=== PATIENT | male | born 1955 | race Caucasian/White ===

== ENCOUNTER 2017-07-07 13:56 | Inpatient (IN) | payer BC ==
[~2017-07-07] VITALS: Ht 180.3 cm; Wt 132.6 kg
[~2017-07-07 13:56] MED LIST: ASPI81TA81; ATOR10TA15 PO; COQ-100C5; COUM2.5T PO; COUM5TAB PO; FENO50TA PO; FURO1TAB60 PO; INSU100V2 SQ; MULT400T; SYNT112T PO; VALS1TAB70 PO; VITA100064 PO; WHEEMIS3
[2017-07-07 14:00] VITALS: BP 145/63; PULSE 67; RESP 20; TEMP 98.2; O2SAT 93
[2017-07-07] MEDS ORDERED: HYDR25TA5 PO (14:27)
[2017-07-07] MEDS ORDERED: JANT5TAB PO (14:27)
[2017-07-07] MEDS ORDERED: DOXA1TAB35 PO (14:27)
[2017-07-07] MEDS ORDERED: AMLO10TA2 PO (14:27)
[2017-07-07 15:53] LABS: AUTOMATED NEUTROPHIL # 6.8 TH/MM3 (1.8-7.7); BASOPHIL # 0.1 TH/MM3 (0-0.2); EOSINOPHIL # 0.1 TH/MM3 (0-0.4); HEMATOCRIT 31.6 % (39.0-51.0); HEMOGLOBIN 10.5 GM/DL (13.0-17.0); LYMPH % 8.9 % (9.0-44.0); LYMPHOCYTE # 0.7 TH/MM3 (1.0-4.8); MEAN CELL VOLUME 89.6 FL (80.0-100.0); MEAN CORPUSCULAR HEMOGLOBIN 29.7 PG (27.0-34.0); MEAN CORPUSCULAR HGB CONC 33.2 % (32.0-36.0); MEAN PLATELET VOLUME 9.3 FL (7.0-11.0); MONO % 6.4 % (0.0-8.0); MONOCYTE # 0.5 TH/MM3 (0-0.9); NEUT % 82.7 % (16.0-70.0); PLATELET COUNT 214 TH/MM3 (150-450); RED BLOOD COUNT 3.53 MIL/MM3 (4.50-5.90); RED CELL DISTRIBUTION WIDTH 14.6 % (11.6-17.2); WHITE BLOOD COUNT 8.3 TH/MM3 (4.0-11.0)
[2017-07-07 16:04] LABS: INTERNATIONAL NORMALIZED RATIO 2.1 RATIO; PROTHROMBIN TIME - PATIENT 21.2 SEC (9.8-11.6)
--- NOTE | 2017-07-07 16:04 | PD ---
HPI Chief Complaint: Medical Clearance Time Seen by Provider: 15:11 Travel History International Travel<30 days: No Contact w/Intl Traveler<30days: No Traveled to known affect area: No History of Present Illness HPI 61-year-old male the presents to the ED for evaluation of shortness of breath and weakness. Patient has had this for the past 4 days and is worsening. Per patient he does have a significant history of CKD with possible dialysis soon as well as a history of possible CHF. Per patient he also has a history of diabetes. He denies any chest pain but states having shortness of breath with exertion. Denies feeling like he is getting more fluid. He does take diuretics. He follows up with Dr. Mireles for nephrology. Per patient and family that are basically concerned about the kidney disease being worse. Has a history of MRSA. He also has a history of amputations to his feet. Per patient he does have a lesion to his left fourth toe which is slightly swollen and red. Per patient is followed up by his doctor for this. He follows with Dr. Gilmore for podiatry. He denies any trauma. He states that he has had a history of cardiac bypass. PFSH Past Medical History Hx Anticoagulant Therapy: Yes Arthritis: No Atrial Fibrillation: Yes Autoimmune Disease: No Blood Disorders: No Anxiety: No Depression: No Heart Rhythm Problems: Yes Cancer: Yes (THYROID-PARTIAL THYROIDECTOMY) Cardiac Catheterization: Yes Cardiovascular Problems: Yes High Cholesterol: Yes Chemotherapy: No Chest Pain: No Congestive Heart Failure: Yes Cerebrovascular Accident: Yes (TIA) Diabetes: Yes Patient Takes Glucophage: No Diminished Hearing: No Endocrine: Yes Gastrointestinal Disorders: Yes Glaucoma: No Genitourinary: No Hepatitis: No Hiatal Hernia: No Hypertension: Yes Immune Disorder: No Musculoskeletal: No Neurologic: Yes (FEET NEUROPATHY) Psychiatric: No Reproductive: No Respiratory: Yes (SLEEP APNEA) Myocardial Infarction: Yes (X 2) Radiation Therapy: No Sickle Cell Disease: No Sleep Apnea: Yes (CPAP) Thyroid Disease: Yes (PARTIAL THYROIDECTOMY-HYPOTHYROIDISM) PNEUMOCCOCAL Vaccine (Year): 2 Past Surgical History Abdominal Surgery: Yes ( LAP CHOLECYSTECTOMY) AICD: No Arteriovenous Shunt: No Cardiac Surgery: Yes (CABG-2006) Cholecystectomy: Yes (LAP 2001) Coronary Artery Bypass Graft: Yes (QUAD NOV 2006) Endocrine Surgery: Yes (THYROIDECTOMY 01/10) Eye Surgery: Yes Genitourinary Surgery: No Gynecologic Surgery: No Insulin Pump: No Joint Replacement: No Pacemaker: No Thoracic Surgery: Yes Tonsillectomy: Yes Other Surgery: Yes Social History Alcohol Use: No Tobacco Use: No (quit 1979) Substance Use: No Allergies-Medications (Allergen,Severity, Reaction): Coded Allergies: *MDRO Multi-Drug Resistant Organism (Verified Adverse Reaction, Unknown, ) MRSA (foot) - 07/2015 Reported Meds & Prescriptions Reported Meds & Active Scripts Active Reported Hydrochlorothiazide 25 Mg Tab 25 Mg PO DAILY Doxazosin (Doxazosin Mesylate) 2 Mg Tab 2 Mg PO BID Amlodipine (Amlodipine Besylate) 10 Mg Tab 10 Mg PO DAILY Jantoven (Warfarin) 5 Mg Tab 5 Mg PO DAILY Valsartan 320 Mg Tab 320 Mg PO DAILY Synthroid (Levothyroxine Sodium) 112 Mcg Tab 112 Mcg PO BID Aspir-81 (Aspirin) 81 Mg Tabdr Atorvastatin (Atorvastatin Calcium) 10 Mg Tab 10 Mg PO HS Coq-10 Tr (Coenzyme Q10 (Ubidecarenone)) 100 Mg Cap Mg DAILY Humulin R Inj (Insulin Human Regular) 1,000 Unit/10 Ml Vial 2-12 Units SQ ACHS Max dose at bedtime:( )units; sugars < 70 (0)units; sugars 150-199, (2)units; sugars 200-249,(4)units; sugars 250-299, (7)units; sugars 300-349,(10)units; sugars more than 349,(12)units. Lasix (Furosemide) 40 Mg Tab 40 Mg PO DAILY Tricor (Fenofibrate) 145 Mg Tab 145 Mg PO DAILY Takw with food. Vitamin D3 (Cholecalciferol) 1,000 Unit Tab 2,000 Units PO DAILY Review of Systems Except as stated in HPI: all other systems reviewed are Neg Physical Exam Narrative GENERAL: SKIN: Warm and dry. HEAD: Atraumatic. Normocephalic. EYES: Pupils equal and round. No scleral icterus. No injection or drainage. ENT: No nasal bleeding or discharge. Mucous membranes pink and moist. Tongue is midline. No uvula deviation. NECK: Trachea midline. No JVD. CARDIOVASCULAR: Regular rate and rhythm. No murmurs, S3, S4. RESPIRATORY: No accessory muscle use. Clear to auscultation. Breath sounds equal bilaterally. GASTROINTESTINAL: Abdomen soft, non-tender, nondistended. Hepatic and splenic margins not palpable. MUSCULOSKELETAL: Extremities without clubbing, cyanosis, or edema. No obvious deformities. Full range of motion of the upper and lower extremities bilaterally. 2+ pulses bilaterally. Patient does have multiple old amputations to the feet bilaterally with toes missing. Patient does have a area of erythema which is pinkish and blanchable and swelling of the fourth toe of the left foot. No obvious purulence found. NEUROLOGICAL: Awake and alert. No obvious cranial nerve deficits. Motor grossly within normal limits. Five out of 5 muscle strength in the arms and legs. Normal speech. PSYCHIATRIC: Appropriate mood and affect; insight and judgment normal. Data Data Last Documented VS Vital Signs Date Time Temp Pulse Resp B/P (MAP) Pulse Ox O2 Delivery O2 Flow Rate FiO2 07/07/17 17:18 64 21 151/67 (95) 97 Room Air 07/07/17 14:00 98.2 Orders Orders Electrocardiogram (07/07/17 15:26) Complete Blood Count With Diff (07/07/17 15:26) Comprehensive Metabolic Panel (07/07/17 15:26) Ckmb (Isoenzyme) Profile (07/07/17 15:26) Troponin I (07/07/17 15:26) B-Type Natriuretic Peptide (07/07/17 15:26) Prothrombin Time / Inr (Pt) (07/07/17 15:26) Act Partial Throm Time (Ptt) (07/07/17 15:26) Urinalysis - C+S If Indicated (07/07/17 15:26) Magnesium (Mg) (07/07/17 15:26) Thyroid Stimulating Hormone (07/07/17 15:26) Chest, Single Ap (07/07/17 15:26) Iv Access Insert/Monitor (07/07/17 15:26) Ecg Monitoring (07/07/17 15:26) Oximetry (07/07/17 15:26) Foot, Complete ([id number]) (07/07/17 ) CKMB (07/07/17 15:30) CKMB% (07/07/17 15:30) Furosemide Inj (Lasix Inj) (07/07/17 17:00) Vancomycin Inj (Vancomycin Inj) (07/07/17 17:00) Admit Order (Ed Use Only) (07/07/17 17:41) Consult Podiatry (07/07/17 ) Labs Laboratory Tests Test 07/07/17 15:30 07/07/17 15:58 White Blood Count 8.3 TH/MM3 Red Blood Count 3.53 MIL/MM3 Hemoglobin 10.5 GM/DL Hematocrit 31.6 % Mean Corpuscular Volume 89.6 FL Mean Corpuscular Hemoglobin 29.7 PG Mean Corpuscular Hemoglobin Concent 33.2 % Red Cell Distribution Width 14.6 % Platelet Count 214 TH/MM3 Mean Platelet Volume 9.3 FL Neutrophils (%) (Auto) 82.7 % Lymphocytes (%) (Auto) 8.9 % Monocytes (%) (Auto) 6.4 % Eosinophils (%) (Auto) 1.0 % Basophils (%) (Auto) 1.0 % Neutrophils # (Auto) 6.8 TH/MM3 Lymphocytes # (Auto) 0.7 TH/MM3 Monocytes # (Auto) 0.5 TH/MM3 Eosinophils # (Auto) 0.1 TH/MM3 Basophils # (Auto) 0.1 TH/MM3 CBC Comment DIFF FINAL Differential Comment Prothrombin Time 21.2 SEC Prothromb Time International Ratio 2.1 RATIO Activated Partial Thromboplast Time 35.2 SEC Blood Urea Nitrogen 52 MG/DL Creatinine 3.04 MG/DL Random Glucose 124 MG/DL Total Protein 6.9 GM/DL Albumin 3.2 GM/DL Calcium Level 8.6 MG/DL Magnesium Level 2.6 MG/DL Alkaline Phosphatase 100 U/L Aspartate Amino Transf (AST/SGOT) 33 U/L Alanine Aminotransferase (ALT/SGPT) 63 U/L Total Bilirubin 0.9 MG/DL Sodium Level 140 MEQ/L Potassium Level 4.2 MEQ/L Chloride Level 104 MEQ/L Carbon Dioxide Level 24.4 MEQ/L Anion Gap 12 MEQ/L Estimat Glomerular Filtration Rate 21 ML/MIN Total Creatine Kinase 320 U/L Creatine Kinase MB 2.5 NG/ML Creatine Kinase MB % 0.8 % Troponin I LESS THAN 0.02 NG/ML B-Type Natriuretic Peptide 78 PG/ML Thyroid Stimulating Hormone 3rd Gen 0.498 uIU/ML Urine Color YELLOW Urine Turbidity CLEAR Urine pH 5.0 Urine Specific [place] 1.011 Urine Protein TRACE mg/dL Urine Glucose (UA) NEG mg/dL Urine Ketones NEG mg/dL Urine Occult Blood NEG Urine Nitrite NEG Urine Bilirubin NEG Urine Urobilinogen LESS THAN 2.0 MG/DL Urine Leukocyte Esterase NEG Urine RBC 1 /hpf Urine WBC 1 /hpf Urine Squamous Epithelial Cells <1 /hpf Urine Hyaline Casts 3 /lpf Urine Mucus FEW /lpf Microscopic Urinalysis Comment CULT NOT INDICATED MDM Medical Decision Making Medical Screen Exam Complete: Yes Emergency Medical Condition: Yes Medical Record Reviewed: Yes Interpretation(s) EKG shows sinus rhythm with no sign of acute ischemia and arrhythmia read by me and attending. Troponin and CK-MB negative. BNP within normal limits. CBC & BMP Diagram 07/07/17 15:30 Total Protein 6.9, Albumin 3.2 L, Calcium Level 8.6, Magnesium Level 2.6 H, Alkaline Phosphatase 100, Aspartate Amino Transf (AST/SGOT) 33, Alanine Aminotransferase (ALT/SGPT) 63, Total Bilirubin 0.9 Last Impressions Chest X-Ray 07/07/17 1526 Signed Impressions: CONCLUSION: Widespread airspace opacities with cardiomegaly suggesting mild congestive hear t failure in the proper clinical setting. Foot X-Ray 07/07/17 0000 Signed Impressions: CONCLUSION: 1. Suspected acute osteomyelitis distally of the fourth toe distal phalanx. 2. Sclerosis and cortical thickening of the third and fourth metatarsals and a lso the fifth metatarsal remnant, nonspecific but chronic osteomyelitis is not excludable. No acute-appearing destruction seen of these bones. 3. Partial amputation of the second and third toes again noted without evidenc e of osteomyelitis or destruction of the phalangeal remnant. 4. Chronic Lisfranc arthropathy. Differential Diagnosis CHF exacerbation versus kidney disease versus shortness of breath and exertion versus ACS versus diabetic infection Narrative Course 61-year-old male the presents to the ED for evaluation of shortness of breath with exertion and fatigue. Patient was properly examined and was found to have signs and symptoms of unclear etiology. Labs and imaging order. Labs and imaging showed what appears to be mild CHF as well as osteomyelitis of the left fourth toe. Case was discussed with my attending who recommends admission. This was discussed with the patient who agrees with this. Patient was given Lasix as well as vancomycin to cover for infection. 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 Gilmore's partner who states that unfortunately did not come to this hospital and patient can be seen by or podiatry local telephone operator. Case was discussed with Dr. Georgie for [facility] who agrees to admission as inpatient secondary to the osteomyelitis. Patient and family agree with plan. Diagnosis Primary Impression: CHF exacerbation Qualified Codes: I50.9 - Heart failure, unspecified Additional Impression: Osteomyelitis Qualified Codes: M86.172 - Other acute osteomyelitis, left ankle and foot Admitting Information Admitting Physician Requests: Admit Baldemar Dillard Jul 07, 2017 16:04
[2017-07-07 16:13] LABS: ALBUMIN 3.2 GM/DL (3.4-5.0); ALT (GPT) 63 U/L (12-78); AST (GOT) 33 U/L (15-37); BICARBONATE 24.4 MEQ/L (21.0-32.0); BLOOD UREA NITROGEN 52 MG/DL (7-18); CALCIUM 8.6 MG/DL (8.5-10.1); CHLORIDE 104 MEQ/L (98-107); CREATININE 3.04 MG/DL (0.60-1.30); GLOMERULAR FILTRATION RATE 21 ML/MIN (>89); GLUCOSE,RANDOM 124 MG/DL (74-106); MAGNESIUM 2.6 MG/DL (1.5-2.5); SODIUM (NA) 140 MEQ/L (136-145)
--- NOTE | 2017-07-07 16:16 | RADRPT ---
EXAM DATE: 07/07/2017 4:13 PM EDT AGE/SEX: 61 years / Male INDICATIONS: Shortness of breath and right shoulder pain. CLINICAL DATA: This is the patient's initial encounter. Patient reports that signs and symptoms have been present for 4 - 6 days and indicates a pain score of 6/10. MEDICAL/SURGICAL HISTORY: Hypertension. Chronic obstructive pulmonary disease. AFIB. CABG. COMPARISON: [facility] [place], CHEST SINGLE AP, 06/05/2015. . FINDINGS: Patchy diffuse airspace opacities are seen of both lungs. No large effusion demonstrated. No pneumoth orax. There is mild cardiomegaly. Patient has had previous median sternotomy. CONCLUSION: Widespread airspace opacities with cardiomegaly suggesting mild congestive heart failure in the prope r clinical setting. Electronically signed by: Deon Rasmussen MD 07/07/2017 4:15 PM EDT
[2017-07-07 16:22] LABS: ALKALINE PHOSPHATASE 100 U/L (45-117); TOTAL BILIRUBIN ADULT 0.9 MG/DL (0.2-1.0); TOTAL PROTEIN 6.9 GM/DL (6.4-8.2); TROPONIN I LESS THAN 0.02 NG/ML (0.02-0.05)
[2017-07-07 16:24] LABS: BILIRUBIN, URINE NEG (NEG); BLOOD, URINE NEG (NEG); GLUCOSE,URINE NEG (NEG); HYALINE CAST, URINE 3 /lpf (RARE); KETONE, URINE NEG (NEG); MUCUS URINE FEW /lpf (OCC); NITRITE,URINE NEG (NEG); SQUAMOUS EPITHELIAL CELL URINE <1 /hpf (0-5); URINE COLOR YELLOW (YELLW/STRAW); URINE LEUKOCYTE ESTERASE NEG (NEG)
--- NOTE | 2017-07-07 16:43 | RADRPT ---
EXAM DATE: 07/07/2017 4:32 PM EDT AGE/SEX: 61 years / Male INDICATIONS: Left foot pain. Patient states he has an ulcer. CLINICAL DATA: This is the patient's initial encounter. Patient reports that signs and symptoms have been present for 3 weeks and indicates a pain score of 5/10. MEDICAL/SURGICAL HISTORY: None. . Multiple toe amputations on left foot. COMPARISON: . FINDINGS: Since the 2011 comparison, little toe has been amputated at the level of the fifth metatarsal midshaf t. I don't clearly see an acute bony destructive process here but there is quite a bit of sclerosis a nd cortical thickening of the fifth metatarsal remnant. Similar but slightly milder findings involve the fourth metatarsal and proximal portions of the third metatarsal. Forefoot predominant soft tissue swelling noted. 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 Remote partial amputation of the second and third toes. Marked osteopenia and probable early destruction distal tuft of the fourth toe distal phalanx. CONCLUSION: 1. Suspected acute osteomyelitis distally of the fourth toe distal phalanx. 2. Sclerosis and cortical thickening of the third and fourth metatarsals and also the fifth metatars al remnant, nonspecific but chronic osteomyelitis is not excludable. No acute-appearing destruction s een of these bones. 3. Partial amputation of the second and third toes again noted without evidence of osteomyelitis or destruction of the phalangeal remnant. 4. Chronic Lisfranc arthropathy. Electronically signed by: Deon Rasmussen MD 07/07/2017 4:42 PM EDT
[2017-07-07] MEDS ORDERED: FUROSEMIDE 40 MG/4 ML VIAL IV PUSH ONE (17:00)
[2017-07-07] MEDS ORDERED: VANCOMYCIN INJ 1,000 MG in SODIUM CHLOR 0.9% 250 ML INJ 250 ML IV ONE (17:00)
[2017-07-07 17:18] VITALS: BP 151/67; PULSE 64; RESP 21; O2SAT 97
--- NOTE | 2017-07-07 17:52 | HHI.HP ---
[facility] Service [facility] Primary Care Physician Garth Eisenberg M.D. Admission Diagnosis acute CHF exacerbation, left foot 4th toe oesteomyelitis Diagnoses: (1) SOB (shortness of breath) on exertion Diagnosis: Principal (2) CHF exacerbation (3) Type 2 diabetes mellitus with foot ulcer (4) CKD (chronic kidney disease) Chief Complaint: SOB with activity Travel History International Travel<30 Days: No Contact w/Intl Traveler <30 Da: No Traveled to Known Affected Are: No History of Present Illness 61-year-old male with past medical history of CHF, DM, CKD, CAD, neuropathy, MRSA with multiple toe amputations who presents to the emergency department with complaints of shortness of breath. Patient reports shortness of breath began 4 days ago, has noticed that he is increased shortness of breath with exertion, none at rest. Movement and activity will make shortness of breath worse, rest will improve shortness of breath. He denies any orthopnea, uses BiPAP at bedtime for sleep apnea. He follows up with his geotechnical laboratory technician Dr. Mai, was due to see him in several weeks after completing labs. He denies any increase swelling over legs, reports that his left leg is usually more swollen than the right, this is been chronic since his bypass surgery. He reports being compliant with his medications, has not noticed any increased in weight. He does endorse a cough which has been nonproductive, noticed that cough began Sunday. He denies any fevers, chills, nausea, vomiting, diarrhea , constipation, chest pain, dizziness or lightheadedness. Patient also reports that about 3 weeks ago he was out of town and went outside without any issues and subsequently developed a blister to the left fourth toe. He reports that he follows up with his materials tech Dr. Gilmore, has not seen him in several months. He denies any pain or discomfort, reports that he suffers from chronic neuropathy. Has not noticed any increased warmth, or redness around left foot or toes. Patient does report a history of MRSA with toe amputations in the past but denies any past medical history of osteomyelitis. Review of Systems Except as stated in HPI: all other systems reviewed are Neg Past Family Social History Past Medical History Hypertension Diabetes CHF (geotechnical laboratory technician Dr. Mai) Coronary artery disease Chronic kidney disease followed by Dr. Mireles Thyroid cancer TIA Neuropathy Sleep apnea MRSA of toes (materials tech Dr. Gilmore) Past Surgical History Bilateral toe amputations CABG Partial thyroidectomy Cholecystectomy Reported Medications Reported Meds & Active Scripts Active Reported Doxazosin (Doxazosin Mesylate) 2 Mg Tab 2 Mg PO BID Amlodipine (Amlodipine Besylate) 10 Mg Tab 10 Mg PO DAILY Jantoven (Warfarin) 5 Mg Tab 5 Mg PO DAILY Synthroid (Levothyroxine Sodium) 112 Mcg Tab 112 Mcg PO BID Aspir-81 (Aspirin) 81 Mg Tabdr Atorvastatin (Atorvastatin Calcium) 10 Mg Tab 10 Mg PO HS Coq-10 Tr (Coenzyme Q10 (Ubidecarenone)) 100 Mg Cap Mg DAILY Humulin R Inj (Insulin Human Regular) 1,000 Unit/10 Ml Vial 2-12 Units SQ ACHS Max dose at bedtime:( )units; sugars < 70 (0)units; sugars 150-199, (2)units; sugars 200-249,(4)units; sugars 250-299, (7)units; sugars 300-349,(10)units; sugars more than 349,(12)units. Lasix (Furosemide) 40 Mg Tab 40 Mg PO DAILY Tricor (Fenofibrate) 145 Mg Tab 145 Mg PO DAILY Takw with food. Vitamin D3 (Cholecalciferol) 1,000 Unit Tab 2,000 Units PO DAILY Allergies: Coded Allergies: *MDRO Multi-Drug Resistant Organism (Verified Adverse Reaction, Unknown, ) MRSA (foot) - 07/2015 Family History Father: Prostate cancer Mother: [place] and diabetes Brother: Aneurysm Social History Tobacco: Socially Alcohol use: Quit 30 years ago Illicit drug use: Denies Physical Exam Vital Signs Vital Signs Date Time Temp Pulse Resp B/P (MAP) Pulse Ox O2 Delivery O2 Flow Rate FiO2 07/07/17 17:18 64 21 151/67 (95) 97 Room Air 07/07/17 14:00 98.2 67 20 145/63 (90) 93 Physical Exam GENERAL: This well-developed patient, obese male, SOB with moving in bed. SKIN: No rashes, ecchymoses. Cool and dry. Right foot partial amputation of second toe, total amputation of fifth toe. Left foot with DIT of great toe, amputation of 2nd, 3rd, and fifth toe. Forth toe with noted wound about 1cm in diameter. No drainage noted, no visible erythema, or warmth. HEAD: Atraumatic. Normocephalic. EYES: Pupils equal round. Extraocular motions intact. No scleral icterus. No injection or drainage. ENT: Nose without bleeding, purulent drainage. Throat without erythema. Airway patent. NECK: Trachea midline. No JVD. Supple. CARDIOVASCULAR: Regular rate and rhythm without murmurs, gallops, or rubs. RESPIRATORY: Clear to auscultation, diminished at bases likely due to body habitus as well. Breath sounds equal bilaterally. No wheezes, rales, or rhonchi. Dyspneic with movement in bed. GASTROINTESTINAL: Abdomen soft, non-tender, obese and round. No guarding. + bowel sounds MUSCULOSKELETAL: Extremities without clubbing, cyanosis, or edema. No joint tenderness, effusion. No calf tenderness. Swelling of left toot and toe +1 NEUROLOGICAL: Awake and alert, oriented x3. Cranial nerves II through XII grossly intact. Motor and sensory grossly within normal limits. Five out of 5 muscle strength in all muscle groups. Normal speech. Laboratory Laboratory Tests Test 07/07/17 15:30 07/07/17 15:58 White Blood Count 8.3 Red Blood Count 3.53 Hemoglobin 10.5 Hematocrit 31.6 Mean Corpuscular Volume 89.6 Mean Corpuscular Hemoglobin 29.7 Mean Corpuscular Hemoglobin Concent 33.2 Red Cell Distribution Width 14.6 Platelet Count 214 Mean Platelet Volume 9.3 Neutrophils (%) (Auto) 82.7 Lymphocytes (%) (Auto) 8.9 Monocytes (%) (Auto) 6.4 Eosinophils (%) (Auto) 1.0 Basophils (%) (Auto) 1.0 Neutrophils # (Auto) 6.8 Lymphocytes # (Auto) 0.7 Monocytes # (Auto) 0.5 Eosinophils # (Auto) 0.1 Basophils # (Auto) 0.1 CBC Comment DIFF FINAL Differential Comment Prothrombin Time 21.2 Prothromb Time International Ratio 2.1 Activated Partial Thromboplast Time 35.2 Blood Urea Nitrogen 52 Creatinine 3.04 Random Glucose 124 Total Protein 6.9 Albumin 3.2 Calcium Level 8.6 Magnesium Level 2.6 Alkaline Phosphatase 100 Aspartate Amino Transf (AST/SGOT) 33 Alanine Aminotransferase (ALT/SGPT) 63 Total Bilirubin 0.9 Sodium Level 140 Potassium Level 4.2 Chloride Level 104 Carbon Dioxide Level 24.4 Anion Gap 12 Estimat Glomerular Filtration Rate 21 Total Creatine Kinase 320 Creatine Kinase MB 2.5 Creatine Kinase MB % 0.8 Troponin I LESS THAN 0.02 B-Type Natriuretic Peptide 78 Thyroid Stimulating Hormone 3rd Gen 0.498 Urine Color YELLOW Urine Turbidity CLEAR Urine pH 5.0 Urine Specific [place] 1.011 Urine Protein TRACE Urine Glucose (UA) NEG Urine Ketones NEG Urine Occult Blood NEG Urine Nitrite NEG Urine Bilirubin NEG Urine Urobilinogen LESS THAN 2.0 Urine Leukocyte Esterase NEG Urine RBC 1 Urine WBC 1 Urine Squamous Epithelial Cells <1 Urine Hyaline Casts 3 Urine Mucus FEW Microscopic Urinalysis Comment CULT NOT INDICATED Result Diagram: 07/07/17 1530 07/07/17 1530 Imaging Last Impressions Chest X-Ray 07/07/17 1526 Signed Impressions: CONCLUSION: Widespread airspace opacities with cardiomegaly suggesting mild congestive hear t failure in the proper clinical setting. Foot X-Ray 07/07/17 0000 Signed Impressions: CONCLUSION: 1. Suspected acute osteomyelitis distally of the fourth toe distal phalanx. 2. Sclerosis and cortical thickening of the third and fourth metatarsals and a lso the fifth metatarsal remnant, nonspecific but chronic osteomyelitis is not excludable. No acute-appearing destruction seen of these bones. 3. Partial amputation of the second and third toes again noted without evidenc e of osteomyelitis or destruction of the phalangeal remnant. 4. Chronic Lisfranc arthropathy. Caprini VTE Risk Assessment Caprini VTE Risk Assessment: Mod/High Risk (score >= 2) Caprini Risk Assessment Model Point Value = 1 Point Value = 2 Point Value = 3 Point Value = 5 Age 41-60 Minor surgery BMI > 25 kg/m2 Swollen legs Varicose veins or History of unexplained or recurrent spontaneous Oral contraceptives or hormone replacement Sepsis (< 1 month) Serious lung disease, including pneumonia (< 1 month) Abnormal pulmonary function Acute myocardial infarction Congestive heart failure (< 1 month) History of inflammatory bowel disease Medical patient at bed rest Age 61-74 Arthroscopic surgery Major open surgery (> 45 min) Laparoscopic surgery (> 45 min) Malignancy Confined to bed (> 72 hours) Immobilizing plaster cast Central venous access Age >= 75 History of VTE Family history of VTE Factor V Leiden Prothrombin [id number] Lupus anticoagulant Anticardiolipin antibodies Elevated serum homocysteine Heparin-induced thrombocytopenia Other congenital or acquired thrombophilia Stroke (< 1 month) Elective arthroplasty Hip, pelvis, or leg fracture Acute spinal cord injury (< 1 month) Prophylaxis Regimen Total Risk Factor Score Risk Level Prophylaxis Regimen 0-1 Low Early ambulation 2 Moderate Order ONE of the following: *Sequential Compression Device (SCD) *Heparin 5000 units SQ BID 3-4 Higher Order ONE of the following medications: *Heparin 5000 units SQ TID *Enoxaparin/Lovenox 40 mg SQ daily (WT < 150 kg, CrCl > 30 mL/min) *Enoxaparin/Lovenox 30 mg SQ daily (WT < 150 kg, CrCl > 10-29 mL/min) *Enoxaparin/Lovenox 30 mg SQ BID (WT < 150 kg, CrCl > 30 mL/min) AND/OR *Sequential Compression Device (SCD) 5 or more Highest Order ONE of the following medications: *Heparin 5000 units SQ TID (Preferred with Epidurals) *Enoxaparin/Lovenox 40 mg SQ daily (WT < 150 kg, CrCl > 30 mL/min) *Enoxaparin/Lovenox 30 mg SQ daily (WT < 150 kg, CrCl > 10-29 mL/min) *Enoxaparin/Lovenox 30 mg SQ BID (WT < 150 kg, CrCl > 30 mL/min) AND *Sequential Compression Device (SCD) Assessment and Plan Assessment and Plan 61-year-old male with past medical history of CHF, DM, CKD, CAD, neuropathy, MRSA with multiple toe amputations who presents to the emergency department with complaints of shortness of breath. Patient reports shortness of breath began 4 days ago, has noticed that he is increased shortness of breath with exertion, + nonproductive cough. CHF exacerbation - Chest x-ray reviewed, opacities throughout suggestive of CHF - BNP 78, EKG with normal sinus rhythm -Deceived Lasix IV 40 mg IV while in the ER -Cardiac diet, continue diuresis with IV Lasix, monitor electrolyte status -Check 2D echo -O2 via nasal cannula to keep sats greater than 92% Diabetic foot ulcers Possible osteomyelitis of left foot toe -Left foot x-ray reviewed, suspected acute osteomyelitis on distal fourth toe , sclerosis and cortical thickening of the third and fourth metatarsals as well as remnant fifth metatarsal. Seen partial amputation of second and third toes with no evidence of osteomyelitis, chronic Lisfranc arthropathy - Afebrile with no leukocytosis, neutrophils 82.7 -Patient received IV vancomycin while in the ER, continue for the moment, consult pharmacy for dosing. -Consult podiatry for further recommendations, appreciate input. DM - ADA diet, continue home dose Humulin R-500 ( spoke with pharmacist, there is an interchange available in house, will need ISS he utilizes at home to for pharmacy to dose) CKD- baseline creatinine around 1.9-2.6 - Creatinine around baseline, 3.04, possibly increased due to CHF exacerbation -Continue monitor renal function closely in light of starting IV vancomycin -Consult nephrology only if needed, his cotton farmer is Dr. Mireles. Hypertension Hyperlipidemia Hx CABG -Continue Norvasc 10 mg, Cardura 2 mg twice daily, TriCor 145 mg daily, Lipitor 10 mg at bedtime, low-dose aspirin and Coumadin. -INR on admission 2.1, continue Coumadin 2 mg daily, daily INRs, consult pharmacy to assist with dosing DVT prophylaxis-Coumadin Discussed Condition With Discussed with patient and at bedside, both agree with plan. Physician Certification 2 Midnight Certification Type: Admission for Inpatient Services Order for Inpatient Services The services are ordered in accordance with Medicare regulations or non- Medicare payer requirements, as applicable. In the case of services not specified as inpatient-only, they are appropriately provided as inpatient services in accordance with the 2-midnight benchmark. Estimated LOS (days): 3 days is the estimated time the patient will need to remain in the hospital, assuming treatment plan goals are met and no additional complications. Post-Hospital Plan: Home Cordelia Leary Jul 07, 2017 17:52
[2017-07-07] MEDS ORDERED: METOCLOPRAMIDE HCL 10 MG/2 ML VIAL IV PUSH PRN (18:15)
[2017-07-07] MEDS ORDERED: LACTULOSE SYRUP 20 GM/30 ML CUP PO PRN (18:15)
[2017-07-07] MEDS ORDERED: SENNOSIDES 8.6 MG TAB PO PRN (18:15)
[2017-07-07] MEDS ORDERED: NALOXONE HCL 0.4 MG/ML AMP IV PUSH PRN (18:15)
[2017-07-07] MEDS ORDERED: Vancomycin Consult Pharmacy 1 EA OTHER SCH (18:15)
[2017-07-07] MEDS ORDERED: MAGNESIUM HYDROXIDE SUSP 30 ML CUP PO PRN (18:15)
[2017-07-07] MEDS ORDERED: ACETAMINOPHEN 325 MG TAB PO PRN (18:15)
[2017-07-07] MEDS ORDERED: SODIUM CHLORIDE 0.9% FLUSH 10 ML FLUSH IV FLUSH PRN (18:15)
[2017-07-07] MEDS ORDERED: BISACODYL 10 MG SUPP RECTAL PRN (18:15)
[2017-07-07 19:10] VITALS: BP_SYST 140; BP_SYST 181; BP_DIAS 68; BP_DIAS 77; PULSE 106; PULSE 67; RESP 18; TEMP 98.3; O2SAT 96; O2SAT 97
--- NOTE | 2017-07-07 19:31 | RADRPT ---
EXAM DATE: 07/07/2017 7:16 PM EDT AGE/SEX: 61 years / Male INDICATIONS: Osteomyelitis. Wound to left 4th digit. CLINICAL DATA: This is the patient's initial encounter. Patient reports that signs and symptoms have been present for 1 day and indicates a pain score of 0/10. MEDICAL/SURGICAL HISTORY: Carcinoma, thyroid. Cardiovascular disease. Diabetes mellitus type II. CHF, renal failure. CABG. Cholecystectomy. Tonsillectomy. Bilateral toe amputations. COMPARISON: [facility] – [place], MRI FOOT LEFT W/O CONTRAST, 11/02/2011. . TECHNIQUE: Multiplanar, multisequence MRI examination was performed without contrast. FINDINGS: The patient is status post previous amputations of the fifth digit at the level of the mid metatarsal as well as second and third digit amputations at the levels of the second mid proximal ph alanx and the third middle phalanx. There is focal soft tissue swelling surrounding the fourth distal phalanx with T2 signal hyperintensity involving the fourth distal phalanx suggesting cellulitis and possible underlying osteomyelitis of this bone. Chronic erosions are again noted involving the proxim al portions of the second, third, fourth and fifth metatarsals as well as the cuboid and lateral cune iform bones. No deep soft tissue abscess is noted. CONCLUSION: 1. Focal soft tissue swelling surrounding the fourth distal phalanx with T2 signal hyperintensity in volving the fourth distal phalanx suggesting cellulitis and possible underlying osteomyelitis. Clinic al correlation is recommended. 2. Chronic erosions involving the proximal portions of the left second, third, fourth and fifth meta tarsals as well as the cuboid and lateral cuneiform bones which are likely arthritic in etiology. 3. No deep soft tissue abscess identified. Electronically signed by: Matthias Burnett MD 07/07/2017 7:30 PM EDT
[2017-07-07] MEDS ORDERED: VANCOMYCIN INJ 1,500 MG in SODIUM CHLORID 0.9% 500 ML INJ 500 ML IV ONE (19:39)
[2017-07-07 20:00] VITALS: BP 166/70; PULSE 64; RESP 20; TEMP 98.1; O2SAT 91
[2017-07-07] MEDS ORDERED: LEVOTHYROXINE SODIUM 112 MCG TAB PO SCH (20:00)
[2017-07-07] MEDS ORDERED: PATIENT OWN MEDICATION SQ SCH (21:00)
[2017-07-07] MEDS: ATORVASTATIN 10 MG TAB PO SCH (21:19)
[2017-07-07] MEDS: DOCUSATE SODIUM 50 MG/SENNA 8.6 MG TAB PO SCH (21:19)
[2017-07-07] MEDS: DOXAZOSIN MESYLATE 2 MG TAB PO SCH (21:19)
[2017-07-07] MEDS: SODIUM CHLORIDE 0.9% FLUSH 10 ML FLUSH IV FLUSH SCH (21:19)
[2017-07-08] VITALS (11 sets, daily range): BP systolic 140–162; BP diastolic 60–70; PULSE 63–92; RESP 16–20; TEMP 97.6–98.2; O2SAT 91–95
[2017-07-08] MEDS ORDERED: DEXTROSE 50% IN WATER 50 ML VIAL(D50) IV PUSH PRN (04:15)
[2017-07-08] MEDS ORDERED: GLUCAGON 1 MG/ML VIAL OTHER PRN (04:15)
[2017-07-08] MEDS ORDERED: LEVOTHYROXINE SODIUM 112 MCG TAB PO SCH (06:00)
[2017-07-08 06:14] LABS: AUTOMATED NEUTROPHIL # 5.7 TH/MM3 (1.8-7.7); BASOPHIL # 0.1 TH/MM3 (0-0.2); EOSINOPHIL # 0.2 TH/MM3 (0-0.4); EOSINOPHIL % 2.5 % (0.0-4.0); HEMATOCRIT 27.9 % (39.0-51.0); HEMOGLOBIN 9.3 GM/DL (13.0-17.0); LYMPH % 10.5 % (9.0-44.0); LYMPHOCYTE # 0.8 TH/MM3 (1.0-4.8); MEAN CELL VOLUME 89.2 FL (80.0-100.0); MEAN CORPUSCULAR HEMOGLOBIN 29.7 PG (27.0-34.0); MEAN CORPUSCULAR HGB CONC 33.3 % (32.0-36.0); MONO % 7.3 % (0.0-8.0); MONOCYTE # 0.5 TH/MM3 (0-0.9); NEUT % 78.7 % (16.0-70.0); PLATELET COUNT 219 TH/MM3 (150-450); RED BLOOD COUNT 3.13 MIL/MM3 (4.50-5.90); RED CELL DISTRIBUTION WIDTH 14.7 % (11.6-17.2); WHITE BLOOD COUNT 7.2 TH/MM3 (4.0-11.0)
[2017-07-08 06:21] LABS: PROTHROMBIN TIME - PATIENT 20.7 SEC (9.8-11.6)
[2017-07-08 06:37] LABS: BICARBONATE 24.1 MEQ/L (21.0-32.0); CALCIUM 8.2 MG/DL (8.5-10.1); CREATININE 2.87 MG/DL (0.60-1.30)
[2017-07-08] MEDS: FUROSEMIDE 40 MG/4 ML VIAL IV PUSH SCH (08:21)
[2017-07-08] MEDS: LOW DOSE INSULIN NOVOLOG SUPPLEMENTAL SCALE SQ SCH ×2 (08:21→12:46)
[2017-07-08] MEDS: ASPIRIN EC 81 MG TABEC PO SCH (08:22)
[2017-07-08] MEDS: DOXAZOSIN MESYLATE 2 MG TAB PO SCH ×2 (08:22→20:37)
[2017-07-08] MEDS: DOCUSATE SODIUM 50 MG/SENNA 8.6 MG TAB PO SCH ×2 (08:22→20:37)
[2017-07-08] MEDS: FENOFIBRATE 145 MG TAB PO SCH (08:22)
[2017-07-08] MEDS: SODIUM CHLORIDE 0.9% FLUSH 10 ML FLUSH IV FLUSH SCH ×2 (08:24→20:37)
--- NOTE | 2017-07-08 09:08 | HHI.PR ---
Subjective Remarks In the chair. Says breathing is better. No n/v/d/c. Feels tired. BS into a higher side No chest pain or sob No pain at the wounds in his feet. No fever or chills. Objective Vitals Vital Signs Date Time Temp Pulse Resp B/P (MAP) Pulse Ox O2 Delivery O2 Flow Rate FiO2 07/08/17 08:00 97.9 65 17 160/68 (98) 91 07/08/17 05:32 Room Air 07/08/17 04:13 65 07/08/17 04:00 97.9 89 20 140/60 (86) 92 07/08/17 00:34 95 21 07/08/17 00:00 98.2 92 20 148/68 (94) 92 07/07/17 22:00 Nasal Cannula 2.00 07/07/17 20:39 07/07/17 20:00 98.1 64 20 166/70 (102) 91 07/07/17 19:10 67 18 181/77 (111) 96 Nasal Cannula 1.00 07/07/17 17:18 64 21 151/67 (95) 97 Room Air 07/07/17 14:00 98.2 67 20 145/63 (90) 93 I/O 07/07/17 07/07/17 07/07/17 07/08/17 07/08/17 07/08/17 07:00 15:00 23:00 07:00 15:00 23:00 Intake Total 515 ml 240 ml Output Total 1575 ml 1200 ml Balance -1060 ml -960 ml Intake Oral 240 ml IV Total 515 ml Output Urine Total 1575 ml 1200 ml # Voids 4 Result Diagram: 07/08/17 0430 07/08/17 0430 Imaging Last Impressions Chest X-Ray 07/07/17 1526 Signed Impressions: CONCLUSION: Widespread airspace opacities with cardiomegaly suggesting mild congestive hear t failure in the proper clinical setting. Foot X-Ray 07/07/17 0000 Signed Impressions: CONCLUSION: 1. Suspected acute osteomyelitis distally of the fourth toe distal phalanx. 2. Sclerosis and cortical thickening of the third and fourth metatarsals and a lso the fifth metatarsal remnant, nonspecific but chronic osteomyelitis is not excludable. No acute-appearing destruction seen of these bones. 3. Partial amputation of the second and third toes again noted without evidenc e of osteomyelitis or destruction of the phalangeal remnant. 4. Chronic Lisfranc arthropathy. Foot MRI 07/07/17 0000 Signed Impressions: CONCLUSION: 1. Focal soft tissue swelling surrounding the fourth distal phalanx with T2 si gnal hyperintensity involving the fourth distal phalanx suggesting cellulitis a nd possible underlying osteomyelitis. Clinical correlation is recommended. 2. Chronic erosions involving the proximal portions of the left second, third, fourth and fifth metatarsals as well as the cuboid and lateral cuneiform bones which are likely arthritic in etiology. 3. No deep soft tissue abscess identified. Objective Remarks GENERAL: Pleasant 61 yo obese male, with some SOB with exertion. SKIN: No rashes, ecchymoses. Cool and dry. Right foot partial amputation of second toe, total amputation of fifth toe. Left foot with DIT of great toe, amputation of 2nd, 3rd, and fifth toe. Forth toe with noted wound about 1cm in diameter. No drainage noted, no visible erythema, or warmth. CARDIOVASCULAR: Regular rate and rhythm without murmurs, gallops, or rubs. RESPIRATORY: Clear to auscultation, decreased breath sounds at bases. No wheezes , rales, or rhonchi. GASTROINTESTINAL: Abdomen soft, non-tender, obese and round. No guarding. + bowel sounds MUSCULOSKELETAL: Extremities without clubbing, cyanosis, or edema. No joint tenderness, effusion. No calf tenderness. Swelling of left toot and toe +1 NEUROLOGICAL: Awake, alert and oriented x3. Cranial nerves grossly intact. Motor and sensory grossly within normal limits. Five out of 5 muscle strength in all muscle groups. Normal speech. A/P Problem List: (1) SOB (shortness of breath) on exertion ICD Code: R06.02 - Shortness of breath (2) CHF exacerbation ICD Code: I50.9 - Heart failure, unspecified (3) Type 2 diabetes mellitus with foot ulcer ICD Code: E11.621 - Type 2 diabetes mellitus with foot ulcer; L97.509 - Non- pressure chronic ulcer of other part of unspecified foot with unspecified severity Status: Acute (4) CKD (chronic kidney disease) ICD Code: N18.9 - Chronic kidney disease, unspecified Assessment and Plan 61-year-old male with past medical history of CHF, DM, CKD, CAD, neuropathy, MRSA with multiple toe amputations who presents to the emergency department with complaints of shortness of breath. Patient reports shortness of breath began 4 days ago, has noticed that he is increased shortness of breath with exertion, + nonproductive cough. CHF with acute exacerbation Chest x-ray reviewed, opacities throughout suggestive of CHF BNP 78 on admission EKG with normal sinus rhythm Healthy heart diet, continue diuresis with IV Lasix, monitor electrolyte status Check 2D echo O2 via nasal cannula to keep sats greater than 92% Diabetic foot ulcers Left 4th toe osteomyelitis Left plantar hallux ulcer Podiatry consulted appreciate recs Surgical shoe to wear left foot when ambulating. Discussed left hallux ulcer debridement and left 4th toe partial amputation, Surgery scheduled [address] Mcdonald. NPO after midnight on Sunday night Left foot x-ray reviewed, suspected acute osteomyelitis on distal fourth toe, sclerosis and cortical thickening of the third and fourth metatarsals as well as remnant fifth metatarsal. Seen partial amputation of second and third toes with no evidence of osteomyelitis, chronic Lisfranc arthropathy Afebrile with no leukocytosis, neutrophils 82.7 Continue vanco IV consult pharmacy for dosing. IDDM Patient follows with endocrinology Dr Lanier as OP ADA diet, not able to use home dose Humulin R-500 ISS change to med scale Add Insulin 7-/ start 10U BID as uncontrolled BS at this time. CKD- baseline creatinine around 1.9-2.6 Creatinine around baseline, 3.04, possibly increased due to CHF exacerbation Continue monitor renal function closely in light of starting IV vancomycin Consult nephrology only if needed, his hand crocheter is Dr. Mireles. Hypertension Hyperlipidemia Hx CABG Continue Norvasc 10 mg, Cardura 2 mg twice daily, TriCor 145 mg daily, Lipitor 10 mg at bedtime, low-dose aspirin and Coumadin. INR on admission 2.1, continue Coumadin 2 mg daily, daily INRs, consult pharmacy to assist with dosing Might consider switching to lovenox as plan for surgery on Sunday07/10/17 DVT prophylaxis-Coumadin Discussed Condition With Discussed with patient, nurse Evelyne Fernandez MD Jul 08, 2017 09:08
[2017-07-08] MEDS ORDERED: INSULIN HUMAN NPH/R 70/30 1,000 UNITS/10 ML VIAL SQ ONE (11:30)
--- NOTE | 2017-07-08 15:03 | PD.CONS ---
History of Present Illness Service Podiatry Consult Requested By Reason for Consult Left 4th toe osteomyelitis Primary Care Physician Garth Eisenberg M.D. Diagnoses: History of Present Illness Patient relates a 3-4 week history since he noticed the left 4th toe wound present. He says he has neuropathy and has history of multiple other toe amputations with Dr Gilmore in the past. He wants to follow up with Dr Gilmore when he is discharged from [place] for further foot care. He came in for other issues, but L 4th toe wound and infection was noted and worked up with findings consistent with osteomyelitis. 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 Mireles Thyroid cancer TIA Neuropathy Sleep apnea MRSA of toes (parent trainer Dr. Gilmore) Past Surgical History Bilateral toe amputations CABG Partial thyroidectomy Cholecystectomy Active Ordered Medications Current Medications Medications (Trade) Dose Ordered Sig/Sara Route Start Time Stop Time Status Last Admin (NS Flush) 2 ml UNSCH PRN IV FLUSH 07/07/17 18:15 (NS Flush) 2 ml BID IV FLUSH 07/07/17 21:00 07/08/17 08:24 (Tylenol) 650 mg Q4H PRN PO 07/07/17 18:15 (Reglan Inj) 5 mg Q6H PRN IV PUSH 07/07/17 18:15 (Narcan Inj) 0.4 mg UNSCH PRN IV PUSH 07/07/17 18:15 (Makayla-Colace) 1 tab BID PO 07/07/17 21:00 07/08/17 08:22 (Milk Of Magnesia Liq) 30 ml Q12H PRN PO 07/07/17 18:15 (Senokot) 17.2 mg Q12H PRN PO 07/07/17 18:15 (Dulcolax Supp) 10 mg DAILY PRN RECTAL 07/07/17 18:15 (Lactulose Liq) 30 ml DAILY PRN PO 07/07/17 18:15 Pharmacy Profile Note 0 ml @ 0 mls/hr UNSCH OTHER 07/07/17 18:15 Pharmacy Profile Note 0 ml @ 0 mls/hr UNSCH OTHER 07/07/17 18:15 (Lasix Inj) 40 mg DAILY IV PUSH 07/08/17 09:00 07/08/17 08:21 Patient Own Medication 1 ea ACHS SLIDING SCALE SQ 07/07/17 21:00 Future Hold (Norvasc) 10 mg DAILY PO 07/08/17 09:00 07/08/17 08:22 (Lipitor) 10 mg HS PO 07/07/17 21:00 07/07/17 21:19 (Cardura) 2 mg BID PO 07/07/17 21:00 07/08/17 08:22 (Tricor) 145 mg DAILY PO 07/08/17 09:00 07/08/17 08:22 (Coumadin) 5 mg DAILY@1600 PO 07/08/17 16:00 (Ecotrin Ec) 81 mg DAILY PO 07/08/17 09:00 07/08/17 08:22 (Coumadin Booklet) 1 ONCE ONCE .XX 07/08/17 16:00 07/08/17 16:01 (Synthroid) 224 mcg MoTuWeThFrSa@0600 PO 07/09/17 06:00 (Synthroid) 112 mcg Mayorga@0600 PO 07/08/17 06:00 07/08/17 05:26 (D50w (Vial) Inj) 50 ml UNSCH PRN IV PUSH 07/08/17 04:15 (Glucagon Inj) 1 mg UNSCH PRN OTHER 07/08/17 04:15 (NovoLOG SUPPLEMENTAL SCALE) 1 ACHS SLIDING SCALE SQ 07/08/17 08:00 07/08/17 12:46 (NovoLIN 70/30 INJ) 5 units BID@08,17 SQ 07/08/17 17:00 Family History Father: Prostate cancer Mother: [place] and diabetes Brother: Aneurysm Social History Tobacco: Socially Alcohol use: Quit 30 years ago Illicit drug use: Denies Physical Exam Vital Signs Vital Signs Date Time Temp Pulse Resp B/P (MAP) Pulse Ox O2 Delivery O2 Flow Rate FiO2 07/08/17 12:00 97.6 65 16 154/68 (96) 92 07/08/17 08:00 Room Air 07/08/17 08:00 97.9 65 17 160/68 (98) 91 07/08/17 07:59 87 07/08/17 05:32 Room Air 07/08/17 04:13 65 07/08/17 04:00 97.9 89 20 140/60 (86) 92 07/08/17 00:34 95 21 07/08/17 00:00 98.2 92 20 148/68 (94) 92 07/07/17 22:00 Nasal Cannula 2.00 07/07/17 20:39 07/07/17 20:00 98.1 64 20 166/70 (102) 91 07/07/17 19:10 67 18 181/77 (111) 96 Nasal Cannula 1.00 07/07/17 17:18 64 21 151/67 (95) 97 Room Air Physical Exam Left distal 4th toe with ulceration and purulent drainage, probes to bone, Edema /erythema. Previous amputation of 5th toes bilaterally, partial 2nd toe right, partial amputation of left 2nd and 3rd toes. Left plantar hallux with hyperkeratotic lesion with dark discoloration visualized beneath. Likely underlying ulceration. Laboratory Laboratory Tests Test 07/07/17 15:30 07/07/17 15:58 07/08/17 04:30 White Blood Count 8.3 7.2 Red Blood Count 3.53 3.13 Hemoglobin 10.5 9.3 Hematocrit 31.6 27.9 Mean Corpuscular Volume 89.6 89.2 Mean Corpuscular Hemoglobin 29.7 29.7 Mean Corpuscular Hemoglobin Concent 33.2 33.3 Red Cell Distribution Width 14.6 14.7 Platelet Count 214 219 Mean Platelet Volume 9.3 9.0 Neutrophils (%) (Auto) 82.7 78.7 Lymphocytes (%) (Auto) 8.9 10.5 Monocytes (%) (Auto) 6.4 7.3 Eosinophils (%) (Auto) 1.0 2.5 Basophils (%) (Auto) 1.0 1.0 Neutrophils # (Auto) 6.8 5.7 Lymphocytes # (Auto) 0.7 0.8 Monocytes # (Auto) 0.5 0.5 Eosinophils # (Auto) 0.1 0.2 Basophils # (Auto) 0.1 0.1 CBC Comment DIFF FINAL DIFF FINAL Differential Comment Prothrombin Time 21.2 20.7 Prothromb Time International Ratio 2.1 2.0 Activated Partial Thromboplast Time 35.2 Blood Urea Nitrogen 52 54 Creatinine 3.04 2.87 Random Glucose 124 301 Total Protein 6.9 Albumin 3.2 Calcium Level 8.6 8.2 Magnesium Level 2.6 Alkaline Phosphatase 100 Aspartate Amino Transf (AST/SGOT) 33 Alanine Aminotransferase (ALT/SGPT) 63 Total Bilirubin 0.9 Sodium Level 140 139 Potassium Level 4.2 4.4 Chloride Level 104 103 Carbon Dioxide Level 24.4 24.1 Anion Gap 12 12 Estimat Glomerular Filtration Rate 21 22 Total Creatine Kinase 320 Creatine Kinase MB 2.5 Creatine Kinase MB % 0.8 Troponin I LESS THAN 0.02 B-Type Natriuretic Peptide 78 Thyroid Stimulating Hormone 3rd Gen 0.498 Urine Color YELLOW Urine Turbidity CLEAR Urine pH 5.0 Urine Specific [place] 1.011 Urine Protein TRACE Urine Glucose (UA) NEG Urine Ketones NEG Urine Occult Blood NEG Urine Nitrite NEG Urine Bilirubin NEG Urine Urobilinogen LESS THAN 2.0 Urine Leukocyte Esterase NEG Urine RBC 1 Urine WBC 1 Urine Squamous Epithelial Cells <1 Urine Hyaline Casts 3 Urine Mucus FEW Microscopic Urinalysis Comment CULT NOT INDICATED Result Diagram: 07/08/17 0430 07/08/17 0430 Imaging Last 72 hours Impressions Chest X-Ray 07/07/17 1526 Signed Impressions: CONCLUSION: Widespread airspace opacities with cardiomegaly suggesting mild congestive hear t failure in the proper clinical setting. Foot X-Ray 07/07/17 0000 Signed Impressions: CONCLUSION: 1. Suspected acute osteomyelitis distally of the fourth toe distal phalanx. 2. Sclerosis and cortical thickening of the third and fourth metatarsals and a lso the fifth metatarsal remnant, nonspecific but chronic osteomyelitis is not excludable. No acute-appearing destruction seen of these bones. 3. Partial amputation of the second and third toes again noted without evidenc e of osteomyelitis or destruction of the phalangeal remnant. 4. Chronic Lisfranc arthropathy. Foot MRI 07/07/17 0000 Signed Impressions: CONCLUSION: 1. Focal soft tissue swelling surrounding the fourth distal phalanx with T2 si gnal hyperintensity involving the fourth distal phalanx suggesting cellulitis a nd possible underlying osteomyelitis. Clinical correlation is recommended. 2. Chronic erosions involving the proximal portions of the left second, third, fourth and fifth metatarsals as well as the cuboid and lateral cuneiform bones which are likely arthritic in etiology. 3. No deep soft tissue abscess identified. Assessment and Plan Assessment and Plan Left 4th toe osteomyelitis Left plantar hallux ulcer Ordered surgical shoe to wear left foot when ambulating. Discussed left hallux ulcer debridement and left 4th toe partial amputation, Surgery scheduled [address] Tamara MCQUEEN after midnight tomorrow night Consent ordered. ESR ordered Discussed with patient that he may follow up back with his parent trainer, Dr Gilmore, upon discharge within 1 week, for further wound care Tee Joe DPM Jul 08, 2017 15:03
--- NOTE | 2017-07-08 15:48 | EKG ---
Date Performed: 07/07/2017 Time Performed: 14:31:16 PTAGE: 61 years EKG: ATRIAL FLUTTER/TACHYCARDIA MODERATE INTRAVENTRICULAR CONDUCTION DELAY NONSPECIFIC T-WAVE AB NORMALITY ABNORMAL ECG PREVIOUS TRACING : 03/31/2012 05.08 Since previous tracing, there appears to be a rhythm change from Sinus rhythm to what appears to be atrial flutter with a fairly slow ventricular response of 65. Clinical correla tion is recommended. DOCTOR: Oscar Jones Interpretating Date/Time 07/08/2017 15:47:06
[2017-07-08] MEDS: WARFARIN SOD 5 MG TAB PO SCH (16:12)
[2017-07-08] MEDS ORDERED: INSULIN HUMAN NPH/R 70/30 1,000 UNITS/10 ML VIAL SQ SCH (17:00)
[2017-07-08] MEDS: MEDIUM DOSE INSULIN NOVOLOG SUPPLEMENTAL SCALE SQ SCH ×2 (17:29→20:44)
[2017-07-08] MEDS: INSULIN HUMAN NPH/R 70/30 1,000 UNITS/10 ML VIAL SQ SCH (17:29)
[2017-07-08] MEDS: ATORVASTATIN 10 MG TAB PO SCH (20:37)
[2017-07-09] VITALS (7 sets, daily range): BP systolic 130–172; BP diastolic 58–84; PULSE 64–67; RESP 16–20; TEMP 97.3–98.3; O2SAT 91–97
[2017-07-09] MEDS: LEVOTHYROXINE SODIUM 112 MCG TAB PO SCH (06:18)
[2017-07-09] MEDS: MEDIUM DOSE INSULIN NOVOLOG SUPPLEMENTAL SCALE SQ SCH ×4 (08:00→20:54)
[2017-07-09] MEDS: INSULIN HUMAN NPH/R 70/30 1,000 UNITS/10 ML VIAL SQ SCH ×2 (08:39→17:28)
[2017-07-09] MEDS: FUROSEMIDE 40 MG/4 ML VIAL IV PUSH SCH (08:40)
[2017-07-09] MEDS: DOXAZOSIN MESYLATE 2 MG TAB PO SCH ×2 (08:40→20:20)
[2017-07-09] MEDS: SODIUM CHLORIDE 0.9% FLUSH 10 ML FLUSH IV FLUSH SCH ×2 (08:40→20:20)
[2017-07-09] MEDS: FENOFIBRATE 145 MG TAB PO SCH (08:40)
[2017-07-09] MEDS: ASPIRIN EC 81 MG TABEC PO SCH (08:40)
[2017-07-09] MEDS: DOCUSATE SODIUM 50 MG/SENNA 8.6 MG TAB PO SCH ×2 (08:40→20:20)
--- NOTE | 2017-07-09 08:51 | HHI.PR ---
Subjective Remarks SOB improved. No fever or chills. No n/v/d. Some constipation No pain in his foot. Objective Vitals Vital Signs Date Time Temp Pulse Resp B/P (MAP) Pulse Ox O2 Delivery O2 Flow Rate FiO2 07/09/17 04:00 98.1 64 16 137/63 (87) 95 07/09/17 00:00 97.3 64 16 130/58 (82) 94 07/08/17 23:57 63 07/08/17 21:00 Room Air 07/08/17 20:00 97.8 72 18 162/66 (98) 94 07/08/17 19:56 64 07/08/17 16:00 98.0 69 17 162/70 (100) 94 07/08/17 12:00 97.6 65 16 154/68 (96) 92 I/O 07/08/17 07/08/17 07/08/17 07/09/17 07/09/17 07/09/17 07:00 15:00 23:00 07:00 15:00 23:00 Intake Total 240 ml 1600 ml Output Total 1200 ml Balance -960 ml 1600 ml Intake Oral 240 ml 1600 ml Output Urine Total 1200 ml # Voids 10 5 # Bowel Movements 0 Result Diagram: 07/08/17 0430 07/08/17 0430 Imaging Last Impressions Extremity Arterial Study 07/09/17 0000 Signed Impressions: CONCLUSION: Negative study Chest X-Ray 07/07/17 1526 Signed Impressions: CONCLUSION: Widespread airspace opacities with cardiomegaly suggesting mild congestive hear t failure in the proper clinical setting. Foot X-Ray 07/07/17 0000 Signed Impressions: CONCLUSION: 1. Suspected acute osteomyelitis distally of the fourth toe distal phalanx. 2. Sclerosis and cortical thickening of the third and fourth metatarsals and a lso the fifth metatarsal remnant, nonspecific but chronic osteomyelitis is not excludable. No acute-appearing destruction seen of these bones. 3. Partial amputation of the second and third toes again noted without evidenc e of osteomyelitis or destruction of the phalangeal remnant. 4. Chronic Lisfranc arthropathy. Foot MRI 07/07/17 0000 Signed Impressions: CONCLUSION: 1. Focal soft tissue swelling surrounding the fourth distal phalanx with T2 si gnal hyperintensity involving the fourth distal phalanx suggesting cellulitis a nd possible underlying osteomyelitis. Clinical correlation is recommended. 2. Chronic erosions involving the proximal portions of the left second, third, fourth and fifth metatarsals as well as the cuboid and lateral cuneiform bones which are likely arthritic in etiology. 3. No deep soft tissue abscess identified. Objective Remarks GENERAL: Pleasant 61 yo obese male, with some SOB with exertion. SKIN: No rashes, ecchymoses. Cool and dry. Right foot partial amputation of second toe, total amputation of fifth toe. Left foot with DIT of great toe, amputation of 2nd, 3rd, and fifth toe. Forth toe with noted wound about 1cm in diameter. No drainage noted, no visible erythema, or warmth. CARDIOVASCULAR: Regular rate and rhythm without murmurs, gallops, or rubs. RESPIRATORY: Clear to auscultation, decreased breath sounds at bases. No wheezes , rales, or rhonchi. GASTROINTESTINAL: Abdomen soft, non-tender, obese and round. No guarding. + bowel sounds MUSCULOSKELETAL: Extremities without clubbing, cyanosis, or edema. No joint tenderness, effusion. No calf tenderness. Swelling of left toot and toe +1 NEUROLOGICAL: Awake, alert and oriented x3. Cranial nerves grossly intact. Motor and sensory grossly within normal limits. Five out of 5 muscle strength in all muscle groups. Normal speech. A/P Problem List: (1) SOB (shortness of breath) on exertion ICD Code: R06.02 - Shortness of breath (2) CHF exacerbation ICD Code: I50.9 - Heart failure, unspecified (3) Type 2 diabetes mellitus with foot ulcer ICD Code: E11.621 - Type 2 diabetes mellitus with foot ulcer; L97.509 - Non- pressure chronic ulcer of other part of unspecified foot with unspecified severity Status: Acute (4) CKD (chronic kidney disease) ICD Code: N18.9 - Chronic kidney disease, unspecified Assessment and Plan 61-year-old male with past medical history of CHF, DM, CKD, CAD, neuropathy, MRSA with multiple toe amputations who presents to the emergency department with complaints of shortness of breath. Patient reports shortness of breath began 4 days ago, has noticed that he is increased shortness of breath with exertion, + nonproductive cough. CHF with acute exacerbation Chest x-ray reviewed, opacities throughout suggestive of CHF BNP 78 on admission EKG with normal sinus rhythm Healthy heart diet, continue diuresis with IV Lasix, monitor electrolyte status Check 2D echo O2 via nasal cannula to keep sats greater than 92% Diabetic foot ulcers Left 4th toe osteomyelitis Left plantar hallux ulcer Podiatry consulted appreciate recs Surgical shoe to wear left foot when ambulating. Discussed left hallux ulcer debridement and left 4th toe partial amputation, Surgery scheduled [address] Mcdonald. NPO after midnight on Sunday night Left foot x-ray reviewed, suspected acute osteomyelitis on distal fourth toe, sclerosis and cortical thickening of the third and fourth metatarsals as well as remnant fifth metatarsal. Seen partial amputation of second and third toes with no evidence of osteomyelitis, chronic Lisfranc arthropathy Afebrile with no leukocytosis, neutrophils 82.7 Continue vanco IV consult pharmacy for dosing. IDDM Patient follows with endocrinology Dr Lanier as OP ADA diet, not able to use home dose Humulin R-500 ISS change to med scale Add Insulin start 10U BID as uncontrolled BS at this time. 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 Hypertension Hyperlipidemia Hx CABG Continue Norvasc 10 mg, Cardura 2 mg twice daily, TriCor 145 mg daily, Lipitor 10 mg at bedtime, low-dose aspirin and Coumadin. INR on admission 2.1, continue Coumadin 2 mg daily, daily INRs, consult pharmacy to assist with dosing Might consider switching to lovenox as plan for surgery on Sunday07/10/17, anticoagulation per surgeon Constipation: bowel regimen DVT prophylaxis-Coumadin Discussed Condition With Discussed with patient, nurse Evelyne Fernandez MD Jul 09, 2017 08:51
[2017-07-09 11:44] LABS: AUTOMATED NEUTROPHIL # 4.1 TH/MM3 (1.8-7.7); BASOPHIL # 0.1 TH/MM3 (0-0.2); BASOPHIL % 1.2 % (0.0-2.0); EOSINOPHIL # 0.2 TH/MM3 (0-0.4); EOSINOPHIL % 4.3 % (0.0-4.0); HEMATOCRIT 29.8 % (39.0-51.0); HEMOGLOBIN 10.2 GM/DL (13.0-17.0); LYMPH % 15.9 % (9.0-44.0); LYMPHOCYTE # 0.9 TH/MM3 (1.0-4.8); MEAN CELL VOLUME 87.6 FL (80.0-100.0); MEAN CORPUSCULAR HEMOGLOBIN 29.9 PG (27.0-34.0); MEAN CORPUSCULAR HGB CONC 34.1 % (32.0-36.0); MEAN PLATELET VOLUME 8.4 FL (7.0-11.0); MONO % 6.7 % (0.0-8.0); MONOCYTE # 0.4 TH/MM3 (0-0.9); NEUT % 71.9 % (16.0-70.0); PLATELET COUNT 240 TH/MM3 (150-450); RED CELL DISTRIBUTION WIDTH 14.5 % (11.6-17.2); WHITE BLOOD COUNT 5.7 TH/MM3 (4.0-11.0)
[2017-07-09 11:55] LABS: INTERNATIONAL NORMALIZED RATIO 1.8 RATIO; PROTHROMBIN TIME - PATIENT 18.5 SEC (9.8-11.6)
[2017-07-09 12:16] LABS: BICARBONATE 25.7 MEQ/L (21.0-32.0); CALCIUM 8.7 MG/DL (8.5-10.1); CREATININE 2.39 MG/DL (0.60-1.30); MAGNESIUM 2.6 MG/DL (1.5-2.5); RANDOM VANCOMYCIN 8.1 COMMENT
[2017-07-09] MEDS ORDERED: VANCOMYCIN INJ 2,000 MG in SODIUM CHLORID 0.9% 500 ML INJ 500 ML IV ONE (15:00)
[2017-07-09 16:57] LABS: HEMOGLOBIN A1C 7.4 % (4.3-6.0)
[2017-07-09] MEDS: WARFARIN SOD 5 MG TAB PO SCH (17:27)
[2017-07-09] MEDS: ATORVASTATIN 10 MG TAB PO SCH (20:20)
--- NOTE | 2017-07-09 20:52 | HHI.PR ---
Subjective Remarks Patient seen bedside resting comfortably. No concerns at this time. Denies any nausea vomiting fevers or chills Objective Vital Signs Date Time Temp Pulse Resp B/P (MAP) Pulse Ox O2 Delivery O2 Flow Rate FiO2 07/09/17 16:00 97.8 65 18 158/70 (99) 96 07/09/17 12:00 98.3 66 17 156/69 (98) 93 07/09/17 10:01 97 21 07/09/17 08:00 98.2 65 17 172/84 (113) 91 07/09/17 04:00 98.1 64 16 137/63 (87) 95 07/09/17 00:00 97.3 64 16 130/58 (82) 94 07/08/17 23:57 63 07/08/17 21:00 Room Air I/O 07/08/17 07/08/17 07/08/17 07/09/17 07/09/17 07/09/17 06:59 14:59 22:59 06:59 14:59 22:59 Intake Total 755 ml 1600 ml 1165 ml Output Total 1200 ml Balance -445 ml 1600 ml 1165 ml Intake Oral 240 ml 1600 ml 645 ml IV Total 515 ml 520 ml Output Urine Total 1200 ml # Voids 10 5 7 # Bowel Movements 0 0 Result Diagram: 07/09/17 1049 07/09/17 1049 Imaging Last Impressions Chest X-Ray 07/07/17 1526 Signed Impressions: CONCLUSION: Widespread airspace opacities with cardiomegaly suggesting mild congestive hear t failure in the proper clinical setting. Foot X-Ray 07/07/17 0000 Signed Impressions: CONCLUSION: 1. Suspected acute osteomyelitis distally of the fourth toe distal phalanx. 2. Sclerosis and cortical thickening of the third and fourth metatarsals and a lso the fifth metatarsal remnant, nonspecific but chronic osteomyelitis is not excludable. No acute-appearing destruction seen of these bones. 3. Partial amputation of the second and third toes again noted without evidenc e of osteomyelitis or destruction of the phalangeal remnant. 4. Chronic Lisfranc arthropathy. Foot MRI 07/07/17 0000 Signed Impressions: CONCLUSION: 1. Focal soft tissue swelling surrounding the fourth distal phalanx with T2 si gnal hyperintensity involving the fourth distal phalanx suggesting cellulitis a nd possible underlying osteomyelitis. Clinical correlation is recommended. 2. Chronic erosions involving the proximal portions of the left second, third, fourth and fifth metatarsals as well as the cuboid and lateral cuneiform bones which are likely arthritic in etiology. 3. No deep soft tissue abscess identified. Objective Remarks Left distal 4th toe with ulceration and purulent drainage, probes to bone, Edema /erythema. Previous amputation of 5th toes bilaterally, partial 2nd toe right, partial amputation of left 2nd and 3rd toes. DP/PT nonpalpable secondary to edema. Pitting edema noted to left lower extremity. Brawny induration noted to left lower extremity. Left plantar hallux with hyperkeratotic lesion with dark discoloration visualized beneath. Likely underlying ulceration. Medications and IVs Current Medications Medications (Trade) Dose Ordered Sig/Sara Route Start Time Stop Time Status Last Admin (NS Flush) 2 ml UNSCH PRN IV FLUSH 07/07/17 18:15 (NS Flush) 2 ml BID IV FLUSH 07/07/17 21:00 07/09/17 20:20 (Tylenol) 650 mg Q4H PRN PO 07/07/17 18:15 (Reglan Inj) 5 mg Q6H PRN IV PUSH 07/07/17 18:15 (Narcan Inj) 0.4 mg UNSCH PRN IV PUSH 07/07/17 18:15 (Makayla-Colace) 1 tab BID PO 07/07/17 21:00 07/09/17 20:20 (Milk Of Magnesia Liq) 30 ml Q12H PRN PO 07/07/17 18:15 (Senokot) 17.2 mg Q12H PRN PO 07/07/17 18:15 (Dulcolax Supp) 10 mg DAILY PRN RECTAL 07/07/17 18:15 (Lactulose Liq) 30 ml DAILY PRN PO 07/07/17 18:15 Pharmacy Profile Note 0 ml @ 0 mls/hr UNSCH OTHER 07/07/17 18:15 Pharmacy Profile Note 0 ml @ 0 mls/hr UNSCH OTHER 07/07/17 18:15 (Lasix Inj) 40 mg DAILY IV PUSH 07/08/17 09:00 07/09/17 08:40 Patient Own Medication 1 ea ACHS SLIDING SCALE SQ 07/07/17 21:00 Future Hold (Norvasc) 10 mg DAILY PO 07/08/17 09:00 07/09/17 08:40 (Lipitor) 10 mg HS PO 07/07/17 21:00 07/09/17 20:20 (Cardura) 2 mg BID PO 07/07/17 21:00 07/09/17 20:20 (Tricor) 145 mg DAILY PO 07/08/17 09:00 07/09/17 08:40 (Coumadin) 5 mg DAILY@1600 PO 07/08/17 16:00 07/09/17 17:27 (Ecotrin Ec) 81 mg DAILY PO 07/08/17 09:00 07/09/17 08:40 (Synthroid) 224 mcg MoTuWeThFrSa@0600 PO 07/09/17 06:00 07/09/17 06:18 (Synthroid) 112 mcg Mayorga@0600 PO 07/08/17 06:00 07/08/17 05:26 (D50w (Vial) Inj) 50 ml UNSCH PRN IV PUSH 07/08/17 04:15 (Glucagon Inj) 1 mg UNSCH PRN OTHER 07/08/17 04:15 (NovoLOG SUPPLEMENTAL SCALE) 1 ACHS SLIDING SCALE SQ 07/08/17 17:00 07/09/17 17:00 (NovoLIN 70/30 INJ) 15 units BID@08,17 SQ 07/09/17 17:00 07/09/17 17:28 Assessment and Plan Assessment and Plan 61-year-old male with left fourth distal phalanx osteomyelitis and left plantar hallux ulceration Patient examined and evaluated with all questions answered Ordered ABIs as patient's pulses are nonpalpable 2 OR tomorrow pending ABIs for left fourth digit partial amputation and left plantar hallux ulcer debridement N.p.o. after midnight Trish Mcdonald DPM Jul 09, 2017 20:52
[2017-07-10] VITALS (8 sets, daily range): BP systolic 141–174; BP diastolic 66–93; PULSE 62–74; RESP 18–20; TEMP 97.1–98.2; O2SAT 93–97
[2017-07-10] MEDS: LEVOTHYROXINE SODIUM 112 MCG TAB PO SCH (05:36)
[2017-07-10] MEDS ORDERED: CHLORHEXIDINE GLUCONATE 2 % 1 PACK (2 CLOTHS) TOPICAL PRN (06:45)
[2017-07-10] MEDS ORDERED: SODIUM CHLORID 0.9% 500 ML IV PRN (06:45)
[2017-07-10] MEDS: INSULIN HUMAN NPH/R 70/30 1,000 UNITS/10 ML VIAL SQ SCH (08:04)
[2017-07-10] MEDS: MEDIUM DOSE INSULIN NOVOLOG SUPPLEMENTAL SCALE SQ SCH ×4 (08:05→21:19)
[2017-07-10] MEDS: SODIUM CHLORIDE 0.9% FLUSH 10 ML FLUSH IV FLUSH SCH ×2 (08:05→21:00)
[2017-07-10] MEDS: FUROSEMIDE 40 MG/4 ML VIAL IV PUSH SCH (08:07)
[2017-07-10] MEDS: FENOFIBRATE 145 MG TAB PO SCH (08:08)
[2017-07-10] MEDS: DOCUSATE SODIUM 50 MG/SENNA 8.6 MG TAB PO SCH ×2 (08:08→21:06)
[2017-07-10] MEDS: ASPIRIN EC 81 MG TABEC PO SCH (08:08)
[2017-07-10] MEDS: DOXAZOSIN MESYLATE 2 MG TAB PO SCH ×2 (08:08→21:06)
[2017-07-10 08:31] LABS: INTERNATIONAL NORMALIZED RATIO 1.9 RATIO; PROTHROMBIN TIME - PATIENT 19.4 SEC (9.8-11.6)
[2017-07-10 08:45] LABS: CREATININE 2.06 MG/DL (0.60-1.30)
[2017-07-10 08:47] LABS: RANDOM VANCOMYCIN 14.9 COMMENT
--- NOTE | 2017-07-10 10:01 | RADRPT ---
EXAM DATE: 07/10/2017 9:30 AM EDT AGE/SEX: 61 years / Male INDICATIONS: ACUTE CHF, DIABETES, LEFT FOOT OSTEOMYELITIS CLINICAL DATA: This is the patient's initial encounter. Patient reports that signs and symptoms have been present for 1 month and indicates a pain score of 0/10. MEDICAL/SURGICAL HISTORY: . DIABETES, HX MRSA, HX OF TIA, NEUROPATHY, SLEEP APNEA . LEFT TOE A MPUTATIONS, CABG 2006, THYROIDECTOMY 2005, EYE SURGERY, COMPARISON: No prior [place] exams available for comparison. TECHNIQUE: Four-cuff ankle and brachial pressures were obtained. Pulse cuff waveform tracings of the ankles were recorded, and ankle-brachial indices were calculated. PRESSURES (mmHg): Brachial (arm) : RIGHT: 156, LEFT: IV SITE Ankle : RIGHT: 190, LEFT: 158 JAVIER : RIGHT: 1.22, LEFT: 1.01 TBI : RIGHT: 1.06, LEFT: 0.70 PULSED CUFF WAVEFORMS: Demonstrate normal amplitude bilaterally. CONCLUSION: Negative study Electronically signed by: Deon Tuttle MD 07/10/2017 9:59 AM EDT
[2017-07-10] MEDS ORDERED: PHENYLEPH/NS 1000 MCG/10 ML SYR IV ONE (12:00)
[2017-07-10] MEDS ORDERED: DEXAMETHASONE SOD PHOS 4 MG/ML VIAL IV ONE (12:00)
[2017-07-10] MEDS ORDERED: LIDOCAINE HCL 1% PF 5 ML SYRINGE OTHER ONE (12:00)
[2017-07-10] MEDS ORDERED: PROPOFOL 200 MG/20 ML AMP IV ONE (12:00)
[2017-07-10] MEDS ORDERED: ONDANSETRON HCL 4 MG/2 ML VIAL IV ONE (12:00)
--- NOTE | 2017-07-10 12:05 | HHI.PR ---
Subjective Remarks In the chair. Family at bedside Gettign ready for surgery at noon No fever ro chills Satting well on room air. Says no sob, and is able to ambulate without getting sob LE edema improved but not much No fever or chills/ Objective Vitals Vital Signs Date Time Temp Pulse Resp B/P (MAP) Pulse Ox O2 Delivery O2 Flow Rate FiO2 07/10/17 08:00 Room Air 07/10/17 07:32 98.2 65 18 174/74 (107) 94 07/10/17 04:00 97.3 63 20 159/79 (105) 96 07/10/17 00:00 97.9 74 20 167/74 (105) 95 07/09/17 20:00 97.9 67 20 166/74 (104) 97 07/09/17 16:00 97.8 65 18 158/70 (99) 96 I/O 07/09/17 07/09/17 07/09/17 07/10/17 07/10/17 07/10/17 07:00 15:00 23:00 07:00 15:00 23:00 Intake Total 1165 ml 0 ml Balance 1165 ml 0 ml Intake Oral 645 ml 0 ml IV Total 520 ml # Voids 5 7 2 # Bowel Movements 0 0 Result Diagram: 07/09/17 1049 07/10/17 0731 Imaging Last Impressions Extremity Arterial Study 07/09/17 0000 Signed Impressions: CONCLUSION: Negative study Chest X-Ray 07/07/17 1526 Signed Impressions: CONCLUSION: Widespread airspace opacities with cardiomegaly suggesting mild congestive hear t failure in the proper clinical setting. Foot X-Ray 07/07/17 0000 Signed Impressions: CONCLUSION: 1. Suspected acute osteomyelitis distally of the fourth toe distal phalanx. 2. Sclerosis and cortical thickening of the third and fourth metatarsals and a lso the fifth metatarsal remnant, nonspecific but chronic osteomyelitis is not excludable. No acute-appearing destruction seen of these bones. 3. Partial amputation of the second and third toes again noted without evidenc e of osteomyelitis or destruction of the phalangeal remnant. 4. Chronic Lisfranc arthropathy. Foot MRI 07/07/17 0000 Signed Impressions: CONCLUSION: 1. Focal soft tissue swelling surrounding the fourth distal phalanx with T2 si gnal hyperintensity involving the fourth distal phalanx suggesting cellulitis a nd possible underlying osteomyelitis. Clinical correlation is recommended. 2. Chronic erosions involving the proximal portions of the left second, third, fourth and fifth metatarsals as well as the cuboid and lateral cuneiform bones which are likely arthritic in etiology. 3. No deep soft tissue abscess identified. Objective Remarks GENERAL: Pleasant 61 yo obese male, with some SOB with exertion. SKIN: No rashes, ecchymoses. Cool and dry. Right foot partial amputation of second toe, total amputation of fifth toe. Left foot with DIT of great toe, amputation of 2nd, 3rd, and fifth toe. Forth toe with noted wound about 1cm in diameter. No drainage noted, no visible erythema, or warmth. CARDIOVASCULAR: Regular rate and rhythm without murmurs, gallops, or rubs. RESPIRATORY: Clear to auscultation, decreased breath sounds at bases. No wheezes , rales, or rhonchi. GASTROINTESTINAL: Abdomen soft, non-tender, obese and round. No guarding. + bowel sounds MUSCULOSKELETAL: Extremities without clubbing, cyanosis, or edema. No joint tenderness, effusion. No calf tenderness. Swelling of left toot and toe +1 NEUROLOGICAL: Awake, alert and oriented x3. Cranial nerves grossly intact. Motor and sensory grossly within normal limits. Five out of 5 muscle strength in all muscle groups. Normal speech. A/P Problem List: (1) SOB (shortness of breath) on exertion ICD Code: R06.02 - Shortness of breath (2) CHF exacerbation ICD Code: I50.9 - Heart failure, unspecified (3) Type 2 diabetes mellitus with foot ulcer ICD Code: E11.621 - Type 2 diabetes mellitus with foot ulcer; L97.509 - Non- pressure chronic ulcer of other part of unspecified foot with unspecified severity Status: Acute (4) CKD (chronic kidney disease) ICD Code: N18.9 - Chronic kidney disease, unspecified Assessment and Plan 61-year-old male with past medical history of CHF, DM, CKD, CAD, neuropathy, MRSA with multiple toe amputations who presents to the emergency department with complaints of shortness of breath. Patient reports shortness of breath began 4 days ago, has noticed that he is increased shortness of breath with exertion, + nonproductive cough. CHF with acute exacerbation Chest x-ray reviewed, opacities throughout suggestive of CHF BNP 78 on admission EKG with normal sinus rhythm Healthy heart diet, continue diuresis with IV Lasix, monitor electrolyte status Check 2D echo O2 via nasal cannula to keep sats greater than 92% Diabetic foot ulcers Left 4th toe osteomyelitis Left plantar hallux ulcer Podiatry consulted appreciate recs Surgical shoe to wear left foot when ambulating. Discussed left hallux ulcer debridement and left 4th toe partial amputation, Surgery scheduled [address] Mcdonald. NPO after midnight on Sunday night Left foot x-ray reviewed, suspected acute osteomyelitis on distal fourth toe, sclerosis and cortical thickening of the third and fourth metatarsals as well as remnant fifth metatarsal. Seen partial amputation of second and third toes with no evidence of osteomyelitis, chronic Lisfranc arthropathy Afebrile with no leukocytosis, neutrophils 82.7 Continue vanco IV consult pharmacy for dosing. IDDM Patient follows with endocrinology Dr Lanier as OP ADA diet, not able to use home dose Humulin R-500 ISS change to med scale Add Insulin 7-/ start 10U BID as uncontrolled BS at this time. CKD- baseline creatinine around 1.9-2.6 Creatinine around baseline, 3.04, possibly increased due to CHF exacerbation Continue monitor renal function closely in light of starting IV vancomycin Consult nephrology only if needed, his machine cleaner is Dr. Mireles. Hypertension Hyperlipidemia Hx CABG Continue Norvasc 10 mg, Cardura 2 mg twice daily, TriCor 145 mg daily, Lipitor 10 mg at bedtime, low-dose aspirin and Coumadin. INR on admission 2.1, continue Coumadin 2 mg daily, daily INRs, consult pharmacy to assist with dosing INR is 1.9, plan for surgery on Sunday07/10/17, anticoagulation per surgeon Constipation: bowel regimen DVT prophylaxis-Coumadin Discussed Condition With Discussed with patient, nurse, family Evelyne Fernandez MD Jul 10, 2017 12:05
[2017-07-10] MEDS ORDERED: ACETAMINOPHEN 1000 MG/100 ML 100 ML IV ONE (12:09)
[2017-07-10] MEDS ORDERED: LACTULOSE SYRUP 20 GM/30 ML CUP PO PRN (12:15)
[2017-07-10] MEDS ORDERED: SENNOSIDES 8.6 MG TAB PO PRN (12:15)
[2017-07-10] MEDS ORDERED: BISACODYL 10 MG SUPP RECTAL PRN (12:15)
[2017-07-10] MEDS ORDERED: NALOXONE HCL 0.4 MG/ML AMP IV PUSH PRN (12:15)
[2017-07-10] MEDS ORDERED: MAGNESIUM HYDROXIDE SUSP 30 ML CUP PO PRN (12:15)
[2017-07-10] MEDS ORDERED: BUPIVACAINE HCL PF 0.5% 30 ML VIAL ONE (12:30)
[2017-07-10] MEDS ORDERED: NEOMYCIN/POLYMYXIN 1 ML G.U. IRRIGANT ONE (12:31)
--- NOTE | 2017-07-10 13:03 | HHI.PR ---
Subjective Remarks Patient seen bedside resting comfortably. No concerns at this time. Denies any nausea vomiting fevers or chills. Agrees with procedure. Objective Vital Signs Date Time Temp Pulse Resp B/P (MAP) Pulse Ox O2 Delivery O2 Flow Rate FiO2 07/10/17 12:54 97 21 07/10/17 08:00 Room Air 07/10/17 07:32 98.2 65 18 174/74 (107) 94 07/10/17 04:00 97.3 63 20 159/79 (105) 96 07/10/17 00:00 97.9 74 20 167/74 (105) 95 07/09/17 20:00 97.9 67 20 166/74 (104) 97 07/09/17 16:00 97.8 65 18 158/70 (99) 96 I/O 07/09/17 07/09/17 07/09/17 07/10/17 07/10/17 07/10/17 06:59 14:59 22:59 06:59 14:59 22:59 Intake Total 1165 ml 0 ml Balance 1165 ml 0 ml Intake Oral 645 ml 0 ml IV Total 520 ml # Voids 5 7 2 # Bowel Movements 0 0 Result Diagram: 07/09/17 1049 07/10/17 0731 Imaging Last Impressions Extremity Arterial Study 07/09/17 0000 Signed Impressions: CONCLUSION: Negative study Chest X-Ray 07/07/17 1526 Signed Impressions: CONCLUSION: Widespread airspace opacities with cardiomegaly suggesting mild congestive hear t failure in the proper clinical setting. Foot X-Ray 07/07/17 0000 Signed Impressions: CONCLUSION: 1. Suspected acute osteomyelitis distally of the fourth toe distal phalanx. 2. Sclerosis and cortical thickening of the third and fourth metatarsals and a lso the fifth metatarsal remnant, nonspecific but chronic osteomyelitis is not excludable. No acute-appearing destruction seen of these bones. 3. Partial amputation of the second and third toes again noted without evidenc e of osteomyelitis or destruction of the phalangeal remnant. 4. Chronic Lisfranc arthropathy. Foot MRI 07/07/17 0000 Signed Impressions: CONCLUSION: 1. Focal soft tissue swelling surrounding the fourth distal phalanx with T2 si gnal hyperintensity involving the fourth distal phalanx suggesting cellulitis a nd possible underlying osteomyelitis. Clinical correlation is recommended. 2. Chronic erosions involving the proximal portions of the left second, third, fourth and fifth metatarsals as well as the cuboid and lateral cuneiform bones which are likely arthritic in etiology. 3. No deep soft tissue abscess identified. Objective Remarks Left distal 4th toe with ulceration and purulent drainage, probes to bone, Edema /erythema. Previous amputation of 5th toes bilaterally, partial 2nd toe right, partial amputation of left 2nd and 3rd toes. DP/PT nonpalpable secondary to edema. Pitting edema noted to left lower extremity. Brawny induration noted to left lower extremity. Left plantar hallux with hyperkeratotic lesion with dark discoloration visualized beneath. Likely underlying ulceration. Medications and IVs Current Medications Medications (Trade) Dose Ordered Sig/Sara Route Start Time Stop Time Status Last Admin (NS Flush) 2 ml UNSCH PRN IV FLUSH 07/07/17 18:15 (NS Flush) 2 ml BID IV FLUSH 07/07/17 21:00 07/10/17 08:05 (Tylenol) 650 mg Q4H PRN PO 07/07/17 18:15 (Reglan Inj) 5 mg Q6H PRN IV PUSH 07/07/17 18:15 (Narcan Inj) 0.4 mg UNSCH PRN IV PUSH 07/07/17 18:15 (Makayla-Colace) 1 tab BID PO 07/07/17 21:00 07/10/17 08:08 (Milk Of Magnesia Liq) 30 ml Q12H PRN PO 07/07/17 18:15 (Senokot) 17.2 mg Q12H PRN PO 07/07/17 18:15 (Dulcolax Supp) 10 mg DAILY PRN RECTAL 07/07/17 18:15 (Lactulose Liq) 30 ml DAILY PRN PO 07/07/17 18:15 Pharmacy Profile Note 0 ml @ 0 mls/hr UNSCH OTHER 07/07/17 18:15 Pharmacy Profile Note 0 ml @ 0 mls/hr UNSCH OTHER 07/07/17 18:15 (Lasix Inj) 40 mg DAILY IV PUSH 07/08/17 09:00 07/10/17 08:07 Patient Own Medication 1 ea ACHS SLIDING SCALE SQ 07/07/17 21:00 Future Hold (Norvasc) 10 mg DAILY PO 07/08/17 09:00 07/10/17 08:09 (Lipitor) 10 mg HS PO 07/07/17 21:00 07/09/17 20:20 (Cardura) 2 mg BID PO 07/07/17 21:00 07/10/17 08:08 (Tricor) 145 mg DAILY PO 07/08/17 09:00 07/10/17 08:08 (Coumadin) 5 mg DAILY@1600 PO 07/08/17 16:00 07/09/17 17:27 (Ecotrin Ec) 81 mg DAILY PO 07/08/17 09:00 07/10/17 08:08 (Synthroid) 224 mcg MoTuWeThFrSa@0600 PO 07/09/17 06:00 07/10/17 05:36 (Synthroid) 112 mcg Mayorga@0600 PO 07/08/17 06:00 07/08/17 05:26 (D50w (Vial) Inj) 50 ml UNSCH PRN IV PUSH 07/08/17 04:15 (Glucagon Inj) 1 mg UNSCH PRN OTHER 07/08/17 04:15 (NovoLOG SUPPLEMENTAL SCALE) 1 ACHS SLIDING SCALE SQ 07/08/17 17:00 07/10/17 11:39 (NovoLIN 70/30 INJ) 15 units BID@08,17 SQ 07/09/17 17:00 07/10/17 08:04 Sodium Chloride 500 ml @ 30 mls/hr [id number] PRN IV 07/10/17 06:45 07/13/17 06:44 (Chlorhexidine 2% Cloth) 3 pack PHOTO EDITOR PRN TOPICAL 07/10/17 06:45 07/13/17 06:44 Vancomycin HCl 2000 mg/Sodium Chloride 520 ml @ 260 mls/hr ONCE ONCE IV 07/10/17 16:00 07/10/17 17:59 Assessment and Plan Assessment and Plan 61-year-old male with left fourth distal phalanx osteomyelitis and left plantar hallux ulceration Patient examined and evaluated with all questions answered Ordered ABIs as patient's pulses are nonpalpable; ABIs WNL To OR today for left fourth digit partial amputation and left plantar hallux ulcer debridement Patient has remained after N.P.O. after midnight Is aware of all benefits, procedures, alternatives, risks and complications Trish Mcdonald DPM Jul 10, 2017 13:03
--- NOTE | 2017-07-10 13:08 | HHI.PR ---
Immediate Post Op Note Procedure Date: Jul 10, 2017 Pre Op Diagnosis: Left distal phalanx OM; left plantar hallux ulceration Post Op Diagnosis: Left distal phalanx OM; left plantar hallux ulceration Surgeon: Trish Mcdonald Rockboard Lather(s): None Procedure: Left fourth digit amputation; left plantar hallux ulcer debridement and irrigation Findings: None Additional Information: None Complications: None Specimen(s) removed: 1. Left distal phalanx to path 2. Soft tissue left foot to micro 3. Proximal clearing margin bone left 4th toe - micro 4. Proximal clearing margin bone left 4th toe - path Estimated blood loss: less 5cc Anesthesia: LMA Drains: None IVF Patient to: PACU Patient Condition: Trish Lynn DPM Jul 10, 2017 13:08
[2017-07-10] MEDS ORDERED: DO NOT ADM ANY ANTICOAGULANT DRUGS PRN (13:55)
[2017-07-10] MEDS ORDERED: Post-op Orders (for Pharmacy) XX ONE (14:00)
--- NOTE | 2017-07-10 14:40 | MP ---
cc: Trish Mcdonald DPM DATE OF OPERATION: SURGEON: Dr. Trish Mcdonald. MOBILE ELECTRONICS INSTALLER: None. PREOPERATIVE DIAGNOSES: 1. Left fourth distal phalanx osteomyelitis. 2. Left foot plantar hallux ulceration. POSTOPERATIVE DIAGNOSES: 1. Left fourth distal phalanx osteomyelitis. 2. Left foot plantar hallux ulceration. PROCEDURE: 1. Debridement and irrigation of left foot plantar hallux ulceration. 2. Partial amputation, left fourth digit. ESTIMATED BLOOD LOSS: 2 mL HEMOSTASIS: None. MATERIALS: 3-0 Prolene. INJECTABLES: 0.5% Marcaine plain, 10 mL infiltrated about the left foot. COMPLICATIONS: None. INDICATIONS FOR PROCEDURE: MRI positive for osteomyelitis to distal phalanx. The patient does not want to attempt IV antibiotics. He has had 2 amputations in the past. He states he knows how this goes and it always progresses to an amputation. The patient would like to proceed with amputation of left fourth digit. He understands alternatives, risks, benefits, and complications associated with procedure. He would also like to proceed with left plantar hallux ulceration debridement. DESCRIPTION OF PROCEDURE: The patient was brought to the operating room, placed on the operating room table. General anesthesia was then induced. LMA was placed. A pneumatic ankle tourniquet was placed about the left ankle, although it was not inflated on direction. The left foot was prepped and draped in the usual sterile manner. After prep 0.5% Marcaine plain infiltrated about the left foot, 10 mL total. Attention was then directed to the left fourth digit where a fishmouth incision was made over the PIPJ. The distal phalanx and middle phalanx were then passed off the field. The incision was deepened through the skin and subcutaneous tissue with care to retract all vital neurovascular structures. The PIPJ was disarticulated. The distal and middle phalanx were passed off the field. They were sent to pathology. Site was copiously irrigated. All necrotic nonviable tissue was debrided. A rongeur was utilized to take soft tissue for micro and proximal clearing margins of proximal phalanx to micro and pathology. Site was copiously irrigated again, closed with 3-0 Prolene. Attention was then directed to the left plantar hallux where a #15 blade was utilized to remove all nonviable necrotic tissue. Full-thickness excisional debridement was performed to subcutaneous tissue, muscle and tendon. The left fourth digit was dressed with Xeroform, 4 x 4's, Derek, Miryam, BRIANA, same with plantar hallux ulcer. The patient will remain in house until infectious disease clears the patient and final cultures are made available. SANDI Lara/JON , 02:10 PM , 02:39 PM
--- NOTE | 2017-07-10 15:21 | RADRPT ---
EXAM DATE: 07/10/2017 3:14 PM EDT AGE/SEX: 61 years / Male INDICATIONS: Post op left foot. CLINICAL DATA: This is the patient's subsequent encounter. Patient reports that signs and symptoms h ave been present for 3 days and indicates a pain score of 3/10. MEDICAL/SURGICAL HISTORY: None. . Multiple amputations on left foot. COMPARISON: [facility] – [place], FOOT LEFT COMPLETE ([id number]), 07/07/2017. . FINDINGS: Patient's had multiple resections including most recently the fourth toe. Prominent calcaneal spur. N o acute fracture seen. CONCLUSION: Previous surgery no obvious complications Electronically signed by: Eulogio Jeffery MD 07/10/2017 3:20 PM EDT
[2017-07-10] MEDS: WARFARIN SOD 5 MG TAB PO SCH (15:24)
[2017-07-10] MEDS ORDERED: VANCOMYCIN INJ 2,000 MG in SODIUM CHLORID 0.9% 500 ML INJ 500 ML IV ONE (16:00)
[2017-07-10] MEDS ORDERED: DOCUSATE SODIUM 50 MG/SENNA 8.6 MG TAB PO SCH (21:00)
[2017-07-10] MEDS: ATORVASTATIN 10 MG TAB PO SCH (21:06)
[2017-07-11] VITALS: BP 163/70; PULSE 64; RESP 18; TEMP 97.7; O2SAT 95
[2017-07-11] MEDS: LEVOTHYROXINE SODIUM 112 MCG TAB PO SCH (06:31)
[2017-07-11 07:19] LABS: AUTOMATED NEUTROPHIL # 6.7 TH/MM3 (1.8-7.7); BASOPHIL # 0.1 TH/MM3 (0-0.2); BASOPHIL % 0.8 % (0.0-2.0); EOSINOPHIL # 0.1 TH/MM3 (0-0.4); EOSINOPHIL % 0.8 % (0.0-4.0); HEMATOCRIT 30.8 % (39.0-51.0); HEMOGLOBIN 10.2 GM/DL (13.0-17.0); LYMPH % 10.2 % (9.0-44.0); LYMPHOCYTE # 0.8 TH/MM3 (1.0-4.8); MEAN CORPUSCULAR HEMOGLOBIN 29.1 PG (27.0-34.0); MEAN CORPUSCULAR HGB CONC 33.1 % (32.0-36.0); MONO % 4.7 % (0.0-8.0); MONOCYTE # 0.4 TH/MM3 (0-0.9); NEUT % 83.5 % (16.0-70.0); PLATELET COUNT 285 TH/MM3 (150-450); RED CELL DISTRIBUTION WIDTH 14.4 % (11.6-17.2)
[2017-07-11 07:30] LABS: INTERNATIONAL NORMALIZED RATIO 2.1 RATIO; PROTHROMBIN TIME - PATIENT 20.9 SEC (9.8-11.6)
[2017-07-11 07:47] LABS: BICARBONATE 23.1 MEQ/L (21.0-32.0); CALCIUM 8.8 MG/DL (8.5-10.1); CREATININE 2.19 MG/DL (0.60-1.30); RANDOM VANCOMYCIN 21.7 COMMENT
[2017-07-11] MEDS: MEDIUM DOSE INSULIN NOVOLOG SUPPLEMENTAL SCALE SQ SCH ×3 (07:47→16:44)
[2017-07-11] MEDS: FUROSEMIDE 40 MG/4 ML VIAL IV PUSH SCH (07:50)
[2017-07-11] MEDS: DOCUSATE SODIUM 50 MG/SENNA 8.6 MG TAB PO SCH (07:51)
[2017-07-11] MEDS: SODIUM CHLORIDE 0.9% FLUSH 10 ML FLUSH IV FLUSH SCH (07:51)
[2017-07-11] MEDS: DOXAZOSIN MESYLATE 2 MG TAB PO SCH (07:52)
[2017-07-11] MEDS: FENOFIBRATE 145 MG TAB PO SCH (07:52)
[2017-07-11] MEDS: ASPIRIN EC 81 MG TABEC PO SCH (07:52)
[2017-07-11 08:00] VITALS: BP 162/72; PULSE 65; RESP 18; TEMP 97.4; O2SAT 96
[2017-07-11] MEDS ORDERED: INSULIN HUMAN NPH/R 70/30 1,000 UNITS/10 ML VIAL SQ SCH ×2 (08:00→17:00)
--- NOTE | 2017-07-11 09:21 | HHI.PR ---
Subjective Remarks He is in the chair says he does not have any pain at the surgical site however patient is with diabetes neuropathy. Says he would like to go home. She is able to ambulate with the boot on per recommendations of podiatry. He does not have a shortness of breath. Lower extremity edema is also improving. Has a good urine output. Just returned from echo. Objective Vitals Vital Signs Date Time Temp Pulse Resp B/P (MAP) Pulse Ox O2 Delivery O2 Flow Rate FiO2 07/11/17 08:00 97.4 65 18 162/72 (102) 96 07/11/17 00:00 97.7 64 18 163/70 (101) 95 07/10/17 20:00 97.7 62 18 153/74 (100) 95 07/10/17 17:45 97 21 07/10/17 16:00 97.1 62 20 141/66 (91) 93 07/10/17 15:00 97.7 63 16 149/65 (93) 97 Room Air 07/10/17 14:45 63 15 143/65 (91) 98 Room Air 07/10/17 14:30 63 17 133/62 (85) 98 Room Air 07/10/17 14:15 63 15 136/64 (88) 100 Room Air 07/10/17 14:00 64 22 149/65 (93) 100 Nasal Cannula 2 07/10/17 13:55 97.8 68 22 156/73 (100) 100 Nasal Cannula 2 07/10/17 12:54 97 21 07/10/17 12:00 97.6 66 20 159/93 (115) 96 I/O 07/10/17 07/10/17 07/10/17 07/11/17 07/11/17 07/11/17 07:00 15:00 23:00 07:00 15:00 23:00 Intake Total 0 ml 275 ml 240 ml Output Total 2 ml Balance 0 ml 273 ml 240 ml Intake Oral 0 ml 75 ml 240 ml IV Total 200 ml Estimated Blood Loss 2 ml # Voids 2 0 3 2 # Bowel Movements 0 0 0 Result Diagram: 07/11/17 0655 07/11/17 0655 Imaging Last Impressions Foot X-Ray 07/10/17 0000 Signed Impressions: CONCLUSION: Previous surgery no obvious complications Extremity Arterial Study 07/09/17 0000 Signed Impressions: CONCLUSION: Negative study Chest X-Ray 07/07/17 1526 Signed Impressions: CONCLUSION: Widespread airspace opacities with cardiomegaly suggesting mild congestive hear t failure in the proper clinical setting. Foot MRI 07/07/17 0000 Signed Impressions: CONCLUSION: 1. Focal soft tissue swelling surrounding the fourth distal phalanx with T2 si gnal hyperintensity involving the fourth distal phalanx suggesting cellulitis a nd possible underlying osteomyelitis. Clinical correlation is recommended. 2. Chronic erosions involving the proximal portions of the left second, third, fourth and fifth metatarsals as well as the cuboid and lateral cuneiform bones which are likely arthritic in etiology. 3. No deep soft tissue abscess identified. Objective Remarks GENERAL: Pleasant 61 yo obese male, with some SOB with exertion. SKIN: No rashes, ecchymoses. Cool and dry. Right foot partial amputation of second toe, total amputation of fifth toe. Left foot with DIT of great toe, amputation of 2nd, 3rd, and fifth toe. Forth toe with noted wound about 1cm in diameter. No drainage noted, no visible erythema, or warmth. CARDIOVASCULAR: Regular rate and rhythm without murmurs, gallops, or rubs. RESPIRATORY: Clear to auscultation, decreased breath sounds at bases. No wheezes , rales, or rhonchi. GASTROINTESTINAL: Abdomen soft, non-tender, obese and round. No guarding. + bowel sounds MUSCULOSKELETAL: Extremities without clubbing, cyanosis, or edema. No joint tenderness, effusion. No calf tenderness. Swelling of left toot and toe +1 NEUROLOGICAL: Awake, alert and oriented x3. Cranial nerves grossly intact. Motor and sensory grossly within normal limits. Five out of 5 muscle strength in all muscle groups. Normal speech. Procedures Left distal phalanx OM; left plantar hallux ulceration Surgeon: Trish Mcdonald Procedure: Left fourth digit amputation; left plantar hallux ulcer debridement and irrigation Date: 07/10/17 A/P Problem List: (1) SOB (shortness of breath) on exertion ICD Code: R06.02 - Shortness of breath (2) CHF exacerbation ICD Code: I50.9 - Heart failure, unspecified (3) Type 2 diabetes mellitus with foot ulcer ICD Code: E11.621 - Type 2 diabetes mellitus with foot ulcer; L97.509 - Non- pressure chronic ulcer of other part of unspecified foot with unspecified severity Status: Acute (4) CKD (chronic kidney disease) ICD Code: N18.9 - Chronic kidney disease, unspecified Assessment and Plan 61-year-old male with past medical history of CHF, DM, CKD, CAD, neuropathy, MRSA with multiple toe amputations who presents to the emergency department with complaints of shortness of breath. Patient reports shortness of breath began 4 days ago, has noticed that he is increased shortness of breath with exertion, + nonproductive cough. CHF with acute exacerbation Chest x-ray reviewed, opacities throughout suggestive of CHF BNP 78 on admission EKG with normal sinus rhythm Healthy heart diet, continue diuresis with IV Lasix, monitor electrolyte status Check 2D echo O2 via nasal cannula to keep sats greater than 92% Diabetic foot ulcers Left 4th toe osteomyelitis Left plantar hallux ulcer Podiatry consulted appreciate recs Surgical shoe to wear left foot when ambulating. Discussed left hallux ulcer debridement and left 4th toe partial amputation, Surgery scheduled [address] Mcdonald. NPO after midnight on Sunday night Left foot x-ray reviewed, suspected acute osteomyelitis on distal fourth toe, sclerosis and cortical thickening of the third and fourth metatarsals as well as remnant fifth metatarsal. Seen partial amputation of second and third toes with no evidence of osteomyelitis, chronic Lisfranc arthropathy Afebrile with no leukocytosis, neutrophils 82.7 Continue vanco IV consult pharmacy for dosing. Patient with Left distal phalanx OM, left plantar hallux ulceration S/P Left fourth digit amputation; left plantar hallux ulcer debridement and irrigation by Dr Trish Mcdonald on 07/10/17 IDDM, uncontrolled possibly 300 Patient follows with endocrinology Dr Lanier as OP ADA diet, not able to use home dose Humulin R-500. Patient to resume at home this morning are 500 he follows with cooker tender outpatient. ISS change to med scale increase Insulin 70/30 to 30 U BID as uncontrolled BS at this time. CKD- baseline creatinine around 1.9-2.6 Creatinine around baseline, 3.04, possibly increased due to CHF exacerbation Continue monitor renal function closely in light of starting IV vancomycin Consult nephrology only if needed, his medical pathologist is Dr. Mireles. Hypertension Hyperlipidemia Hx CABG Continue Norvasc 10 mg, Cardura 2 mg twice daily, TriCor 145 mg daily, Lipitor 10 mg at bedtime, low-dose aspirin and Coumadin. INR on admission 2.1, continue Coumadin 2 mg daily, daily INRs, consult pharmacy to assist with dosing INR is 1.9, plan for surgery on Sunday07/10/17, anticoagulation per surgeon Constipation: bowel regimen DVT prophylaxis-Coumadin Discussed Condition With Discussed with patient, nurse, family Discharge when improved and cleared by podiatry Evelyne Doshi MD Jul 11, 2017 09:21
--- NOTE | 2017-07-11 15:31 | HHI.FF ---
Face to Face Verification Diagnosis: (1) Cellulitis (2) Type 2 diabetes mellitus with diabetic neuropathy (3) CHF exacerbation (4) Type 2 diabetes mellitus with foot ulcer (5) Osteomyelitis (6) Diabetic foot ulcer (7) CKD (chronic kidney disease) (8) SOB (shortness of breath) on exertion (9) Diabetic infection of left foot (10) History of amputation of lesser toe of right foot Physical Therapy Order: Evaluate and Treat Home Health Nursing Order: Medical education Signs/symptoms of disease process Diabetic education CHF education Medication education-adverse effect Nursing assessment with vital signs I have seen patient Alex Roche on 07/11/17. My clinical findings support the need for the requested home health care services because: Ltd mobility - disease progression Patient has SOB I certify that my clinical findings support that this patient is homebound because: Post-op weakness Evelyne Fernandez MD Jul 11, 2017 15:31
--- NOTE | 2017-07-11 15:32 | HHI.DS ---
Discharge Summary Admission Date Jul 07, 2017 at 17:42 Discharge Date: Jul 11, 2017 Admitting Diagnosis acute CHF exacerbation, left foot 4th toe oesteomyelitis (1) SOB (shortness of breath) on exertion ICD Code: R06.02 - Shortness of breath Diagnosis: Principal (2) CHF exacerbation ICD Code: I50.9 - Heart failure, unspecified (3) Type 2 diabetes mellitus with foot ulcer ICD Code: E11.621 - Type 2 diabetes mellitus with foot ulcer; L97.509 - Non- pressure chronic ulcer of other part of unspecified foot with unspecified severity Status: Acute (4) CKD (chronic kidney disease) ICD Code: N18.9 - Chronic kidney disease, unspecified Procedures Left distal phalanx OM; left plantar hallux ulceration Surgeon: Trish Mcdonald Procedure: Left fourth digit amputation; left plantar hallux ulcer debridement and irrigation Date: 07/10/17 Brief History - From Admission 61-year-old male with past medical history of CHF, DM, CKD, CAD, neuropathy, MRSA with multiple toe amputations who presents to the emergency department with complaints of shortness of breath. Patient reports shortness of breath began 4 days ago, has noticed that he is increased shortness of breath with exertion, none at rest. Movement and activity will make shortness of breath worse, rest will improve shortness of breath. He denies any orthopnea, uses BiPAP at bedtime for sleep apnea. He follows up with his swimming pool servicer Dr. Mai, was due to see him in several weeks after completing labs. He denies any increase swelling over legs, reports that his left leg is usually more swollen than the right, this is been chronic since his bypass surgery. He reports being compliant with his medications, has not noticed any increased in weight. He does endorse a cough which has been nonproductive, noticed that cough began Sunday. He denies any fevers, chills, nausea, vomiting, diarrhea , constipation, chest pain, dizziness or lightheadedness. Patient also reports that about 3 weeks ago he was out of town and went outside without any issues and subsequently developed a blister to the left fourth toe. He reports that he follows up with his senior power plant operator Dr. Gilmore, has not seen him in several months. He denies any pain or discomfort, reports that he suffers from chronic neuropathy. Has not noticed any increased warmth, or redness around left foot or toes. Patient does report a history of MRSA with toe amputations in the past but denies any past medical history of osteomyelitis. CBC/BMP: 07/11/17 0655 07/11/17 0655 Significant Findings Laboratory Tests Test 07/08/17 21:10 07/09/17 10:49 07/10/17 07:31 07/11/17 06:55 Erythrocyte Sedimentation Rate 88 mm/hr (0-20) Red Blood Count 3.40 MIL/MM3 (4.50-5.90) 3.50 MIL/MM3 (4.50-5.90) Hemoglobin 10.2 GM/DL (13.0-17.0) 10.2 GM/DL (13.0-17.0) Hematocrit 29.8 % (39.0-51.0) 30.8 % (39.0-51.0) Neutrophils (%) (Auto) 71.9 % (16.0-70.0) 83.5 % (16.0-70.0) Eosinophils (%) (Auto) 4.3 % (0.0-4.0) Lymphocytes # (Auto) 0.9 TH/MM3 (1.0-4.8) 0.8 TH/MM3 (1.0-4.8) Prothrombin Time 18.5 SEC (9.8-11.6) 19.4 SEC (9.8-11.6) 20.9 SEC (9.8-11.6) Blood Urea Nitrogen 49 MG/DL (7-18) 46 MG/DL (7-18) Creatinine 2.39 MG/DL (0.60-1.30) 2.06 MG/DL (0.60-1.30) 2.19 MG/DL (0.60-1.30) Random Glucose 284 MG/DL (74-106) 336 MG/DL (74-106) Magnesium Level 2.6 MG/DL (1.5-2.5) Estimat Glomerular Filtration Rate 28 ML/MIN (>89) 33 ML/MIN (>89) 31 ML/MIN (>89) Imaging Last Impressions Foot X-Ray 07/10/17 0000 Signed Impressions: CONCLUSION: Previous surgery no obvious complications Extremity Arterial Study 07/09/17 0000 Signed Impressions: CONCLUSION: Negative study Chest X-Ray 07/07/17 1526 Signed Impressions: CONCLUSION: Widespread airspace opacities with cardiomegaly suggesting mild congestive hear t failure in the proper clinical setting. Foot MRI 07/07/17 0000 Signed Impressions: CONCLUSION: 1. Focal soft tissue swelling surrounding the fourth distal phalanx with T2 si gnal hyperintensity involving the fourth distal phalanx suggesting cellulitis a nd possible underlying osteomyelitis. Clinical correlation is recommended. 2. Chronic erosions involving the proximal portions of the left second, third, fourth and fifth metatarsals as well as the cuboid and lateral cuneiform bones which are likely arthritic in etiology. 3. No deep soft tissue abscess identified. PE at Discharge GENERAL: Pleasant 61 yo obese male, with some SOB with exertion. SKIN: No rashes, ecchymoses. Cool and dry. Right foot partial amputation of second toe, total amputation of fifth toe. Left foot with DIT of great toe, amputation of 2nd, 3rd, and fifth toe. Forth toe with noted wound about 1cm in diameter. No drainage noted, no visible erythema, or warmth. CARDIOVASCULAR: Regular rate and rhythm without murmurs, gallops, or rubs. RESPIRATORY: Clear to auscultation, decreased breath sounds at bases. No wheezes , rales, or rhonchi. GASTROINTESTINAL: Abdomen soft, non-tender, obese and round. No guarding. + bowel sounds MUSCULOSKELETAL: Extremities without clubbing, cyanosis, or edema. No joint tenderness, effusion. No calf tenderness. Swelling of left toot and toe +1 NEUROLOGICAL: Awake, alert and oriented x3. Cranial nerves grossly intact. Motor and sensory grossly within normal limits. Five out of 5 muscle strength in all muscle groups. Normal speech. Hospital Course 61-year-old male with past medical history of CHF, DM, CKD, CAD, neuropathy, MRSA with multiple toe amputations who presents to the emergency department with complaints of shortness of breath. Patient reports shortness of breath began 4 days ago, has noticed that he is increased shortness of breath with exertion, + nonproductive cough. CHF with acute exacerbation with preserved EF Chest x-ray reviewed, opacities throughout suggestive of CHF BNP 78 on admission EKG with normal sinus rhythm Healthy heart diet, continue diuresis with IV Lasix, monitor electrolyte status 2D echo normal EF 55% O2 via nasal cannula to keep sats greater than 92%. Satting well on room air and now is able to ambulate without sob. LE edema and sob improved with Lasix significantly Diabetic foot ulcers Left 4th toe osteomyelitis Left plantar hallux ulcer Podiatry consulted appreciate recs Surgical shoe to wear left foot when ambulating. Discussed left hallux ulcer debridement and left 4th toe partial amputation, Surgery scheduled [address] Mcdonald. NPO after midnight on Sunday night Left foot x-ray reviewed, suspected acute osteomyelitis on distal fourth toe, sclerosis and cortical thickening of the third and fourth metatarsals as well as remnant fifth metatarsal. Seen partial amputation of second and third toes with no evidence of osteomyelitis, chronic Lisfranc arthropathy Afebrile with no leukocytosis, neutrophils 82.7 Continue vanco IV consult pharmacy for dosing. Patient with Left distal phalanx OM, left plantar hallux ulceration S/P Left fourth digit amputation; left plantar hallux ulcer debridement and irrigation by Dr Trish Mcdonald on 07/10/17 IDDM, uncontrolled possibly 300 Patient follows with endocrinology Dr Lanier as OP ADA diet, not able to use home dose Humulin R-500. 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 ISS change to med scale increase Insulin 70/30 to 30 U BID as uncontrolled BS at this time. CKD- baseline creatinine around 1.9-2.6 Creatinine around baseline, 3.04, possibly increased due to CHF exacerbation Continue monitor renal function closely in light of starting IV vancomycin Consult nephrology only if needed, his draw tender is Dr. Mireles. Hypertension, uncontrolled. Hyperlipidemia Hx CABG Continue Norvasc 10 mg, Cardura 2 mg twice daily, TriCor 145 mg daily, Lipitor 10 mg at bedtime, low-dose aspirin and Coumadin. Add small dose metoprolol and HCTZ. Monitor as OP . patient has an appointment with his cardiology Dr Mai. INR on admission 2.1, continue Coumadin 2 mg daily, daily INRs, consult pharmacy to assist with dosing INR is 1.9, plan for surgery on Sunday07/10/17, anticoagulation per surgeon Constipation: bowel regimen DVT prophylaxis-Coumadin Discussed Condition With Discussed with patient, nurse, family Discharge home in stable condition to follow up as OP with PCP and consultants. Has an appointment with his cardiology Dr Mai and also has an appointment with his endocrinology Dr Lanier. Also patient has supply of insulin 500 at home and has refills as well Patient improved significantly was dcd in stable condition to home with home health. Pt Condition on Discharge: Stable Discharge Disposition: Disch w/ Home Health Serv Discharge Time: > 30 minutes Discharge Instructions DIET: Follow Instructions for: Heart Healthy Diet Activities you can perform: Regular-No Restrictions Follow up Referrals: PCP Follow-up - 2-3 Days Podiatry - 1 Week with Trish Mcdonald DPM [address] [facility] New Medications: Lactobacillus Acidophilus (Lactinex) 1 Chew 1 TAB CHEW DAILY for Nutritional Supplement, #30 TAB 0 Refills Losartan (Losartan) 25 Mg Tab 12.5 MG PO DAILY for Blood Pressure Management, #15 TAB 0 Refills Metoprolol Tartrate (Metoprolol Tartrate) 25 Mg Tab 12.5 MG PO DAILY for Blood Pressure Management, #30 TAB 0 Refills Sulfamethoxazole-Trimethoprim (Bactrim DS) 800-160 Mg Tab 1 TAB PO BID for Infection, #20 TAB 0 Refills Continued Medications: Amlodipine (Amlodipine) 10 Mg Tab 10 MG PO DAILY for Blood Pressure Management, #30 TAB [address] (Aspir-81) 81 Mg Tabdr Atorvastatin (Atorvastatin) 10 Mg Tab 10 MG PO HS for Cholesterol Management, #30 TAB 0 Refills Cholecalciferol (Vitamin D3) 1,000 Unit Tab 2000 UNITS PO DAILY for Nutritional Supplement, #1 BOTTLE 0 Refills Coenzyme Q10 (Ubidecarenone) (Coq-10 Tr) 100 Mg Cap MG DAILY Doxazosin (Doxazosin) 2 Mg Tab 2 MG PO BID, #60 TAB 0 Refills Fenofibrate (Tricor) 145 Mg Tab 145 MG PO DAILY, #30 TAB 0 Refills Takw with food. Furosemide (Lasix) 40 Mg Tab 40 MG PO DAILY, #30 TAB 0 Refills Insulin Human Regular Inj (Humulin R Inj) 1,000 Unit/10 Ml Vial 2-12 UNITS SQ ACHS for Blood Sugar Management, #10 ML 0 Refills Max dose at bedtime:( )units; sugars < 70 (0)units; sugars 150-199, (2)units; sugars 200-249,(4)units; sugars 250-299, (7)units; sugars 300-349,(10)units; sugars more than 349,(12)units. Levothyroxine (Synthroid) 112 Mcg Tab 112 MCG PO BID for Thyroid, #30 TAB 0 Refills Warfarin (Jantoven) 5 Mg Tab 5 MG PO DAILY for Blood Clot Prevention, #30 TAB 0 Refills Evelyne Fernandez MD Jul 11, 2017 15:32
[2017-07-11 16:00] VITALS: BP 147/86; PULSE 62; RESP 18; TEMP 97.5; O2SAT 97
[2017-07-11] MEDS ORDERED: VANCOMYCIN INJ 1,750 MG in SODIUM CHLORID 0.9% 500 ML INJ 500 ML IV ONE (16:00)
[2017-07-11] MEDS: WARFARIN SOD 5 MG TAB PO SCH (16:11)
--- NOTE | 2017-07-11 16:43 | HHI.PR ---
Subjective Remarks Patient seen bedside resting comfortably post op day 1. No concerns at this time. Denies any nausea vomiting fevers or chills. Denies calf pain. Objective Vital Signs Date Time Temp Pulse Resp B/P (MAP) Pulse Ox O2 Delivery O2 Flow Rate FiO2 07/11/17 08:00 97.4 65 18 162/72 (102) 96 07/11/17 00:00 97.7 64 18 163/70 (101) 95 07/10/17 20:00 97.7 62 18 153/74 (100) 95 07/10/17 17:45 97 21 I/O 07/10/17 07/10/17 07/10/17 07/11/17 07/11/17 07/11/17 07:00 15:00 23:00 07:00 15:00 23:00 Intake Total 0 ml 275 ml 240 ml Output Total 2 ml Balance 0 ml 273 ml 240 ml Intake Oral 0 ml 75 ml 240 ml IV Total 200 ml Estimated Blood Loss 2 ml # Voids 2 0 3 2 # Bowel Movements 0 0 0 Result Diagram: 07/11/17 0655 07/11/17 0655 Imaging Last Impressions Foot X-Ray 07/10/17 0000 Signed Impressions: CONCLUSION: Previous surgery no obvious complications Extremity Arterial Study 07/09/17 0000 Signed Impressions: CONCLUSION: Negative study Chest X-Ray 07/07/17 1526 Signed Impressions: CONCLUSION: Widespread airspace opacities with cardiomegaly suggesting mild congestive hear t failure in the proper clinical setting. Foot MRI 07/07/17 0000 Signed Impressions: CONCLUSION: 1. Focal soft tissue swelling surrounding the fourth distal phalanx with T2 si gnal hyperintensity involving the fourth distal phalanx suggesting cellulitis a nd possible underlying osteomyelitis. Clinical correlation is recommended. 2. Chronic erosions involving the proximal portions of the left second, third, fourth and fifth metatarsals as well as the cuboid and lateral cuneiform bones which are likely arthritic in etiology. 3. No deep soft tissue abscess identified. Procedures s/p left fourth digit amputation; left hallux ulceration debridement and irrigation Objective Remarks Left 4th toe amputation stump noted with sutures intact and skin well coapted. Mild periwound edema and erythema noted. No ascending erythema noted. No calf pain upon squeeze to left. 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 Left plantar hallux ulceration with healthy granular base, no probe to bone, no exposed tendon or muscle. No clinical signs of infection. Medications and IVs Current Medications Medications (Trade) Dose Ordered Sig/Sara Route Start Time Stop Time Status Last Admin (NS Flush) 2 ml UNSCH PRN IV FLUSH 07/07/17 18:15 (NS Flush) 2 ml BID IV FLUSH 07/07/17 21:00 07/11/17 07:51 (Tylenol) 650 mg Q4H PRN PO 07/07/17 18:15 (Reglan Inj) 5 mg Q6H PRN IV PUSH 07/07/17 18:15 (Narcan Inj) 0.4 mg UNSCH PRN IV PUSH 07/07/17 18:15 (Makayla-Colace) 1 tab BID PO 07/07/17 21:00 07/11/17 07:51 (Milk Of Magnesia Liq) 30 ml Q12H PRN PO 07/07/17 18:15 (Senokot) 17.2 mg Q12H PRN PO 07/07/17 18:15 (Dulcolax Supp) 10 mg DAILY PRN RECTAL 07/07/17 18:15 (Lactulose Liq) 30 ml DAILY PRN PO 07/07/17 18:15 Pharmacy Profile Note 0 ml @ 0 mls/hr UNSCH OTHER 07/07/17 18:15 Pharmacy Profile Note 0 ml @ 0 mls/hr UNSCH OTHER 07/07/17 18:15 Patient Own Medication 1 ea ACHS SLIDING SCALE SQ 07/07/17 21:00 Future Hold (Norvasc) 10 mg DAILY PO 07/08/17 09:00 07/11/17 07:52 (Lipitor) 10 mg HS PO 07/07/17 21:00 07/10/17 21:06 (Cardura) 2 mg BID PO 07/07/17 21:00 07/11/17 07:52 (Tricor) 145 mg DAILY PO 07/08/17 09:00 07/11/17 07:52 (Coumadin) 5 mg DAILY@1600 PO 07/08/17 16:00 07/11/17 16:11 (Ecotrin Ec) 81 mg DAILY PO 07/08/17 09:00 07/11/17 07:52 (Synthroid) 224 mcg MoTuWeThFrSa@0600 PO 07/09/17 06:00 07/11/17 06:31 (Synthroid) 112 mcg Mayorga@0600 PO 07/08/17 06:00 07/08/17 05:26 (D50w (Vial) Inj) 50 ml UNSCH PRN IV PUSH 07/08/17 04:15 (Glucagon Inj) 1 mg UNSCH PRN OTHER 07/08/17 04:15 (NovoLOG SUPPLEMENTAL SCALE) 1 ACHS SLIDING SCALE SQ 07/08/17 17:00 07/11/17 12:33 Sodium Chloride 500 ml @ 30 mls/hr [id number] PRN IV 07/10/17 06:45 07/13/17 06:44 (Chlorhexidine 2% Cloth) 3 pack TECHNOLOGY SERVICES MANAGER PRN TOPICAL 07/10/17 06:45 07/13/17 06:44 Vancomycin HCl 1750 mg/Sodium Chloride 517.5 ml @ 260 mls/hr ONCE ONCE IV 07/11/17 16:00 07/11/17 17:59 07/11/17 16:06 (NovoLIN 70/30 INJ) 30 units BID@08,17 SQ 07/11/17 17:00 (Lasix) 40 mg DAILY PO 07/12/17 09:00 Assessment and Plan Assessment and Plan 61-year-old male with left fourth distal phalanx osteomyelitis and left plantar hallux ulceration s/p left 4th digit amputation partial with debridement and irrigation fo left plantar hallux ulceration Patient examined and evaluated with all questions answered Ok to DC per podiatry Heel weight bearing/limited weight bearing with surgical shoe and walker assist Patient to follow up in 1 week Do not remove dressings, keep dressings clean, dry and intact DC with oral antibiotics 10 days worth, consider clinda/cipro or bactrim Will follow pathology in office as clean margins in clinically in OR - pending final pathology results Trish Mcdonald DPM Jul 11, 2017 16:43
[2017-07-11] MEDS ORDERED: METO25TA3 PO (17:13)
[2017-07-11] MEDS ORDERED: LACTCHW3 CHEW (17:13)
[2017-07-11] MEDS ORDERED: BACT800T5 PO (17:13)
[2017-07-11] MEDS ORDERED: LOSA25TA PO (17:13)
--- NOTE | 2017-07-11 17:55 | ECHRPT ---
Indication: Heart failure, unspecified CONCLUSIONS Normal left ventricular size and wall thickness. The left ventricular systolic function is normal with an estimated ejection fraction in the range of 60-65%. Left ventricular diastolic function parameters are normal. The left atrial size is iyic-yv-ogiwbnxqtw dilated. Aortic valve thickening and calcification. Mild mitral valve regurgitation. There is mild to moderate tricuspid valve regurgitation. The estimated pulmonary arterial pressure is 46 mmHg. BP: 174 / 74 HR: 65 Rhythm: Sinus MEASUREMENTS (Male / Female) Normal Values Technical Quality:Fair 2D ECHO LV Diastolic Diameter PLAX 4.5 cm 4.2 - 5.9 / 3.9 - 5.3 cm LV Systolic Diameter PLAX 3.3 cm IVS Diastolic Thickness 1.1 cm 0.6 - 1.0 / 0.6 - 0.9 cm LVPW Diastolic Thickness 1.1 cm 0.6 - 1.0 / 0.6 - 0.9 cm LV Relative Wall Thickness 0.5 LVOT Diameter 2.5 cm M-MODE Aortic Root Diameter MM 3.3 cm LA Systolic Diameter MM 4.7 cm LA Ao Ratio MM 1.4 AV Cusp Separation MM 2.0 cm DOPPLER AV Peak Velocity 149.0 cm/s AV Peak Gradient 8.9 mmHg LVOT Peak Velocity 106.0 cm/s LVOT Peak Gradient 4.5 mmHg AV Area Cont Eq pk 3.5 cm MR Peak Velocity 462.0 cm/s MR Peak Gradient 85.4 mmHg LV E' Lateral Velocity 9.6 cm/s LV E' Septal Velocity 5.8 cm/s TR Peak Velocity 301.0 cm/s TR Peak Gradient 36.2 mmHg Right Atrial Pressure 10.0 mmHg Pulmonary Artery Systolic Pressu 46.2 mmHg Right Ventricular Systolic Press 46.2 mmHg PV Peak Velocity 155.0 cm/s PV Peak Gradient 9.6 mmHg FINDINGS LEFT VENTRICLE Normal left ventricular size and wall thickness. The left ventricular systolic function is normal wi th an estimated ejection fraction in the range of 60-65%. Left ventricular diastolic function parameters a re normal. RIGHT VENTRICLE Normal right ventricular size and systolic function. LEFT ATRIUM The left atrial size is anzb-bb-zddzvtjjse dilated. RIGHT ATRIUM The right atrial size is normal. ATRIAL SEPTUM Normal atrial septal thickness without atrial level shunting by limited color doppler interrogation. AORTA The aortic root and proximal ascending aorta are normal in size on limited imaging. MITRAL VALVE Mild mitral valve regurgitation. AORTIC VALVE Trileaflet aortic valve. Aortic valve thickening and calcification. No aortic valve stenosis or regurgitation. TRICUSPID VALVE There is mild to moderate tricuspid valve regurgitation. The estimated pulmonary arterial pressure is 46.2 mmHg. PULMONARY VALVE No pulmonary valve regurgitation or stenosis. VESSELS The inferior vena cava is normal in size. PERICARDIUM No pericardial effusion. Mariana Willson MD, FACC (Electronically Signed) Final Date:11 July 2017 17:54
[2017-07-12] MEDS ORDERED: FUROSEMIDE 40 MG TAB PO SCH (09:00)
[2017-07-13] MEDS ORDERED: WHEEMIS3 (13:35)
[2017-07-13] MEDS ORDERED: GETGO ROLLING W1 MI1 (13:38)
--- NOTE | 2017-07-13 16:47 | PQ ---
Physician Query Response Document PATIENT: LOLA PRAKASH : 1955 ADMIT DATE: 07/07/2017 5:42 PM DISCH DATE: 07/11/2017 9:21 PM RESPONDING PROVIDER #: [email or web address] QUERY TEXT: CHF Acuity and Type Congestive Heart Failure is documented in the Medical Record. Please document the type and acuity (in cludes probable or suspected) Such as: Type: -- Systolic -- Diastolic -- Combined -- Other, please specify Acuity: -- Acute -- Chronic -- Acute on chronic -- Other, please specify Also please document the underlying cause of the CHF (includes probable or suspected) If you have any additional questions/comments and/or concerns, please do not hesitate to reach out to the CDI/Coding Hotline, Ext. [phone]. The patient's Clinical Indicators include: H Echocardiogram performed 07/11/17: Indication: Heart failure, unspecified CONCLUSIONS Normal left ventricular size and wall thickness. The left ventricular systolic function is normal with an estimated ejection fraction in the range of 60-65%. Left ventricular diastolic function parameters are normal. The left atrial size is xdjd-il-mpjbtcamor dilated. Aortic valve thickening and calcification. Mild mitral valve regurgitation. There is mild to moderate tricuspid valve regurgitation. The estimated pulmonary arterial pressure is 46 mmHg. Query created by: Karen Milan on 07/12/2017 11:53 AM RESPONSE TEXT: Patient with clinical presentation of CHF, patient had sob, LE edema, received lasix and improved sig nificantly after lasix. ECHO with normal EF, also with Mitral valve regurgitation and and aortic valv e thickening and calcifications whitch can contribute with patient presentation. Patient likely with CHF with preserved EF . PRINCE on CKD, (prerenal due to HTN, aortic valve calcification , MV regurgitation) on CKD . Patient is diabetic, HTN. Aortic valve calcification , MV regurgitation) risk factors QUERY TEXT: Kidney Disease, Chronic CKD Stage Chronic Kidney Disease (CKD) is documented in the Medical Record. Please specify the disease stage ( includes probable or suspected) Such as: -- Chronic kidney disease Stage 1 -- Chronic kidney disease Stage 2 -- Chronic kidney disease Stage 3 -- Chronic kidney disease Stage 4 -- Chronic kidney disease Stage 5 -- Chronic kidney disease Stage 5, requiring dialysis -- End Stage Renal Disease -- Other, please specify Stages are defined by the [employer] as follows: CKD Stage I GFR >= 90 ml / min per 1.73 m2 and persistent albuminuria CKD Stage 2 GFR between 60 and 89 with persistent albuminuria CKD Stage 3 GFR between 30 and 59 CKD Stage 4 GFR between 15 and 29 CKD Stage 5 GFR between <15 or End Stage Renal Disease If you have any additional questions/comments and/or concerns, please do not hesitate to reach out to the CDI/Coding Hotline, Ext. [phone]. The patient's Clinical Indicators include: H - Creatinine around baseline, 3.04, possibly increased due to CHF exacerbation -Continue monitor renal function closely in light of starting IV vancomycin -Consult nephrology only if needed, his executive officer is Dr. Mireles. ED Report documents: Per patient he does have a significant history of CKD with possible dialysis so on GFR on admission of 21, jin to 33 on 07/10/17. Query created by: Karen Milan on 07/12/2017 12:06 PM RESPONSE TEXT: Patient with PRINCE on CKD3. Kidney function improved after diuresis with lasix. Electronically signed by: Evelyne Fernandez MD 07/13/2017 4:43 PM
== END 2017-07-11 21:21 | disposition home health service (06) | DRG 256 ==
LOC: NEPC 13:56 → NEDA 17:42 → N07B 20:50
PROVIDERS: ADMIT Hospitalist; ATTEND Hospitalist
PROC: 0LBW0ZZ Excision of Left Foot Tendon, Open Approach (ICD-10-PCS; 2017-07-10)
PROC: 0KBW0ZZ Excision of Left Foot Muscle, Open Approach (ICD-10-PCS; 2017-07-10)
PROC: 0Y6W0Z2 Detachment at Left 4th Toe, Mid, Open Approach (ICD-10-PCS; principal; 2017-07-10 13:02)
DX: I13.0 Hypertensive heart and chronic kidney disease with heart failure and stage 1 through stage 4 chronic kidney disease, or unspecified chronic kidney disease (principal); I50.9 Heart failure, unspecified; N18.3 Chronic kidney disease, stage 3 (moderate); Z68.41 Body mass index [BMI] 40.0-44.9, adult; E11.22 Type 2 diabetes mellitus with diabetic chronic kidney disease; N17.9 Acute kidney failure, unspecified; E11.40 Type 2 diabetes mellitus with diabetic neuropathy, unspecified; M86.8X7 Other osteomyelitis, ankle and foot; E11.621 Type 2 diabetes mellitus with foot ulcer; E11.65 Type 2 diabetes mellitus with hyperglycemia; L97.509 Non-pressure chronic ulcer of other part of unspecified foot with unspecified severity; Z79.4 Long term (current) use of insulin; Z79.01 Long term (current) use of anticoagulants; Z79.82 Long term (current) use of aspirin; I08.0 Rheumatic disorders of both mitral and aortic valves; E66.9 Obesity, unspecified; Z86.14 Personal history of Methicillin resistant Staphylococcus aureus infection; Z86.73 Personal history of transient ischemic attack (TIA), and cerebral infarction without residual deficits; I25.10 Atherosclerotic heart disease of native coronary artery without angina pectoris; I25.2 Old myocardial infarction; Z95.1 Presence of aortocoronary bypass graft; E89.0 Postprocedural hypothyroidism; E78.5 Hyperlipidemia, unspecified; G47.30 Sleep apnea, unspecified; Z72.0 Tobacco use; K59.00 Constipation, unspecified; Z85.850 Personal history of malignant neoplasm of thyroid
CPT/HCPCS: 71045; 73630; 73718; 80048; 80053; 80202; 81001; 82550; 82552; 82565; 82948; 83036; 83735; 83880; 84443; 84484; 85025; 85610; 85652; 85730; 87015; 87070; 87102; 87116; 87176; 87205; 87206; 88305; 88307; 88311; 93005; 93306; 93922; 94150; 96365; 96375; J0131; J1100; J1815; J1940; J2370; J2405; J3010; J3370; J7040; J7050; L3260

== ENCOUNTER 2017-08-07 08:43 | Inpatient (IN) ==
--- NOTE | 2017-08-07 09:52 | ED ---
HPI General Chief Complaint: Respiratory Symptoms Stated Complaint: SOB Time Seen by Provider: 08/07/17 09:33 Source: patient Mode of arrival: ambulatory Limitations: no limitations History of Present Illness The patient is a 61-year-old male who presents to the emergency department for shortness of breath. The patient states he was recently admitted at the beginning of July for osteomyelitis. The patient underwent surgery on the left lower extremity. The patient states he then developed volume overload and was admitted later in July for shortness of breath and underwent to episodes of dialysis by his patient care specialist, Dr. Mireles. The patient was told he would not need chronic dialysis was subsequently discharged home. He is followed by his patient care specialist, Dr. Mireles, his yard associate, Dr. Wen, and his primary physician, Dr. Eisenberg. The patient shortness of breath is worse with exertion and lie supine, alleviated at rest. The patient does have a history of congestive heart failure with previous CABG. Symptoms are moderate. The patient is currently on warfarin, denies any known history of pulmonary embolism. He does have a history of chronic edema to left lower extremity that is worse than the right. He does note increased edema over the last several days. The patient states when he arrived in the hospital last time was 330 pounds, when he was discharged home he was 293 pounds. He does not know his weight today. The patient states he has been making urine without difficulty, use the bathroom 3 times last night, denies any decreased urinary output. MD Complaint: shortness of breath Onset (ago): day(s) Context: recent illness and occurred during exertion Severity: moderate Consistency/Duration: progressively worsening Relieving factors: rest Exacerbating factors: lying flat and exertion Known history of: congestive heart failure Associated symptoms: orthopnea Treatment prior to arrival: none Related Data Home oxygen amount: none Home Medications Medication Instructions Recorded Confirmed amlodipine 10 mg PO DAILY 08/07/17 08/07/17 aspirin [Aspirin Low Dose] 81 mg PO DAILY 08/07/17 08/07/17 atorvastatin 20 mg PO DAILY 08/07/17 08/07/17 cholecalciferol (vitamin D3) 5,000 unit PO DAILY 08/07/17 08/07/17 [Vitamin D3] coenzyme Q10 [Co Q-10] 200 mg PO DAILY 08/07/17 08/07/17 doxazosin 2 mg PO DAILY 08/07/17 08/07/17 dronedarone [Multaq] 400 mg PO BID 08/07/17 08/07/17 fenofibrate nanocrystallized 145 mg PO DAILY 08/07/17 08/07/17 insulin regular hum U-500 conc 15 unit SUB-Q QID 08/07/17 08/07/17 [Humulin R U-500 (Conc) Kwikpen] levothyroxine 112 mcg PO DAILY 08/07/17 08/07/17 losartan 25 mg PO DAILY 08/07/17 08/07/17 metoprolol tartrate 25 mg PO BID 08/07/17 08/07/17 torsemide 20 mg PO DAILY 08/07/17 08/07/17 vitamin B comp with C no.4 [Super 150 mg PO DAILY 08/07/17 08/07/17 B Complex + C] warfarin [Jantoven] 5 mg PO DAILY 08/07/17 08/07/17 Allergies Allergy/AdvReac Type Severity Reaction Status Date / Time *MDRO Multi-Drug Resistant AdvReac Unknown Uncoded 07/21/17 08:55 Organism Review of Systems Except as stated in HPI: all other systems reviewed are negative Constitutional Denies fever(s) Cardiovascular Reports pedal edema, Reports edema, Reports leg edema, Reports dyspnea, Reports dyspnea on exertion and Reports orthopnea Respiratory Denies cough, Reports dyspnea and Reports dyspnea on exertion Gastrointestinal Denies abdominal pain, Denies nausea and Denies vomiting Genitourinary Denies difficulty urinating [facility] Medical History Medical History Congestive heart failure (CHF) (Acute) Diabetes mellitus (Acute) High cholesterol (Acute) History of thyroidectomy (Acute) Hypertension (Acute) Thyroid cancer (Acute) Thyroid disease (Acute) Toe amputation status (Acute) Surgical History Surgical History History of cholecystectomy (Acute) S/P CABG x 4 (Acute) Family History Family History Other Family history of acute myocardial infarction Family history of breast cancer Family history of cancer Family history of diabetes mellitus Family history of hypertension Social History Social History Substance History: No History of Abuse Second Hand Smoke Exposure: No Smoking Status: Never smoker How Often Do You Have a Drink Containing Alcohol: Monthly or less Recent Travel in [place] within the Last 8 Weeks: No Recent Out of Country Travel within the Last 8 Weeks: No Immunization History Tetanus Immunization: >5 Years Hx Influenza Vaccine This Season: Yes Exam Narrative Exam Narrative: GENERAL: Awake, alert, pleasant 61-year-old male who appears his stated age and is in mild respiratory distress. SKIN: Focused skin assessment warm/dry. HEAD: Atraumatic. Normocephalic. Edema noted over the superior periorbital area bilaterally. EYES: Blind in the left eye. No injection or drainage. ENT: No nasal bleeding or discharge. Mucous membranes pink and moist. NECK: Trachea midline. No JVD. Well-healed transverse scar and inferior aspect of the neck that is transverse. CARDIOVASCULAR: Regular rate and rhythm. No murmur appreciated. Heart rate in the 60s. Well-healed sternal scar. RESPIRATORY: No accessory muscle use. A few crackles at the bases bilaterally. GASTROINTESTINAL: Abdomen soft, obese, no rebound tenderness. MUSCULOSKELETAL: Surgical changes noted on the feet bilaterally with multiple amputations of the toes. No clubbing. No cyanosis. The left lower extremity is more edematous than the right lower extremity, there is pitting edema bilaterally from the knees inferiorly. NEUROLOGICAL: Awake and alert. No obvious cranial nerve deficits. Motor grossly within normal limits. Normal speech. Nonfocal. PSYCHIATRIC: Appropriate mood and affect; insight and judgment normal. Course Reevaluation(s) Reevaluation #1: A call was placed to the on-call medical service for admission. This patient is still symptomatic and will most likely need evaluation by nephrology and cardiology for acute on chronic renal failure, volume overload, and nonsustained ventricular tachycardia. I discussed the patient with Dr. Becerra who agrees with admission. Time: 12:11 Initial Documented Vital Signs Temperature 98.7 F 08/07/17 08:56 Pulse Rate 61 08/07/17 08:56 Respiratory Rate 22 08/07/17 08:56 Blood Pressure 122/60 08/07/17 08:56 Pulse Oximetry 96 08/07/17 08:56 Last Documented Vital Signs Temperature 98.7 F 08/07/17 08:56 Pulse Rate 61 08/07/17 12:39 Respiratory Rate 20 08/07/17 12:39 Blood Pressure 137/63 08/07/17 12:39 Pulse Oximetry 95 08/07/17 12:39 Medical Decision Making MDM Narrative Medical decision making narrative: IV was established, labs are drawn and sent, and the patient was placed on cardiac telemetry monitoring and continuous pulse oximetry monitoring. EKG was ordered and interpreted. Chest x-ray was obtained. Chest x-ray reveals cardiomegaly and mild pulmonary edema. The patient's creatinine is elevated at 3.5, baseline at discharge was 2.5. The patient once again has volume overload and edema, his BNP is within normal limits, may be secondary to acute renal failure. He does continue to make urine , however, require dialysis on his previous hospitalization 2 by his teeth. The patient also had a nonsustained run of ventricular tachycardia in the emergency department that was caught and recorded by nursing staff. The patient denies any known history of ventricular arrhythmias, does have a history of atrial fibrillation for which she is anticoagulated. The patient had no symptoms during the nonsustained run of V. tach. The patient does have significant shortness of breath going from a sitting position, to standing, ambulating to a chair. Therefore, patient will be admitted for evaluation by nephrology for possible dialysis and/or diuresis as well as by cardiology for nonsustained ventricular tachycardia. The patient agrees and understands. The on-call medical service was paged for admission. Medical Records Medical records reviewed: Yes I reviewed the patient's medical records. Lab Data Lab results reviewed: Yes I reviewed the patient's lab results. Result diagrams: 08/07/17 09:50 08/07/17 09:50 Lab Results 08/07/17 08/07/17 08/07/17 Range/Units 09:50 09:50 09:50 WBC 5.2 (4.0-11.0) th/mm3 RBC 3.03 L (4.50-5.90) mil/mm3 Hgb 9.0 L (13.0-17.0) gm/dL Hct 27.2 L (39.0-51.0) % MCV 89.8 (80.0-100.0) fL MCH 29.6 (27.0-34.0) pg MCHC 32.9 (32.0-36.0) % RDW 15.8 (11.6-17.2) % Plt Count 148 L (150-450) th/mm3 MPV 8.8 (7.0-11.0) fL Neut % (Auto) 76.1 H (16.0-70.0) % Lymph % (Auto) 14.3 (9.0-44.0) % Pierce % (Auto) 6.3 (0.0-8.0) % Eos % (Auto) 1.9 (0.0-4.0) % Baso % (Auto) 1.4 (0.0-2.0) % Neut # (Auto) 4.0 (1.8-7.7) th/mm3 Lymph # (Auto) 0.8 L (1.0-4.8) th/mm3 Pierce # (Auto) 0.3 (0.0-0.9) th/mm3 Eos # (Auto) 0.1 (0.0-0.4) th/mm3 Baso # (Auto) 0.1 (0.0-0.2) th/mm3 WBC Differential . Differential Comment Auto diff final PT 32.6 H (9.8-11.6) sec INR 3.2 Ratio APTT 34.2 H (24.3-30.1) sec Sodium 142 (136-145) meq/L Potassium 4.4 (3.5-5.1) meq/L Chloride 109 H (98-107) meq/L Carbon Dioxide 20.3 L (21.0-32.0) meq/L Anion Gap 13 (5-15) meq/L BUN 66 H (7-18) mg/dL Creatinine 3.50 H (0.60-1.30) mg/dL Estimated GFR 18 L (>89) mL/min Random Glucose 228 H (74-106) mg/dL Calcium 9.0 (8.5-10.1) mg/dL Magnesium (1.5-2.5) mg/dL Total Bilirubin 0.6 (0.2-1.0) mg/dL AST 18 (15-37) U/L ALT 41 (12-78) U/L Alkaline Phosphatase 83 (45-117) U/L Total Creatine Kinase (39-308) U/L CK-MB (CK-2) (0.5-3.6) ng/mL Troponin I Less than 0.02 L (0.02-0.05) ng/mL B-Natriuretic Peptide (0-100) pg/mL Total Protein 6.4 (6.4-8.2) g/dL Albumin 3.3 L (3.4-5.0) g/dL 08/07/17 08/07/17 Range/Units 09:50 09:50 WBC (4.0-11.0) th/mm3 RBC (4.50-5.90) mil/mm3 Hgb (13.0-17.0) gm/dL Hct (39.0-51.0) % MCV (80.0-100.0) fL MCH (27.0-34.0) pg MCHC (32.0-36.0) % RDW (11.6-17.2) % Plt Count (150-450) th/mm3 MPV (7.0-11.0) fL Neut % (Auto) (16.0-70.0) % Lymph % (Auto) (9.0-44.0) % Pierce % (Auto) (0.0-8.0) % Eos % (Auto) (0.0-4.0) % Baso % (Auto) (0.0-2.0) % Neut # (Auto) (1.8-7.7) th/mm3 Lymph # (Auto) (1.0-4.8) th/mm3 Pierce # (Auto) (0.0-0.9) th/mm3 Eos # (Auto) (0.0-0.4) th/mm3 Baso # (Auto) (0.0-0.2) th/mm3 WBC Differential Differential Comment PT (9.8-11.6) sec INR Ratio APTT (24.3-30.1) sec Sodium (136-145) meq/L Potassium (3.5-5.1) meq/L Chloride (98-107) meq/L Carbon Dioxide (21.0-32.0) meq/L Anion Gap (5-15) meq/L BUN (7-18) mg/dL Creatinine (0.60-1.30) mg/dL Estimated GFR (>89) mL/min Random Glucose (74-106) mg/dL Calcium (8.5-10.1) mg/dL Magnesium 2.8 H (1.5-2.5) mg/dL Total Bilirubin (0.2-1.0) mg/dL AST (15-37) U/L ALT (12-78) U/L Alkaline Phosphatase (45-117) U/L Total Creatine Kinase 179 (39-308) U/L CK-MB (CK-2) 1.9 (0.5-3.6) ng/mL Troponin I (0.02-0.05) ng/mL B-Natriuretic Peptide 66 (0-100) pg/mL Total Protein (6.4-8.2) g/dL Albumin (3.4-5.0) g/dL Imaging Data Attestation: I personally reviewed and interpreted this imaging study as follows : My impression: Cardiomegaly and mild pulmonary edema Radiologist's impression: ITS Impressions Chest X-Ray 08/07/17 09:41 CONCLUSION: Cardiomegaly and findings of congestive heart failure. Small left effusion ECG Data EKG Prior to Arrival: No Attestation: I personally reviewed and interpreted this ECG as follows: Prior ECG tracings: available for review Interpretation: EKG reveals atrial flutter with a rate of 60. Low QRS voltage in precordial leads. Normal axis. No significant ST-T wave changes. Discharge Plan Discharge Disposition Patient Disposition: 30 Still Patient Discharge Condition Condition: Stable Discharge Details Discharge Problem: Acute renal failure, Volume overload, GALAN (dyspnea on exertion), Non-sustained ventricular tachycardia Physicians Team ED Provider: Don Taylor Primary Care Provider: Garth Eisenberg Rxs /Orders / Referrals /Forms Prescriptions: No Action atorvastatin 20 mg Tablet 20 mg PO DAILY RF: 0 aspirin [Aspirin Low Dose] 81 mg Tablet,Delayed Release (Dr/Ec) 81 mg PO DAILY RF: 0 amlodipine 10 mg Tablet 10 mg PO DAILY RF: 0 doxazosin 2 mg Tablet 2 mg PO DAILY RF: 0 coenzyme Q10 [Co Q-10] 200 mg Capsule 200 mg PO DAILY RF: 0 fenofibrate nanocrystallized 145 mg Tablet 145 mg PO DAILY RF: 0 insulin regular hum U-500 conc [Humulin R U-500 (Conc) Kwikpen] 500 unit/mL ( 3 mL) Insulin Pen 15 unit SUB-Q QID RF: 0 torsemide 20 mg Tablet 20 mg PO DAILY RF: 0 warfarin [Jantoven] 5 mg Tablet 5 mg PO DAILY RF: 0 losartan 25 mg Tablet 25 mg PO DAILY RF: 0 metoprolol tartrate 25 mg Tablet 25 mg PO BID RF: 0 vitamin B comp with C no.4 [Super B Complex + C] 150 mg Tablet 150 mg PO DAILY RF: 0 cholecalciferol (vitamin D3) [Vitamin D3] 5,000 unit Tablet 5,000 unit PO DAILY RF: 0 dronedarone [Multaq] 400 mg Tablet 400 mg PO BID RF: 0 levothyroxine 112 mcg Capsule 112 mcg PO DAILY RF: 0 Status ED Status: With Doctor
--- NOTE | 2017-08-07 10:02 | XR ---
EXAM DATE: 08/07/2017 9:59 AM EDT AGE/SEX: 61 years / Male INDICATIONS: Shortness of breath. CLINICAL DATA: This is the patient's initial encounter. Patient reports that signs and symptoms have been present for 1 month and indicates a pain score of 0/10. MEDICAL/SURGICAL HISTORY: Hypertension. Asthma. Congestive heart failure. Myocardial infarct ion. Thyroid cancer. CABG. [place] [facility] [place] . FINDINGS: The cardiac silhouette is enlarged in transverse diameter. Median sternotomy wires are present. There are findings of congestive heart failure with interstitial and alveolar opacity bilaterally. A smal l left sided effusion is present. CONCLUSION: Cardiomegaly and findings of congestive heart failure. Small left effusion Electronically signed by: Yannick Kerns MD 08/07/2017 10:01 AM EDT
[2017-08-07 10:05] LABS: Baso # (Auto) 0.1 th/mm3 (0.0-0.2); Baso % (Auto) 1.4 % (0.0-2.0); Eos # (Auto) 0.1 th/mm3 (0.0-0.4); Eos % (Auto) 1.9 % (0.0-4.0); Hematocrit 27.2 % (39.0-51.0); Lymph # (Auto) 0.8 th/mm3 (1.0-4.8); Lymph % (Auto) 14.3 % (9.0-44.0); Mean Corpuscular HGB Conc 32.9 % (32.0-36.0); Mean Corpuscular Hemoglobin 29.6 pg (27.0-34.0); Mean Corpuscular Volume 89.8 fL (80.0-100.0); Mean Platelet Volume 8.8 fL (7.0-11.0); Mono # (Auto) 0.3 th/mm3 (0.0-0.9); Mono % (Auto) 6.3 % (0.0-8.0); Neut % (Auto) 76.1 % (16.0-70.0); Platelet Count 148 th/mm3 (150-450); Red Blood Count 3.03 mil/mm3 (4.50-5.90); Red Cell Distribution Width 15.8 % (11.6-17.2); White Blood Count 5.2 th/mm3 (4.0-11.0)
[2017-08-07 10:12] LABS: Activated Partial Thrombo Time 34.2 sec (24.3-30.1); INR 3.2 Ratio; Prothrombin Time 32.6 sec (9.8-11.6)
[2017-08-07 10:28] LABS: Albumin 3.3 g/dL (3.4-5.0); Anion Gap 13 meq/L (5-15); Aspartate Aminotransferase 18 U/L (15-37); Blood Urea Nitrogen 66 mg/dL (7-18); Carbon Dioxide 20.3 meq/L (21.0-32.0); Chloride 109 meq/L (98-107); Glomerular Filtration Rate 18 mL/min (>89); Glucose,Random 228 mg/dL (74-106); Potassium 4.4 meq/L (3.5-5.1); Sodium 142 meq/L (136-145)
[2017-08-07 10:30] LABS: Magnesium 2.8 mg/dL (1.5-2.5)
[2017-08-07 10:32] LABS: Creatine Kinase 179 U/L (39-308)
[2017-08-07 10:34] LABS: Alanine Aminotransferase 41 U/L (12-78); Alkaline Phosphatase 83 U/L (45-117); Total Protein 6.4 g/dL (6.4-8.2)
[2017-08-07 10:53] LABS: Creatine Kinase MB 1.9 ng/mL (0.5-3.6)
[2017-08-07] MEDS ORDERED: Temazepam 15 MG Capsule PO PRN (12:45)
[2017-08-07] MEDS ORDERED: Bisacodyl 10 MG Supp RECTAL PRN (12:45)
[2017-08-07] MEDS ORDERED: Heparin - SQ 10,000 UNITS/ML Vial SQ SCH (12:45)
--- NOTE | 2017-08-07 16:44 | MB ---
cc: Mariana Willson MD DATE: 08/07/2017 HISTORY OF PRESENT ILLNESS: This is a 61-year-old white male with a history of coronary artery disease, coronary artery bypass, congestive heart failure, paroxysmal atrial fibrillation and stage IV chronic kidney disease. He presented with increased dyspnea with exertion. He was admitted in July for osteomyelitis, had surgery of the left lower extremity with a left foot fourth toe amputation for osteomyelitis. He has had dialysis in the hospital with Dr. Mireles, his open soaper tender. He was discharged home and was felt not to need further dialysis. He has had increased lower extremity edema, shortness of breath, PND and orthopnea. His weight has been increasing. He has not had any chest pain. PAST MEDICAL HISTORY: Positive for congestive heart failure, coronary artery disease, coronary artery bypass in 2006 with LORENZO to LAD and vein graft to diagonal and intermediate. CAT scan in 2013, which was negative for ischemia. There is history of stage IV renal insufficiency. Dr. Mireles is his open soaper tender. History of left foot osteomyelitis with fourth toe amputation 07/07/2017, left great toe amputation in 2012, paroxysmal atrial fibrillation, cardioversion in 2010, history of hypothyroidism, diabetes mellitus, obesity, metabolic syndrome, hypertension, dyslipidemia, stage IV renal disease, sleep apnea, left eye blindness with vitreous hemorrhages, hypothyroidism, and anxiety. MEDICATIONS: Include hydrochlorothiazide, bisacodyl, heparin, lactulose, temazepam. At home, the patient was on Warfarin, aspirin, torsemide, metoprolol 25 mg 1/2 tablet twice a day, atorvastatin, Multaq, amlodipine, furosemide, vitamin B, Tricor, Synthroid, Humulin insulin, coenzyme Q10, vitamin D and doxazosin. ALLERGIES: NO KNOWN MEDICAL ALLERGIES. SOCIAL HISTORY: The patient does not smoke. He does not drink alcohol. FAMILY HISTORY: Negative for heart disease. REVIEW OF SYSTEMS: Otherwise negative. PHYSICAL EXAMINATION: VITAL SIGNS: Blood pressure 141/65, pulse 59 and regular. HEENT: Negative. NECK: 2+ carotid upstrokes, no bruits. LUNGS: Decreased breath sounds at bases. HEART: Regular. No murmur or gallop. ABDOMEN: Soft, obese. No bruits. EXTREMITIES: 2-3+ pitting edema. 1+ distal pulses. NEUROLOGIC: Grossly nonfocal. DIAGNOSTIC STUDIES: EKG showed atrial flutter, rate 60, low QRS voltage with no acute changes. Telemetry shows a brief episode of nonsustained ventricular tachycardia. LABORATORY STUDIES: Hemoglobin 9.0. ALT 41, AST 18. Magnesium 2.8. CK 179. Troponin less than 0.02. Creatinine 3.5, potassium 4.4. DIAGNOSES: 1. Acute exacerbation of chronic congestive heart failure. 2. Coronary artery disease with a history of coronary artery bypass. 3. Acute exacerbation of chronic kidney disease, stage IV. 4. Hypertension. 5. Atrial fibrillation/flutter. 6. Dyslipidemia. 7. Diabetes mellitus. 8. Obesity. DISPOSITION: Mr. Roche will be monitored on telemetry. I recommend to consult nephrology and to proceed with dialysis, which the patient will likely need chronically for fluid removal. I will restart beta harris for his nonsustained ventricular tachycardia. I will follow him for cardiology during his hospitalization. He will follow up with Dr. Mai, his primary boiler mechanic, in his office after discharge. MD JOSE Avelar/NEGRO , 04:05 PM , 04:43 PM SARAH
--- NOTE | 2017-08-07 16:59 | P.HP ---
History of Present Illness Primary Care Physician: Garth Eisenberg MD History of Present Illness: Patient is a 60-year-old male with past medical history of thyroid cancer, diabetes on insulin, hyperlipidemia, CHF, chronic kidney disease presented to the emergency room with shortness of breath with ambulation. Patient states that his shortness of breath this is his third admission since July 07. The first 1 he had shortness of breath and the first time he was admitted for ostia of his toe. He received IV antibiotics and was sent home on p.o. Bactrim. On July 19 he was admitted again for shortness of breath with exertion patient and received 2 rounds of hemodialysis. His guidance counselor at the time was Dr. Mireles. He was discharged home a week ago Sunday. At this Sunday he developed again shortness of breath with exertion. He denied any chest pain, he admits to swelling in his lower extremities which started this weekend. His friends also noted that he was "puffy all over ". He states that the swelling is more on the left leg compared to the right. He also noted that he gained 7 pounds since a week ago Sunday. While in the emergency room he had a short run of V. tach however patient was asymptomatic. Patient denies any burning with urination or increased urinary frequency although he notes that his urine output is about the same. He states he has no trouble urinating. He denies any nausea vomiting or abdominal pain. Past medical history was positive for: CHF, diabetes and 7, thyroid cancer, hypertension, quadruple bypass, hyperlipidemia Past surgical history positive for quadruple bypass surgery, thyroidectomy, 6 to amputation: 4 on the left and 2 on the right. Family history is: Father had prostate cancer with metastatic disease. Mother had diabetes and from a massive [place]. Brother at age 57 from brain aneurysm and also had a quadruple bypass surgery. He used to smoke here and there socially but quit 40 years ago. He denies any illegal drug use or alcohol use. CODE STATUS: Full - Inpatient Certification If this patient has been admitted as an Inpatient: I certify that the inpatient services were ordered in accordance with Medicare regulations governing the order. This includes certification that hospital inpatient services are reasonable and necessary and in the case of services not specified as inpatient-only under 42 CFR 419.22(n), that they are appropriately provided as inpatient services in accordance to with the 2-midnight benchmark under 43 CFR 412.3(e) Estimated Total Length of Stay (Days): 2 Plans for Post Hospital Care: Not yet determined PMFSH - History History Provided By: Patient - Medical History Medical History: Medical History (Last Reviewed 08/07/17 @ 16:59 by Marcelina Becerra MD) Congestive heart failure (CHF) Diabetes mellitus High cholesterol History of thyroidectomy Hypertension Thyroid cancer Thyroid disease Toe amputation status - Surgical History Surgical History: Surgical History (Last Reviewed 08/07/17 @ 16:59 by Marcelina Becerra MD) History of cholecystectomy S/P CABG x 4 - Family History Family History: Family History (Last Reviewed 08/07/17 @ 09:48 by Don Taylor MD) Other Family history of acute myocardial infarction Family history of breast cancer Family history of cancer Family history of diabetes mellitus Family history of hypertension - Tobacco History Second Hand Smoke Exposure: No Smoking Status: Never smoker - Alcohol History How Often Do You Have a Drink Containing Alcohol: Monthly or less - Substance Use History Substance History: No History of Abuse - Travel History Recent Travel in the [place] Within the Last 8 Weeks: No Recent Travel Out of the Country Within the Last 8 Weeks: No - Immunization History Tetanus Immunization: >5 Years Hx Influenza Vaccine This Season: Yes Medications and Allergies Active Medications: Active Medications Al Hydroxide/Mg Hydroxide (Milk Of Magnesia Liq) 30 ml PO Q12H PRN PRN Reason: Mild Constipation Bisacodyl (Dulcolax Supp) 10 mg RECTAL DAILY PRN PRN Reason: SEVERE CONSITIPATION Heparin Sodium (Porcine) (Heparin Inj) 5,000 units SQ Q12H [facility] Last Admin: 08/07/17 13:27 Dose: Not Given Lactulose (Lactulose Liq) 30 ml PO DAILY PRN PRN Reason: SEVERE CONSITIPATION Metoprolol Tartrate (Lopressor) 25 mg PO BID [facility] Senna/Docusate Sodium (Makayla-Colace) 1 tab PO BID [facility] Sennosides (Senokot) 17.2 mg PO Q12H PRN PRN Reason: Moderate Constipation Temazepam (Restoril) 15 mg PO HS PRN PRN Reason: INSOMNIA Allergies Allergy/AdvReac Type Severity Reaction Status Date / Time *MDRO Multi-Drug Resistant AdvReac Unknown Uncoded 07/21/17 08:55 Organism Home Medications Medication Instructions Recorded Confirmed Type amlodipine 10 mg PO DAILY 08/07/17 08/07/17 History aspirin [Aspirin Low Dose] 81 mg PO DAILY 08/07/17 08/07/17 History atorvastatin 20 mg PO DAILY 08/07/17 08/07/17 History cholecalciferol (vitamin D3) 5,000 unit PO DAILY 08/07/17 08/07/17 History [Vitamin D3] coenzyme Q10 [Co Q-10] 200 mg PO DAILY 08/07/17 08/07/17 History doxazosin 2 mg PO DAILY 08/07/17 08/07/17 History dronedarone [Multaq] 400 mg PO BID 08/07/17 08/07/17 History fenofibrate nanocrystallized 145 mg PO DAILY 08/07/17 08/07/17 History insulin regular hum U-500 conc 15 unit SUB-Q QID 08/07/17 08/07/17 History [Humulin R U-500 (Conc) Kwikpen] levothyroxine 112 mcg PO DAILY 08/07/17 08/07/17 History losartan 25 mg PO DAILY 08/07/17 08/07/17 History metoprolol tartrate 25 mg PO BID 08/07/17 08/07/17 History torsemide 20 mg PO DAILY 08/07/17 08/07/17 History vitamin B comp with C no.4 [Super 150 mg PO DAILY 08/07/17 08/07/17 History B Complex + C] warfarin [Jantoven] 5 mg PO DAILY 08/07/17 08/07/17 History Exam Vital signs: Vital Signs 08/07/17 08:56 08/07/17 09:12 08/07/17 12:39 Temperature 98.7 F Pulse Rate 61 61 61 Respiratory Rate 22 22 20 Blood Pressure 122/60 128/62 137/63 Pulse Oximetry 96 95 95 08/07/17 15:04 08/07/17 16:54 Temperature Pulse Rate 59 L 60 Respiratory Rate 18 20 Blood Pressure 141/65 H 158/68 H Pulse Oximetry 99 Intake & Output 08/06/17 08/07/17 08/07/17 18:59 06:59 18:59 Output Total 650 / 650 Balance -650 / -650 Weight 140 kg Output: Urine 650 / 650 Results - Labs CBC & Chem 7: 08/07/17 09:50 08/07/17 09:50 Labs: Laboratory Results - last 24 hr 08/07/17 08/07/17 08/07/17 09:50 09:50 09:50 WBC 5.2 RBC 3.03 L Hgb 9.0 L Hct 27.2 L MCV 89.8 MCH 29.6 MCHC 32.9 RDW 15.8 Plt Count 148 L MPV 8.8 Neut % (Auto) 76.1 H Lymph % (Auto) 14.3 [place] % (Auto) 6.3 Eos % (Auto) 1.9 Baso % (Auto) 1.4 Neut # (Auto) 4.0 Lymph # (Auto) 0.8 L [place] # (Auto) 0.3 Eos # (Auto) 0.1 Baso # (Auto) 0.1 WBC Differential . Differential Comment Auto diff final PT 32.6 H INR 3.2 APTT 34.2 H Sodium 142 Potassium 4.4 Chloride 109 H Carbon Dioxide 20.3 L Anion Gap 13 BUN 66 H Creatinine 3.50 H Estimated GFR 18 L POC Glucose Random Glucose 228 H Calcium 9.0 Magnesium Total Bilirubin 0.6 AST 18 ALT 41 Alkaline Phosphatase 83 Total Creatine Kinase CK-MB (CK-2) Troponin I Less than 0.02 L B-Natriuretic Peptide Total Protein 6.4 Albumin 3.3 L 08/07/17 08/07/17 08/07/17 09:50 09:50 15:02 WBC RBC Hgb Hct MCV MCH MCHC RDW Plt Count MPV Neut % (Auto) Lymph % (Auto) [place] % (Auto) Eos % (Auto) Baso % (Auto) Neut # (Auto) Lymph # (Auto) [place] # (Auto) Eos # (Auto) Baso # (Auto) WBC Differential Differential Comment PT INR APTT Sodium Potassium Chloride Carbon Dioxide Anion Gap BUN Creatinine Estimated GFR POC Glucose 220 H Random Glucose Calcium Magnesium 2.8 H Total Bilirubin AST ALT Alkaline Phosphatase Total Creatine Kinase 179 CK-MB (CK-2) 1.9 Troponin I B-Natriuretic Peptide 66 Total Protein Albumin - Imaging Impressions Chest X-Ray 08/07/17 09:41 CONCLUSION: Cardiomegaly and findings of congestive heart failure. Small left effusion Caprini VTE Risk Assessment Caprini VTE Risk Assessment: Moderate/High Risk (score >= 2) Caprini Risk Assessment Model: Point Value = 1 Point Value = 2 Point Value = 3 Point Value = 5 Age 41-60 Minor surgery BMI > 25 kg/m2 Swollen legs Varicose veins or History of unexplained or recurrent spontaneous Oral contraceptives or hormone replacement Sepsis (< 1 month) Serious lung disease, including pneumonia (< 1 month) Abnormal pulmonary function Acute myocardial infarction Congestive heart failure (< 1 month) History of inflammatory bowel disease Medical patient at bed rest Age 61-74 Arthroscopic surgery Major open surgery (> 45 min) Laparoscopic surgery (> 45 min) Malignancy Confined to bed (> 72 hours) Immobilizing plaster cast Central venous access Age >= 75 History of VTE Family history of VTE Factor V Leiden Prothrombin [id number] Lupus anticoagulant Anticardiolipin antibodies Elevated serum homocysteine Heparin-induced thrombocytopenia Other congenital or acquired thrombophilia Stroke (< 1 month) Elective arthroplasty Hip, pelvis, or leg fracture Acute spinal cord injury (< 1 month) Prophylaxis Regimen: Total Risk Factor Score Risk Level Prophylaxis Regimen 0-1 Low Early ambulation 2 Moderate Order ONE of the following: *Sequential Compression Device (SCD) *Heparin 5000 units SQ BID 3-4 Higher Order ONE of the following medications: *Heparin 5000 units SQ TID *Enoxaparin/Lovenox 40 mg SQ daily (WT < 150 kg, CrCl > 30 mL/min) *Enoxaparin/Lovenox 30 mg SQ daily (WT < 150 kg, CrCl > 10-29 mL/min) *Enoxaparin/Lovenox 30 mg SQ BID (WT < 150 kg, CrCl > 30 mL/min) AND/OR *Sequential Compression Device (SCD) 5 or more Highest Order ONE of the following medications: *Heparin 5000 units SQ TID (Preferred with Epidurals) *Enoxaparin/Lovenox 40 mg SQ daily (WT < 150 kg, CrCl > 30 mL/min) *Enoxaparin/Lovenox 30 mg SQ daily (WT < 150 kg, CrCl > 10-29 mL/min) *Enoxaparin/Lovenox 30 mg SQ BID (WT < 150 kg, CrCl > 30 mL/min) AND *Sequential Compression Device (SCD) Assessment and Plan - Plan Pt presented with shortness of breath secondary to acute on chronic CKD and fluid retention. Creatinine elevated at 3.5 today. Blueberry Grower has been consulted. Renal diet low-sodium and fluid with restriction, ADA 2000. Home meds have been resumed except for the losartan. Patient has been counseled on keeping a low-sodium diet. CHF/history of bypass surgery: Metoprolol has been resumed. Fluid restriction in place Diabetes: On insulin. Put patient on a diabetic diet and low-dose sliding scale. Adjust as needed. Monitor blood sugars closely. Hypoglycemia protocol in place. Short run of V. tach noted on telemetry while in the ED: Dr. Willson, human services manager covering for Dr. Mai was consulted and evaluated the patient. Patient on metoprolol. Other chronic medication: Resume home meds. Recently treated for asked to the toe: Patient will require wound care. Will consult carroting machine offbearer HTN: home meds resumed. clonidine prn dvt proph: heparin
[2017-08-07] MEDS ORDERED: Dextrose 50% in Water 50 ML Vial IV.PUSH PRN (17:15)
--- NOTE | 2017-08-07 20:45 | MB ---
cc: Nolvia Kuhn MD, Abdul Q MD DATE: 08/07/2017 REASON FOR CONSULTATION: Chronic kidney disease with elevated BUN and creatinine. HISTORY OF PRESENT ILLNESS: This is a 61-year-old male with a past medical history of hypertension, diabetes mellitus, ischemic heart disease, congestive heart failure, chronic kidney disease, history of thyroid cancer who came to the emergency department complaining of shortness of breath and increased swelling of the legs. I was called to see the patient because of chronic kidney disease. The patient has advanced stage IV chronic kidney disease, has been following with Dr. Mireles and he was admitted about 2 or 3 weeks ago. At that time, he had also acute kidney injury and he was started on dialysis. He had 2 dialysis treatments and then his kidney function was improving and he was sent home. When he was sent home, his creatinine was 2.57. This was on 07/27. During that admission, his creatinine was as high as 6.5. Now, the patient came with a creatinine of 3.5. Since he was discharged, the patient started developing more and more swelling of his legs and worsening shortness of breath which was initially on exertion and later on it continued at rest also and he also had some orthopnea. He denies any chest pain. No palpitation. No dysuria or hematuria. Did not notice any difficulty in passing urine. PAST MEDICAL HISTORY: Hypertension, ischemic heart disease, congestive heart failure, diabetes mellitus, hyperlipidemia, history of thyroid cancer, chronic kidney disease. PAST SURGICAL HISTORY: Thyroidectomy, cholecystectomy, history of coronary artery bypass grafting. REVIEW OF SYSTEMS: The patient has gradual worsening of shortness of breath. He has no history of fever. No chest pain. No palpitations. No headache, dizziness. He has no nausea, vomiting, no abdominal pain and no dysuria, hematuria, difficulty passing urine. The patient has worsening swelling of the legs. He was taking his furosemide at home. SOCIAL HISTORY: The patient is . He has no history of smoking or heavy alcoholism. FAMILY HISTORY: Noncontributory. ALLERGIES: HE HAS NO KNOWN DRUG ALLERGIES. CURRENT MEDICATIONS: 1. Milk of magnesia p.r.n. 2. Bisacodyl p.r.n. 3. Clonidine 0.2 mg p.r.n. 4. Heparin 5000 subcutaneous every 12 hours, 5. Insulin sliding scale. 6. Lactulose p.r.n. 7. Metoprolol 25 mg b.i.d. 8. Makayla-Colace 1 tablet b.i.d. 9. Senokot p.r.n. 10. p.r.n. PHYSICAL EXAMINATION: GENERAL: The patient is awake, alert. He is sitting in the chair, not in acute distress. VITAL SIGNS: Last blood pressure is 137/63, temperature 97.9, oxygen saturation on room air is 95-99%. HEENT: Pupils are mid constricted. Nonicteric sclerae. Conjunctivae are pale. NECK: Supple. JVD is slightly elevated. LUNGS: The patient has bilateral decreased air entry with basal rales and scattered wheezing. HEART: S1, S2. Regular rhythm. ABDOMEN: Distended, soft, lax. There is no tenderness. EXTREMITIES: He has bilateral 3+ edema. LABORATORY DATA: WBC count is 5.2, hemoglobin 9.0, platelet count of 148, neutrophils 76.1. INR is 3.2. Sodium 142, potassium 4.4, chloride 109, bicarbonate 20.3, BUN 66, creatinine 3.5, and GFR estimated is 18, glucose 228, calcium 9.0, magnesium 2.8. AST and ALT normal. Troponin less than 0.02. Creatinine kinase 179, total protein 6.4 and albumin is 3.3. IMAGING STUDIES: The patient had a chest x-ray done which showed that he has cardiomegaly and finding of congestive heart failure with a small left pleural effusion. ASSESSMENT AND PLAN: 1. Chronic kidney disease with acute worsening. 2. Congestive heart failure with fluid overload status. 3. Hypertension. 4. Diabetes mellitus. 5. Anemia. 6. Chronic kidney disease with acute kidney injury. The patient has possible diastolic dysfunction. His ejection fraction of 60-65%. He is retaining more fluid and needs more aggressive diuresis. The patient has advanced stage IV renal disease and he was on dialysis 2 weeks ago. I did discuss with the patient and told him that if his renal function does not improve, then he possibly will need dialysis. He will need to restrict his fluid intake and salt intake. I will put him on Lasix injection and follow the urine output and the BUN and creatinine. Thank you for the consultation, and I will follow the patient since Dr. Mireles is on vacation. Further recommendations will be given in due course. MD SUSANNE Verduzco/ , 08:17 PM , 08:44 PM
[2017-08-07] MEDS: Senna/Docusate Sodium 8.6/50 MG Tablet PO SCH (21:35)
[2017-08-07] MEDS: Heparin - SQ 10,000 UNITS/ML Vial SQ SCH (21:35)
[2017-08-07] MEDS: Metoprolol Tartrate 25 MG Tablet PO SCH (21:35)
--- NOTE | 2017-08-07 21:42 | ECG ---
Date Performed: 08/07/2017 Time Performed: 09:49:05 PTAGE: 61 years EKG: POSSIBLE ATRIAL FLUTTER/TACHYCARDIA WITH BLOCK LOW QRS VOLTAGE IN PRECORDIAL LEADS ABNORMAL RHYTHM ECG PREVIOUS TRACING : 07/21/2017 07.53 Compared to previous tracing, rate slower DOCTOR: Mariana Willson Interpretating Date/Time 08/07/2017 21:40:41
[2017-08-07] MEDS: Insulin NovoLIN Regular Correctional Sugar Inj SQ SCH (21:45)
[2017-08-08 06:14] LABS: Baso # (Auto) 0.1 th/mm3 (0.0-0.2); Baso % (Auto) 1.4 % (0.0-2.0); Eos # (Auto) 0.1 th/mm3 (0.0-0.4); Eos % (Auto) 2.1 % (0.0-4.0); Hematocrit 27.1 % (39.0-51.0); Hemoglobin 8.8 gm/dL (13.0-17.0); Lymph # (Auto) 0.7 th/mm3 (1.0-4.8); Lymph % (Auto) 16.4 % (9.0-44.0); Mean Corpuscular HGB Conc 32.6 % (32.0-36.0); Mean Corpuscular Hemoglobin 29.4 pg (27.0-34.0); Mean Corpuscular Volume 90.3 fL (80.0-100.0); Mean Platelet Volume 9.3 fL (7.0-11.0); Mono # (Auto) 0.3 th/mm3 (0.0-0.9); Mono % (Auto) 7.1 % (0.0-8.0); Neut # (Auto) 3.1 th/mm3 (1.8-7.7); Platelet Count 139 th/mm3 (150-450); Red Cell Distribution Width 16.3 % (11.6-17.2); White Blood Count 4.3 th/mm3 (4.0-11.0)
[2017-08-08 06:57] LABS: Calcium 8.8 mg/dL (8.5-10.1); Carbon Dioxide 21.3 meq/L (21.0-32.0); Potassium 4.7 meq/L (3.5-5.1)
[2017-08-08] MEDS: Senna/Docusate Sodium 8.6/50 MG Tablet PO SCH ×2 (08:45→21:34)
[2017-08-08] MEDS: Metoprolol Tartrate 25 MG Tablet PO SCH ×2 (08:45→21:34)
[2017-08-08] MEDS: Insulin NovoLIN Regular Correctional Sugar Inj SQ SCH (08:46)
[2017-08-08] MEDS: Heparin - SQ 10,000 UNITS/ML Vial SQ SCH ×2 (08:56→21:34)
[2017-08-08] MEDS ORDERED: Dextrose 50% in Water 50 ML Vial IV.PUSH PRN (11:24)
--- NOTE | 2017-08-08 11:36 | P.PNIM ---
Subjective Interval history: Patient states that he is urinating better and producing more urine. He states that his breathing is less short of breath with ambulation. He continues to have swelling the abdominal and lower extremities and not improved. Physical Exam Vital signs: Vital Signs 08/07/17 12:39 08/07/17 15:04 08/07/17 16:54 Temperature Pulse Rate 61 59 L 60 Respiratory Rate 20 18 20 Blood Pressure 137/63 141/65 H 158/68 H Pulse Oximetry 95 99 08/07/17 17:30 08/07/17 19:17 08/07/17 23:28 Temperature 97.9 F 97.9 F 97.6 F Pulse Rate 60 60 60 Respiratory Rate 18 19 18 Blood Pressure 123/58 L 140/62 106/56 L Pulse Oximetry 93 L 94 L 93 L 08/08/17 03:02 08/08/17 08:00 08/08/17 10:11 Temperature 98.3 F 97.2 F L Pulse Rate 60 60 59 L Respiratory Rate 18 18 Blood Pressure 143/65 H 159/66 H Pulse Oximetry 95 96 Intake & Output 08/07/17 08/08/17 08/08/17 18:59 06:59 18:59 Intake Total 240 / 240 Output Total 650 / 650 900 / 900 1050 / 1050 Balance -650 / -650 -660 / -660 -1050 / -1050 Weight 140 kg 140 kg Intake: Oral 240 / 240 Output: Urine 650 / 650 900 / 900 1050 / 1050 Other: Date of Last Bowel Movement 08/06/17 # Bowel Movements 1 Narrative: GENERAL: This is a well-nourished, obese, well-developed patient, in no apparent distress. CARDIOVASCULAR: Regular rate and rhythm without murmurs, gallops, or rubs. RESPIRATORY: Bibasilar crackles GASTROINTESTINAL: Abdomen soft, obese, non-tender, nondistended. Normal active bowel sounds MUSCULOSKELETAL: Extremities without clubbing, cyanosis, 2+ edema NEURO: Alert & Oriented x4 to person, place, time, situation. Moves all ext x4 Results - Labs CBC & Chem 7: 08/08/17 05:37 08/08/17 05:37 Laboratory Results - last 24 hr 08/07/17 08/07/17 08/08/17 15:02 21:34 05:37 WBC 4.3 RBC 3.00 L Hgb 8.8 L Hct 27.1 L MCV 90.3 MCH 29.4 MCHC 32.6 RDW 16.3 Plt Count 139 L MPV 9.3 Neut % (Auto) 73.0 H Lymph % (Auto) 16.4 [place] % (Auto) 7.1 Eos % (Auto) 2.1 Baso % (Auto) 1.4 Neut # (Auto) 3.1 Lymph # (Auto) 0.7 L [place] # (Auto) 0.3 Eos # (Auto) 0.1 Baso # (Auto) 0.1 WBC Differential . Differential Comment Auto diff final Sodium Potassium Chloride Carbon Dioxide Anion Gap BUN Creatinine Estimated GFR POC Glucose 220 H 399 H Random Glucose Calcium 08/08/17 08/08/17 05:37 07:47 WBC RBC Hgb Hct MCV MCH MCHC RDW Plt Count MPV Neut % (Auto) Lymph % (Auto) [place] % (Auto) Eos % (Auto) Baso % (Auto) Neut # (Auto) Lymph # (Auto) [place] # (Auto) Eos # (Auto) Baso # (Auto) WBC Differential Differential Comment Sodium 141 Potassium 4.7 Chloride 108 H Carbon Dioxide 21.3 Anion Gap 12 BUN 69 H Creatinine 3.65 H Estimated GFR 17 L POC Glucose 358 H Random Glucose 343 H D Calcium 8.8 Assessment and Plan - Assessment (1) Acute renal failure Code(s): N17.9 - Acute kidney failure, unspecified Status: Acute (2) CKD (chronic kidney disease) stage 4, GFR 15-29 ml/min Code(s): N18.4 - Chronic kidney disease, stage 4 (severe) Status: Chronic (3) Volume overload Code(s): E87.70 - Fluid overload, unspecified Status: Acute (4) Acute on chronic diastolic (congestive) heart failure Code(s): I50.33 - Acute on chronic diastolic (congestive) heart failure Status : Acute - Plan Pt presented with shortness of breath secondary to acute on chronic CKD and fluid retention. Creatinine elevated at 3.5 today. Dictating Machine Mechanic has been consulted. Renal diet low-sodium and fluid with restriction, ADA 2000. Home meds have been resumed except for the losartan. Patient has been counseled on keeping a low-sodium diet. 1. Acute on chronic diastolic CHF/history of bypass surgery: Metoprolol has been resumed. Fluid restriction in place, continue with Lasix IV 2. Acute kidney injury superimposed on chronic kidney disease stage IV - appreciate nephrology consultation and continue with IV diuretics and monitor urine output. Strict I's and O's. If symptoms does not improve we will need to consider hemodialysis short-term per nephrology. 3. Diabetes mellitus type II, uncontrolled: On insulin long-term. Put patient on a diabetic diet and low-dose sliding scale. We will start preprandial insulin for better control blood sugars adjust as needed. Monitor blood sugars closely. Hypoglycemia protocol in place. 4. Short run of nonsustained V. tach noted on telemetry while in the ED: Dr. Willson, production team leader covering for Dr. Mai was consulted and evaluated the patient. Patient currently on metoprolol. 5. HTN chronic essential: home meds resumed. clonidine prn 6. Chronic anemia due to chronic kidney diseasehemoglobin stable 7. Hypothyroidismpatient states that he takes Synthroid 112 MCG's 2 tablets in the morning daily we will restart home medication. 8. dvt proph: heparin (1) Acute renal failure Qualifiers: Acute renal failure type: unspecified Qualified Code(s): N17.9 - Acute kidney failure, unspecified (3) Volume overload Qualifiers: Hypervolemia type: unspecified Qualified Code(s): E87.70 - Fluid overload, unspecified
[2017-08-08] MEDS: Insulin NovoLOG Aspart Correctional Sugar Inj SQ SCH ×3 (12:02→21:33)
--- NOTE | 2017-08-08 12:36 | P.PN ---
Subjective Interval history: 61-year-old male with a past medical history of hypertension, diabetes mellitus, ischemic heart disease, congestive heart failure, chronic kidney disease, history of thyroid cancer who came to the emergency department complaining of shortness of breath and increased swelling of the legs. I was called to see the patient because of chronic kidney disease. The patient has advanced stage IV chronic kidney disease, has been following with Dr. Mireles and he was admitted about 2 or 3 weeks ago. Patient is alert, sitting on chair, not in distress. Physical Exam Vital signs: Vital Signs 08/07/17 12:39 08/07/17 15:04 08/07/17 16:54 Temperature Pulse Rate 61 59 L 60 Respiratory Rate 20 18 20 Blood Pressure 137/63 141/65 H 158/68 H Pulse Oximetry 95 99 08/07/17 17:30 08/07/17 19:17 08/07/17 23:28 Temperature 97.9 F 97.9 F 97.6 F Pulse Rate 60 60 60 Respiratory Rate 18 19 18 Blood Pressure 123/58 L 140/62 106/56 L Pulse Oximetry 93 L 94 L 93 L 08/08/17 03:02 08/08/17 08:00 08/08/17 10:11 Temperature 98.3 F 97.2 F L Pulse Rate 60 60 59 L Respiratory Rate 18 18 Blood Pressure 143/65 H 159/66 H Pulse Oximetry 95 96 Intake & Output 08/07/17 08/08/17 08/08/17 18:59 06:59 18:59 Intake Total 240 / 240 Output Total 650 / 650 900 / 900 1050 / 1050 Balance -650 / -650 -660 / -660 -1050 / -1050 Weight 140 kg 140 kg Intake: Oral 240 / 240 Output: Urine 650 / 650 900 / 900 1050 / 1050 Other: Date of Last Bowel Movement 08/06/17 # Bowel Movements 1 - Constitutional no acute distress - Routine HEENT Exam Head: Present: normocephalic Eye: Present: EOMI ENT: Present: mucous membranes moist - Routine Neck Exam Present: supple, JVD - Routine Respiratory Exam Present: rhonchi, distant breath sounds, diminished air movement - Routine Cardiovascular Exam Present: RRR, S1, S2 - Routine Abdominal Exam Present: soft, normoactive bowel sounds, distended - Routine Extremities Exam Present: edema (moderate, more in left leg.) - Routine Neurological Exam Present: alert, oriented X3 - Detailed Neurological Exam: Coma Scale Verbal Response: Oriented - Routine Psychiatric Exam Present: cooperative Results - Labs CBC & Chem 7: 08/08/17 05:37 08/08/17 05:37 Laboratory Results - last 24 hr 08/07/17 08/07/17 08/08/17 15:02 21:34 05:37 WBC 4.3 RBC 3.00 L Hgb 8.8 L Hct 27.1 L MCV 90.3 MCH 29.4 MCHC 32.6 RDW 16.3 Plt Count 139 L MPV 9.3 Neut % (Auto) 73.0 H Lymph % (Auto) 16.4 [place] % (Auto) 7.1 Eos % (Auto) 2.1 Baso % (Auto) 1.4 Neut # (Auto) 3.1 Lymph # (Auto) 0.7 L [place] # (Auto) 0.3 Eos # (Auto) 0.1 Baso # (Auto) 0.1 WBC Differential . Differential Comment Auto diff final Sodium Potassium Chloride Carbon Dioxide Anion Gap BUN Creatinine Estimated GFR POC Glucose 220 H 399 H Random Glucose Calcium 08/08/17 08/08/17 08/08/17 05:37 07:47 11:32 WBC RBC Hgb Hct MCV MCH MCHC RDW Plt Count MPV Neut % (Auto) Lymph % (Auto) [place] % (Auto) Eos % (Auto) Baso % (Auto) Neut # (Auto) Lymph # (Auto) [place] # (Auto) Eos # (Auto) Baso # (Auto) WBC Differential Differential Comment Sodium 141 Potassium 4.7 Chloride 108 H Carbon Dioxide 21.3 Anion Gap 12 BUN 69 H Creatinine 3.65 H Estimated GFR 17 L POC Glucose 358 H 388 H Random Glucose 343 H D Calcium 8.8 Assessment and Plan - Plan 1. Chronic kidney disease with acute worsening. 2. Congestive heart failure with fluid overload status. 3. Hypertension. 4. Diabetes mellitus. 5. Anemia. 6. Chronic kidney disease with acute kidney injury. The patient has possible diastolic dysfunction. His ejection fraction of 60-65%. He is retaining more fluid and needs more aggressive diuresis. The patient has advanced stage IV renal disease and he was on dialysis 2 weeks ago. Now started on Lasix, diuresing well. BP is stable, Creatinine increase to 3.6 and GFR is 17 ml/min. Hgb. dropped, add Epogen and check iron study. Patient is aware of possible HD if not better.
--- NOTE | 2017-08-08 12:52 | P.PNCA ---
Subjective Interval history: Less SOB, still very edematous, no CP Physical Exam Vital signs: Vital Signs 08/07/17 15:04 08/07/17 16:54 08/07/17 17:30 Temperature 97.9 F Pulse Rate 59 L 60 60 Respiratory Rate 18 20 18 Blood Pressure 141/65 H 158/68 H 123/58 L Pulse Oximetry 99 93 L 08/07/17 19:17 08/07/17 23:28 08/08/17 03:02 Temperature 97.9 F 97.6 F 98.3 F Pulse Rate 60 60 60 Respiratory Rate 19 18 18 Blood Pressure 140/62 106/56 L 143/65 H Pulse Oximetry 94 L 93 L 95 08/08/17 08:00 08/08/17 10:11 Temperature 97.2 F L Pulse Rate 60 59 L Respiratory Rate 18 Blood Pressure 159/66 H Pulse Oximetry 96 Intake & Output 08/07/17 08/08/17 08/08/17 18:59 06:59 18:59 Intake Total 240 / 240 Output Total 650 / 650 900 / 900 1050 / 1050 Balance -650 / -650 -660 / -660 -1050 / -1050 Weight 308 lb 10.354 oz 308 lb 10.354 oz Intake: Oral 240 / 240 Output: Urine 650 / 650 900 / 900 1050 / 1050 Other: Date of Last Bowel Movement 08/06/17 # Bowel Movements 1 - Constitutional no acute distress - Routine Respiratory Exam Present: decreased breath sounds, distant breath sounds - Routine Cardiovascular Exam Present: RRR - Routine Abdominal Exam Present: soft Comments: morbidly obese - Routine Extremities Exam Present: edema - Routine Neurological Exam Present: alert, oriented X3 - Routine Psychiatric Exam Present: normal affect Assessment and Plan - Assessment (1) GALAN (dyspnea on exertion) Code(s): R06.09 - Other forms of dyspnea Status: Acute (2) Acute on chronic diastolic (congestive) heart failure Code(s): I50.33 - Acute on chronic diastolic (congestive) heart failure Status : Acute (3) Volume overload Code(s): E87.70 - Fluid overload, unspecified Status: Acute (4) CAD (coronary artery disease) Code(s): I25.10 - Atherosclerotic heart disease of [place] coronary artery without angina pectoris Status: Acute (5) Hx of CABG Code(s): Z95.1 - Presence of aortocoronary bypass graft Status: Acute (6) Atrial flutter Code(s): I48.92 - Unspecified atrial flutter Status: Acute (7) Acute renal failure Code(s): N17.9 - Acute kidney failure, unspecified Status: Acute (8) CKD (chronic kidney disease) stage 4, GFR 15-29 ml/min Code(s): N18.4 - Chronic kidney disease, stage 4 (severe) Status: Chronic (9) Non-sustained ventricular tachycardia Code(s): I47.2 - Ventricular tachycardia Status: Acute - Plan Continue IV diuresis. I believe he will likely need dialysis to remove excess fluid. Nephrology eval in progress. No angina. Tele w a flutter w controlled VR , no recurrent NSVT. Continue beta harris. Continue anticoagulation. Increase activity. D/w pt and . (3) Volume overload Qualifiers: Hypervolemia type: unspecified Qualified Code(s): E87.70 - Fluid overload, unspecified (7) Acute renal failure Qualifiers: Acute renal failure type: unspecified Qualified Code(s): N17.9 - Acute kidney failure, unspecified
[2017-08-08] MEDS: Epoetin Alfa Inj 20,000 UNIT/ML Vial SQ SCH (17:21)
[2017-08-08] MEDS ORDERED: Insulin Detemir Inj 1,000 UNIT/10 ML Vial SQ SCH (21:00)
[2017-08-09 05:26] LABS: % Iron Saturation 11.7 % (20-50); Calcium 9.3 mg/dL (8.5-10.1); Carbon Dioxide 24.4 meq/L (21.0-32.0); Phosphorus 3.4 mg/dL (2.5-4.9)
[2017-08-09] MEDS: Levothyroxine 112 MCG Tablet PO SCH (06:32)
[2017-08-09] MEDS: Insulin NovoLOG Aspart Correctional Sugar Inj SQ SCH ×4 (09:33→21:10)
[2017-08-09] MEDS: Epoetin Alfa Inj 20,000 UNIT/ML Vial SQ SCH (09:35)
[2017-08-09] MEDS: Metoprolol Tartrate 25 MG Tablet PO SCH ×2 (09:37→20:56)
[2017-08-09] MEDS ORDERED: Insulin Detemir Inj 1,000 UNIT/10 ML Vial SQ SCH (09:37)
[2017-08-09] MEDS: Senna/Docusate Sodium 8.6/50 MG Tablet PO SCH ×2 (09:37→20:56)
[2017-08-09] MEDS: Heparin - SQ 10,000 UNITS/ML Vial SQ SCH ×2 (09:37→20:56)
--- NOTE | 2017-08-09 09:46 | P.PNIM ---
Subjective Interval history: Still urinating well. Has good amounts. Feels the same with dyspnea on exertion. No complaints of chest pain. Reports still feels swelling of the abdomen and lower legs. Physical Exam Vital signs: Vital Signs 08/08/17 10:11 08/08/17 12:00 08/08/17 16:00 Temperature 97.2 F L 97.7 F Pulse Rate 59 L 61 61 Respiratory Rate 18 19 Blood Pressure 152/67 H 152/67 H Pulse Oximetry 96 96 08/08/17 20:02 08/08/17 20:18 08/09/17 00:01 Temperature 97.8 F Pulse Rate 61 65 60 Respiratory Rate 19 Blood Pressure 169/72 H Pulse Oximetry 96 08/09/17 00:46 08/09/17 03:01 08/09/17 03:19 Temperature 97.6 F 97.8 F Pulse Rate 60 61 84 Respiratory Rate 18 18 Blood Pressure 133/58 L 147/67 H Pulse Oximetry 94 L 96 Intake & Output 08/08/17 08/09/17 08/09/17 18:59 06:59 18:59 Intake Total 360 / 360 Output Total 2650 / 2650 1600 / 1600 Balance -2650 / -2650 -1240 / -1240 Weight 140 kg Intake: Oral 360 / 360 Output: Urine 2650 / 2650 1600 / 1600 Other: # Voids 4 # Bowel Movements 0 Narrative: GENERAL: This is a well-nourished, obese, well-developed patient, in no apparent distress. CARDIOVASCULAR: Regular rate and rhythm without murmurs, gallops, or rubs. RESPIRATORY: Relatively clear to auscultation bilaterally GASTROINTESTINAL: Abdomen soft, obese, non-tender, nondistended. Normal active bowel sounds MUSCULOSKELETAL: Extremities without clubbing, cyanosis, 2+ edema NEURO: Alert & Oriented x4 to person, place, time, situation. Moves all ext x4 Skin: Left fourth and third toe with healing area of superficial wound Results - Labs CBC & Chem 7: 08/08/17 05:37 08/09/17 04:20 Laboratory Results - last 24 hr 08/08/17 08/08/17 08/08/17 11:32 16:55 21:18 Sodium Potassium Chloride Carbon Dioxide Anion Gap BUN Creatinine Estimated GFR POC Glucose 388 H 317 H 370 H Random Glucose Calcium Phosphorus Iron TIBC % Saturation 08/09/17 08/09/17 04:20 07:44 Sodium 142 Potassium 4.0 Chloride 105 Carbon Dioxide 24.4 Anion Gap 13 BUN 59 H Creatinine 3.05 H Estimated GFR 21 L POC Glucose 242 H Random Glucose 231 H D Calcium 9.3 Phosphorus 3.4 Iron 49 L TIBC 417 % Saturation 11.7 L Assessment and Plan - Assessment (1) Acute renal failure Code(s): N17.9 - Acute kidney failure, unspecified Status: Acute (2) CKD (chronic kidney disease) stage 4, GFR 15-29 ml/min Code(s): N18.4 - Chronic kidney disease, stage 4 (severe) Status: Chronic (3) Volume overload Code(s): E87.70 - Fluid overload, unspecified Status: Acute (4) Acute on chronic diastolic (congestive) heart failure Code(s): I50.33 - Acute on chronic diastolic (congestive) heart failure Status : Acute (5) Diabetes mellitus Code(s): E11.9 - Type 2 diabetes mellitus without complications Status: Chronic - Plan Pt presented with shortness of breath secondary to acute on chronic CKD and fluid retention. Creatinine elevated at 3.5 today. Medical Practice Manager has been consulted. Renal diet low-sodium and fluid with restriction, ADA 1999. Home meds have been resumed except for the losartan. Patient has been counseled on keeping a low-sodium diet. 1. Acute on chronic diastolic CHF/history of bypass surgery: Metoprolol has been resumed. Fluid restriction in place, continue with Lasix IV Patient clinically improving 2. Acute kidney injury superimposed on chronic kidney disease stage IV - appreciate nephrology consultation and continue with IV diuretics and monitor urine output. Strict I's and O's. Creatinine has improved overnight. If symptoms does not improve we will need to consider hemodialysis short-term per nephrology. 3. Diabetes mellitus type II, uncontrolled: On insulin long-term. Put patient on a diabetic diet and low-dose sliding scale. We will start preprandial insulin for better control blood sugars adjust as needed. Monitor blood sugars closely. Hypoglycemia protocol in place. 4. Short run of nonsustained V. tach noted on telemetry while in the ED: Dr. Willson, steamtable attendant railroad covering for Dr. Mai was consulted and evaluated the patient. Patient currently on metoprolol. 5. HTN chronic essential: home meds resumed. clonidine prn 6. Chronic anemia due to chronic kidney diseasehemoglobin stable 7. Hypothyroidismpatient states that he takes Synthroid 112 MCG's 2 tablets in the morning daily we will restart home medication. 8. dvt proph: heparin 9. Chronic left toe woundspatient currently seeing podiatry as outpatient and has instructed to use Silvadene cream to the area every other day. Will restart home medication. (1) Acute renal failure Qualifiers: Acute renal failure type: unspecified Qualified Code(s): N17.9 - Acute kidney failure, unspecified (3) Volume overload Qualifiers: Hypervolemia type: unspecified Qualified Code(s): E87.70 - Fluid overload, unspecified (5) Diabetes mellitus Qualifiers: Diabetes mellitus type: type 2 Diabetes mellitus skilled nursing insulin use: with skilled nursing use Diabetes mellitus complication status: with kidney complications Diabetes mellitus complication detail: with chronic kidney disease Chronic kidney disease stage: stage 4 (severe) Qualified Code(s): E11.22 - Type 2 diabetes mellitus with diabetic chronic kidney disease; N18.4 - Chronic kidney disease, stage 4 (severe); Z79.4 - long-term (current) use of insulin
--- NOTE | 2017-08-09 11:49 | P.PNNP ---
Subjective Interval history: Patient is a 61-year-old male with a past medical history of hypertension, diabetes mellitus, ischemic heart disease, congestive heart failure, chronic kidney disease, history of thyroid cancer who came to the emergency department complaining of shortness of breath and increased swelling of the legs. Nephrology was called to see the patient because of chronic kidney disease. The patient has advanced stage IV chronic kidney disease, has been following with Dr. Mireles and he was admitted about 2 or 3 weeks ago. Up out of bed in chair. Bilateral lower extremity edema. Shortness of breath on exertion. Creatinine at 3.05 today. <Xochitl Preciado - Last Filed: 08/09/17 11:36> Physical Exam Vital signs: Vital Signs 08/08/17 12:00 08/08/17 16:00 08/08/17 20:02 Temperature 97.2 F L 97.7 F 97.8 F Pulse Rate 61 61 61 Respiratory Rate 18 19 19 Blood Pressure 152/67 H 152/67 H 169/72 H Pulse Oximetry 96 96 96 08/08/17 20:18 08/09/17 00:01 08/09/17 00:46 Temperature 97.6 F Pulse Rate 65 60 60 Respiratory Rate 18 Blood Pressure 133/58 L Pulse Oximetry 94 L 08/09/17 03:01 08/09/17 03:19 08/09/17 08:00 Temperature 97.8 F 97.5 F L Pulse Rate 61 84 78 Respiratory Rate 18 18 Blood Pressure 147/67 H 147/67 H Pulse Oximetry 96 95 08/09/17 11:34 Temperature Pulse Rate Respiratory Rate Blood Pressure Pulse Oximetry 98 Intake & Output 08/08/17 08/09/17 08/09/17 18:59 06:59 18:59 Intake Total 360 / 360 Output Total 2650 / 2650 1600 / 1600 Balance -2650 / -2650 -1240 / -1240 Weight 140 kg Intake: Oral 360 / 360 Output: Urine 2650 / 2650 1600 / 1600 Other: # Voids 4 # Bowel Movements 0 - Constitutional no acute distress - Routine HEENT Exam Head: Present: normocephalic ENT: Present: mucous membranes moist - Routine Neck Exam Present: supple. Absent: JVD - Routine Respiratory Exam Present: decreased breath sounds. Absent: rales, rhonchi, crackles - Routine Cardiovascular Exam Present: RRR. Absent: murmur - Routine Abdominal Exam Present: soft, normoactive bowel sounds Comments: large - Routine Extremities Exam Present: edema (Bilateral lower extremity left greater than right) - Routine Skin Exam Present: intact, warm - Routine Neurological Exam Present: alert, oriented X3 - Detailed Neurological Exam: Coma Scale Eye Opening: Spontaneous Verbal Response: Oriented - Routine Psychiatric Exam Present: normal affect, cooperative <Xochitl Preciado - Last Filed: 08/09/17 11:36> Vital signs: Vital Signs 08/09/17 00:01 08/09/17 00:46 08/09/17 03:01 Temperature 97.6 F 97.8 F Pulse Rate 60 60 61 Respiratory Rate 18 18 Blood Pressure 133/58 L 147/67 H Pulse Oximetry 94 L 96 08/09/17 03:19 08/09/17 08:00 08/09/17 11:34 Temperature 97.5 F L Pulse Rate 84 78 Respiratory Rate 18 Blood Pressure 147/67 H Pulse Oximetry 95 98 08/09/17 12:00 08/09/17 16:00 08/09/17 19:38 Temperature 97.6 F 98.1 F Pulse Rate 66 65 Respiratory Rate 18 18 Blood Pressure 153/68 H 156/67 H Pulse Oximetry 95 95 99 Intake & Output 08/09/17 08/09/17 08/10/17 06:59 18:59 06:59 Intake Total 360 / 360 840 / 840 Output Total 1600 / 1600 2850 / 2850 Balance -1240 / -1240 -2009 / Weight 140 kg Intake: Oral 360 / 360 840 / 840 Output: Urine 1600 / 1600 2850 / 2850 Other: # Voids 10 Date of Last Bowel Movement 08/08/17 # Bowel Movements 0 <Nolvia Kuhn - Last Filed: 08/09/17 22:44> Assessment and Plan - Assessment (1) Acute renal failure Code(s): N17.9 - Acute kidney failure, unspecified Status: Acute Qualifiers: Acute renal failure type: unspecified Qualified Code(s): N17.9 - Acute kidney failure, unspecified Plan: 1. Chronic kidney disease with acute worsening. 2. Congestive heart failure with fluid overload status. 3. Hypertension. 4. Diabetes mellitus. 5. Anemia. 6. Chronic kidney disease with acute kidney injury. The patient has advanced stage IV renal disease and he was on dialysis 2 weeks ago. Continue Lasix, diuresing well, continues to have edema and creatinine is improving Creatinine slightly improved at 3.05 today potassium at 4.0 Avoid nephrotoxins Will monitor Urinary output and BMP Patient is aware of possible HD if not better (2) Anemia Code(s): D64.9 - Anemia, unspecified Status: Acute Plan: Epogen 20,000 weekly Iron sat low will check ferritin level (3) Hypertension Code(s): I10 - Essential (primary) hypertension Status: Acute Plan: Well controlled, continue metoprolol <Xochitl Preciado - Last Filed: 08/09/17 11:36> - Assessment (1) Acute renal failure Code(s): N17.9 - Acute kidney failure, unspecified Status: Acute Qualifiers: Acute renal failure type: unspecified Qualified Code(s): N17.9 - Acute kidney failure, unspecified (2) Anemia Code(s): D64.9 - Anemia, unspecified Status: Acute (3) Hypertension Code(s): I10 - Essential (primary) hypertension Status: Acute - Attending Attestation Patient seen and examined, agree with above. Creatinine is better, now 3.0. Continue diuretics, edema is improving. <Nolvia Kuhn - Last Filed: 08/09/17 22:44>
--- NOTE | 2017-08-09 14:17 | P.PNWCN ---
Wound Care Nurse Consult Description: Wound consult ordered by for wound management. Communicated with: Karely CHRISTIAN, Recommendation: Please refer to wound care ordered Please perform shaving cream therapy daily x3 days. 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 Wound/Pressure Injury - Wound Posterior Kirby Wound Assessment: Ongoing Wound Type: Laceration Is This a Chronic Wound: No Right Lower Kirby Wound Type: Abrasion Left Lower Kirby Wound Type: Abrasion
--- NOTE | 2017-08-09 19:50 | P.PNCA ---
Subjective Interval history: No CP or SOB, diuresing quite well, still edematous Physical Exam Vital signs: Vital Signs 08/08/17 20:02 08/08/17 20:18 08/09/17 00:01 Temperature 97.8 F Pulse Rate 61 65 60 Respiratory Rate 19 Blood Pressure 169/72 H Pulse Oximetry 96 08/09/17 00:46 08/09/17 03:01 08/09/17 03:19 Temperature 97.6 F 97.8 F Pulse Rate 60 61 84 Respiratory Rate 18 18 Blood Pressure 133/58 L 147/67 H Pulse Oximetry 94 L 96 08/09/17 08:00 08/09/17 11:34 08/09/17 12:00 Temperature 97.5 F L 97.6 F Pulse Rate 78 66 Respiratory Rate 18 18 Blood Pressure 147/67 H 153/68 H Pulse Oximetry 95 98 95 08/09/17 16:00 08/09/17 19:38 Temperature 98.1 F Pulse Rate 65 Respiratory Rate 18 Blood Pressure 156/67 H Pulse Oximetry 95 99 Intake & Output 08/09/17 08/09/17 08/10/17 06:59 18:59 06:59 Intake Total 360 / 360 840 / 840 Output Total 1600 / 1600 2850 / 2850 Balance -1240 / -1240 -2009 / Weight 308 lb 10.354 oz Intake: Oral 360 / 360 840 / 840 Output: Urine 1600 / 1600 2850 / 2850 Other: # Voids 10 Date of Last Bowel Movement 08/08/17 # Bowel Movements 0 Narrative: GENERAL: In no apparent distress. CARDIOVASCULAR: Regular rate and rhythm without murmurs, gallops, or rubs. RESPIRATORY: Clear to auscultation bilaterally GASTROINTESTINAL: Abdomen soft, obese, non-tender, nondistended. Normal active bowel sounds MUSCULOSKELETAL: Extremities without clubbing, cyanosis, 2+ pitting LE edema NEURO: Alert & oriented Assessment and Plan - Assessment (1) GALAN (dyspnea on exertion) Code(s): R06.09 - Other forms of dyspnea Status: Acute (2) Acute on chronic diastolic (congestive) heart failure Code(s): I50.33 - Acute on chronic diastolic (congestive) heart failure Status : Acute (3) Volume overload Code(s): E87.70 - Fluid overload, unspecified Status: Acute (4) CAD (coronary artery disease) Code(s): I25.10 - Atherosclerotic heart disease of [place] coronary artery without angina pectoris Status: Acute (5) Hx of CABG Code(s): Z95.1 - Presence of aortocoronary bypass graft Status: Acute (6) Atrial flutter Code(s): I48.92 - Unspecified atrial flutter Status: Acute (7) Acute renal failure Code(s): N17.9 - Acute kidney failure, unspecified Status: Acute (8) CKD (chronic kidney disease) stage 4, GFR 15-29 ml/min Code(s): N18.4 - Chronic kidney disease, stage 4 (severe) Status: Chronic (9) Non-sustained ventricular tachycardia Code(s): I47.2 - Ventricular tachycardia Status: Acute - Plan Continue IV diuresis, slow improvement, still with significant edema. Nephrology eval in progress. No angina. Tele with infrequent brief episodes of NSVT. Continue beta harris. Continue anticoagulation. Increase activity. (3) Volume overload Qualifiers: Hypervolemia type: unspecified Qualified Code(s): E87.70 - Fluid overload, unspecified (7) Acute renal failure Qualifiers: Acute renal failure type: unspecified Qualified Code(s): N17.9 - Acute kidney failure, unspecified
[2017-08-10] MEDS: Levothyroxine 112 MCG Tablet PO SCH (06:55)
[2017-08-10 07:33] LABS: Albumin 3.5 g/dL (3.4-5.0); Carbon Dioxide 27.7 meq/L (21.0-32.0)
[2017-08-10 07:34] LABS: Phosphorus 2.9 mg/dL (2.5-4.9)
[2017-08-10] MEDS: Senna/Docusate Sodium 8.6/50 MG Tablet PO SCH (09:10)
[2017-08-10] MEDS: Metoprolol Tartrate 25 MG Tablet PO SCH (09:11)
[2017-08-10] MEDS: Heparin - SQ 10,000 UNITS/ML Vial SQ SCH (09:12)
[2017-08-10] MEDS: Insulin NovoLOG Aspart Correctional Sugar Inj SQ SCH ×2 (09:14→13:24)
--- NOTE | 2017-08-10 09:19 | P.PNIM ---
Subjective Interval history: Still with mild shortness of breath with physical exertion but overall is feeling better. Still making good urine output. Physical Exam Vital signs: Vital Signs 08/09/17 11:34 08/09/17 12:00 08/09/17 16:00 Temperature 97.6 F 98.1 F Pulse Rate 66 65 Respiratory Rate 18 18 Blood Pressure 153/68 H 156/67 H Pulse Oximetry 98 95 95 08/09/17 19:38 08/09/17 20:00 08/09/17 20:25 Temperature 98.0 F Pulse Rate 66 73 Respiratory Rate 17 Blood Pressure 168/72 H Pulse Oximetry 99 95 95 08/09/17 23:45 08/10/17 00:00 08/10/17 00:30 Temperature 97.6 F Pulse Rate 68 66 Respiratory Rate 17 Blood Pressure 172/69 H 141/65 H Pulse Oximetry 95 08/10/17 04:00 08/10/17 07:59 Temperature 97.4 F L 97.5 F L Pulse Rate 67 68 Respiratory Rate 16 20 Blood Pressure 154/69 H 162/70 H Pulse Oximetry 95 97 Intake & Output 08/09/17 08/10/17 08/10/17 18:59 06:59 18:59 Intake Total 840 / 840 120 / 120 Output Total 2850 / 2850 1800 / 1800 900 / 900 Balance -2009 / -2009 -1680 / -1680 - / -900 Intake: Oral 840 / 840 120 / 120 Output: Urine 2850 / 2850 1800 / 1800 900 / 900 Other: # Voids 10 Date of Last Bowel Movement 08/08/17 08/08/17 # Bowel Movements 0 Narrative: GENERAL: In no apparent distress. CARDIOVASCULAR: Regular rate and rhythm RESPIRATORY: Clear to auscultation bilaterally GASTROINTESTINAL: Abdomen soft, obese, non-tender, nondistended. Normal active bowel sounds MUSCULOSKELETAL: Extremities without clubbing, cyanosis, 2+ pitting LE edema NEURO: Alert & oriented to person place time situation Results - Labs CBC & Chem 7: 08/08/17 05:37 08/10/17 05:56 Laboratory Results - last 24 hr 08/09/17 08/09/17 08/09/17 11:43 17:25 19:55 Sodium Potassium Chloride Carbon Dioxide Anion Gap BUN Creatinine Estimated GFR POC Glucose 275 H 269 H 264 H Random Glucose Calcium Phosphorus Ferritin Albumin 08/10/17 08/10/17 05:56 07:57 Sodium 140 Potassium 4.0 Chloride 104 Carbon Dioxide 27.7 Anion Gap 8 BUN 52 H Creatinine 2.46 H Estimated GFR 27 L POC Glucose 230 H Random Glucose 207 H Calcium 9.0 Phosphorus 2.9 Ferritin 116 Albumin 3.5 Assessment and Plan - Assessment (1) Acute renal failure Code(s): N17.9 - Acute kidney failure, unspecified Status: Acute (2) CKD (chronic kidney disease) stage 4, GFR 15-29 ml/min Code(s): N18.4 - Chronic kidney disease, stage 4 (severe) Status: Chronic (3) Volume overload Code(s): E87.70 - Fluid overload, unspecified Status: Acute (4) Acute on chronic diastolic (congestive) heart failure Code(s): I50.33 - Acute on chronic diastolic (congestive) heart failure Status : Acute (5) Diabetes mellitus Code(s): E11.9 - Type 2 diabetes mellitus without complications Status: Chronic - Plan Pt presented with shortness of breath secondary to acute on chronic CKD and fluid retention. Creatinine elevated at 3.5 today. Awning Finisher has been consulted. Renal diet low-sodium and fluid with restriction, ADA 1999. Home meds have been resumed except for the losartan. Patient has been counseled on keeping a low-sodium diet. 1. Acute on chronic diastolic CHF/history of bypass surgery: Metoprolol has been resumed. Fluid restriction in place, continue with Lasix IV Patient clinically improving 2. Acute kidney injury superimposed on chronic kidney disease stage IV - appreciate nephrology consultation and continue with IV diuretics and monitor urine output. Strict I's and O's. Creatinine has continued to improved overnight. Discharged home when cleared by nephrology 3. Diabetes mellitus type II, uncontrolled: On insulin long-term. Put patient on a diabetic diet and low-dose sliding scale. Started preprandial insulin for better control blood sugars adjust as needed. Monitor blood sugars closely. Hypoglycemia protocol in place. 4. Short run of nonsustained V. tach noted on telemetry while in the ED: Dr. Willson, golf club assembler covering for Dr. Mai was consulted and evaluated the patient. Patient currently on metoprolol. Multiq would be continued from home 5. HTN chronic essential: home meds resumed amlodipine today. clonidine prn Arps is on hold due to acute kidney injury 6. Chronic anemia due to chronic kidney diseasehemoglobin stable 7. Hypothyroidismpatient states that he takes Synthroid 112 MCG's 2 tablets in the morning daily we will restart home medication. 8. dvt proph: heparin 9. Chronic left toe woundspatient currently seeing podiatry as outpatient and has instructed to use Silvadene cream to the area every other day. Will restart home medication. Discharge Planning: Discharge to home when cleared by nephrology likely can be done in the next 24- 48 hours (1) Acute renal failure Qualifiers: Acute renal failure type: unspecified Qualified Code(s): N17.9 - Acute kidney failure, unspecified (3) Volume overload Qualifiers: Hypervolemia type: unspecified Qualified Code(s): E87.70 - Fluid overload, unspecified (5) Diabetes mellitus Qualifiers: Diabetes mellitus type: type 2 Diabetes mellitus senior care insulin use: with rodent exterminator use Diabetes mellitus complication status: with kidney complications Diabetes mellitus complication detail: with chronic kidney disease Chronic kidney disease stage: stage 4 (severe) Qualified Code(s): E11.22 - Type 2 diabetes mellitus with diabetic chronic kidney disease; N18.4 - Chronic kidney disease, stage 4 (severe); Z79.4 - exterminator helper (current) use of insulin
--- NOTE | 2017-08-10 10:31 | P.DS ---
Date of admission: 08/07/17 12:51 Primary care physician: Garth Eisenberg MD Anticipated date of discharge: 08/10/17 Brief History from admission: Obtained from admitting physician's history and physical Patient is a 60-year-old male with past medical history of thyroid cancer, diabetes on insulin, hyperlipidemia, CHF, chronic kidney disease presented to the emergency room with shortness of breath with ambulation. Patient states that his shortness of breath this is his third admission since July 07. The first 1 he had shortness of breath and the first time he was admitted for ostia of his toe. He received IV antibiotics and was sent home on p.o. Bactrim. On July 19 he was admitted again for shortness of breath with exertion patient and received 2 rounds of hemodialysis. His gasoline service attendant at the time was Dr. Mireles. He was discharged home a week ago Sunday. At this Sunday he developed again shortness of breath with exertion. He denied any chest pain, he admits to swelling in his lower extremities which started this . His friends also noted that he was "puffy all over ". He states that the swelling is more on the left leg compared to the right. He also noted that he gained 7 pounds since a week ago Sunday. While in the emergency room he had a short run of V. tach however patient was asymptomatic. Patient denies any burning with urination or increased urinary frequency although he notes that his urine output is about the same. He states he has no trouble urinating. He denies any nausea vomiting or abdominal pain. DS: Diagnosis - Discharge Diagnosis (1) Acute renal failure Status: Acute Diagnosis: Principal (2) CKD (chronic kidney disease) stage 4, GFR 15-29 ml/min Status: Chronic Diagnosis: Secondary (3) Volume overload Status: Acute Diagnosis: Principal (4) Acute on chronic diastolic (congestive) heart failure Status: Acute Diagnosis: Principal (5) Diabetes mellitus Status: Chronic Diagnosis: Secondary DS: Medications - Discharge Medications Prescriptions: furosemide 80 mg PO DAILY #30 tab DS: Summary Hospital Course: These are the medical issues addressed during this hospitalization: Pt presented with shortness of breath secondary to acute on chronic CKD and fluid retention. Creatinine elevated at 3.5 today. Log Inspector has been consulted. Renal diet low-sodium and fluid with restriction, ADA 2000. Home meds have been resumed except for the losartan. Patient has been counseled on keeping a low-sodium diet. 1. Acute on chronic diastolic CHF/history of bypass surgery: Metoprolol has been resumed. Fluid restriction in place, continue with Lasix IV 80 mg daily which will be switched to oral p.o. upon discharge to home. Patient clinically improving 2. Acute kidney injury superimposed on chronic kidney disease stage IV - appreciate nephrology consultation and continue with IV diuretics and monitor urine output. Strict I's and O's. Creatinine has continued to improved overnight. Creatinine and GFR has improved during hospitalization 3. Diabetes mellitus type II, uncontrolled: On insulin long-term. Put patient on a diabetic diet and low-dose sliding scale. Started preprandial insulin for better control blood sugars adjust as needed. Monitor blood sugars closely. Hypoglycemia protocol in place. 4. Short run of nonsustained V. tach noted on telemetry while in the ED: Dr. Willson, inspector insulation covering for Dr. Mai was consulted and evaluated the patient. Patient currently on metoprolol. Multiq would be continued from home 5. HTN chronic essential: home meds resumed amlodipine today. clonidine prn Arbs is on hold due to acute kidney injury during the hospitalization. 6. Chronic anemia due to chronic kidney diseasehemoglobin stable 7. Hypothyroidismpatient states that he takes Synthroid 112 MCG's 2 tablets in the morning daily we will restart home medication. 8. dvt proph: heparin 9. Chronic left toe woundspatient currently seeing podiatry as outpatient and has instructed to use Silvadene cream to the area every other day. Will restart home medication. At this time, patient has gained maximum benefit from hospitalization and ready to be discharged to home. - Time Spent with Patient Total time spent providing and/or coordinating discharge services: Less than 30 minutes - Quality: VTE Deep Vein Thrombosis/Pulmonary Embolism Present on Admission: No Exam Vital signs: Vital Signs 08/09/17 11:34 08/09/17 12:00 08/09/17 16:00 Temperature 97.6 F 98.1 F Pulse Rate 66 65 Respiratory Rate 18 18 Blood Pressure 153/68 H 156/67 H Pulse Oximetry 98 95 95 08/09/17 19:38 08/09/17 20:00 08/09/17 20:25 Temperature 98.0 F Pulse Rate 66 73 Respiratory Rate 17 Blood Pressure 168/72 H Pulse Oximetry 99 95 95 08/09/17 23:45 08/10/17 00:00 08/10/17 00:30 Temperature 97.6 F Pulse Rate 68 66 Respiratory Rate 17 Blood Pressure 172/69 H 141/65 H Pulse Oximetry 95 08/10/17 04:00 08/10/17 07:59 Temperature 97.4 F L 97.5 F L Pulse Rate 67 68 Respiratory Rate 16 20 Blood Pressure 154/69 H 162/70 H Pulse Oximetry 95 97 Intake & Output 08/09/17 08/10/17 08/10/17 18:59 06:59 18:59 Intake Total 840 / 840 120 / 120 Output Total 2850 / 2850 1800 / 1800 900 / 900 Balance -2009 / -2009 -1680 / -1680 - / - Intake: Oral 840 / 840 120 / 120 Output: Urine 2850 / 2850 1800 / 1800 900 / 900 Other: # Voids 10 Date of Last Bowel Movement 08/08/17 08/08/17 08/09/17 # Bowel Movements 0 Results Procedures completed during hospitalization: none Labs on day of discharge: Labs from last 24 hours 08/10/17 08/10/17 08/09/17 07:57 05:56 19:55 Sodium 140 Potassium 4.0 Chloride 104 Carbon Dioxide 27.7 Anion Gap 8 BUN 52 H Creatinine 2.46 H Estimated GFR 27 L POC Glucose 230 H 264 H Random Glucose 207 H Calcium 9.0 Phosphorus 2.9 Ferritin 116 Albumin 3.5 08/09/17 08/09/17 17:25 11:43 Sodium Potassium Chloride Carbon Dioxide Anion Gap BUN Creatinine Estimated GFR POC Glucose 269 H 275 H Random Glucose Calcium Phosphorus Ferritin Albumin - Impressions ITS Impressions Chest X-Ray 08/07/17 09:41 CONCLUSION: Cardiomegaly and findings of congestive heart failure. Small left effusion Discharge Plan - Discharge Disposition Patient Disposition: 01 Discharge Home - Discharge Condition Condition: Stable - Discharge Order Discharge Orders: Discharge Order (Routine); Ordered 08/10/17 Ordered By: Diana Callahan - Discharge Details Anticipated Discharge Date: 08/10/17 - Physicians Team Primary Care Provider: Garth Eisenberg Attending Provider: Diana Callahan Other Providers: Shree Mai MD ; Nolvia Kuhn MD
--- NOTE | 2017-08-10 10:38 | P.PNNP ---
Subjective Interval history: Sitting up on side of bed. Creatinine has improved at 2.46. Continues to have shortness of breath on exertion but is chronic and he is on room air. <Xochitl Preciado - Last Filed: 08/10/17 10:24> Physical Exam Vital signs: Vital Signs 08/09/17 11:34 08/09/17 12:00 08/09/17 16:00 Temperature 97.6 F 98.1 F Pulse Rate 66 65 Respiratory Rate 18 18 Blood Pressure 153/68 H 156/67 H Pulse Oximetry 98 95 95 08/09/17 19:38 08/09/17 20:00 08/09/17 20:25 Temperature 98.0 F Pulse Rate 66 73 Respiratory Rate 17 Blood Pressure 168/72 H Pulse Oximetry 99 95 95 08/09/17 23:45 08/10/17 00:00 08/10/17 00:30 Temperature 97.6 F Pulse Rate 68 66 Respiratory Rate 17 Blood Pressure 172/69 H 141/65 H Pulse Oximetry 95 08/10/17 04:00 08/10/17 07:59 Temperature 97.4 F L 97.5 F L Pulse Rate 67 68 Respiratory Rate 16 20 Blood Pressure 154/69 H 162/70 H Pulse Oximetry 95 97 Intake & Output 08/09/17 08/10/17 08/10/17 18:59 06:59 18:59 Intake Total 840 / 840 120 / 120 Output Total 2850 / 2850 1800 / 1800 900 / 900 Balance -2009 / -2009 -1680 / -1680 -900 / -900 Intake: Oral 840 / 840 120 / 120 Output: Urine 2850 / 2850 1800 / 1800 900 / 900 Other: # Voids 10 Date of Last Bowel Movement 08/08/17 08/08/17 08/09/17 # Bowel Movements 0 - Constitutional no acute distress - Routine HEENT Exam Head: Present: normocephalic ENT: Present: mucous membranes moist - Routine Neck Exam Present: supple. Absent: JVD - Routine Respiratory Exam Present: decreased breath sounds. Absent: rales, rhonchi, wheezes - Routine Cardiovascular Exam Present: RRR - Routine Abdominal Exam Present: soft Comments: large - Routine Skin Exam Present: intact, warm - Routine Neurological Exam Present: alert, oriented X3 - Detailed Neurological Exam: Coma Scale Eye Opening: Spontaneous - Routine Psychiatric Exam Present: normal affect, cooperative <Xochitl Preciado - Last Filed: 08/10/17 10:24> Vital signs: Vital Signs 08/09/17 23:45 08/10/17 00:00 08/10/17 00:30 Temperature 97.6 F Pulse Rate 68 66 Respiratory Rate 17 Blood Pressure 172/69 H 141/65 H Pulse Oximetry 95 08/10/17 04:00 08/10/17 07:59 08/10/17 12:00 Temperature 97.4 F L 97.5 F L 97.6 F Pulse Rate 67 68 61 Respiratory Rate 16 20 20 Blood Pressure 154/69 H 162/70 H 139/68 Pulse Oximetry 95 97 94 L 08/10/17 15:58 Temperature 98.0 F Pulse Rate 64 Respiratory Rate 20 Blood Pressure 152/67 H Pulse Oximetry 96 Intake & Output 08/10/17 08/10/17 08/11/17 06:59 18:59 06:59 Intake Total 120 / 120 Output Total 1800 / 1800 900 / 900 Balance -1680 / -1680 -900 / -900 Intake: Oral 120 / 120 Output: Urine 1800 / 1800 900 / 900 Other: Date of Last Bowel Movement 08/08/17 08/09/17 # Bowel Movements 0 <Nolvia Kuhn - Last Filed: 08/10/17 23:01> Assessment and Plan - Assessment (1) Acute renal failure Code(s): N17.9 - Acute kidney failure, unspecified Status: Acute Qualifiers: Acute renal failure type: unspecified Qualified Code(s): N17.9 - Acute kidney failure, unspecified Plan: 1. Chronic kidney disease with acute worsening. 2. Congestive heart failure with fluid overload status. 3. Hypertension. 4. Diabetes mellitus. 5. Anemia. 6. Chronic kidney disease with acute kidney injury. The patient has advanced stage IV renal disease and he was on dialysis 2 weeks ago. Creatinine has improved today at 2.46 from 3.05 and potassium level of 4.0 He is on lasix 80 mg BID IV. Requesting to be discharged, per nephrology stand point he is cleared for discharged Recommend low sodium diet and to continue lasix 80 mg PO BID Will need to follow up with Nephrology outpatient. (2) Anemia Code(s): D64.9 - Anemia, unspecified Status: Acute Plan: Epogen 20,000 weekly Iron sat low will check ferritin level Recommend iron replacement (3) Hypertension Code(s): I10 - Essential (primary) hypertension Status: Acute Plan: Well controlled, continue metoprolol <Xochitl Preciado - Last Filed: 08/10/17 10:24> - Assessment (1) Acute renal failure Code(s): N17.9 - Acute kidney failure, unspecified Status: Acute Qualifiers: Acute renal failure type: unspecified Qualified Code(s): N17.9 - Acute kidney failure, unspecified (2) Anemia Code(s): D64.9 - Anemia, unspecified Status: Acute (3) Hypertension Code(s): I10 - Essential (primary) hypertension Status: Acute - Attending Attestation Patient seen and examined, agree with above. Creatinine is better, for discharge, continue Lasix 80 mg BID. To follow with Dr. Mireles. <Nolvia Kuhn - Last Filed: 08/10/17 23:01>
--- NOTE | 2017-08-10 14:12 | P.PNCA ---
Subjective Interval history: pt denies any CP, dizziness, palpitations, pressure or SOB at this time. Physical Exam Vital signs: Vital Signs 08/09/17 16:00 08/09/17 19:38 08/09/17 20:00 Temperature 98.1 F Pulse Rate 65 66 Respiratory Rate 18 Blood Pressure 156/67 H Pulse Oximetry 95 99 95 08/09/17 20:25 08/09/17 23:45 08/10/17 00:00 Temperature 98.0 F 97.6 F Pulse Rate 73 68 66 Respiratory Rate 17 17 Blood Pressure 168/72 H 172/69 H Pulse Oximetry 95 95 08/10/17 00:30 08/10/17 04:00 08/10/17 07:59 Temperature 97.4 F L 97.5 F L Pulse Rate 67 68 Respiratory Rate 16 20 Blood Pressure 141/65 H 154/69 H 162/70 H Pulse Oximetry 95 97 08/10/17 12:00 Temperature 97.6 F Pulse Rate 61 Respiratory Rate 20 Blood Pressure 139/68 Pulse Oximetry 94 L Intake & Output 08/09/17 08/10/17 08/10/17 18:59 06:59 18:59 Intake Total 840 / 840 120 / 120 Output Total 2850 / 2850 1800 / 1800 900 / 900 Balance -2009 / -2010 -1680 / -1680 -900 / -900 Intake: Oral 840 / 840 120 / 120 Output: Urine 2850 / 2850 1800 / 1800 900 / 900 Other: # Voids 10 Date of Last Bowel Movement 08/08/17 08/08/17 08/09/17 # Bowel Movements 0 - Constitutional no acute distress - Routine HEENT Exam Head: Present: normocephalic Eye: Present: PERRL ENT: Present: mucous membranes moist - Routine Neck Exam Present: full ROM - Routine Respiratory Exam Present: CTA bilaterally. Absent: rales, respiratory distress, wheezes, crackles - Routine Cardiovascular Exam Present: RRR. Absent: murmur, rubs - Routine Extremities Exam Present: edema, pulses intact Comments: 2+ edema present in LE but is improving with diuresis. - Routine Skin Exam Present: intact - Routine Neurological Exam Present: oriented X3 - Routine Psychiatric Exam Present: normal affect Assessment and Plan - Assessment (1) GALAN (dyspnea on exertion) Code(s): R06.09 - Other forms of dyspnea Status: Acute (2) Acute on chronic diastolic (congestive) heart failure Code(s): I50.33 - Acute on chronic diastolic (congestive) heart failure Status : Acute (3) Volume overload Code(s): E87.70 - Fluid overload, unspecified Status: Acute (4) CAD (coronary artery disease) Code(s): I25.10 - Atherosclerotic heart disease of [place] coronary artery without angina pectoris Status: Acute (5) Hx of CABG Code(s): Z95.1 - Presence of aortocoronary bypass graft Status: Acute (6) Atrial flutter Code(s): I48.92 - Unspecified atrial flutter Status: Acute (7) Acute renal failure Code(s): N17.9 - Acute kidney failure, unspecified Status: Acute (8) CKD (chronic kidney disease) stage 4, GFR 15-29 ml/min Code(s): N18.4 - Chronic kidney disease, stage 4 (severe) Status: Chronic (9) Non-sustained ventricular tachycardia Code(s): I47.2 - Ventricular tachycardia Status: Acute - Plan Continue IV diuresis, moderate improvement, 2+ edema present but has decreased. No angina. Continue beta harris. Continue anticoagulation. Increase activity. OK to D/C home from cardiac standpoint. (3) Volume overload Qualifiers: Hypervolemia type: unspecified Qualified Code(s): E87.70 - Fluid overload, unspecified (7) Acute renal failure Qualifiers: Acute renal failure type: unspecified Qualified Code(s): N17.9 - Acute kidney failure, unspecified
[2017-08-10 14:14] LABS: INR 1.5 Ratio; Prothrombin Time 15.2 sec (9.8-11.6)
[2017-08-11] MEDS ORDERED: amLODIPine 10 MG Tablet PO SCH (09:00)
[2017-08-15] MEDS ORDERED: Epoetin Alfa Inj 20,000 UNIT/ML Vial SQ SCH (12:00)
== END 2017-08-10 15:58 | disposition home or self-care (01) ==
LOC: NEPD 08:43 → NEDA 12:51 → N06 17:21
PROVIDERS: ADMIT Family Medicine; ATTEND Family Medicine
DX: Z79.4 Long term (current) use of insulin; G47.30 Sleep apnea, unspecified; H54.62 Unqualified visual loss, left eye, normal vision right eye; Z89.422 Acquired absence of other left toe(s); Z95.1 Presence of aortocoronary bypass graft; I25.10 Atherosclerotic heart disease of native coronary artery without angina pectoris; I48.92 Unspecified atrial flutter; Z85.850 Personal history of malignant neoplasm of thyroid; N18.4 Chronic kidney disease, stage 4 (severe); Z79.01 Long term (current) use of anticoagulants; Z68.41 Body mass index [BMI] 40.0-44.9, adult; Z89.412 Acquired absence of left great toe; I50.33 Acute on chronic diastolic (congestive) heart failure; E11.22 Type 2 diabetes mellitus with diabetic chronic kidney disease; F41.9 Anxiety disorder, unspecified; E89.0 Postprocedural hypothyroidism; Z79.899 Other long term (current) drug therapy; N17.9 Acute kidney failure, unspecified; E66.9 Obesity, unspecified; Z79.82 Long term (current) use of aspirin; I47.2 Ventricular tachycardia; E11.65 Type 2 diabetes mellitus with hyperglycemia; D63.1 Anemia in chronic kidney disease; E78.5 Hyperlipidemia, unspecified; I48.0 Paroxysmal atrial fibrillation; I13.0 Hypertensive heart and chronic kidney disease with heart failure and stage 1 through stage 4 chronic kidney disease, or unspecified chronic kidney disease

== ENCOUNTER 2017-10-08 09:44 | Observation (INO) ==
--- NOTE | 2017-10-08 10:35 | XR ---
EXAM DATE: 10/08/2017 10:26 AM EDT AGE/SEX: 62 years / Male INDICATIONS: Shortness of breath. CLINICAL DATA: This is the patient's initial encounter. Patient reports that signs and symptoms have been present for 4 - 6 days and indicates a pain score of 0/10. MEDICAL/SURGICAL HISTORY: None. CABG. [place] [facility] [place]. . FINDINGS: Cardiomegaly and median sternotomy wires are noted. Patchy hazy bilateral parenchymal infiltrates are noted as before. No obvious effusion. CONCLUSION: Overall stable appearance of the chest. Electronically signed by: Eze Senior MD 10/08/2017 10:34 AM EDT
[2017-10-08 10:37] LABS: Baso # (Auto) 0.1 th/mm3 (0.0-0.2); Baso % (Auto) 0.9 % (0.0-2.0); Eos # (Auto) 0.1 th/mm3 (0.0-0.4); Eos % (Auto) 1.6 % (0.0-4.0); Hematocrit 29.6 % (39.0-51.0); Hemoglobin 9.5 gm/dL (13.0-17.0); Lymph # (Auto) 0.6 th/mm3 (1.0-4.8); Lymph % (Auto) 10.4 % (9.0-44.0); Mean Corpuscular HGB Conc 32.2 % (32.0-36.0); Mean Corpuscular Hemoglobin 28.3 pg (27.0-34.0); Mean Platelet Volume 9.5 fL (7.0-11.0); Mono # (Auto) 0.3 th/mm3 (0.0-0.9); Mono % (Auto) 5.8 % (0.0-8.0); Neut # (Auto) 4.4 th/mm3 (1.8-7.7); Neut % (Auto) 81.3 % (16.0-70.0); Platelet Count 138 th/mm3 (150-450); Red Blood Count 3.37 mil/mm3 (4.50-5.90); Red Cell Distribution Width 17.1 % (11.6-17.2); White Blood Count 5.4 th/mm3 (4.0-11.0)
[2017-10-08 10:53] LABS: Activated Partial Thrombo Time 32.1 sec (24.3-30.1); INR 2.3 Ratio; Prothrombin Time 23.2 sec (9.8-11.6)
[2017-10-08 10:55] LABS: Albumin 3.5 g/dL (3.4-5.0); Anion Gap 10 meq/L (5-15); Aspartate Aminotransferase 15 U/L (15-37); Blood Urea Nitrogen 67 mg/dL (7-18); Calcium 8.5 mg/dL (8.5-10.1); Carbon Dioxide 25.6 meq/L (21.0-32.0); Chloride 106 meq/L (98-107); Glomerular Filtration Rate 18 mL/min (>89); Glucose,Random 284 mg/dL (74-106); Magnesium 2.7 mg/dL (1.5-2.5); Potassium 4.2 meq/L (3.5-5.1); Sodium 142 meq/L (136-145)
[2017-10-08 10:59] LABS: Alanine Aminotransferase 24 U/L (12-78); Alkaline Phosphatase 114 U/L (45-117); Creatine Kinase 222 U/L (39-308)
[2017-10-08 11:12] LABS: Creatine Kinase MB 2.2 ng/mL (0.5-3.6)
--- NOTE | 2017-10-08 11:13 | ED ---
HPI General Chief Complaint: Respiratory Symptoms Stated Complaint: SOB Time Seen by Provider: 10/08/17 10:02 Source: patient and family Mode of arrival: ambulatory Limitations: no limitations History of Present Illness 62-year-old male presents with shortness of breath, 30 pound weight gain, swelling in his legs over the past couple weeks. He states that he is on the verge of needing dialysis and just got a fistula. He states he feels like he felt when he had to get emergency dialysis before. He denies any fever, pain or other concurrent complaints at this time. He feels worse when he moves around. He feels better at rest. Complaint: shortness of breath Onset (ago): week(s) Related Data Home Medications Medication Instructions Recorded Confirmed amlodipine 10 mg PO DAILY 08/07/17 10/01/17 aspirin [Aspirin Low Dose] 81 mg PO DAILY 08/07/17 10/01/17 atorvastatin 20 mg PO DAILY 08/07/17 10/01/17 cholecalciferol (vitamin D3) 5,000 unit PO DAILY 08/07/17 10/01/17 [Vitamin D3] coenzyme Q10 [Co Q-10] 200 mg PO DAILY 08/07/17 10/01/17 doxazosin 2 mg PO BID 08/07/17 10/01/17 dronedarone [Multaq] 400 mg PO BID 08/07/17 10/01/17 fenofibrate nanocrystallized 145 mg PO DAILY 08/07/17 10/01/17 insulin regular hum U-500 conc 15 unit SUB-Q QID 08/07/17 10/01/17 [Humulin R U-500 (Conc) Kwikpen] levothyroxine 2 cap PO DAILY 08/07/17 10/01/17 losartan 12.5 mg PO DAILY 08/07/17 10/01/17 metoprolol tartrate 12.5 mg PO DAILY 08/07/17 10/01/17 vitamin B comp with C no.4 [Super 150 mg PO DAILY 08/07/17 10/01/17 B Complex + C] warfarin [Jantoven] 5 mg PO DAILY 08/07/17 10/01/17 Previous Rx's Medication Instructions Recorded furosemide 80 mg PO DAILY #30 tab 08/10/17 Allergies Allergy/AdvReac Type Severity Reaction Status Date / Time No Known Allergies Allergy Unverified 10/01/17 10:03 Review of Systems ROS: all other systems reviewed are negative [facility] Medical History Medical History History of MRSA infection (Acute) Renal failure (Acute) Anticoagulant long-term use (Acute) TIA (transient ischemic attack) (Acute) Arthritic-like pain (Acute) Sleep apnea with use of continuous positive airway pressure (CPAP) (Acute) Blind (Acute) Lymphedema (Acute) Neuropathy (Acute) History of atrial flutter (Acute) Atrial fibrillation (Acute) Congestive heart failure (CHF) (Acute) Diabetes mellitus (Acute) High cholesterol (Acute) History of amputation of toe (Acute) History of bradycardia (Acute) Hypertension (Acute) Hypothyroidism (Acute) Thyroid cancer (Acute) Toe amputation status (Acute) Surgical History Surgical History History of cholecystectomy (Acute) History of thyroidectomy (Acute) Hx of bilateral inguinal hernia repair (Acute) S/P CABG x 4 (Acute) Family History Family History Other Family history of acute myocardial infarction Family history of breast cancer Family history of cancer Family history of diabetes mellitus Family history of hypertension Social History Social History Substance History: No History of Abuse Second Hand Smoke Exposure: No Smoking Status: Never smoker Tobacco Type: Cigarettes How Often Do You Have a Drink Containing Alcohol: Never Recent Travel in [facility] within the Last 8 Weeks: No Recent Out of Country Travel within the Last 8 Weeks: No Immunization History Tetanus Immunization: >5 Years Hx Influenza Vaccine This Season: Yes Exam Narrative Exam Narrative: GENERAL: 62 y/o male in no apparent distress SKIN: Focused skin assessment warm/dry. HEAD: Atraumatic. Normocephalic. EYES: Pupils equal and round. No scleral icterus. No injection or drainage. ENT: No nasal bleeding or discharge. Mucous membranes pink and moist. NECK: Trachea midline. CARDIOVASCULAR: Regular rate and rhythm. RESPIRATORY: No accessory muscle use. Clear to auscultation. Breath sounds equal bilaterally. GASTROINTESTINAL: Abdomen soft, non-tender, nondistended. MUSCULOSKELETAL: No obvious deformities. No clubbing. No cyanosis. NEUROLOGICAL: Awake and alert.Motor grossly within normal limits. Normal speech. PSYCHIATRIC: Appropriate mood and affect; insight and judgment normal. Course Reevaluation(s) Reevaluation #1: Patient updated and agrees to admission Consultations Consultation #1: dr frey states to give lasix 80mg iv times one and admit Consultation #2: Hospitalists agrees to admission Initial Documented Vital Signs Temperature 98.0 F 10/08/17 09:54 Pulse Rate 63 10/08/17 09:54 Respiratory Rate 16 10/08/17 09:54 Blood Pressure 159/59 H 10/08/17 09:54 Pulse Oximetry 98 10/08/17 09:54 Last Documented Vital Signs Temperature 98.0 F 10/08/17 10:02 Pulse Rate 67 10/08/17 10:02 Respiratory Rate 18 10/08/17 10:02 Blood Pressure 159/59 H 10/08/17 09:54 Pulse Oximetry 100 10/08/17 10:08 Medical Decision Making MDM Narrative Medical decision making narrative: Will check blood work, imaging and reevaluate. Medical Screen Exam Complete: Yes Emergency Medical Condition: Yes Differential Diagnosis Differential Diagnosis: Anemia, electrolyte abnormality, fluid overload Lab Data Lab results reviewed: Yes I reviewed the patient's lab results. Result diagrams: 10/08/17 10:15 10/08/17 10:15 Lab Results 10/08/17 10/08/17 10/08/17 Range/Units 10:15 10:15 10:15 WBC 5.4 (4.0-11.0) th/mm3 RBC 3.37 L (4.50-5.90) mil/mm3 Hgb 9.5 L (13.0-17.0) gm/dL Hct 29.6 L (39.0-51.0) % MCV 88.0 (80.0-100.0) fL MCH 28.3 (27.0-34.0) pg MCHC 32.2 (32.0-36.0) % RDW 17.1 (11.6-17.2) % Plt Count 138 L (150-450) th/mm3 MPV 9.5 (7.0-11.0) fL Neut % (Auto) 81.3 H (16.0-70.0) % Lymph % (Auto) 10.4 (9.0-44.0) % [place] % (Auto) 5.8 (0.0-8.0) % Eos % (Auto) 1.6 (0.0-4.0) % Baso % (Auto) 0.9 (0.0-2.0) % Neut # (Auto) 4.4 (1.8-7.7) th/mm3 Lymph # (Auto) 0.6 L (1.0-4.8) th/mm3 [place] # (Auto) 0.3 (0.0-0.9) th/mm3 Eos # (Auto) 0.1 (0.0-0.4) th/mm3 Baso # (Auto) 0.1 (0.0-0.2) th/mm3 WBC Differential . Differential Comment Auto diff final PT 23.2 H (9.8-11.6) sec INR 2.3 Ratio APTT 32.1 H (24.3-30.1) sec Sodium 142 (136-145) meq/L Potassium 4.2 (3.5-5.1) meq/L Chloride 106 (98-107) meq/L Carbon Dioxide 25.6 (21.0-32.0) meq/L Anion Gap 10 (5-15) meq/L BUN 67 H (7-18) mg/dL Creatinine 3.38 H (0.60-1.30) mg/dL Estimated GFR 18 L (>89) mL/min Random Glucose 284 H (74-106) mg/dL Calcium 8.5 (8.5-10.1) mg/dL Magnesium 2.7 H (1.5-2.5) mg/dL Total Bilirubin 0.7 (0.2-1.0) mg/dL AST 15 (15-37) U/L ALT 24 (12-78) U/L Alkaline Phosphatase 114 (45-117) U/L Total Creatine Kinase 222 (39-308) U/L CK-MB (CK-2) 2.2 (0.5-3.6) ng/mL Troponin I Less than 0.02 L (0.02-0.05) ng/mL B-Natriuretic Peptide (0-100) pg/mL Total Protein 7.0 (6.4-8.2) g/dL Albumin 3.5 (3.4-5.0) g/dL 10/08/17 Range/Units 10:15 WBC (4.0-11.0) th/mm3 RBC (4.50-5.90) mil/mm3 Hgb (13.0-17.0) gm/dL Hct (39.0-51.0) % MCV (80.0-100.0) fL MCH (27.0-34.0) pg MCHC (32.0-36.0) % RDW (11.6-17.2) % Plt Count (150-450) th/mm3 MPV (7.0-11.0) fL Neut % (Auto) (16.0-70.0) % Lymph % (Auto) (9.0-44.0) % [place] % (Auto) (0.0-8.0) % Eos % (Auto) (0.0-4.0) % Baso % (Auto) (0.0-2.0) % Neut # (Auto) (1.8-7.7) th/mm3 Lymph # (Auto) (1.0-4.8) th/mm3 [place] # (Auto) (0.0-0.9) th/mm3 Eos # (Auto) (0.0-0.4) th/mm3 Baso # (Auto) (0.0-0.2) th/mm3 WBC Differential Differential Comment PT (9.8-11.6) sec INR Ratio APTT (24.3-30.1) sec Sodium (136-145) meq/L Potassium (3.5-5.1) meq/L Chloride (98-107) meq/L Carbon Dioxide (21.0-32.0) meq/L Anion Gap (5-15) meq/L BUN (7-18) mg/dL Creatinine (0.60-1.30) mg/dL Estimated GFR (>89) mL/min Random Glucose (74-106) mg/dL Calcium (8.5-10.1) mg/dL Magnesium (1.5-2.5) mg/dL Total Bilirubin (0.2-1.0) mg/dL AST (15-37) U/L ALT (12-78) U/L Alkaline Phosphatase (45-117) U/L Total Creatine Kinase (39-308) U/L CK-MB (CK-2) (0.5-3.6) ng/mL Troponin I (0.02-0.05) ng/mL B-Natriuretic Peptide 245 H (0-100) pg/mL Total Protein (6.4-8.2) g/dL Albumin (3.4-5.0) g/dL Imaging Data Attestation: I personally reviewed and interpreted this imaging study as follows : Radiologist's impression: Chest X-Ray 10/08/17 10:02 CONCLUSION: Overall stable appearance of the chest. Discharge Plan Physicians Team ED Provider: Rochelle Correa Primary Care Provider: Garth Eisenberg Rxs /Orders / Referrals /Forms Prescriptions: No Action atorvastatin 20 mg Tablet 20 mg PO DAILY RF: 0 aspirin [Aspirin Low Dose] 81 mg Tablet,Delayed Release (Dr/Ec) 81 mg PO DAILY RF: 0 amlodipine 10 mg Tablet 10 mg PO DAILY RF: 0 doxazosin 2 mg Tablet 2 mg PO BID RF: 0 coenzyme Q10 [Co Q-10] 200 mg Capsule 200 mg PO DAILY RF: 0 fenofibrate nanocrystallized 145 mg Tablet 145 mg PO DAILY RF: 0 insulin regular hum U-500 conc [Humulin R U-500 (Conc) Kwikpen] 500 unit/mL ( 3 mL) Insulin Pen 15 unit SUB-Q QID RF: 0 warfarin [Jantoven] 5 mg Tablet 5 mg PO DAILY RF: 0 losartan 25 mg Tablet 12.5 mg PO DAILY RF: 0 metoprolol tartrate 25 mg Tablet 12.5 mg PO DAILY RF: 0 vitamin B comp with C no.4 [Super B Complex + C] 150 mg Tablet 150 mg PO DAILY RF: 0 cholecalciferol (vitamin D3) [Vitamin D3] 5,000 unit Tablet 5,000 unit PO DAILY RF: 0 dronedarone [Multaq] 400 mg Tablet 400 mg PO BID RF: 0 levothyroxine 112 mcg Capsule 2 cap PO DAILY RF: 0 furosemide 80 mg Tablet 80 mg PO DAILY Qty: 30 RF: 0 Discharge Interventions Interventions: Vital Signs Last Done: 10/08/17 10:02 Status ED Status: Admitted Observation Patient
[2017-10-08] MEDS ORDERED: Bisacodyl 10 MG Supp RECTAL PRN (13:15)
--- NOTE | 2017-10-08 13:15 | P.HP ---
History of Present Illness Primary Care Physician: Garth Eisenberg MD Chief Complaint: sob History of Present Illness: 62-year-old male with multiple medical problems presents with shortness of breath, 30 pound weight gain, swelling in his legs over the past couple weeks. He states that he is on the verge of needing dialysis and just got a fistula. He states he feels like he felt when he had to get emergency dialysis before. He denies any fever, pain or other concurrent complaints at this time. He feels worse when he moves around. He feels better at rest. 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 The patient is admitted under observation and Dr Mireles nephro consulted. Patient otherwise denies any chest pain, palpitations, lightheadedness. No n/v/d /c. No urinary complaints. No cough fever or chills. Review of Systems All other systems reviewed negative except as stated in HPI PMFSH - History History Provided By: Patient - Medical History Medical History: Medical History (Last Reviewed 10/08/17 @ 16:42 by Evelyne Fernandez MD) History of MRSA infection (Acute) Renal failure (Acute) Anticoagulant long-term use (Acute) TIA (transient ischemic attack) (Acute) Arthritic-like pain (Acute) Sleep apnea with use of continuous positive airway pressure (CPAP) (Acute) Blind (Acute) Lymphedema (Acute) Neuropathy (Acute) History of atrial flutter (Acute) Atrial fibrillation Congestive heart failure (CHF) Diabetes mellitus High cholesterol History of amputation of toe History of bradycardia Hypertension Hypothyroidism Thyroid cancer Toe amputation status - Surgical History Surgical History: Surgical History (Last Reviewed 10/08/17 @ 16:42 by Evelyne Fernandez MD) History of cholecystectomy History of thyroidectomy Hx of bilateral inguinal hernia repair S/P CABG x 4 - Family History Family History: Family History (Last Reviewed 10/08/17 @ 16:42 by Evelyne Fernandez MD) Other Family history of acute myocardial infarction Family history of breast cancer Family history of cancer Family history of diabetes mellitus Family history of hypertension - Tobacco History Second Hand Smoke Exposure: No Tobacco Use In Past 30 Days: No Smoking Status: Never smoker Tobacco Type: Cigarettes - Alcohol History How Often Do You Have a Drink Containing Alcohol: Never - Substance Use History Substance History: No History of Abuse - Travel History Recent Travel in the [facility] Within the Last 8 Weeks: No Recent Travel Out of the Country Within the Last 8 Weeks: No - Immunization History Tetanus Immunization: >5 Years Hx Influenza Vaccine This Season: Yes Medications and Allergies Allergies Allergy/AdvReac Type Severity Reaction Status Date / Time No Known Allergies Allergy Unverified 10/01/17 10:03 Home Medications Medication Instructions Recorded Confirmed Type amlodipine 10 mg PO DAILY 08/07/17 10/08/17 History aspirin [Aspirin Low Dose] 81 mg PO DAILY 08/07/17 10/08/17 History atorvastatin 20 mg PO DAILY 08/07/17 10/08/17 History cholecalciferol (vitamin D3) 5,000 unit PO DAILY 08/07/17 10/08/17 History [Vitamin D3] coenzyme Q10 [Co Q-10] 200 mg PO DAILY 08/07/17 10/08/17 History doxazosin 2 mg PO BID 08/07/17 10/08/17 History dronedarone [Multaq] 400 mg PO BID 08/07/17 10/08/17 History fenofibrate nanocrystallized 145 mg PO DAILY 08/07/17 10/08/17 History insulin regular hum U-500 conc 15 unit SUB-Q QID 08/07/17 10/08/17 History [Humulin R U-500 (Conc) Kwikpen] levothyroxine 2 cap PO DAILY 08/07/17 10/08/17 History losartan 12.5 mg PO DAILY 08/07/17 10/08/17 History metoprolol tartrate 12.5 mg PO DAILY 08/07/17 10/08/17 History vitamin B comp with C no.4 [Super 150 mg PO DAILY 08/07/17 10/08/17 History B Complex + C] warfarin [Jantoven] 5 mg PO DAILY 08/07/17 10/08/17 History Exam Vital signs: Vital Signs 10/08/17 09:54 10/08/17 10:02 10/08/17 10:06 Temperature 98.0 F 98.0 F Pulse Rate 63 67 Respiratory Rate 16 18 Blood Pressure 159/59 H Pulse Oximetry 98 98 10/08/17 10:08 Temperature Pulse Rate Respiratory Rate Blood Pressure Pulse Oximetry 100 Intake & Output 10/07/17 10/08/17 10/08/17 18:59 06:59 18:59 Weight 140.614 kg Narrative: GENERAL: Pleasant 62 yo male, in bed appears in nad. SKIN: Warm and dry. HEAD: Atraumatic. Normocephalic. EYES: Pupils equal and round. No scleral icterus. No injection or drainage. ENT: No nasal bleeding or discharge. Mucous membranes pink and moist. NECK: Trachea midline. No JVD. CARDIOVASCULAR: Regular rate and rhythm. RESPIRATORY: No accessory muscle use. Decreased breath sounds. No wheezing. GASTROINTESTINAL: Abdomen soft, non-tender, nondistended. Hepatic and splenic margins not palpable. MUSCULOSKELETAL: Extremities without clubbing, cyanosis. 2+ bialt LE edema. No obvious deformities. NEUROLOGICAL: Awake and alert. No obvious cranial nerve deficits. Motor grossly within normal limits. Five out of 5 muscle strength in the arms and legs. Normal speech. PSYCHIATRIC: Appropriate mood and affect; insight and judgment normal. Results - Labs CBC & Chem 7: 10/08/17 10:15 10/08/17 10:15 Labs: Laboratory Results - last 24 hr 10/08/17 10/08/17 10/08/17 10:15 10:15 10:15 WBC 5.4 RBC 3.37 L Hgb 9.5 L Hct 29.6 L MCV 88.0 MCH 28.3 MCHC 32.2 RDW 17.1 Plt Count 138 L MPV 9.5 Neut % (Auto) 81.3 H Lymph % (Auto) 10.4 [place] % (Auto) 5.8 Eos % (Auto) 1.6 Baso % (Auto) 0.9 Neut # (Auto) 4.4 Lymph # (Auto) 0.6 L [place] # (Auto) 0.3 Eos # (Auto) 0.1 Baso # (Auto) 0.1 WBC Differential . Differential Comment Auto diff final PT 23.2 H INR 2.3 APTT 32.1 H Sodium 142 Potassium 4.2 Chloride 106 Carbon Dioxide 25.6 Anion Gap 10 BUN 67 H Creatinine 3.38 H Estimated GFR 18 L Random Glucose 284 H Calcium 8.5 Magnesium 2.7 H Total Bilirubin 0.7 AST 15 ALT 24 Alkaline Phosphatase 114 Total Creatine Kinase 222 CK-MB (CK-2) 2.2 Troponin I Less than 0.02 L B-Natriuretic Peptide Total Protein 7.0 Albumin 3.5 10/08/17 10:15 WBC RBC Hgb Hct MCV MCH MCHC RDW Plt Count MPV Neut % (Auto) Lymph % (Auto) [place] % (Auto) Eos % (Auto) Baso % (Auto) Neut # (Auto) Lymph # (Auto) [place] # (Auto) Eos # (Auto) Baso # (Auto) WBC Differential Differential Comment PT INR APTT Sodium Potassium Chloride Carbon Dioxide Anion Gap BUN Creatinine Estimated GFR Random Glucose Calcium Magnesium Total Bilirubin AST ALT Alkaline Phosphatase Total Creatine Kinase CK-MB (CK-2) Troponin I B-Natriuretic Peptide 245 H Total Protein Albumin - Imaging Impressions Chest X-Ray 10/08/17 10:02 CONCLUSION: Overall stable appearance of the chest. Caprini VTE Risk Assessment Caprini VTE Risk Assessment: Moderate/High Risk (score >= 2) Caprini Risk Assessment Model: Point Value = 1 Point Value = 2 Point Value = 3 Point Value = 5 Age 41-60 Minor surgery BMI > 25 kg/m2 Swollen legs Varicose veins or History of unexplained or recurrent spontaneous Oral contraceptives or hormone replacement Sepsis (< 1 month) Serious lung disease, including pneumonia (< 1 month) Abnormal pulmonary function Acute myocardial infarction Congestive heart failure (< 1 month) History of inflammatory bowel disease Medical patient at bed rest Age 61-74 Arthroscopic surgery Major open surgery (> 45 min) Laparoscopic surgery (> 45 min) Malignancy Confined to bed (> 72 hours) Immobilizing plaster cast Central venous access Age >= 75 History of VTE Family history of VTE Factor V Leiden Prothrombin [id number] Lupus anticoagulant Anticardiolipin antibodies Elevated serum homocysteine Heparin-induced thrombocytopenia Other congenital or acquired thrombophilia Stroke (< 1 month) Elective arthroplasty Hip, pelvis, or leg fracture Acute spinal cord injury (< 1 month) Prophylaxis Regimen: Total Risk Factor Score Risk Level Prophylaxis Regimen 0-1 Low Early ambulation 2 Moderate Order ONE of the following: *Sequential Compression Device (SCD) *Heparin 5000 units SQ BID 3-4 Higher Order ONE of the following medications: *Heparin 5000 units SQ TID *Enoxaparin/Lovenox 40 mg SQ daily (WT < 150 kg, CrCl > 30 mL/min) *Enoxaparin/Lovenox 30 mg SQ daily (WT < 150 kg, CrCl > 10-29 mL/min) *Enoxaparin/Lovenox 30 mg SQ BID (WT < 150 kg, CrCl > 30 mL/min) AND/OR *Sequential Compression Device (SCD) 5 or more Highest Order ONE of the following medications: *Heparin 5000 units SQ TID (Preferred with Epidurals) *Enoxaparin/Lovenox 40 mg SQ daily (WT < 150 kg, CrCl > 30 mL/min) *Enoxaparin/Lovenox 30 mg SQ daily (WT < 150 kg, CrCl > 10-29 mL/min) *Enoxaparin/Lovenox 30 mg SQ BID (WT < 150 kg, CrCl > 30 mL/min) AND *Sequential Compression Device (SCD) Assessment and Plan - Plan 62 yo male with multiple medical problems presents with shortness of breath, 30 pound weight gain, swelling in his legs over the past couple weeks. He states that he is on the verge of needing dialysis and just got a fistula. 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 The patient is admitted under observation and Dr Mireles nephmelecio consulted. Dyspnea. Likely secondary to renal failure, fluid overload. Supplemental oxygen if need to keep O2 sat > 94% . Continue furosemide. LE edema Stage 5 CKD/ ESRD He states that he is on the verge of needing dialysis and just got a fistula. 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 The patient is admitted under observation and Dr Mireles nephmelecio consulted. Chronic medical problems. Restart home meds as appropriate. Monitor Diabetes mellitus type 2: Continue home insulin regimen. Monitor Accu-Cheks and cover with sliding scale insulin. Hypertension: Continue amlodipine, metoprolol. Losartan Coronary artery disease: Continue aspirin, statin metoprolol, losartan, amlodipine. Atrial fibrillation: Anticoagulation with Coumadin. Pharmacy consulted for follow up. INR ordered, monitor . INR - therapeutic on admission Continue Multaq. Hypothyroidism: Continue Synthroid. Patient takes 2 tablets of 112 mcg each morning. DVT prophylaxis: SCDs, Coumadin. Discussed Condition With: pt, nurse, Dr Correa ED physician
[2017-10-08] MEDS ORDERED: Acetaminophen 325 MG Tablet PO PRN (13:16)
[2017-10-08] MEDS ORDERED: Enoxaparin Inj 30 MG/0.3 ML Syringe SQ SCH (14:00)
[2017-10-08] MEDS ORDERED: Warfarin Consult Pharmacy OTHER PRN (17:02)
[2017-10-08] MEDS: Senna/Docusate Sodium 8.6/50 MG Tablet PO SCH (22:18)
[2017-10-09] MEDS: Levothyroxine 112 MCG Tablet PO SCH (06:15)
[2017-10-09 06:29] LABS: Activated Partial Thrombo Time 31.7 sec (24.3-30.1); INR 2.3 Ratio; Prothrombin Time 23.6 sec (9.8-11.6)
[2017-10-09 06:54] LABS: Baso # (Auto) 0.1 th/mm3 (0.0-0.2); Eos # (Auto) 0.1 th/mm3 (0.0-0.4); Eos % (Auto) 2.5 % (0.0-4.0); Hematocrit 30.3 % (39.0-51.0); Hemoglobin 9.8 gm/dL (13.0-17.0); Lymph # (Auto) 0.8 th/mm3 (1.0-4.8); Lymph % (Auto) 13.6 % (9.0-44.0); Mean Corpuscular HGB Conc 32.4 % (32.0-36.0); Mean Corpuscular Hemoglobin 28.2 pg (27.0-34.0); Mean Corpuscular Volume 87.1 fL (80.0-100.0); Mean Platelet Volume 9.5 fL (7.0-11.0); Mono # (Auto) 0.4 th/mm3 (0.0-0.9); Mono % (Auto) 7.2 % (0.0-8.0); Neut # (Auto) 4.3 th/mm3 (1.8-7.7); Neut % (Auto) 75.7 % (16.0-70.0); Platelet Count 150 th/mm3 (150-450); Red Blood Count 3.48 mil/mm3 (4.50-5.90); Red Cell Distribution Width 16.8 % (11.6-17.2); White Blood Count 5.7 th/mm3 (4.0-11.0)
[2017-10-09 07:06] LABS: Calcium 9.1 mg/dL (8.5-10.1); Carbon Dioxide 27.6 meq/L (21.0-32.0); Potassium 4.2 meq/L (3.5-5.1)
[2017-10-09] MEDS: Metoprolol Tartrate 25 MG Tablet PO SCH (08:40)
[2017-10-09] MEDS: amLODIPine 10 MG Tablet PO SCH (08:41)
[2017-10-09] MEDS: Fenofibrate 145 MG Tablet PO SCH (08:42)
[2017-10-09] MEDS: Senna/Docusate Sodium 8.6/50 MG Tablet PO SCH ×2 (08:43→21:39)
--- NOTE | 2017-10-09 10:46 | P.CONNP ---
History of Present Illness Service: Nephrology Consult date: 10/09/17 Requesting Physician: Evelyne Fernandez Reason for Consult: Chronic kidney disease Primary Care Provider: Garth Eisenberg MD Family Provider: Garth Eisenberg MD Chief Complaint: sob History of Present Illness: Patient is a 62-year-old male with history of chronic kidney disease stage IV, diabetes, hypertension, obesity has AV fistula placed in the right arm and he has increasing shortness of breath and fluid gain, he was admitted to given Lasix yesterday creatinine has declined from 3.3-3.0 Patient feels better he still has edema in the legs and has been placed on Lasix 40 mg twice daily He states he is passing more urine. Review of Systems Constitutional: Reports lack of energy Eyes: Reports change in vision Ears, Nose, Mouth, and Throat: Denies abnormal hearing, Denies bleeding gums, Denies bad breath, Denies change in voice, Denies dental pain, Denies difficulty swallowing, Denies dizziness, Denies dry mouth, Denies ear discharge , Denies ear pain, Denies facial pain, Denies headache(s), Denies hearing loss, Denies hoarseness, Denies lip swelling, Denies nosebleed, Denies mouth lesions, Denies mouth pain, Denies nasal congestion, Denies nasal discharge, Denies nasal obstruction, Denies nasal trauma, Denies neck lump, Denies neck pain, Denies nose pain, Denies pain with swallowing, Denies poor balance, Denies post nasal drip, Denies ringing in the ears, Denies sinus pain, Denies sinus pressure , Denies sore throat, Denies throat swelling, Denies tongue swelling, Denies other Cardiovascular: Reports leg swelling, Reports shortness of breath Respiratory: Reports shortness of breath with activity Gastrointestinal: Reports bloating Genitourinary: Reports urinary frequency, Reports other Musculoskeletal: Reports joint swelling Neurologic: Reports loss of vision PMFSH - History History Provided By: Patient - Medical History Medical History: Medical History (Last Reviewed 10/09/17 @ 08:06 by Mayo Hughes) History of MRSA infection (Acute) Renal failure (Acute) Anticoagulant long-term use (Acute) TIA (transient ischemic attack) (Acute) Arthritic-like pain (Acute) Sleep apnea with use of continuous positive airway pressure (CPAP) (Acute) Blind (Acute) Lymphedema (Acute) Neuropathy (Acute) History of atrial flutter (Acute) Atrial fibrillation Congestive heart failure (CHF) Diabetes mellitus High cholesterol History of amputation of toe History of bradycardia Hypertension Hypothyroidism Thyroid cancer Toe amputation status - Surgical History Surgical History: Surgical History (Last Reviewed 10/09/17 @ 08:07 by Mayo Hughes) History of cholecystectomy History of thyroidectomy Hx of bilateral inguinal hernia repair S/P CABG x 4 - Family History Family History: Family History (Last Reviewed 10/08/17 @ 16:42 by Evelyne Fernandez MD) Other Family history of acute myocardial infarction Family history of breast cancer Family history of cancer Family history of diabetes mellitus Family history of hypertension - Tobacco History Second Hand Smoke Exposure: No Tobacco Use In Past 30 Days: No Smoking Status: Never smoker Tobacco Type: Cigarettes - Alcohol History How Often Do You Have a Drink Containing Alcohol: Never - Substance Use History Substance History: No History of Abuse - Travel History Recent Travel in the [facility] Within the Last 8 Weeks: No Recent Travel Out of the Country Within the Last 8 Weeks: No - Immunization History Tetanus Immunization: >5 Years Hx Influenza Vaccine This Season: Yes Medications and Allergies Active Medications: Active Medications Acetaminophen (Tylenol) 650 mg PO Q4H PRN PRN Reason: Temp > 100.4 Al Hydroxide/Mg Hydroxide (Milk Of [place]chand[place] Liq) 30 ml PO Q12H PRN PRN Reason: Mild Constipation Amlodipine Besylate (Norvasc) 10 mg PO DAILY COUNT INCLUDES THE [facility] Last Admin: 10/09/17 08:41 Dose: 10 mg Aspirin (Ecotrin) 81 mg PO DAILY COUNT INCLUDES THE [facility] Last Admin: 10/09/17 08:41 Dose: 81 mg Atorvastatin Calcium (Lipitor) 20 mg PO DAILY COUNT INCLUDES THE [facility] Last Admin: 10/09/17 08:42 Dose: 20 mg Bisacodyl (Dulcolax Supp) 10 mg RECTAL DAILY PRN PRN Reason: SEVERE CONSITIPATION Doxazosin Mesylate (Cardura) 2 mg PO BID COUNT INCLUDES THE [facility] Last Admin: 10/09/17 08:40 Dose: 2 mg Dronedarone (Multaq) 400 mg PO BID COUNT INCLUDES THE [facility] Last Admin: 10/09/17 08:41 Dose: 400 mg Fenofibrate (Tricor) 145 mg PO DAILY COUNT INCLUDES THE [facility] Last Admin: 10/09/17 08:42 Dose: 145 mg Furosemide (Lasix Inj) 40 mg IV.PUSH BID@0900,1800 COUNT INCLUDES THE [facility] Last Admin: 10/09/17 08:49 Dose: 40 mg Insulin Human Regular (Novolin R Inj) 15 units SQ QID COUNT INCLUDES THE [facility] Last Admin: 10/09/17 08:36 Dose: 15 units Lactulose (Lactulose Liq) 30 ml PO DAILY PRN PRN Reason: SEVERE CONSITIPATION Levothyroxine Sodium (Synthroid) 224 mcg PO DAILY@0600 COUNT INCLUDES THE [facility] Last Admin: 10/09/17 06:15 Dose: 224 mcg Losartan Potassium (Cozaar) 12.5 mg PO DAILY COUNT INCLUDES THE [facility] Last Admin: 10/09/17 08:49 Dose: 12.5 mg Metoprolol Tartrate (Lopressor) 12.5 mg PO DAILY COUNT INCLUDES THE [facility] Last Admin: 10/09/17 08:40 Dose: 12.5 mg Miscellaneous (Pill Splitter) 1 each OTHER UNSCH COUNT INCLUDES THE [facility] Ondansetron HCl (Zofran Inj) 4 mg IV.PUSH Q6H PRN PRN Reason: NAUSEA OR VOMITING Pharmacy Profile Note (Coumadin Consult Pharmacy) 1 each OTHER UNSCH PRN PRN Reason: PHARMACY DOCUMENTATION Senna/Docusate Sodium (Makayla-Colace) 1 tab PO BID COUNT INCLUDES THE [facility] Last Admin: 10/09/17 08:43 Dose: 1 tab Sennosides (Senokot) 17.2 mg PO Q12H PRN PRN Reason: Moderate Constipation Vitamin D (Vitamin D3) 5,000 unit PO DAILY COUNT INCLUDES THE [facility] Last Admin: 10/09/17 08:42 Dose: 5,000 unit Warfarin Sodium (Coumadin) 5 mg PO DAILY@1600 COUNT INCLUDES THE [facility] Allergies Allergy/AdvReac Type Severity Reaction Status Date / Time No Known Allergies Allergy Unverified 10/01/17 10:03 Home Medications Medication Instructions Recorded Confirmed Type amlodipine 10 mg PO DAILY 08/07/17 10/08/17 History aspirin [Aspirin Low Dose] 81 mg PO DAILY 08/07/17 10/08/17 History atorvastatin 20 mg PO DAILY 08/07/17 10/08/17 History cholecalciferol (vitamin D3) 5,000 unit PO DAILY 08/07/17 10/08/17 History [Vitamin D3] coenzyme Q10 [Co Q-10] 200 mg PO DAILY 08/07/17 10/08/17 History doxazosin 2 mg PO BID 08/07/17 10/08/17 History dronedarone [Multaq] 400 mg PO BID 08/07/17 10/08/17 History fenofibrate nanocrystallized 145 mg PO DAILY 08/07/17 10/08/17 History insulin regular hum U-500 conc 15 unit SUB-Q QID 08/07/17 10/08/17 History [Humulin R U-500 (Conc) Kwikpen] levothyroxine 2 cap PO DAILY 08/07/17 10/08/17 History losartan 12.5 mg PO DAILY 08/07/17 10/08/17 History metoprolol tartrate 12.5 mg PO DAILY 08/07/17 10/08/17 History vitamin B comp with C no.4 [Super 150 mg PO DAILY 08/07/17 10/08/17 History B Complex + C] warfarin [Jantoven] 5 mg PO DAILY 08/07/17 10/08/17 History Exam Vital signs: Vital Signs 10/08/17 16:00 10/08/17 20:00 10/09/17 00:00 Temperature 97.7 F 97.2 F L Pulse Rate 64 64 64 Respiratory Rate 18 20 18 Blood Pressure 138/65 127/59 L 136/63 Pulse Oximetry 95 96 96 10/09/17 08:00 10/09/17 08:15 Temperature 97.6 F Pulse Rate 72 Respiratory Rate 18 Blood Pressure 182/78 H Pulse Oximetry 96 96 Intake & Output 10/08/17 10/09/17 10/09/17 18:59 06:59 18:59 Intake Total 240 / 240 Output Total 3000 / 3000 950 / 950 Balance -2760 / -2760 -950 / -950 Weight 140.614 kg 137.5 kg Intake: Oral 240 / 240 Output: Urine 3000 / 3000 950 / 950 Other: # Voids 1 3 Date of Last Bowel Movement 10/08/17 Weight On Admission 140.614 kg - Constitutional no acute distress - Routine HEENT Exam Head: Present: normocephalic Eye: Present: EOMI, PERRL - Routine Neck Exam Present: supple - Routine Respiratory Exam Present: decreased breath sounds - Routine Cardiovascular Exam Present: RRR - Routine Abdominal Exam Present: soft, normoactive bowel sounds - Routine Extremities Exam Present: edema - Routine Neurological Exam Present: alert, oriented X3 Results - Lab Results 10/09/17 05:45 10/10/17 03:40 Most recent lab results Calcium 9.1 mg/dL (8.5-10.1) 10/09/17 05:05 Magnesium 2.7 mg/dL (1.5-2.5) H 10/08/17 10:15 Assessment and Plan - Assessment (1) Acute renal failure Code(s): N17.9 - Acute kidney failure, unspecified Status: Acute (2) CKD (chronic kidney disease) stage 4, GFR 15-29 ml/min Code(s): N18.4 - Chronic kidney disease, stage 4 (severe) Status: Chronic (3) Acute on chronic diastolic (congestive) heart failure Code(s): I50.33 - Acute on chronic diastolic (congestive) heart failure Status : Acute (4) CAD (coronary artery disease) Code(s): I25.10 - Atherosclerotic heart disease of [place] coronary artery without angina pectoris Status: Acute (5) Hx of CABG Code(s): Z95.1 - Presence of aortocoronary bypass graft Status: Acute - Plan Patient did respond to Lasix 80 mg and creatinine declined, continue with diuretics for today and ordered CT scan follow the results to rule out any pericardial effusion as he is responding to conservative approach with diuresis I will continue to observe him for further improvement Dialysis is indicated if conservative approach fails Monitor BMP (1) Acute renal failure Qualifiers: Acute renal failure type: unspecified Qualified Code(s): N17.9 - Acute kidney failure, unspecified
--- NOTE | 2017-10-09 11:15 | CT ---
EXAM DATE: 10/09/2017 10:57 AM EDT AGE/SEX: 62 years / Male INDICATIONS: Congestive heart failure. CLINICAL DATA: This is the patient's initial encounter. Patient reports that signs and symptoms have been present for 2 days and indicates a pain score of 7/10. MEDICAL/SURGICAL HISTORY: Congestive heart failure. Renal failure, chronic. Transient ischemic at tack. Diabetes. Hypertension. Lymphedema. Thyroid cancer. CABG. Cholecystectomy. Thyroidectomy. Bilateral inguinal hernia repair. RADIATION DOSE: 19.99 CTDI (mGy) COMPARISON: [facility] [place], CHEST 1V SINGLE AP, 10/08/2017. . TECHNIQUE: Multiple contiguous axial images were obtained through the chest without contrast. Image s were obtained in suspended respiration using multiple row detector helical technique. Using automa richard exposure control and adjustment of the mA and/or kV according to patient size, radiation dose was kept as low as reasonably achievable to obtain optimal diagnostic quality images. DICOM format imag e data is available electronically for review and comparison. FINDINGS: Lungs: There is some increased interstitial markings bilaterally suggestive of some pulmonary edema. This appears to be mildly improved compared to the prior chest x-ray. No focal areas of parenchymal consolidation are demonstrated. Mediastinum: There is good visualization of the great vessels of the middle mediastinum. No evidenc e of mediastinal or hilar adenopathy/mass. There is evidence of previous cardiothoracic surgery. The heart size is enlarged. Pleurae: No evidence of pleural effusions. There is some mild pleural thickening in both lung bases. Axillae: Unremarkable. Bony Structures: Primary bony degenerative changes. Miscellaneous: The examination was extended to include the upper abdomen, and both adrenal glands ar e normal in size and configuration. CONCLUSION: 1. Increased interstitial markings bilaterally suggestive of pulmonary edema. 2. Cardiomegaly. Electronically signed by: Osvaldo Marie MD 10/09/2017 11:14 AM EDT
[2017-10-09] MEDS ORDERED: Dextrose 50% in Water 50 ML Vial IV.PUSH PRN (12:50)
--- NOTE | 2017-10-09 14:11 | P.PNIM ---
Subjective Interval history: Follow-up for shortness of breath Responding well to Lasix, diuresing well, no chest pain, creatinine is better. Afebrile. Physical Exam Vital signs: Vital Signs 10/08/17 16:00 10/08/17 20:00 10/09/17 00:00 Temperature 97.7 F 97.2 F L Pulse Rate 64 64 64 Respiratory Rate 18 20 18 Blood Pressure 138/65 127/59 L 136/63 Pulse Oximetry 95 96 96 10/09/17 08:00 10/09/17 08:15 10/09/17 12:00 Temperature 97.6 F 97.7 F Pulse Rate 72 62 Respiratory Rate 18 18 Blood Pressure 182/78 H 144/62 H Pulse Oximetry 96 96 96 Intake & Output 10/08/17 10/09/17 10/09/17 18:59 06:59 18:59 Intake Total 240 / 240 Output Total 3000 / 3000 950 / 950 Balance -2760 / -2760 -950 / -950 Weight 140.614 kg 137.5 kg Intake: Oral 240 / 240 Output: Urine 3000 / 3000 950 / 950 Other: # Voids 1 3 Date of Last Bowel Movement 10/08/17 Weight On Admission 140.614 kg Narrative: GENERAL: Pleasant 62 yo male, in bed appears in nad. CARDIOVASCULAR: Regular rate and rhythm. No murmurs. RESPIRATORY: No accessory muscle use. Decreased breath sounds bilaterally, occasional crackles at bases. GASTROINTESTINAL: Abdomen soft, non-tender, nondistended. Hepatic and splenic margins not palpable. MUSCULOSKELETAL: Extremities without clubbing, cyanosis. Plus bilateral lower extremity edema. NEUROLOGICAL: Awake and alert. No obvious cranial nerve deficits. Motor grossly within normal limits. Five out of 5 muscle strength in the arms and legs. Normal speech. Results - Labs CBC & Chem 7: 10/09/17 05:45 10/09/17 05:05 Laboratory Results - last 24 hr 10/08/17 10/08/17 10/08/17 15:45 16:08 17:06 WBC RBC Hgb Hct MCV MCH MCHC RDW Plt Count MPV Neut % (Auto) Lymph % (Auto) [place] % (Auto) Eos % (Auto) Baso % (Auto) Neut # (Auto) Lymph # (Auto) [place] # (Auto) Eos # (Auto) Baso # (Auto) WBC Differential Differential Comment PT INR APTT Sodium Potassium Chloride Carbon Dioxide Anion Gap BUN Creatinine Estimated GFR POC Glucose 51 L 69 122 H Random Glucose Calcium 10/08/17 10/09/17 10/09/17 21:35 05:05 05:45 WBC 5.7 RBC 3.48 L Hgb 9.8 L Hct 30.3 L MCV 87.1 MCH 28.2 MCHC 32.4 RDW 16.8 Plt Count 150 MPV 9.5 Neut % (Auto) 75.7 H Lymph % (Auto) 13.6 [place] % (Auto) 7.2 Eos % (Auto) 2.5 Baso % (Auto) 1.0 Neut # (Auto) 4.3 Lymph # (Auto) 0.8 L [place] # (Auto) 0.4 Eos # (Auto) 0.1 Baso # (Auto) 0.1 WBC Differential . Differential Comment Auto diff final PT INR APTT Sodium 141 Potassium 4.2 Chloride 104 Carbon Dioxide 27.6 Anion Gap 9 BUN 61 H Creatinine 3.06 H Estimated GFR 21 L POC Glucose 200 H Random Glucose 231 H Calcium 9.1 10/09/17 10/09/17 10/09/17 05:45 08:33 12:34 WBC RBC Hgb Hct MCV MCH MCHC RDW Plt Count MPV Neut % (Auto) Lymph % (Auto) [place] % (Auto) Eos % (Auto) Baso % (Auto) Neut # (Auto) Lymph # (Auto) [place] # (Auto) Eos # (Auto) Baso # (Auto) WBC Differential Differential Comment PT 23.6 H INR 2.3 APTT 31.7 H Sodium Potassium Chloride Carbon Dioxide Anion Gap BUN Creatinine Estimated GFR POC Glucose 279 H 403 H Random Glucose Calcium - Imaging Impressions Chest CT 10/09/17 00:00 CONCLUSION: 1. Increased interstitial markings bilaterally suggestive of pulmonary edema. 2. Cardiomegaly. Assessment and Plan - Plan 62 yo male with multiple medical problems presents with shortness of breath Shortness of breath likely secondary to pulmonary edema from volume overload, CKD stage IV-diuresing well with Lasix, continue Lasix as ordered, monitor BMP tomorrow. Nephrology following, since patient is responding, no need for dialysis for now. CT scan of the chest done, no pericardial effusion but showed pulmonary edema. Echocardiogram done in July 2017 showed a normal ejection fraction 60-65%. Chronic kidney disease stage IV-status post AV fistula, not dialysis dependent yet. Fistula awaiting maturation. Chronic medical problems. Restart home meds as appropriate. Monitor Diabetes mellitus type 2: Continue home insulin regimen. Monitor Accu-Cheks and cover with sliding scale insulin. Hypertension: Continue amlodipine, metoprolol. Losartan Coronary artery disease: Continue aspirin, statin metoprolol, losartan, amlodipine. Atrial fibrillation: Anticoagulation with Coumadin. Pharmacy consulted for follow up. INR ordered, monitor . INR - therapeutic on admission Continue Multaq. Hypothyroidism: Continue Synthroid. Patient takes 2 tablets of 112 mcg each morning. DVT prophylaxis: SCDs, Coumadin. Follow-up with physical therapy as outpatient in the lymphedema clinic.
[2017-10-09] MEDS: Insulin NovoLOG Aspart Correctional Sugar Inj SQ SCH ×2 (19:18→23:41)
[2017-10-10 04:20] LABS: Activated Partial Thrombo Time 33.1 sec (24.3-30.1); INR 2.3 Ratio; Prothrombin Time 23.1 sec (9.8-11.6)
[2017-10-10 04:38] LABS: Carbon Dioxide 29.6 meq/L (21.0-32.0); Potassium 4.1 meq/L (3.5-5.1)
[2017-10-10] MEDS: Levothyroxine 112 MCG Tablet PO SCH (06:11)
[2017-10-10] MEDS: amLODIPine 10 MG Tablet PO SCH (09:27)
[2017-10-10] MEDS: Fenofibrate 145 MG Tablet PO SCH (09:28)
[2017-10-10] MEDS: Senna/Docusate Sodium 8.6/50 MG Tablet PO SCH ×2 (09:28→21:17)
[2017-10-10] MEDS: Metoprolol Tartrate 25 MG Tablet PO SCH (09:28)
[2017-10-10] MEDS: Insulin NovoLOG Aspart Correctional Sugar Inj SQ SCH ×4 (09:30→21:32)
--- NOTE | 2017-10-10 12:01 | P.PNNP ---
Subjective Interval history: Patient feels better patient feels better urine output has increased with Lasix Physical Exam Vital signs: Vital Signs 10/09/17 12:00 10/09/17 16:00 10/09/17 20:00 Temperature 97.7 F 97.8 F 97.6 F Pulse Rate 62 64 69 Respiratory Rate 18 18 18 Blood Pressure 144/62 H 162/73 H 163/70 H Pulse Oximetry 96 95 94 L 10/10/17 00:00 10/10/17 04:00 10/10/17 08:00 Temperature 97.9 F 98.0 F Pulse Rate 67 61 65 Respiratory Rate 16 16 12 Blood Pressure 193/81 H 116/57 L 176/76 H Pulse Oximetry 95 93 L 94 L Intake & Output 10/09/17 10/10/17 10/10/17 18:59 06:59 18:59 Intake Total 720 / 720 360 / 360 Output Total 1475 / 1475 1700 / 1700 300 / 300 Balance -755 / -755 -1340 / -1340 -300 / -300 Weight 135.715 kg Intake: Oral 720 / 720 360 / 360 Output: Urine 1475 / 1475 1700 / 1700 300 / 300 Other: # Voids 4 Date of Last Bowel Movement 10/09/17 10/09/17 10/10/17 - Constitutional no acute distress - Routine HEENT Exam Head: Present: normocephalic Eye: Present: EOMI - Routine Neck Exam Present: supple - Routine Respiratory Exam Present: CTA bilaterally - Routine Cardiovascular Exam Present: RRR - Routine Abdominal Exam Present: soft, normoactive bowel sounds - Routine Extremities Exam Present: edema Assessment and Plan - Assessment (1) Acute renal failure Code(s): N17.9 - Acute kidney failure, unspecified Status: Acute Qualifiers: Acute renal failure type: unspecified Qualified Code(s): N17.9 - Acute kidney failure, unspecified (2) CKD (chronic kidney disease) stage 4, GFR 15-29 ml/min Code(s): N18.4 - Chronic kidney disease, stage 4 (severe) Status: Chronic (3) Acute on chronic diastolic (congestive) heart failure Code(s): I50.33 - Acute on chronic diastolic (congestive) heart failure Status : Acute (4) CAD (coronary artery disease) Code(s): I25.10 - Atherosclerotic heart disease of [place] coronary artery without angina pectoris Status: Acute (5) Hx of CABG Code(s): Z95.1 - Presence of aortocoronary bypass graft Status: Acute - Plan Patient did respond to Lasix 40 mg IV every 12 and creatinine declined, GFR 21, CT of chest showed cardiomegaly and pulmonary edema I will switch him to oral Lasix at 80 mg twice daily If stable he can be discharged by tomorrow Follow-up next week with nephrology
--- NOTE | 2017-10-10 15:26 | P.PNIM ---
Subjective Interval history: Follow-up for shortness of breath Shortness of breath still better, creatinine stable despite being on Lasix, no chest pain. Physical Exam Vital signs: Vital Signs 10/09/17 16:00 10/09/17 20:00 10/10/17 00:00 Temperature 97.8 F 97.6 F 97.9 F Pulse Rate 64 69 67 Respiratory Rate 18 18 16 Blood Pressure 162/73 H 163/70 H 193/81 H Pulse Oximetry 95 94 L 95 10/10/17 04:00 10/10/17 08:00 10/10/17 12:00 Temperature 98.0 F 97.6 F Pulse Rate 61 65 63 Respiratory Rate 16 12 12 Blood Pressure 116/57 L 176/76 H 138/60 Pulse Oximetry 93 L 94 L 96 Intake & Output 10/09/17 10/10/17 10/10/17 18:59 06:59 18:59 Intake Total 720 / 720 360 / 360 98 / 98 Output Total 1475 / 1475 1700 / 1700 700 / 700 Balance -755 / -755 -1340 / -1340 -602 / -602 Weight 135.715 kg Intake: Oral 720 / 720 360 / 360 98 / 98 Output: Urine 1475 / 1475 1700 / 1700 700 / 700 Other: # Voids 4 Date of Last Bowel Movement 10/09/17 10/09/17 10/10/17 Narrative: GENERAL: Pleasant 62 yo male, in bed appears in nad. CARDIOVASCULAR: Regular rate and rhythm. No murmurs. RESPIRATORY: No accessory muscle use. Decreased breath sounds bilaterally, occasional crackles but better. GASTROINTESTINAL: Abdomen soft, non-tender, nondistended. Hepatic and splenic margins not palpable. MUSCULOSKELETAL: Extremities without clubbing, cyanosis. +2 bilateral lower extremity edema. NEUROLOGICAL: Awake and alert. No obvious cranial nerve deficits. Motor grossly within normal limits. Five out of 5 muscle strength in the arms and legs. Normal speech. Results - Labs CBC & Chem 7: 10/09/17 05:45 10/10/17 03:40 Laboratory Results - last 24 hr 10/09/17 10/09/17 10/10/17 18:00 22:58 03:40 PT INR APTT Sodium 140 Potassium 4.1 Chloride 102 Carbon Dioxide 29.6 Anion Gap 8 BUN 59 H Creatinine 3.03 H Estimated GFR 21 L POC Glucose 432 H 407 H Random Glucose 290 H Calcium 9.0 10/10/17 10/10/17 10/10/17 03:40 08:59 12:50 PT 23.1 H INR 2.3 APTT 33.1 H Sodium Potassium Chloride Carbon Dioxide Anion Gap BUN Creatinine Estimated GFR POC Glucose 267 H 395 H Random Glucose Calcium Assessment and Plan - Plan 62 yo male with multiple medical problems presents with shortness of breath Shortness of breath likely secondary to pulmonary edema from volume overload, CKD stage IV- diuresing well with Lasix 40 mg twice a day IV, will be switched to Lasix 80 mg twice daily orally tomorrow, recheck BMP. - Nephrology following, since patient is responding, no need for dialysis for now. CT scan of the chest done, no pericardial effusion but showed pulmonary edema. Echocardiogram done in July 2017 showed a normal ejection fraction 60-65 %. Chronic kidney disease stage IV-status post AV fistula, not dialysis dependent yet. Fistula awaiting maturation. Chronic medical problems. Restart home meds as appropriate. Monitor Diabetes mellitus type 2: Continue home insulin regimen. Monitor Accu-Cheks and cover with sliding scale insulin. Hypertension: Continue amlodipine, metoprolol. Losartan Coronary artery disease: Continue aspirin, statin metoprolol, losartan, amlodipine. Atrial fibrillation: Anticoagulation with Coumadin. Pharmacy consulted for follow up. INR ordered, monitor . INR - therapeutic on admission Continue Multaq. Hypothyroidism: Continue Synthroid. Patient takes 2 tablets of 112 mcg each morning. DVT prophylaxis: SCDs, Coumadin. Follow-up with physical therapy as outpatient in the lymphedema clinic. Discharge home tomorrow if stable.
[2017-10-10] MEDS: Furosemide 80 MG Tablet PO SCH (17:47)
[2017-10-11] MEDS: Levothyroxine 112 MCG Tablet PO SCH (06:19)
[2017-10-11 08:16] LABS: Calcium 9.3 mg/dL (8.5-10.1); Carbon Dioxide 29.3 meq/L (21.0-32.0); Potassium 4.2 meq/L (3.5-5.1)
[2017-10-11 08:20] LABS: Activated Partial Thrombo Time 33.6 sec (24.3-30.1); INR 2.5 Ratio; Prothrombin Time 25.5 sec (9.8-11.6)
[2017-10-11] MEDS: Furosemide 80 MG Tablet PO SCH (09:02)
[2017-10-11] MEDS: amLODIPine 10 MG Tablet PO SCH (09:03)
[2017-10-11] MEDS: Fenofibrate 145 MG Tablet PO SCH (09:03)
[2017-10-11] MEDS: Metoprolol Tartrate 25 MG Tablet PO SCH (09:03)
[2017-10-11] MEDS: Senna/Docusate Sodium 8.6/50 MG Tablet PO SCH (09:03)
[2017-10-11] MEDS: Insulin NovoLOG Aspart Correctional Sugar Inj SQ SCH (09:07)
--- NOTE | 2017-10-11 09:19 | P.DS ---
Date of admission: 10/08/17 13:05 Primary care physician: Garth Eisenberg MD Attending physician on discharge: Thenloyd Georgie Anticipated date of discharge: 10/11/17 Brief History from admission: 62-year-old male with multiple medical problems presents with shortness of breath, 30 pound weight gain, swelling in his legs over the past couple weeks. He states that he is on the verge of needing dialysis and just got a fistula. He states he feels like he felt when he had to get emergency dialysis before. He denies any fever, pain or other concurrent complaints at this time. He feels worse when he moves around. He feels better at rest. Patient crime data specialist Dr Mireles recommends lasix IV and admit the patient. The patient is admitted under observation and Dr Mireles nephro consulted. Patient otherwise denies any chest pain, palpitations, lightheadedness. No n/v/d /c. No urinary complaints. No cough fever or chills. Patient update on day of discharge: No shortness of breath, no chest pain, diuresing well, creatinine is stable, in fact better. No nausea or vomiting. On room air, ambulating. DS: Diagnosis - Discharge Diagnosis (1) Acute renal failure Status: Acute (2) Volume overload Status: Acute (3) CKD (chronic kidney disease) stage 4, GFR 15-29 ml/min Status: Chronic DS: Medications - Discharge Medications Prescriptions: furosemide 80 mg PO BID@0900,1800 #60 tab DS: Summary Hospital Course: 62 yo male with multiple medical problems presents with shortness of breath which was thought to be secondary to pulmonary edema from volume overload, he has CKD stage IV, patient was started on diuresis with Lasix 40 mg twice a day with good response. After 2 days, creatinine remained stable in fact better. Nephrology was consulted. Per nephrology, since patient is responding, no need for dialysis for now. CT scan of the chest done, no pericardial effusion but showed pulmonary edema. Echocardiogram done in July 2017 showed a normal ejection fraction 60-65%. He has an AV fistula placed but not dialysis dependent yet. Since he responded to Lasix, he will be discharged on Lasix 80 mg twice a day per cardiology. All other chronic medical conditions remained stable.. - Time Spent with Patient Total time spent providing and/or coordinating discharge services: Greater than 30 minutes - Quality: VTE Deep Vein Thrombosis/Pulmonary Embolism Present on Admission: No Exam Vital signs: Vital Signs 10/10/17 12:00 10/10/17 15:56 10/10/17 19:34 Temperature 97.6 F 97.6 F 97.5 F L Pulse Rate 63 59 L 60 Respiratory Rate 12 14 20 Blood Pressure 138/60 145/66 H 136/63 Pulse Oximetry 96 95 98 10/10/17 23:38 10/11/17 04:00 10/11/17 07:53 Temperature 97.4 F L 97.7 F 97.9 F Pulse Rate 63 67 68 Respiratory Rate 20 19 12 Blood Pressure 129/59 L 125/69 147/71 H Pulse Oximetry 98 98 95 Intake & Output 10/10/17 10/11/17 10/11/17 18:59 06:59 18:59 Intake Total 98 / 98 240 / 240 Output Total 1500 / 1500 1850 / 1850 Balance -1402 / -1402 -1610 / -1610 Weight 134.717 kg Intake: Oral 98 / 98 240 / 240 Output: Urine 1500 / 1500 1850 / 1850 Other: # Voids 3 Date of Last Bowel Movement 10/10/17 10/10/17 Narrative: GENERAL: Pleasant 62 yo male, in bed appears in nad. CARDIOVASCULAR: Regular rate and rhythm. No murmurs. RESPIRATORY: No accessory muscle use. Decreased breath sounds bilaterally, occasional crackles but better. GASTROINTESTINAL: Abdomen soft, non-tender, nondistended. Hepatic and splenic margins not palpable. MUSCULOSKELETAL: Extremities without clubbing, cyanosis. +1 bilateral lower extremity edema. NEUROLOGICAL: Awake and alert. No obvious cranial nerve deficits. Motor grossly within normal limits. Five out of 5 muscle strength in the arms and legs. Normal speech. Results Procedures completed during hospitalization: None Completed studies during hospitalization: Chest CT: CONCLUSION: 1. Increased interstitial markings bilaterally suggestive of pulmonary edema. 2. Cardiomegaly. CXR: CONCLUSION: Overall stable appearance of the chest. Labs on day of discharge: Labs from last 24 hours 10/11/17 10/11/17 10/11/17 08:38 06:35 06:35 PT 25.5 H INR 2.5 APTT 33.6 H Sodium 141 Potassium 4.2 Chloride 101 Carbon Dioxide 29.3 Anion Gap 11 BUN 60 H Creatinine 2.95 H Estimated GFR 22 L POC Glucose 223 H Random Glucose 175 H D Calcium 9.3 10/10/17 10/10/17 10/10/17 21:20 18:24 12:50 PT INR APTT Sodium Potassium Chloride Carbon Dioxide Anion Gap BUN Creatinine Estimated GFR POC Glucose 277 H 256 H 395 H Random Glucose Calcium - Impressions ITS Impressions Chest X-Ray 10/08/17 10:02 CONCLUSION: Overall stable appearance of the chest. Chest CT 10/09/17 00:00 CONCLUSION: 1. Increased interstitial markings bilaterally suggestive of pulmonary edema. 2. Cardiomegaly. Discharge Plan - Discharge Disposition Patient Disposition: Discharge Home - Discharge Condition Condition: Stable - Discharge Order Discharge Orders: Discharge Order (Routine); Ordered 10/11/17 Ordered By: Barbara Jacques - Discharge Details Anticipated Discharge Date: 10/11/17 - Physicians Team Primary Care Provider: Garth Eisenberg Attending Provider: Barbara Jacques Other Providers: David Mireles MD
== END 2017-10-11 11:09 | disposition home or self-care (01) ==
LOC: NEDA 09:44 → NEPE 09:44 → NEDA 14:55 → NEPHCDU 15:00
PROVIDERS: ADMIT Hospitalist; ATTEND Hospitalist

== ENCOUNTER 2017-11-13 16:47 | Inpatient (IN) ==
--- NOTE | 2017-11-13 20:47 | XR ---
EXAM DATE: 11/13/2017 8:05 PM EDT AGE/SEX: 62 years / Male INDICATIONS: Short of breath. CLINICAL DATA: This is the patient's initial encounter. Patient reports that signs and symptoms have been present for 1 day and indicates a pain score of 0/10. MEDICAL/SURGICAL HISTORY: Cardiovascular disease. Diabetes. CABG. COMPARISON: [facility] – [place], CHEST 1V SINGLE AP, 10/08/2017. . FINDINGS: A single AP view of the chest demonstrates cardiomegaly and previous CABG. Increase in pulmonary vasc ularity. No pulmonary edema or pleural effusions. The cardiomediastinal contours are unremarkable. O sseous structures are intact. CONCLUSION: Cardiomegaly with increase in pulmonary vascularity. Electronically signed by: Masoud Stevenson MD 11/13/2017 8:46 PM EDT
[2017-11-13 21:06] LABS: Baso # (Auto) 0.1 th/mm3 (0.0-0.2); Baso % (Auto) 1.1 % (0.0-2.0); Eos # (Auto) 0.1 th/mm3 (0.0-0.4); Eos % (Auto) 1.6 % (0.0-4.0); Hematocrit 30.5 % (39.0-51.0); Lymph # (Auto) 0.7 th/mm3 (1.0-4.8); Lymph % (Auto) 12.5 % (9.0-44.0); Mean Corpuscular HGB Conc 32.7 % (32.0-36.0); Mean Corpuscular Hemoglobin 27.5 pg (27.0-34.0); Mean Platelet Volume 10.1 fL (7.0-11.0); Mono # (Auto) 0.6 th/mm3 (0.0-0.9); Mono % (Auto) 10.4 % (0.0-8.0); Neut % (Auto) 74.4 % (16.0-70.0); Platelet Count 144 th/mm3 (150-450); Red Blood Count 3.63 mil/mm3 (4.50-5.90); Red Cell Distribution Width 17.5 % (11.6-17.2); White Blood Count 5.4 th/mm3 (4.0-11.0)
[2017-11-13 21:11] LABS: Activated Partial Thrombo Time 36.8 sec (24.3-30.1); INR 2.8 Ratio; Prothrombin Time 27.8 sec (9.8-11.6)
[2017-11-13 21:17] LABS: Magnesium 3.5 mg/dL (1.5-2.5)
[2017-11-13 21:17] LABS: Alanine Aminotransferase 27 U/L (12-78); Albumin 3.4 g/dL (3.4-5.0); Anion Gap 16 meq/L (5-15); Aspartate Aminotransferase 15 U/L (15-37); Calcium 8.4 mg/dL (8.5-10.1); Carbon Dioxide 22.4 meq/L (21.0-32.0); Chloride 95 meq/L (98-107); Glucose,Random 155 mg/dL (74-106); Lipase 246 U/L (73-393); Potassium 4.3 meq/L (3.5-5.1); Sodium 133 meq/L (136-145)
[2017-11-13 21:18] LABS: Blood Urea Nitrogen 159 mg/dL (7-18)
[2017-11-13 21:21] LABS: Alkaline Phosphatase 117 U/L (45-117); Troponin I 0.03 ng/mL (0.02-0.05)
[2017-11-13 21:35] LABS: CKMB Percent 1.2 % (0.0-4.0); Creatine Kinase MB 5.7 ng/mL (0.5-3.6)
--- NOTE | 2017-11-13 21:42 | ED ---
HPI General Chief complaint: Medical Clearance Stated complaint: Medical clearance-states stage 5 renal failure Time Seen by Provider: 11/13/17 19:20 Source: patient Mode of arrival: ambulatory Limitations: no limitations History of Present Illness HPI narrative: The patient is a 62 year old male who presents to the [facility] emergency department with a history of shortness of breath that began over the last 4-5 days. The patient reports that this has been associated with generalized weakness, intermittent lower extremity edema, and extreme fatigue. The patient reports that he has end-stage renal disease and is being prepped for placement on hemodialysis. The patient reports that he has an AV fistula that was placed in the right upper extremity, however it has not matured yet. He reports that he called his setter helper regarding the symptoms and was told to come to the emergency department for admission. He denies having any cough or congestion, fevers or chills. He reports having nausea, however he denies having any vomiting. He reports that he has been moving his bowels regularly. On review of systems otherwise, the patient denies having any known recent fevers, congestion, neck pain, chest pain, abdominal pain, vomiting, diarrhea, urinary symptoms, or focal neurologic symptoms. Related Data Home Medications Medication Instructions Recorded Confirmed amlodipine 10 mg PO DAILY 08/07/17 11/13/17 aspirin [Aspirin Low Dose] 81 mg PO DAILY 08/07/17 11/13/17 atorvastatin 20 mg PO DAILY 08/07/17 11/13/17 cholecalciferol (vitamin D3) 5,000 unit PO DAILY 08/07/17 11/13/17 [Vitamin D3] coenzyme Q10 [Co Q-10] 200 mg PO DAILY 08/07/17 11/13/17 doxazosin 2 mg PO BID 08/07/17 11/13/17 dronedarone [Multaq] 400 mg PO BID 08/07/17 11/13/17 fenofibrate nanocrystallized 145 mg PO DAILY 08/07/17 11/13/17 insulin regular hum U-500 conc 15 unit SUB-Q QID 08/07/17 11/13/17 [Humulin R U-500 (Conc) Kwikpen] levothyroxine 2 cap PO DAILY 08/07/17 11/13/17 losartan 12.5 mg PO DAILY 08/07/17 11/13/17 metoprolol tartrate 12.5 mg PO DAILY 08/07/17 11/13/17 vitamin B comp with C no.4 [Super 150 mg PO DAILY 08/07/17 11/13/17 B Complex + C] warfarin [Jantoven] 5 mg PO DAILY 08/07/17 11/13/17 Previous Rx's Medication Instructions Recorded furosemide 80 mg PO BID@0900,1800 #60 tab 10/11/17 metolazone 5 mg PO DAILY #30 tab 10/28/17 Allergies Allergy/AdvReac Type Severity Reaction Status Date / Time No Known Allergies Allergy Verified 10/28/17 10:25 Review of Systems ROS: all other systems reviewed are negative [facility] Medical History Medical History History of MRSA infection (Acute) Renal failure (Acute) Anticoagulant long-term use (Acute) TIA (transient ischemic attack) (Acute) Arthritic-like pain (Acute) Sleep apnea with use of continuous positive airway pressure (CPAP) (Acute) Blind (Acute) Lymphedema (Acute) Neuropathy (Acute) History of atrial flutter (Acute) Atrial fibrillation (Acute) Congestive heart failure (CHF) (Acute) Diabetes mellitus (Acute) High cholesterol (Acute) History of amputation of toe (Acute) History of bradycardia (Acute) Hypertension (Acute) Hypothyroidism (Acute) Thyroid cancer (Acute) Toe amputation status (Acute) Surgical History Surgical History History of cholecystectomy (Acute) History of thyroidectomy (Acute) Hx of bilateral inguinal hernia repair (Acute) S/P CABG x 4 (Acute) Family History Family History Other Family history of acute myocardial infarction Family history of breast cancer Family history of cancer Family history of diabetes mellitus Family history of hypertension Social History Social History Substance History: No History of Abuse Second Hand Smoke Exposure: No Smoking Status: Former smoker Tobacco Type: Cigarettes How Often Do You Have a Drink Containing Alcohol: Never Recent Travel in [facility] within the Last 8 Weeks: No Recent Out of Country Travel within the Last 8 Weeks: No Immunization History Tetanus Immunization: <5 Years Exam Const General: cooperative, no acute distress and well developed Nutritional Appearance: well nourished Orientation: alert, awake and oriented x3 [facility] Head: normocephalic and atraumatic Nose: no nasal discharge and no epistaxis Mouth: moist mucous membranes Throat: posterior oropharynx normal and uvula midline Eyes Sclera: normal sclerae Pupils: PERRL EOM: EOM intact bilaterally Neck Neck: no meningeal signs and trachea midline Resp Effort & Inspection: no use of accessory muscles Auscultation: clear to auscultation bilaterally, no crackles, no rhonchi, no wheezes and other (Clear to auscultation bilaterally, however the patient has decreased breath sounds in the bases.) Cardio Rate: regular rate Rhythm: regular rhythm Heart Sounds: no murmurs GI Inspection: non-distended Palpation: soft, no hepatosplenomegaly and nontender Back/Spine/Pelvis Back: no CVA tenderness Skin General: dry skin (warm) Neuro General: alert, awake and oriented x3 Cranial Nerves: CN's II-XI intact bilaterally Speech: speech normal Motor: strength 5/5 throughout and no movement abnormalities noted Sensory Exam: no sensory deficits noted Extrem General: no clubbing, no cyanosis, edema Laterality: bilaterally and other Psych Mood: congruent mood Affect: normal affect Judgment: judgment good Course Consultations Consultation #1: The patient's case including history, pertinent physical examination findings, and laboratory studies were discussed with Dr. Capps. It was agreed that the patient would be admitted to the hospitalist service. Consultation #2: The patient's case including history, pertinent physical examination findings, and laboratory studies were discussed with Dr. Mireles. He plans to consult radiology in the morning for vascular access placement. He then plans to schedule the patient for hemodialysis tomorrow. It was agreed that the patient would be admitted to the hospitalist service. Time: 21:53 Initial Documented Vital Signs Temperature 97.6 F 11/13/17 16:59 Pulse Rate 50 L 11/13/17 16:59 Respiratory Rate 16 11/13/17 16:59 Blood Pressure 116/55 L 11/13/17 16:59 Pulse Oximetry 97 11/13/17 16:59 Last Documented Vital Signs Temperature 97.8 F 11/14/17 04:00 Pulse Rate 60 11/14/17 04:00 Respiratory Rate 16 11/14/17 04:00 Blood Pressure 150/70 H 11/14/17 04:00 Pulse Oximetry 94 L 11/14/17 07:37 Medical Decision Making MDM Narrative Medical decision making narrative: During the course of the patient's emergency department visit, the patient's history, examination, and differential diagnosis were reviewed with the patient. The patient was placed on a monitoring analyst with oximetry and frequent blood pressure monitoring. The patient had IV access obtained and blood work sent for analysis. A diagnostic evaluation was started regarding the patient's shortness of breath, fatigue, history of end -stage renal disease. The patient was initially provided Lasix 40 mg IV x1 after chest x-ray did reveal evidence of pulmonary edema. A call has been placed out to the patient's setter helper, Dr. Mireles, regarding this patient's evaluation. He did agree to see the patient in consultation. The patient's diagnostic studies were remarkable for a white count of 5.2, hemoglobin 9.2, platelets 135 with 73.9 neutrophils, PT 27.8, INR 2.8, PTT 36.8. Chemistry is remarkable for a sodium of 133, chloride 95, normal bicarb, normal potassium, BUN 159, creatinine 8.70 which is increased compared to prior levels, CPK 462 with a normal MB percent, troponin I within normal limits, BNP 227, lipase within normal limits. The patient will be admitted to the hospital for worsening renal function now associated with pulmonary edema. The patient's results were discussed with the patient, including the plan of care. I explained that further testing and/ or monitoring is indicated based on the patient's history, examination, and/ or laboratory findings. Therefore, I recommended admission for additional evaluation. The patient expressed understanding and was agreeable with this plan. The patient was admitted to the hospital in guarded condition and sent to a bed under the care of the [facility] service Medical Screen Exam Complete: Yes Emergency Medical Condition: Yes Differential Diagnosis Differential Diagnosis: Hyperkalemia, versus pulmonary edema, versus pneumonia, versus uremia Medical Records Medical records reviewed: Yes I reviewed the patient's medical records. Lab Data Lab results reviewed: Yes I reviewed the patient's lab results. Result diagrams: 11/14/17 05:50 11/14/17 05:50 Lab Results 11/13/17 11/13/17 11/13/17 Range/Units 19:31 20:40 20:40 WBC 5.4 (4.0-11.0) th/mm3 RBC 3.63 L (4.50-5.90) mil/mm3 Hgb 10.0 L (13.0-17.0) gm/dL Hct 30.5 L (39.0-51.0) % MCV 84.0 (80.0-100.0) fL MCH 27.5 (27.0-34.0) pg MCHC 32.7 (32.0-36.0) % RDW 17.5 H (11.6-17.2) % Plt Count 144 L (150-450) th/mm3 MPV 10.1 (7.0-11.0) fL Neut % (Auto) 74.4 H (16.0-70.0) % Lymph % (Auto) 12.5 (9.0-44.0) % Irion % (Auto) 10.4 H (0.0-8.0) % Eos % (Auto) 1.6 (0.0-4.0) % Baso % (Auto) 1.1 (0.0-2.0) % Neut # (Auto) 4.0 (1.8-7.7) th/mm3 Lymph # (Auto) 0.7 L (1.0-4.8) th/mm3 Irion # (Auto) 0.6 (0.0-0.9) th/mm3 Eos # (Auto) 0.1 (0.0-0.4) th/mm3 Baso # (Auto) 0.1 (0.0-0.2) th/mm3 WBC Differential . Differential Comment Auto diff final PT (9.8-11.6) sec INR Ratio APTT (24.3-30.1) sec Sodium 133 L (136-145) meq/L Potassium 4.3 (3.5-5.1) meq/L Chloride 95 L (98-107) meq/L Carbon Dioxide 22.4 (21.0-32.0) meq/L Anion Gap 16 H (5-15) meq/L BUN 159 H (7-18) mg/dL Creatinine 8.70 H (0.60-1.30) mg/dL POC Glucose (68-110) mg/dl Random Glucose 155 H (74-106) mg/dL Calcium 8.4 L (8.5-10.1) mg/dL Magnesium 3.5 H (1.5-2.5) mg/dL Total Bilirubin 0.8 (0.2-1.0) mg/dL AST 15 (15-37) U/L ALT 27 (12-78) U/L Alkaline Phosphatase 117 (45-117) U/L Total Creatine Kinase 462 H (39-308) U/L CK-MB (CK-2) 5.7 H (0.5-3.6) ng/mL CK-MB (CK-2) % 1.2 (0.0-4.0) % Troponin I 0.03 (0.02-0.05) ng/mL B-Natriuretic Peptide (0-100) pg/mL Total Protein 7.0 (6.4-8.2) g/dL Albumin 3.4 (3.4-5.0) g/dL Lipase 246 (73-393) U/L Nasal Screen MRSA (PCR) (Negative) 11/13/17 11/13/17 11/13/17 Range/Units 20:40 20:40 23:45 WBC (4.0-11.0) th/mm3 RBC (4.50-5.90) mil/mm3 Hgb (13.0-17.0) gm/dL Hct (39.0-51.0) % MCV (80.0-100.0) fL MCH (27.0-34.0) pg MCHC (32.0-36.0) % RDW (11.6-17.2) % Plt Count (150-450) th/mm3 MPV (7.0-11.0) fL Neut % (Auto) (16.0-70.0) % Lymph % (Auto) (9.0-44.0) % Irion % (Auto) (0.0-8.0) % Eos % (Auto) (0.0-4.0) % Baso % (Auto) (0.0-2.0) % Neut # (Auto) (1.8-7.7) th/mm3 Lymph # (Auto) (1.0-4.8) th/mm3 Irion # (Auto) (0.0-0.9) th/mm3 Eos # (Auto) (0.0-0.4) th/mm3 Baso # (Auto) (0.0-0.2) th/mm3 WBC Differential Differential Comment PT 27.8 H (9.8-11.6) sec INR 2.8 Ratio APTT 36.8 H (24.3-30.1) sec Sodium (136-145) meq/L Potassium (3.5-5.1) meq/L Chloride (98-107) meq/L Carbon Dioxide (21.0-32.0) meq/L Anion Gap (5-15) meq/L BUN (7-18) mg/dL Creatinine (0.60-1.30) mg/dL POC Glucose (68-110) mg/dl Random Glucose (74-106) mg/dL Calcium (8.5-10.1) mg/dL Magnesium (1.5-2.5) mg/dL Total Bilirubin (0.2-1.0) mg/dL AST (15-37) U/L ALT (12-78) U/L Alkaline Phosphatase (45-117) U/L Total Creatine Kinase (39-308) U/L CK-MB (CK-2) (0.5-3.6) ng/mL CK-MB (CK-2) % (0.0-4.0) % Troponin I (0.02-0.05) ng/mL B-Natriuretic Peptide 227 H (0-100) pg/mL Total Protein (6.4-8.2) g/dL Albumin (3.4-5.0) g/dL Lipase (73-393) U/L Nasal Screen MRSA (PCR) Not detected (Negative) 11/14/17 11/14/17 11/14/17 Range/Units 03:02 05:50 05:50 WBC 5.2 (4.0-11.0) th/mm3 RBC 3.32 L (4.50-5.90) mil/mm3 Hgb 9.2 L (13.0-17.0) gm/dL Hct 28.3 L (39.0-51.0) % MCV 85.1 (80.0-100.0) fL MCH 27.8 (27.0-34.0) pg MCHC 32.7 (32.0-36.0) % RDW 17.4 H (11.6-17.2) % Plt Count 135 L (150-450) th/mm3 MPV 9.6 (7.0-11.0) fL Neut % (Auto) 73.9 H (16.0-70.0) % Lymph % (Auto) 14.3 (9.0-44.0) % Irion % (Auto) 8.8 H (0.0-8.0) % Eos % (Auto) 2.3 (0.0-4.0) % Baso % (Auto) 0.7 (0.0-2.0) % Neut # (Auto) 3.9 (1.8-7.7) th/mm3 Lymph # (Auto) 0.7 L (1.0-4.8) th/mm3 Irion # (Auto) 0.5 (0.0-0.9) th/mm3 Eos # (Auto) 0.1 (0.0-0.4) th/mm3 Baso # (Auto) 0.0 (0.0-0.2) th/mm3 WBC Differential . Differential Comment Auto diff final PT (9.8-11.6) sec INR Ratio APTT (24.3-30.1) sec Sodium 138 (136-145) meq/L Potassium 4.2 (3.5-5.1) meq/L Chloride 95 L (98-107) meq/L Carbon Dioxide 22.4 (21.0-32.0) meq/L Anion Gap 21 H (5-15) meq/L BUN 154 H (7-18) mg/dL Creatinine 8.54 H (0.60-1.30) mg/dL POC Glucose 132 H (68-110) mg/dl Random Glucose 124 H (74-106) mg/dL Calcium 7.9 L (8.5-10.1) mg/dL Magnesium (1.5-2.5) mg/dL Total Bilirubin (0.2-1.0) mg/dL AST (15-37) U/L ALT (12-78) U/L Alkaline Phosphatase (45-117) U/L Total Creatine Kinase (39-308) U/L CK-MB (CK-2) (0.5-3.6) ng/mL CK-MB (CK-2) % (0.0-4.0) % Troponin I (0.02-0.05) ng/mL B-Natriuretic Peptide (0-100) pg/mL Total Protein (6.4-8.2) g/dL Albumin (3.4-5.0) g/dL Lipase (73-393) U/L Nasal Screen MRSA (PCR) (Negative) Imaging Data Radiologist's impression: Chest X-Ray 11/13/17 20:05 CONCLUSION: Cardiomegaly with increase in pulmonary vascularity. ECG Data Attestation: I personally reviewed and interpreted this ECG as follows: Interpretation: Rated cardia with a first-degree AV block heart rate of 49, QRS duration is 109 mils [address] segment elevation. Flattened T waves are noted in V1, V2. Discharge Plan Discharge Disposition Patient Disposition: 30 Still Patient Discharge Details Diagnosis: Pulmonary edema, Renal failure Physicians Team ED Provider: Maureen Flores Primary Care Provider: Garth Eisenberg Attending Provider: Vahe Morillo Other Providers: David Mireles Status ED Status: Left Department Discharge Information Discharge Date/Time: 11/13/17 23:48
[2017-11-13] MEDS ORDERED: Sod Chloride 0.9% Inj 1,000 ML IV.CONT PRN (21:55)
[2017-11-13] MEDS ORDERED: Albumin Human 25% Inj 100 ML IV.SIG PRN (21:55)
[2017-11-13] MEDS ORDERED: Gelatin 12 MM/7 MM Topical Foam TOPICAL PRN (21:55)
[2017-11-13] MEDS ORDERED: Heparin 10,000 UNITS/10 ML Vial (for IV use) OTHER PRN (21:55)
[2017-11-13] MEDS ORDERED: Acetaminophen 325 MG Tablet PO PRN (21:55)
[2017-11-13] MEDS ORDERED: Sod Chloride 0.9% Inj 1,000 ML OTHER PRN ×2 (21:55)
[2017-11-14] MEDS ORDERED: Dextrose 50% in Water 50 ML Vial IV.PUSH PRN (00:12)
[2017-11-14] MEDS ORDERED: Bisacodyl 10 MG Supp RECTAL PRN (00:13)
[2017-11-14] MEDS ORDERED: Acetaminophen 325 MG Tablet PO PRN (00:13)
--- NOTE | 2017-11-14 00:21 | P.HP ---
History of Present Illness Service: [facility] Primary Care Physician: Garth Eisenberg MD History of Present Illness: 62-year-old male with a past medical history significant for stage V chronic kidney disease, atrial fibrillation anticoagulated on Coumadin, CHF, CAD, diabetes mellitus, hypertension, hyperlipidemia, JUSTIN and hypothyroidism presents to the emergency department for the evaluation of shortness of breath and fatigue times 4-5 days. The patient spoke with his sheather, Dr. Mireles , who recommended that he come to the emergency department for further evaluation. He endorses bilateral lower extremity edema that is worsening. He also complains of nausea and dry heaves. No abdominal pain or diarrhea. No chest pain. No fever/chills. No lateralizing signs/symptoms. Inpatient Certification: I certify that the inpatient services were ordered in accordance with Medicare regulations governing the order. This includes certification that hospital inpatient services are reasonable and necessary and in the case of services not specified as inpatient-only under 42 CFR 419.22(n), that they are appropriately provided as inpatient services in accordance to with the 2-midnight benchmark under 43 CFR 412.3(e) Estimated Total Length of Stay (Days): 2 Plans for Post Hospital Care: Home Review of Systems All other systems reviewed negative except as stated in HPI PMFSH - History History Provided By: Patient - Medical History Medical History: Medical History (Last Reviewed 11/14/17 @ 00:16 by Maliha Capps MD) History of MRSA infection (Acute) Renal failure (Acute) Anticoagulant long-term use (Acute) TIA (transient ischemic attack) (Acute) Arthritic-like pain (Acute) Sleep apnea with use of continuous positive airway pressure (CPAP) (Acute) Blind (Acute) Lymphedema (Acute) Neuropathy (Acute) History of atrial flutter (Acute) Atrial fibrillation Congestive heart failure (CHF) Diabetes mellitus High cholesterol History of amputation of toe History of bradycardia Hypertension Hypothyroidism Thyroid cancer Toe amputation status - Surgical History Surgical History: Surgical History (Last Reviewed 11/14/17 @ 00:16 by Maliha Capps MD) History of cholecystectomy History of thyroidectomy Hx of bilateral inguinal hernia repair S/P CABG x 4 - Family History Family History: Family History (Last Reviewed 11/14/17 @ 00:16 by Maliha Capps MD) Other Family history of acute myocardial infarction Family history of breast cancer Family history of cancer Family history of diabetes mellitus Family history of hypertension - Tobacco History Second Hand Smoke Exposure: No Tobacco Use In Past 30 Days: No Smoking Status: Former smoker Tobacco Type: Cigarettes - Alcohol History How Often Do You Have a Drink Containing Alcohol: Never - Substance Use History Substance History: No History of Abuse - Travel History Recent Travel in the [place] Within the Last 8 Weeks: No Recent Travel Out of the Country Within the Last 8 Weeks: No - Immunization History Tetanus Immunization: <5 Years Medications and Allergies Active Medications: Active Medications Acetaminophen (Tylenol) 650 mg PO UNSCH PRN PRN Reason: SEE LABEL COMMENTS Chlorhexidine Gluconate (Chlorhexidine 2% Cloth) 3 pack TOPICAL DAILY@0400 FUENTES Stop: 11/19/17 03:59 Chlorhexidine Gluconate (Chlorhexidine 2% Cloth) 3 pack TOPICAL DAILY@0400 PRN PRN Reason: Extra cloth needed Stop: 11/19/17 03:59 Clonidine HCl (Catapres) 0.1 mg PO UNSCH PRN PRN Reason: SEE LABEL COMMENTS Diphenhydramine HCl (Benadryl) 25 mg PO UNSCH PRN PRN Reason: SEE LABEL COMMENTS Epoetin Brandon (Epogen Inj) 4,000 unit IV.PUSH UNSCH PRN PRN Reason: SEE LABEL COMMENTS Gelatin (Gelfoam 12 Mm/7 Mm Topical) 1 foam TOPICAL PRN PRN PRN Reason: help stop bleeding from site Gentamicin Sulfate (Gentamicin Inj) 20 mg OTHER WITH DIALYSIS PRN PRN Reason: Dwell Gentamycin Lock Heparin Sodium (Porcine) (Heparin Inj) 8,000 units OTHER WITH DIALYSIS PRN PRN Reason: for machine prime Heparin Sodium (Porcine) (Heparin Inj) 1,000 units OTHER WITH DIALYSIS PRN PRN Reason: Dwell Heparin to Fill Catheter Albumin Human (Flexbumin 25% Inj) 100 mls @ 60 mls/hr IV.SIG WITH DIALYSIS PRN PRN Reason: hypotension / volume replace Sodium Chloride (Ns Inj) 1,000 mls @ 0 mls/hr OTHER .Q0M PRN PRN Reason: for prime and rinse back Sodium Chloride (Ns Inj) 1,000 mls @ 200 mls/hr OTHER .Q5H PRN PRN Reason: for dialyzer flush PRN Sodium Chloride (Ns Inj) 1,000 mls @ 0 mls/hr IV.CONT .Q0M PRN PRN Reason: hypotension / volume replace Mannitol (Mannitol Inj) 12.5 gm IV.PUSH UNSCH PRN PRN Reason: hypotension / volume replace Nitroglycerin (Nitrostat Sl) 0.4 mg SL Q5M PRN PRN Reason: CHEST PAIN Ondansetron HCl (Zofran Inj) 4 mg IV.PUSH UNSCH PRN PRN Reason: NAUSEA OR VOMITING Sodium Chloride (Ns Flush) 2 ml IV.FLUSH UNSCH PRN PRN Reason: FLUSH AFTER USING IV ACCESS Sodium Chloride (Ns Flush) 5 ml IV.FLUSH PRN PRN PRN Reason: flush each lumen during HD Allergies Allergy/AdvReac Type Severity Reaction Status Date / Time No Known Allergies Allergy Verified 10/28/17 10:25 Home Medications Medication Instructions Recorded Confirmed Type amlodipine 10 mg PO DAILY 08/07/17 11/13/17 History aspirin [Aspirin Low Dose] 81 mg PO DAILY 08/07/17 11/13/17 History atorvastatin 20 mg PO DAILY 08/07/17 11/13/17 History cholecalciferol (vitamin D3) 5,000 unit PO DAILY 08/07/17 11/13/17 History [Vitamin D3] coenzyme Q10 [Co Q-10] 200 mg PO DAILY 08/07/17 11/13/17 History doxazosin 2 mg PO BID 08/07/17 11/13/17 History dronedarone [Multaq] 400 mg PO BID 08/07/17 11/13/17 History fenofibrate nanocrystallized 145 mg PO DAILY 08/07/17 11/13/17 History insulin regular hum U-500 conc 15 unit SUB-Q QID 08/07/17 11/13/17 History [Humulin R U-500 (Conc) Kwikpen] levothyroxine 2 cap PO DAILY 08/07/17 11/13/17 History losartan 12.5 mg PO DAILY 08/07/17 11/13/17 History metoprolol tartrate 12.5 mg PO DAILY 08/07/17 11/13/17 History vitamin B comp with C no.4 [Super 150 mg PO DAILY 08/07/17 11/13/17 History B Complex + C] warfarin [Jantoven] 5 mg PO DAILY 08/07/17 11/13/17 History Exam Vital signs: Vital Signs 11/13/17 16:59 11/13/17 19:51 11/13/17 20:05 Temperature 97.6 F 99.2 F Pulse Rate 50 L 94 H Respiratory Rate 16 20 Blood Pressure 116/55 L 153/72 H Pulse Oximetry 97 100 100 Intake & Output 11/13/17 11/13/17 11/14/17 06:59 18:59 06:59 Weight 142.882 kg 142.5 kg Other: Weight On Admission 142.5 kg Narrative: Gen.: No acute distress Head: Normocephalic. Atraumatic. EENT: Pupils equal round and reactive to light. Nose without drainage. Airway intact. Throat without injection. Cardiovascular: Regular rate and rhythm. No murmurs, rubs or gallops. Respiratory: Lungs clear to auscultation bilaterally. No wheezes or rhonchi. Abdomen: Soft, nontender, nondistended. No peritoneal signs. Musculoskeletal: No gross deformities. 2+ bilateral lower extremity edema. Skin: No obvious rashes or erythema. Neuro: Sensory and motor grossly intact. Cranial nerves II through XII grossly intact. Results - Labs CBC & Chem 7: 11/13/17 20:40 11/13/17 20:40 Labs: Laboratory Results - last 24 hr 11/13/17 11/13/17 11/13/17 19:31 20:40 20:40 WBC 5.4 RBC 3.63 L Hgb 10.0 L Hct 30.5 L MCV 84.0 MCH 27.5 MCHC 32.7 RDW 17.5 H Plt Count 144 L MPV 10.1 Neut % (Auto) 74.4 H Lymph % (Auto) 12.5 [place] % (Auto) 10.4 H Eos % (Auto) 1.6 Baso % (Auto) 1.1 Neut # (Auto) 4.0 Lymph # (Auto) 0.7 L [place] # (Auto) 0.6 Eos # (Auto) 0.1 Baso # (Auto) 0.1 WBC Differential . Differential Comment Auto diff final PT INR APTT Sodium 133 L Potassium 4.3 Chloride 95 L Carbon Dioxide 22.4 Anion Gap 16 H BUN 159 H Creatinine 8.70 H Random Glucose 155 H Calcium 8.4 L Magnesium 3.5 H Total Bilirubin 0.8 AST 15 ALT 27 Alkaline Phosphatase 117 Total Creatine Kinase 462 H CK-MB (CK-2) 5.7 H CK-MB (CK-2) % 1.2 Troponin I 0.03 B-Natriuretic Peptide Total Protein 7.0 Albumin 3.4 Lipase 246 11/13/17 11/13/17 20:40 20:40 WBC RBC Hgb Hct MCV MCH MCHC RDW Plt Count MPV Neut % (Auto) Lymph % (Auto) [place] % (Auto) Eos % (Auto) Baso % (Auto) Neut # (Auto) Lymph # (Auto) [place] # (Auto) Eos # (Auto) Baso # (Auto) WBC Differential Differential Comment PT 27.8 H INR 2.8 APTT 36.8 H Sodium Potassium Chloride Carbon Dioxide Anion Gap BUN Creatinine Random Glucose Calcium Magnesium Total Bilirubin AST ALT Alkaline Phosphatase Total Creatine Kinase CK-MB (CK-2) CK-MB (CK-2) % Troponin I B-Natriuretic Peptide 227 H Total Protein Albumin Lipase - Imaging Impressions Chest X-Ray 11/13/17 20:05 CONCLUSION: Cardiomegaly with increase in pulmonary vascularity. Caprini VTE Risk Assessment Caprini VTE Risk Assessment: Moderate/High Risk (score >= 2) Caprini Risk Assessment Model: Point Value = 1 Point Value = 2 Point Value = 3 Point Value = 5 Age 41-60 Minor surgery BMI > 25 kg/m2 Swollen legs Varicose veins or History of unexplained or recurrent spontaneous Oral contraceptives or hormone replacement Sepsis (< 1 month) Serious lung disease, including pneumonia (< 1 month) Abnormal pulmonary function Acute myocardial infarction Congestive heart failure (< 1 month) History of inflammatory bowel disease Medical patient at bed rest Age 61-74 Arthroscopic surgery Major open surgery (> 45 min) Laparoscopic surgery (> 45 min) Malignancy Confined to bed (> 72 hours) Immobilizing plaster cast Central venous access Age >= 75 History of VTE Family history of VTE Factor V Leiden Prothrombin [id number] Lupus anticoagulant Anticardiolipin antibodies Elevated serum homocysteine Heparin-induced thrombocytopenia Other congenital or acquired thrombophilia Stroke (< 1 month) Elective arthroplasty Hip, pelvis, or leg fracture Acute spinal cord injury (< 1 month) Prophylaxis Regimen: Total Risk Factor Score Risk Level Prophylaxis Regimen 0-1 Low Early ambulation 2 Moderate Order ONE of the following: *Sequential Compression Device (SCD) *Heparin 5000 units SQ BID 3-4 Higher Order ONE of the following medications: *Heparin 5000 units SQ TID *Enoxaparin/Lovenox 40 mg SQ daily (WT < 150 kg, CrCl > 30 mL/min) *Enoxaparin/Lovenox 30 mg SQ daily (WT < 150 kg, CrCl > 10-29 mL/min) *Enoxaparin/Lovenox 30 mg SQ BID (WT < 150 kg, CrCl > 30 mL/min) AND/OR *Sequential Compression Device (SCD) 5 or more Highest Order ONE of the following medications: *Heparin 5000 units SQ TID (Preferred with Epidurals) *Enoxaparin/Lovenox 40 mg SQ daily (WT < 150 kg, CrCl > 30 mL/min) *Enoxaparin/Lovenox 30 mg SQ daily (WT < 150 kg, CrCl > 10-29 mL/min) *Enoxaparin/Lovenox 30 mg SQ BID (WT < 150 kg, CrCl > 30 mL/min) AND *Sequential Compression Device (SCD) Assessment and Plan - Plan Assessment/plan: 1. Acute renal failure superimposed on chronic kidney disease stage V Patient volume overloaded with bilateral lower extremity edema and pulmonary edema BUN/creatinine 159/8.70, continue to worsen despite medical therapy Patient's sheather, Dr. Mireles consulted, appreciate recommendations Status post fistula placement Anticipate inpatient dialysis Potassium 4.3 Monitor closely 2. Diabetes mellitus Continue home insulin Sliding scale insulin Monitor blood glucose 3. Atrial fibrillation INR 2.8 Continue anticoagulation with Coumadin Continue home medications 4. CHF Likely contributing to shortness of breath Continue home Lasix 5. Hypertension/hyperlipidemia/hypothyroidism Continue home medications FEN Renal diet Electrolytes: Monitor and replete as needed Coumadin
[2017-11-14] MEDS ORDERED: Chlorhexidine Gluconate 2% 1 Pack (2 Cloths) TOPICAL PRN (04:00)
[2017-11-14] MEDS: Insulin NovoLIN Regular Correctional Sugar Inj SQ SCH ×5 (04:55→21:06)
[2017-11-14] MEDS: Chlorhexidine Gluconate 2% 1 Pack (2 Cloths) TOPICAL SCH (04:58)
[2017-11-14] MEDS: Levothyroxine 112 MCG Tablet PO SCH (06:11)
[2017-11-14 07:59] LABS: Baso % (Auto) 0.7 % (0.0-2.0); Eos # (Auto) 0.1 th/mm3 (0.0-0.4); Eos % (Auto) 2.3 % (0.0-4.0); Hematocrit 28.3 % (39.0-51.0); Hemoglobin 9.2 gm/dL (13.0-17.0); Lymph # (Auto) 0.7 th/mm3 (1.0-4.8); Lymph % (Auto) 14.3 % (9.0-44.0); Mean Corpuscular HGB Conc 32.7 % (32.0-36.0); Mean Corpuscular Hemoglobin 27.8 pg (27.0-34.0); Mean Corpuscular Volume 85.1 fL (80.0-100.0); Mean Platelet Volume 9.6 fL (7.0-11.0); Mono # (Auto) 0.5 th/mm3 (0.0-0.9); Mono % (Auto) 8.8 % (0.0-8.0); Neut # (Auto) 3.9 th/mm3 (1.8-7.7); Neut % (Auto) 73.9 % (16.0-70.0); Platelet Count 135 th/mm3 (150-450); Red Blood Count 3.32 mil/mm3 (4.50-5.90); Red Cell Distribution Width 17.4 % (11.6-17.2); White Blood Count 5.2 th/mm3 (4.0-11.0)
[2017-11-14 08:21] LABS: Anion Gap 21 meq/L (5-15); Calcium 7.9 mg/dL (8.5-10.1); Carbon Dioxide 22.4 meq/L (21.0-32.0); Chloride 95 meq/L (98-107); Glucose,Random 124 mg/dL (74-106); Potassium 4.2 meq/L (3.5-5.1); Sodium 138 meq/L (136-145)
[2017-11-14 08:25] LABS: Blood Urea Nitrogen 154 mg/dL (7-18)
[2017-11-14] MEDS: amLODIPine 10 MG Tablet PO SCH (08:37)
[2017-11-14] MEDS: Metoprolol Tartrate 25 MG Tablet PO SCH (08:37)
[2017-11-14] MEDS: metOLazone 5 MG Tablet PO SCH (08:37)
[2017-11-14] MEDS: Fenofibrate 145 MG Tablet PO SCH (08:37)
[2017-11-14] MEDS: Senna/Docusate Sodium 8.6/50 MG Tablet PO SCH ×2 (08:38→21:06)
[2017-11-14 09:18] LABS: Hepatitis A IgM Antibody Nonreactive (Nonreactive); Hepatitits B Surface Antigen Nonreactive (Nonreactive)
[2017-11-14] MEDS: Furosemide 80 MG Tablet PO SCH ×2 (09:42→17:16)
--- NOTE | 2017-11-14 09:55 | ECG ---
Date Performed: 11/13/2017 Time Performed: 19:22:41 PTAGE: 62 years EKG: SINUS BRADYCARDIA WITH FIRST DEGREE AV BLOCK LOW QRS VOLTAGE IN PRECORDIAL LEADS ABNORMAL E CG PREVIOUS TRACING : 10/28/2017 10.12 DOCTOR: Eulogio Calles Interpretating Date/Time 11/14/2017 09:55:40
--- NOTE | 2017-11-14 10:19 | P.PNADD ---
Addendum to Inpatient Note Reason for Addendum: Additional Documentation Additional information: Patient says he feels better this morning, far less short of breath. Clear lungs bilaterally, unlabored breathing Heart sounds are muffled Scheduled to get a PermaCath today and likely dialysis
[2017-11-14] MEDS ORDERED: *Heparin 10,000 UNITS/10 ML Vial Periprocedural ONLY ONE (10:45)
[2017-11-14] MEDS ORDERED: Heparin Central Flush 100 UNIT/ML 5 ML Vial IV.FLUSH PRN (11:33)
--- NOTE | 2017-11-14 11:36 | P.RAD ---
Post Procedure Progress Note - Pre Procedure Diagnosis (1) CKD (chronic kidney disease) stage 4, GFR 15-29 ml/min (2) Acute on chronic diastolic (congestive) heart failure - Post Procedure Diagnosis (1) Acute renal failure (2) Volume overload (3) Acute on chronic diastolic (congestive) heart failure - Procedure Information Procedure Date: 11/14/17 Supervising Radiologist: Jason Alexander MD Anesthesia: Local - Plan of Activity Patient to Unit: Nursing Unit Patient Condition: Good See PACS Report for procedural detail/treatment. [facility] Radiology Procedures left Internal Jugular Hemodialysis Catheter Non-Tunneled Placement Device: dual lumen Trin[place]: 14 - Additional Detail Findings: Patient has RUE fistula so catheter was placed on the left
--- NOTE | 2017-11-14 12:01 | IR ---
EXAM DATE: 11/14/2017 6:00 AM EDT AGE/SEX: 62 years / Male INDICATIONS: Patient with a history of renal disease, needs dialysis. CLINICAL DATA: This is the patient's initial encounter. Patient reports that signs and symptoms have been present for 1 day and indicates a pain score of 4/10. MEDICAL/SURGICAL HISTORY: . Acute renal failure History of MRSA TIA Lymphedema AFIB CHF High ch olesterol HTN Hypothyroidism . Cholecystectomy Thyroidectomy COMPARISON: . FLUORO TIME (min): 0.4 IMAGE SERIES: 1 ACCESS SITE: Left internal jugular vein DEVICE(S): 14 German double lumen 20cm Schon catheter . . PROCEDURE : 1. Ultrasound guided venipuncture. 2. Fluoroscopic guidance. 3. Central line placement. The risks, benefits and alternatives to the procedure were explained and verbal and written consent w as obtained. The site was prepped in sterile fashion. Full sterile technique was used, including ca p, mask, sterile gloves and gown and a large sterile sheet. Hand hygiene and 2% chlorhexidine prep w as utilized per protocol for cutaneous antisepsis with appropriate dry time for site. Sterile gel an d sterile probe cover were utilized for ultrasound guidance. The skin and subcutaneous tissues were infiltrated with local anesthetic solution. A suitable site a laurie the vein was selected with ultrasound and fluoroscopic guidance. A small incision was made. Th e vein was accessed under direct ultrasound visualization using the micropuncture technique. The lori ropuncture set was exchanged for a 0.035 wire. The tract was dilated. The catheter was advanced int o position under direct fluoroscopic visualization, and was advanced with the tip at the junction of the superior vena cava and rt atrium. The catheter was fixed in place with suture and a sterile dres sing was applied. The patient tolerated the procedure well and there were no complications. CONCLUSION: 1. Uncomplicated line placement as above. Electronically signed by: Jason Alexander MD 11/14/2017 12:00 PM EDT
[2017-11-14] MEDS: Heparin 10,000 UNITS/10 ML Vial (for IV use) OTHER PRN (14:24)
--- NOTE | 2017-11-14 15:15 | P.CONNP ---
History of Present Illness Service: Nephrology Consult date: 11/14/17 Reason for Consult: ESRD Primary Care Provider: Garth Eisenberg MD Family Provider: Garth Eisenberg MD History of Present Illness: Patient is a 62-year-old white male with history of diabetes, hypertension, coronary artery disease, congestive heart failure, who has developed end-stage renal disease patient was tried on diuretics and had AV fistula placed in the right arm however this was not ready his creatinine was 3.8 last week of October but yesterday it went up above 8 with a BUN of 154 he was symptomatic with weakness tiredness nausea, shortness of breath peripheral edema and was directed to come to the emergency. Review of Systems Constitutional: Reports anorexia Eyes: Reports blurry vision Ears, Nose, Mouth, and Throat: Reports other Cardiovascular: Reports foot swelling, Reports rapid, pounding, or irregular heartbeat, Reports shortness of breath Respiratory: Reports shortness of breath Gastrointestinal: Reports nausea Genitourinary: Reports decreased urination Musculoskeletal: Reports muscle cramps, Reports muscle weakness Psychiatric: Reports anxiety, Reports depression Endocrine: Reports other Hematologic/Lymphatic: Reports easy bleeding Allergic/Immunologic: Reports GI upset with certain foods PMFSH - History History Provided By: Patient - Medical History Medical History: Medical History (Last Reviewed 11/14/17 @ 15:12 by David Mireles MD) History of MRSA infection (Acute) Renal failure (Acute) Anticoagulant long-term use (Acute) TIA (transient ischemic attack) (Acute) Arthritic-like pain (Acute) Sleep apnea with use of continuous positive airway pressure (CPAP) (Acute) Blind (Acute) Lymphedema (Acute) Neuropathy (Acute) History of atrial flutter (Acute) Atrial fibrillation Congestive heart failure (CHF) Diabetes mellitus High cholesterol History of amputation of toe History of bradycardia Hypertension Hypothyroidism Thyroid cancer Toe amputation status - Surgical History Surgical History: Surgical History (Last Reviewed 11/14/17 @ 15:12 by David Mireles MD) History of cholecystectomy History of thyroidectomy Hx of bilateral inguinal hernia repair S/P CABG x 4 - Family History Family History: Family History (Last Reviewed 11/14/17 @ 15:12 by David Mireles MD) Other Family history of acute myocardial infarction Family history of breast cancer Family history of cancer Family history of diabetes mellitus Family history of hypertension - Social History I have reviewed the patient's Social History: Yes - Tobacco History Second Hand Smoke Exposure: No Tobacco Use In Past 30 Days: No Smoking Status: Former smoker Tobacco Type: Cigarettes - Alcohol History How Often Do You Have a Drink Containing Alcohol: Never - Substance Use History Substance History: No History of Abuse - Travel History Recent Travel in the [place] Within the Last 8 Weeks: No Recent Travel Out of the Country Within the Last 8 Weeks: No - Immunization History Tetanus Immunization: <5 Years Medications and Allergies Active Medications: Active Medications Acetaminophen (Tylenol) 650 mg PO UNSCH PRN PRN Reason: SEE LABEL COMMENTS Acetaminophen (Tylenol) 650 mg PO Q4H PRN PRN Reason: Temp > 100.4 Al Hydroxide/Mg Hydroxide (Milk Of Magnchandler Liq) 30 ml PO Q12H PRN PRN Reason: Mild Constipation Amlodipine Besylate (Norvasc) 10 mg PO DAILY [facility] Last Admin: 11/14/17 08:37 Dose: 10 mg Aspirin (Ecotrin) 81 mg PO DAILY [facility] Last Admin: 11/14/17 08:37 Dose: 81 mg Atorvastatin Calcium (Lipitor) 20 mg PO DAILY [facility] Last Admin: 11/14/17 08:37 Dose: 20 mg Bisacodyl (Dulcolax Supp) 10 mg RECTAL DAILY PRN PRN Reason: SEVERE CONSITIPATION Chlorhexidine Gluconate (Chlorhexidine 2% Cloth) 3 pack TOPICAL DAILY@0400 [facility] Stop: 11/19/17 03:59 Last Admin: 11/14/17 04:58 Dose: 3 pack Chlorhexidine Gluconate (Chlorhexidine 2% Cloth) 3 pack TOPICAL DAILY@0400 PRN PRN Reason: Extra cloth needed Stop: 11/19/17 03:59 Clonidine HCl (Catapres) 0.1 mg PO UNSCH PRN PRN Reason: SEE LABEL COMMENTS Dextrose (D50w Vial) 50 ml IV.PUSH UNSCH PRN PRN Reason: PER HYPOGLYCEMIA PROTOCOL Diphenhydramine HCl (Benadryl) 25 mg PO UNSCH PRN PRN Reason: SEE LABEL COMMENTS Doxazosin Mesylate (Cardura) 2 mg PO BID [facility] Last Admin: 11/14/17 08:37 Dose: 2 mg Dronedarone (Multaq) 400 mg PO BID [facility] Last Admin: 11/14/17 09:42 Dose: 400 mg Epoetin Brandon (Epogen Inj) 4,000 unit IV.PUSH UNSCH PRN PRN Reason: SEE LABEL COMMENTS Last Admin: 11/14/17 14:25 Dose: 4,000 unit Fenofibrate (Tricor) 145 mg PO DAILY [facility] Last Admin: 11/14/17 08:37 Dose: 145 mg Furosemide (Lasix) 80 mg PO BID@0900,1800 [facility] Last Admin: 11/14/17 09:42 Dose: 80 mg Gelatin (Gelfoam 12 Mm/7 Mm Topical) 1 foam TOPICAL PRN PRN PRN Reason: help stop bleeding from site Gentamicin Sulfate (Gentamicin Inj) 20 mg OTHER WITH DIALYSIS PRN PRN Reason: Dwell Gentamycin Lock Last Admin: 11/14/17 14:25 Dose: 20 mg Glucagon (Glucagon Inj) 1 mg OTHER PRN PRN PRN Reason: for Hypoglycemia Protocol Heparin Sodium (Porcine) (Heparin Inj) 8,000 units OTHER WITH DIALYSIS PRN PRN Reason: for machine prime Heparin Sodium (Porcine) (Heparin Inj) 1,000 units OTHER WITH DIALYSIS PRN PRN Reason: Dwell Heparin to Fill Catheter Last Admin: 11/14/17 14:24 Dose: 1,000 units Heparin Sodium (Porcine) (Heparin Central Flush) 0 unit IV.FLUSH DAILY PRN PRN Reason: SEE DOSE INSTRUCTIONS Albumin Human (Flexbumin 25% Inj) 100 mls @ 60 mls/hr IV.SIG WITH DIALYSIS PRN PRN Reason: hypotension / volume replace Last Infusion: 11/14/17 14:34 Dose: Infused Sodium Chloride (Ns Inj) 1,000 mls @ 0 mls/hr OTHER .Q0M PRN PRN Reason: for prime and rinse back Sodium Chloride (Ns Inj) 1,000 mls @ 200 mls/hr OTHER .Q5H PRN PRN Reason: for dialyzer flush PRN Sodium Chloride (Ns Inj) 1,000 mls @ 0 mls/hr IV.CONT .Q0M PRN PRN Reason: hypotension / volume replace Insulin Human Regular (Novolin R Correctional Sugar Inj) 0 units SQ ACHS AND 3AM [facility]; Protocol Last Admin: 11/14/17 12:56 Dose: 3 units Insulin Human Regular (Novolin R Inj) 15 units SQ QID [facility] Last Admin: 11/14/17 12:56 Dose: 15 units Lactulose (Lactulose Liq) 30 ml PO DAILY PRN PRN Reason: SEVERE CONSITIPATION Levothyroxine Sodium (Synthroid) 224 mcg PO DAILY@0700 [facility] Last Admin: 11/14/17 06:11 Dose: 224 mcg Losartan Potassium (Cozaar) 12.5 mg PO DAILY [facility] Last Admin: 11/14/17 09:42 Dose: 12.5 mg Mannitol (Mannitol Inj) 12.5 gm IV.PUSH UNSCH PRN PRN Reason: hypotension / volume replace Metolazone (Zaroxolyn) 5 mg PO DAILY [facility] Last Admin: 11/14/17 08:37 Dose: 5 mg Metoprolol Tartrate (Lopressor) 12.5 mg PO DAILY [facility] Last Admin: 11/14/17 08:37 Dose: 12.5 mg Miscellaneous (Pill Splitter) 1 each [facility] Nitroglycerin (Nitrostat Sl) 0.4 mg SL Q5M PRN PRN Reason: CHEST PAIN Ondansetron HCl (Zofran Inj) 4 mg IV.PUSH UNSCH PRN PRN Reason: NAUSEA OR VOMITING Ondansetron HCl (Zofran Inj) 4 mg IV.PUSH Q6H PRN PRN Reason: NAUSEA OR VOMITING Senna/Docusate Sodium (Makayla-Colace) 1 tab PO BID [facility] Last Admin: 11/14/17 08:38 Dose: Not Given Sennosides (Senokot) 17.2 mg PO Q12H PRN PRN Reason: Moderate Constipation Sodium Chloride (Ns Flush) 2 ml IV.FLUSH UNSCH PRN PRN Reason: FLUSH AFTER USING IV ACCESS Sodium Chloride (Ns Flush) 5 ml IV.FLUSH PRN PRN PRN Reason: flush each lumen during HD Sodium Chloride (Ns Flush) 0 ml IV.FLUSH PRN PRN PRN Reason: SEE DOSE INSTRUCTIONS Warfarin Sodium (Coumadin) 5 mg PO DAILY@1600 [facility] Allergies Allergy/AdvReac Type Severity Reaction Status Date / Time No Known Allergies Allergy Verified 10/28/17 10:25 Home Medications Medication Instructions Recorded Confirmed Type amlodipine 10 mg PO DAILY 08/07/17 11/13/17 History aspirin [Aspirin Low Dose] 81 mg PO DAILY 08/07/17 11/13/17 History atorvastatin 20 mg PO DAILY 08/07/17 11/13/17 History cholecalciferol (vitamin D3) 5,000 unit PO DAILY 08/07/17 11/13/17 History [Vitamin D3] coenzyme Q10 [Co Q-10] 200 mg PO DAILY 08/07/17 11/13/17 History doxazosin 2 mg PO BID 08/07/17 11/13/17 History dronedarone [Multaq] 400 mg PO BID 08/07/17 11/13/17 History fenofibrate nanocrystallized 145 mg PO DAILY 08/07/17 11/13/17 History insulin regular hum U-500 conc 15 unit SUB-Q QID 08/07/17 11/13/17 History [Humulin R U-500 (Conc) Kwikpen] levothyroxine 2 cap PO DAILY 08/07/17 11/13/17 History losartan 12.5 mg PO DAILY 08/07/17 11/13/17 History metoprolol tartrate 12.5 mg PO DAILY 08/07/17 11/13/17 History vitamin B comp with C no.4 [Super 150 mg PO DAILY 08/07/17 11/13/17 History B Complex + C] warfarin [Jantoven] 5 mg PO DAILY 08/07/17 11/13/17 History Exam Vital signs: Vital Signs 11/13/17 16:59 11/13/17 19:51 11/13/17 20:05 Temperature 97.6 F 99.2 F Pulse Rate 50 L 94 H Respiratory Rate 16 20 Blood Pressure 116/55 L 153/72 H Pulse Oximetry 97 100 100 11/14/17 04:00 11/14/17 07:37 11/14/17 08:00 Temperature 97.8 F 98.7 F Pulse Rate 60 69 Respiratory Rate 16 25 H Blood Pressure 150/70 H 135/60 Pulse Oximetry 96 94 L 96 11/14/17 09:00 11/14/17 12:00 11/14/17 12:18 Temperature Pulse Rate 69 60 60 Respiratory Rate 18 17 Blood Pressure 119/53 L Pulse Oximetry 96 96 11/14/17 12:48 11/14/17 13:18 11/14/17 13:48 Temperature Pulse Rate 60 62 58 L Respiratory Rate 20 20 22 Blood Pressure 128/58 L 128/58 L Pulse Oximetry 96 96 96 Intake & Output 11/13/17 11/14/17 11/14/17 18:59 06:59 18:59 Intake Total 200 / 200 100 / 100 Output Total 1025 / 1025 Balance -825 / -825 100 / 100 Weight 142.882 kg 142 kg Intake: IV 100 / 100 Flexbumin 25% Inj 100 ML @ 60 100 / 100 mls/hr IV.SIG WITH DIALYSIS PRN Rx#:[id number] Oral 200 / 200 Output: Urine 1025 / 1025 Other: Weight On Admission 142.5 kg Narrative: GENERAL: Well-nourished, well-developed patient. SKIN: Warm and dry. HEAD: Normocephalic. EYES: No scleral icterus. No injection or drainage. NECK: Supple, trachea midline. No JVD or lymphadenopathy. CARDIOVASCULAR: S1-S2 irregular. RESPIRATORY: Breath sounds finished at bases. GASTROINTESTINAL: Abdomen soft, non-tender, distended. EXTREMITIES: 2-3+ edema NEUROLOGICAL: Awake, alert, and oriented x 3. Non-focal. Results - Lab Results 11/14/17 05:50 11/14/17 05:50 Most recent lab results Calcium 7.9 mg/dL (8.5-10.1) L 11/14/17 05:50 Magnesium 3.5 mg/dL (1.5-2.5) H 11/13/17 19:31 Assessment and Plan - Assessment (1) Hx of CABG Code(s): Z95.1 - Presence of aortocoronary bypass graft Status: Acute (2) Diabetes mellitus Code(s): E11.9 - Type 2 diabetes mellitus without complications Status: Chronic (3) ESRD (end stage renal disease) Code(s): N18.6 - End stage renal disease Status: Acute (4) Pulmonary edema Code(s): J81.1 - Chronic pulmonary edema Status: Acute (5) History of atrial flutter Code(s): Z86.79 - Personal history of other diseases of the circulatory system Status: Acute - Plan Patient admitted for dialysis, Vas-Cath was inserted with bleeding around the catheter he was on anticoagulation Hemodialysis proceeding noted 2 L will be tried for ultrafiltration Next dialysis tomorrow Patient will need permacath placement recommend to hold anticoagulation Continue to monitor his progress (2) Diabetes mellitus Qualifiers: Diabetes mellitus type: type 2 Diabetes mellitus intermediate insulin use: with termite control servicer use Diabetes mellitus complication status: with kidney complications Diabetes mellitus complication detail: with chronic kidney disease Chronic kidney disease stage: stage 4 (severe) Qualified Code(s): E11.22 - Type 2 diabetes mellitus with diabetic chronic kidney disease; N18.4 - Chronic kidney disease, stage 4 (severe); 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 (4) Pulmonary edema Qualifiers: Chronicity: acute Qualified Code(s): J81.0 - Acute pulmonary edema
[2017-11-15] MEDS: Insulin NovoLIN Regular Correctional Sugar Inj SQ SCH ×5 (05:18→20:35)
[2017-11-15] MEDS: Chlorhexidine Gluconate 2% 1 Pack (2 Cloths) TOPICAL SCH (05:19)
[2017-11-15 06:36] LABS: Baso % (Auto) 0.8 % (0.0-2.0); Eos # (Auto) 0.1 th/mm3 (0.0-0.4); Hematocrit 26.2 % (39.0-51.0); Hemoglobin 8.7 gm/dL (13.0-17.0); Lymph # (Auto) 0.7 th/mm3 (1.0-4.8); Lymph % (Auto) 13.6 % (9.0-44.0); Mean Corpuscular HGB Conc 33.3 % (32.0-36.0); Mean Corpuscular Hemoglobin 27.9 pg (27.0-34.0); Mean Corpuscular Volume 83.7 fL (80.0-100.0); Mean Platelet Volume 9.9 fL (7.0-11.0); Mono # (Auto) 0.6 th/mm3 (0.0-0.9); Mono % (Auto) 11.2 % (0.0-8.0); Neut # (Auto) 3.9 th/mm3 (1.8-7.7); Neut % (Auto) 72.4 % (16.0-70.0); Platelet Count 124 th/mm3 (150-450); Red Blood Count 3.13 mil/mm3 (4.50-5.90); Red Cell Distribution Width 17.3 % (11.6-17.2); White Blood Count 5.4 th/mm3 (4.0-11.0)
[2017-11-15] MEDS: Levothyroxine 112 MCG Tablet PO SCH (06:44)
[2017-11-15] MEDS: Heparin 10,000 UNITS/10 ML Vial (for IV use) OTHER PRN (08:48)
--- NOTE | 2017-11-15 10:08 | P.PN ---
Subjective Interval history: Nursing reports that patient had some bleeding with permacath placement yesterday. Otherwise no acute issues overnight. Physical Exam Vital signs: Vital Signs 11/14/17 12:00 11/14/17 12:18 11/14/17 12:48 Temperature Pulse Rate 60 60 60 Respiratory Rate 18 17 20 Blood Pressure 119/53 L 128/58 L Pulse Oximetry 96 96 96 11/14/17 13:18 11/14/17 13:48 11/14/17 16:00 Temperature 98.2 F Pulse Rate 62 58 L 58 L Respiratory Rate 20 22 17 Blood Pressure 128/58 L 128/58 L Pulse Oximetry 96 96 98 11/14/17 20:00 11/15/17 00:00 11/15/17 04:00 Temperature 98.2 F 98.3 F 98.5 F Pulse Rate 58 L 40 L 50 L Respiratory Rate 18 18 18 Blood Pressure 150/67 H 122/58 L 121/58 L Pulse Oximetry 97 95 97 Intake & Output 11/14/17 11/15/17 11/15/17 18:59 06:59 18:59 Intake Total 700 / 700 400 / 400 Output Total 3000 / 3000 1025 / 1025 Balance -2300 / -2300 -625 / -625 Weight 141.2 kg Intake: IV 100 / 100 Flexbumin 25% Inj 100 ML @ 60 100 / 100 mls/hr IV.SIG WITH DIALYSIS PRN Rx#:[id number] Oral 600 / 600 400 / 400 Output: Urine 1000 / 1000 1025 / 1025 Hemodialysis Amount 1999 / 1999 Other: # Bowel Movements 0 0 Narrative: Heart sounds regular rate rhythm, no murmurs Clear lungs bilaterally, unlabored breathing Results - Labs CBC & Chem 7: 11/17/17 04:40 11/17/17 04:40 Laboratory Results - last 24 hr 11/14/17 11/14/17 11/14/17 12:39 17:08 20:42 WBC RBC Hgb Hct MCV MCH MCHC RDW Plt Count MPV Neut % (Auto) Lymph % (Auto) Union % (Auto) Eos % (Auto) Baso % (Auto) Neut # (Auto) Lymph # (Auto) [place] # (Auto) Eos # (Auto) Baso # (Auto) WBC Differential Differential Comment POC Glucose 216 H 220 H 233 H 10/11/18 10/11/18 04:50 05:17 WBC 5.4 RBC 3.13 L Hgb 8.7 L Hct 26.2 L MCV 83.7 MCH 27.9 MCHC 33.3 RDW 17.3 H Plt Count 124 L MPV 9.9 Neut % (Auto) 72.4 H Lymph % (Auto) 13.6 Union % (Auto) 11.2 H Eos % (Auto) 2.0 Baso % (Auto) 0.8 Neut # (Auto) 3.9 Lymph # (Auto) 0.7 L Union # (Auto) 0.6 Eos # (Auto) 0.1 Baso # (Auto) 0.0 WBC Differential . Differential Comment Auto diff final POC Glucose 90 - Imaging Impressions Catheter Placement 11/14/17 06:00 CONCLUSION: 1. Uncomplicated line placement as above. Assessment and Plan - Plan 62-year-old white male admitted for volume overload secondary to kidney disease. 1. Acute renal failure superimposed on chronic kidney disease stage V Patient volume overloaded with bilateral lower extremity edema and pulmonary edema Nephrology following, dialyzing Status post fistula placement which is not mature at this time, currently has permacath placed Anticipate inpatient dialysis 2. Diabetes mellitus Continue home insulin Sliding scale insulin Monitor blood glucose 3. Atrial fibrillation Coumadin on hold given some bleeding those noted with permacath placement, on heparin for now 4. CHF Likely contributing to shortness of breath Continue home Lasix 5. Hypertension/hyperlipidemia/hypothyroidism Continue home medications Heparin
--- NOTE | 2017-11-15 10:51 | P.PNNP ---
Subjective Interval history: Patient losing blood at Vas-Cath insertion site Physical Exam Vital signs: Vital Signs 11/14/17 12:00 11/14/17 12:18 11/14/17 12:48 Temperature Pulse Rate 60 60 60 Respiratory Rate 18 17 20 Blood Pressure 119/53 L 128/58 L Pulse Oximetry 96 96 96 11/14/17 13:18 11/14/17 13:48 11/14/17 16:00 Temperature 98.2 F Pulse Rate 62 58 L 58 L Respiratory Rate 20 22 17 Blood Pressure 128/58 L 128/58 L Pulse Oximetry 96 96 98 11/14/17 20:00 11/15/17 00:00 11/15/17 04:00 Temperature 98.2 F 98.3 F 98.5 F Pulse Rate 58 L 40 L 50 L Respiratory Rate 18 18 18 Blood Pressure 150/67 H 122/58 L 121/58 L Pulse Oximetry 97 95 97 Intake & Output 11/14/17 11/15/17 11/15/17 18:59 06:59 18:59 Intake Total 700 / 700 400 / 400 Output Total 3000 / 3000 1025 / 1025 3500 / 3500 Balance -2300 / -2300 -625 / -625 -3500 / -3500 Weight 141.2 kg Intake: IV 100 / 100 Flexbumin 25% Inj 100 ML @ 60 100 / 100 mls/hr IV.SIG WITH DIALYSIS PRN Rx#:[id number] Oral 600 / 600 400 / 400 Output: Urine 1000 / 1000 1025 / 1025 Hemodialysis Amount 2000 / 2000 3500 / 3500 Other: # Bowel Movements 0 0 Narrative: Heart sounds regular rate rhythm, no murmurs Clear lungs bilaterally, unlabored breathing Assessment and Plan - Assessment (1) Hx of CABG Code(s): Z95.1 - Presence of aortocoronary bypass graft Status: Acute (2) Diabetes mellitus Code(s): E11.9 - Type 2 diabetes mellitus without complications Status: Chronic Qualifiers: Diabetes mellitus type: type 2 Diabetes mellitus terminal operations manager insulin use: with fpc use Diabetes mellitus complication status: with kidney complications Diabetes mellitus complication detail: with chronic kidney disease Chronic kidney disease stage: stage 4 (severe) Qualified Code(s): E11.22 - Type 2 diabetes mellitus with diabetic chronic kidney disease; N18.4 - Chronic kidney disease, stage 4 (severe); 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 (current) use of insulin (3) ESRD (end stage renal disease) Code(s): N18.6 - End stage renal disease Status: Acute (4) Pulmonary edema Code(s): J81.1 - Chronic pulmonary edema Status: Acute Qualifiers: Chronicity: acute Qualified Code(s): J81.0 - Acute pulmonary edema (5) History of atrial flutter Code(s): Z86.79 - Personal history of other diseases of the circulatory system Status: Acute - Plan Patient admitted for dialysis, Vas-Cath was inserted with bleeding around the catheter he was on anticoagulation DDAVP ordered as bleeding around the Vas-Cath Hemodialysis proceeding noted 3.5 L will be tried for ultrafiltration Next dialysis tomorrow Patient will need permacath placement recommend to hold anticoagulation Continue to monitor his progress
[2017-11-15] MEDS: amLODIPine 10 MG Tablet PO SCH (11:56)
[2017-11-15] MEDS: metOLazone 5 MG Tablet PO SCH (11:56)
[2017-11-15] MEDS: Metoprolol Tartrate 25 MG Tablet PO SCH (11:56)
[2017-11-15] MEDS: Senna/Docusate Sodium 8.6/50 MG Tablet PO SCH ×2 (11:57→20:34)
[2017-11-15] MEDS: Furosemide 80 MG Tablet PO SCH ×2 (11:57→19:19)
[2017-11-15] MEDS: Heparin - SQ 10,000 UNITS/ML Vial SQ SCH ×2 (11:57→20:35)
[2017-11-15] MEDS: Fenofibrate 145 MG Tablet PO SCH (11:57)
[2017-11-15] MEDS ORDERED: Desmopressin Inj 20 MCG in Sodium Chlor 0.9% Inj 50 ML IV.SIG ONE (13:00)
[2017-11-15 17:24] LABS: Hematocrit 26.6 % (39.0-51.0); Hemoglobin 8.8 gm/dL (13.0-17.0)
[2017-11-15 17:36] LABS: INR 2.3 Ratio; Prothrombin Time 23.5 sec (9.8-11.6)
[2017-11-16] MEDS: Chlorhexidine Gluconate 2% 1 Pack (2 Cloths) TOPICAL SCH (03:31)
[2017-11-16] MEDS: Insulin NovoLIN Regular Correctional Sugar Inj SQ SCH ×5 (03:31→21:16)
[2017-11-16] MEDS: Levothyroxine 112 MCG Tablet PO SCH (06:09)
[2017-11-16 08:10] LABS: INR 2.1 Ratio; Prothrombin Time 21.3 sec (9.8-11.6)
[2017-11-16 08:20] LABS: Baso % (Auto) 0.9 % (0.0-2.0); Eos # (Auto) 0.1 th/mm3 (0.0-0.4); Eos % (Auto) 1.5 % (0.0-4.0); Hematocrit 24.6 % (39.0-51.0); Hemoglobin 8.1 gm/dL (13.0-17.0); Lymph # (Auto) 0.7 th/mm3 (1.0-4.8); Lymph % (Auto) 12.4 % (9.0-44.0); Mean Corpuscular HGB Conc 32.7 % (32.0-36.0); Mean Corpuscular Hemoglobin 27.6 pg (27.0-34.0); Mean Corpuscular Volume 84.4 fL (80.0-100.0); Mean Platelet Volume 9.8 fL (7.0-11.0); Mono # (Auto) 0.6 th/mm3 (0.0-0.9); Mono % (Auto) 10.5 % (0.0-8.0); Neut # (Auto) 4.2 th/mm3 (1.8-7.7); Neut % (Auto) 74.7 % (16.0-70.0); Platelet Count 128 th/mm3 (150-450); Red Blood Count 2.92 mil/mm3 (4.50-5.90); Red Cell Distribution Width 17.4 % (11.6-17.2); White Blood Count 5.6 th/mm3 (4.0-11.0)
[2017-11-16 08:36] LABS: Carbon Dioxide 27.4 meq/L (21.0-32.0); Potassium 4.5 meq/L (3.5-5.1)
[2017-11-16] MEDS ORDERED: Thrombin Topical Soln 5,000 UNIT Vial TOPICAL ONE (13:15)
[2017-11-16] MEDS: Furosemide 80 MG Tablet PO SCH ×2 (15:10→17:57)
[2017-11-16] MEDS: Heparin - SQ 10,000 UNITS/ML Vial SQ SCH ×2 (15:10→21:15)
[2017-11-16] MEDS: Senna/Docusate Sodium 8.6/50 MG Tablet PO SCH ×2 (15:13→21:17)
--- NOTE | 2017-11-16 15:56 | P.PN ---
Subjective Interval history: Nursing reports that patient is still bleeding from Vas-Cath site. Scheduled to go down to interventional radiology to address this. Otherwise patient has no complaints. Asking when he can go home. Physical Exam Vital signs: Vital Signs 11/15/17 16:00 11/15/17 17:00 11/15/17 17:46 Temperature Pulse Rate 53 L 65 69 Respiratory Rate 20 21 13 Blood Pressure 134/51 L Pulse Oximetry 11/15/17 18:00 11/15/17 19:00 11/15/17 19:01 Temperature Pulse Rate 69 68 66 Respiratory Rate 23 16 15 Blood Pressure 101/48 L 146/65 H Pulse Oximetry 11/15/17 20:00 11/15/17 20:01 11/15/17 20:36 Temperature 98.1 F Pulse Rate 62 61 Respiratory Rate 19 20 Blood Pressure 138/57 L Pulse Oximetry 94 L 93 L 95 11/15/17 21:00 11/15/17 22:00 11/15/17 23:00 Temperature Pulse Rate 63 69 67 Respiratory Rate 17 5 L 17 Blood Pressure 157/85 H Pulse Oximetry 93 L 11/15/17 23:01 11/16/17 00:00 11/16/17 00:01 Temperature 98.3 F Pulse Rate 65 71 69 Respiratory Rate 16 33 H 30 H Blood Pressure 123/59 L 100/47 L Pulse Oximetry 11/16/17 01:00 11/16/17 01:43 11/16/17 02:00 Temperature Pulse Rate 76 74 62 Respiratory Rate 17 39 H 18 Blood Pressure 106/51 L 103/59 L Pulse Oximetry 11/16/17 03:00 11/16/17 03:01 11/16/17 04:00 Temperature 98.3 F Pulse Rate 63 75 73 Respiratory Rate 19 38 H 12 Blood Pressure 92/50 L Pulse Oximetry 11/16/17 04:01 11/16/17 06:00 11/16/17 07:59 Temperature Pulse Rate 69 88 Respiratory Rate 10 L Blood Pressure 125/58 L Pulse Oximetry 94 L 11/16/17 08:00 11/16/17 10:00 Temperature 98 F Pulse Rate 60 71 Respiratory Rate 22 Blood Pressure 129/57 L Pulse Oximetry 96 Intake & Output 11/15/17 11/16/17 11/16/17 18:59 06:59 18:59 Intake Total 55 / 55 720 / 720 Output Total 3850 / 3850 400 / 400 Balance -3795 / -3795 320 / 320 Weight 140.614 kg Intake: IV 55 / 55 DDAVP Inj 20 MCG In NS Inj 50 55 / 55 ML @ 100.5 mls/hr IV.SIG ONCE ONE Rx#:[id number] Oral 720 / 720 Output: Urine 350 / 350 400 / 400 Hemodialysis Amount 3500 / 3500 Other: Date of Last Bowel Movement 11/15/17 # Bowel Movements 0 Narrative: Heart sounds regular rate rhythm, no murmurs Clear lungs bilaterally, unlabored breathing Results - Labs CBC & Chem 7: 11/17/17 04:40 11/17/17 04:40 Laboratory Results - last 24 hr 11/15/17 11/15/17 11/15/17 17:00 17:00 20:11 WBC RBC Hgb 8.8 L Hct 26.6 L MCV MCH MCHC RDW Plt Count MPV Neut % (Auto) Lymph % (Auto) Emanuel % (Auto) Eos % (Auto) Baso % (Auto) Neut # (Auto) Lymph # (Auto) Emanuel # (Auto) Eos # (Auto) Baso # (Auto) WBC Differential Differential Comment PT 23.5 H INR 2.3 Sodium Potassium Chloride Carbon Dioxide Anion Gap BUN Creatinine Estimated GFR POC Glucose 395 H Random Glucose Calcium 11/16/17 11/16/17 11/16/17 02:18 06:05 06:05 WBC 5.6 RBC 2.92 L Hgb 8.1 L Hct 24.6 L MCV 84.4 MCH 27.6 MCHC 32.7 RDW 17.4 H Plt Count 128 L MPV 9.8 Neut % (Auto) 74.7 H Lymph % (Auto) 12.4 Emanuel % (Auto) 10.5 H Eos % (Auto) 1.5 Baso % (Auto) 0.9 Neut # (Auto) 4.2 Lymph # (Auto) 0.7 L Emanuel # (Auto) 0.6 Eos # (Auto) 0.1 Baso # (Auto) 0.0 WBC Differential . Differential Comment Auto diff final PT 21.3 H INR 2.1 Sodium Potassium Chloride Carbon Dioxide Anion Gap BUN Creatinine Estimated GFR POC Glucose 300 H Random Glucose Calcium 11/16/17 11/16/17 06:05 08:34 WBC RBC Hgb Hct MCV MCH MCHC RDW Plt Count MPV Neut % (Auto) Lymph % (Auto) Emanuel % (Auto) Eos % (Auto) Baso % (Auto) Neut # (Auto) Lymph # (Auto) Emanuel # (Auto) Eos # (Auto) Baso # (Auto) WBC Differential Differential Comment PT INR Sodium 138 Potassium 4.5 Chloride 96 L Carbon Dioxide 27.4 Anion Gap 15 BUN 100 H Creatinine 6.39 H Estimated GFR 9 L POC Glucose 238 H Random Glucose 219 H Calcium 8.0 L Assessment and Plan - Plan 62-year-old white male admitted for volume overload secondary to kidney disease. 1. Acute renal failure superimposed on chronic kidney disease stage V Patient volume overloaded with bilateral lower extremity edema and pulmonary edema Nephrology following, dialyzing Status post fistula placement which is not mature at this time, currently has permacath placed. Thrombin injected which has helped bleeding around the site of the permacath. Inpatient dialysis for now 2. Diabetes mellitus Continue home insulin Sliding scale insulin Monitor blood glucose 3. Atrial fibrillation Coumadin on hold given some bleeding those noted with permacath placement, on heparin for now. 4. CHF Likely contributing to shortness of breath Continue home Lasix 5. Hypertension/hyperlipidemia/hypothyroidism Continue home medications
--- NOTE | 2017-11-16 16:45 | P.PNNP ---
Subjective Interval history: Patient states the bleeding around Vas-Cath stopped after local thrombin injection Physical Exam Vital signs: Vital Signs 11/15/17 17:00 11/15/17 17:46 11/15/17 18:00 Temperature Pulse Rate 65 69 69 Respiratory Rate 21 13 23 Blood Pressure 134/51 L 101/48 L Pulse Oximetry 11/15/17 19:00 11/15/17 19:01 11/15/17 20:00 Temperature Pulse Rate 68 66 62 Respiratory Rate 16 15 19 Blood Pressure 146/65 H Pulse Oximetry 94 L 11/15/17 20:01 11/15/17 20:36 11/15/17 21:00 Temperature 98.1 F Pulse Rate 61 63 Respiratory Rate 20 17 Blood Pressure 138/57 L 157/85 H Pulse Oximetry 93 L 95 93 L 11/15/17 22:00 11/15/17 23:00 11/15/17 23:01 Temperature Pulse Rate 69 67 65 Respiratory Rate 5 L 17 16 Blood Pressure 123/59 L Pulse Oximetry 11/16/17 00:00 11/16/17 00:01 11/16/17 01:00 Temperature 98.3 F Pulse Rate 71 69 76 Respiratory Rate 33 H 30 H 17 Blood Pressure 100/47 L Pulse Oximetry 11/16/17 01:43 11/16/17 02:00 11/16/17 03:00 Temperature Pulse Rate 74 62 63 Respiratory Rate 39 H 18 19 Blood Pressure 106/51 L 103/59 L Pulse Oximetry 11/16/17 03:01 11/16/17 04:00 11/16/17 04:01 Temperature 98.3 F Pulse Rate 75 73 69 Respiratory Rate 38 H 12 10 L Blood Pressure 92/50 L 125/58 L Pulse Oximetry 11/16/17 06:00 11/16/17 07:59 11/16/17 08:00 Temperature 98 F Pulse Rate 88 60 Respiratory Rate 22 Blood Pressure 129/57 L Pulse Oximetry 94 L 96 11/16/17 09:00 11/16/17 09:01 11/16/17 10:00 Temperature Pulse Rate 61 63 71 Respiratory Rate 27 H 36 H 35 H Blood Pressure 132/62 Pulse Oximetry 11/16/17 10:01 11/16/17 11:00 11/16/17 11:01 Temperature Pulse Rate 67 69 59 L Respiratory Rate 26 H 33 H 31 H Blood Pressure 123/54 L 132/59 L Pulse Oximetry 97 96 11/16/17 12:00 11/16/17 12:01 11/16/17 13:00 Temperature 97.7 F Pulse Rate 65 66 71 Respiratory Rate 23 19 6 L Blood Pressure 143/63 H Pulse Oximetry 96 96 11/16/17 13:01 11/16/17 14:00 11/16/17 14:01 Temperature Pulse Rate 70 69 69 Respiratory Rate 0 L 15 15 Blood Pressure 160/65 H 150/68 H Pulse Oximetry 11/16/17 14:31 11/16/17 14:45 11/16/17 15:00 Temperature Pulse Rate 68 69 69 Respiratory Rate 14 19 22 Blood Pressure 139/65 119/56 L 124/58 L Pulse Oximetry 97 11/16/17 15:15 11/16/17 15:31 11/16/17 15:45 Temperature Pulse Rate 69 69 69 Respiratory Rate 17 39 H 14 Blood Pressure 112/55 L 133/58 L 135/63 Pulse Oximetry 68 L 97 97 11/16/17 16:00 11/16/17 16:01 Temperature Pulse Rate 68 69 Respiratory Rate 24 20 Blood Pressure 149/65 H Pulse Oximetry 97 98 Intake & Output 11/15/17 11/16/17 11/16/17 18:59 06:59 18:59 Intake Total 55 / 55 720 / 720 Output Total 3850 / 3850 400 / 400 Balance -3795 / -3795 320 / 320 Weight 140.614 kg Intake: IV 55 / 55 DDAVP Inj 20 MCG In NS Inj 50 55 / 55 ML @ 100.5 mls/hr IV.SIG ONCE ONE Rx#:[id number] Oral 720 / 720 Output: Urine 350 / 350 400 / 400 Hemodialysis Amount 3500 / 3500 Other: Date of Last Bowel Movement 11/15/17 # Bowel Movements 0 Narrative: Heart sounds regular rate rhythm, no murmurs Clear lungs bilaterally, unlabored breathing Assessment and Plan - Assessment (1) Hx of CABG Code(s): Z95.1 - Presence of aortocoronary bypass graft Status: Acute (2) Diabetes mellitus Code(s): E11.9 - Type 2 diabetes mellitus without complications Status: Chronic Qualifiers: Diabetes mellitus type: type 2 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 truck 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 Diabetes mellitus complication status: with kidney complications Diabetes mellitus complication detail: with chronic kidney disease Chronic kidney disease stage: stage 4 (severe) Qualified Code(s): E11.22 - Type 2 diabetes mellitus with diabetic chronic kidney disease; N18.4 - Chronic kidney disease, stage 4 (severe); Z79.4 - nursing home (current) use of insulin (3) ESRD (end stage renal disease) Code(s): N18.6 - End stage renal disease Status: Acute (4) Pulmonary edema Code(s): J81.1 - Chronic pulmonary edema Status: Acute Qualifiers: Chronicity: acute Qualified Code(s): J81.0 - Acute pulmonary edema (5) History of atrial flutter Code(s): Z86.79 - Personal history of other diseases of the circulatory system Status: Acute - Plan Patient admitted for dialysis, Vas-Cath was inserted with bleeding around the catheter stopped Hemodialysis proceeding noted 4 L 3K bath Next dialysis Sunday Patient will need permacath placement recommend to hold anticoagulation Order placed for Sunday Continue to monitor his progress
[2017-11-16] MEDS: amLODIPine 10 MG Tablet PO SCH (17:54)
[2017-11-16] MEDS: Fenofibrate 145 MG Tablet PO SCH (17:57)
[2017-11-16] MEDS: metOLazone 5 MG Tablet PO SCH (17:57)
[2017-11-16] MEDS: Metoprolol Tartrate 25 MG Tablet PO SCH (18:00)
[2017-11-17] MEDS: Insulin NovoLIN Regular Correctional Sugar Inj SQ SCH ×5 (03:29→21:12)
[2017-11-17] MEDS: Chlorhexidine Gluconate 2% 1 Pack (2 Cloths) TOPICAL SCH (05:00)
[2017-11-17 05:02] LABS: Baso # (Auto) 0.1 th/mm3 (0.0-0.2); Baso % (Auto) 1.1 % (0.0-2.0); Eos # (Auto) 0.1 th/mm3 (0.0-0.4); Eos % (Auto) 1.7 % (0.0-4.0); Hematocrit 23.8 % (39.0-51.0); Hemoglobin 7.8 gm/dL (13.0-17.0); Lymph # (Auto) 0.6 th/mm3 (1.0-4.8); Lymph % (Auto) 11.1 % (9.0-44.0); Mean Corpuscular Hemoglobin 27.5 pg (27.0-34.0); Mean Corpuscular Volume 83.4 fL (80.0-100.0); Mean Platelet Volume 8.6 fL (7.0-11.0); Mono # (Auto) 0.6 th/mm3 (0.0-0.9); Mono % (Auto) 10.9 % (0.0-8.0); Neut # (Auto) 4.4 th/mm3 (1.8-7.7); Neut % (Auto) 75.2 % (16.0-70.0); Platelet Count 139 th/mm3 (150-450); Red Blood Count 2.85 mil/mm3 (4.50-5.90); Red Cell Distribution Width 17.8 % (11.6-17.2); White Blood Count 5.8 th/mm3 (4.0-11.0)
[2017-11-17 05:13] LABS: INR 1.8 Ratio; Prothrombin Time 18.6 sec (9.8-11.6)
[2017-11-17 05:39] LABS: Calcium 8.5 mg/dL (8.5-10.1); Carbon Dioxide 32.1 meq/L (21.0-32.0); Potassium 4.2 meq/L (3.5-5.1)
[2017-11-17] MEDS: Levothyroxine 112 MCG Tablet PO SCH (07:32)
[2017-11-17] MEDS: Fenofibrate 145 MG Tablet PO SCH (08:11)
[2017-11-17] MEDS: Metoprolol Tartrate 25 MG Tablet PO SCH (08:11)
[2017-11-17] MEDS: Furosemide 80 MG Tablet PO SCH ×2 (08:14→18:32)
[2017-11-17] MEDS: amLODIPine 10 MG Tablet PO SCH (08:14)
[2017-11-17] MEDS: metOLazone 5 MG Tablet PO SCH (08:14)
[2017-11-17] MEDS: Senna/Docusate Sodium 8.6/50 MG Tablet PO SCH ×2 (08:14→21:18)
[2017-11-17] MEDS: Heparin - SQ 10,000 UNITS/ML Vial SQ SCH ×2 (08:18→21:11)
--- NOTE | 2017-11-17 11:11 | P.PNNP ---
Subjective Interval history: Patient is alert, siting on the chair, no SOB. Physical Exam Vital signs: Vital Signs 11/16/17 12:00 11/16/17 12:01 11/16/17 13:00 Temperature 97.7 F Pulse Rate 65 66 71 Respiratory Rate 23 19 6 L Blood Pressure 143/63 H Pulse Oximetry 96 96 11/16/17 13:01 11/16/17 14:00 11/16/17 14:01 Temperature Pulse Rate 70 69 69 Respiratory Rate 0 L 15 15 Blood Pressure 160/65 H 150/68 H Pulse Oximetry 11/16/17 14:31 11/16/17 14:45 11/16/17 15:00 Temperature Pulse Rate 68 69 69 Respiratory Rate 14 19 22 Blood Pressure 139/65 119/56 L 124/58 L Pulse Oximetry 97 11/16/17 15:15 11/16/17 15:31 11/16/17 15:45 Temperature Pulse Rate 69 69 69 Respiratory Rate 17 39 H 14 Blood Pressure 112/55 L 133/58 L 135/63 Pulse Oximetry 68 L 97 97 11/16/17 16:00 11/16/17 16:01 11/16/17 16:15 Temperature Pulse Rate 68 69 69 Respiratory Rate 24 20 19 Blood Pressure 149/65 H 146/66 H Pulse Oximetry 97 98 98 11/16/17 16:30 11/16/17 16:45 11/16/17 17:00 Temperature Pulse Rate 73 71 72 Respiratory Rate 26 H 11 L 15 Blood Pressure 133/73 122/60 124/59 L Pulse Oximetry 11/16/17 17:15 11/16/17 17:30 11/16/17 17:52 Temperature Pulse Rate 72 72 74 Respiratory Rate 16 18 24 Blood Pressure 138/60 137/65 152/65 H Pulse Oximetry 100 96 11/16/17 18:00 11/16/17 18:01 11/16/17 19:00 Temperature Pulse Rate 72 72 65 Respiratory Rate 25 H 21 26 H Blood Pressure 138/58 L Pulse Oximetry 94 L 95 96 11/16/17 19:01 11/16/17 20:00 11/16/17 21:00 Temperature 98.7 F Pulse Rate 65 64 67 Respiratory Rate 23 19 22 Blood Pressure 149/63 H 130/77 155/67 H Pulse Oximetry 94 L 94 L 11/16/17 22:00 11/16/17 22:01 11/16/17 23:00 Temperature Pulse Rate 68 68 68 Respiratory Rate 14 28 H 22 Blood Pressure 142/66 H Pulse Oximetry 94 L 94 L 95 11/16/17 23:01 11/17/17 00:00 11/17/17 01:00 Temperature Pulse Rate 68 68 55 L Respiratory Rate 20 28 H 20 Blood Pressure 118/58 L 121/59 L 113/54 L Pulse Oximetry 95 97 91 L 11/17/17 02:00 11/17/17 02:01 11/17/17 03:00 Temperature Pulse Rate 58 L 58 L 56 L Respiratory Rate 18 34 H 21 Blood Pressure 105/51 L 111/54 L Pulse Oximetry 11/17/17 04:00 11/17/17 05:00 11/17/17 05:01 Temperature Pulse Rate 57 L 50 L 55 L Respiratory Rate 17 23 29 H Blood Pressure 124/61 111/53 L Pulse Oximetry 93 L 11/17/17 06:00 11/17/17 07:46 11/17/17 08:00 Temperature 98.4 F Pulse Rate 51 L 53 L Respiratory Rate 17 Blood Pressure 157/67 H Pulse Oximetry 95 96 11/17/17 10:00 Temperature Pulse Rate 54 L Respiratory Rate Blood Pressure Pulse Oximetry Intake & Output 11/16/17 11/17/17 11/17/17 18:59 06:59 18:59 Intake Total 900 / 900 275 / 275 Output Total 4700 / 4700 650 / 650 Balance -3800 / -3800 -375 / -375 Weight 133 kg Intake: Oral 900 / 900 275 / 275 Output: Urine 700 / 700 650 / 650 Hemodialysis Amount 4000 / 4000 Other: # Voids 2 Date of Last Bowel Movement 11/15/17 11/15/17 11/15/17 Narrative: Alert, not in distress. HEENT: SHANTI, Non icteric, Conjunctiva pale. Neck: Supple, JVD not elevated. Heart sounds regular rate rhythm, no murmurs Clear lungs bilaterally, unlabored breathing. Abd. soft, non tender. Mild leg edema. Assessment and Plan - Assessment (1) Hx of CABG Code(s): Z95.1 - Presence of aortocoronary bypass graft Status: Acute (2) Diabetes mellitus Code(s): E11.9 - Type 2 diabetes mellitus without complications Status: Chronic Qualifiers: Diabetes mellitus type: type 2 Diabetes mellitus long-term insulin use: with long-term use Diabetes mellitus complication status: with kidney complications Diabetes mellitus complication detail: with chronic kidney disease Chronic kidney disease stage: stage 4 (severe) Qualified Code(s): E11.22 - Type 2 diabetes mellitus with diabetic chronic kidney disease; N18.4 - Chronic kidney disease, stage 4 (severe); 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 (3) ESRD (end stage renal disease) Code(s): N18.6 - End stage renal disease Status: Acute (4) Pulmonary edema Code(s): J81.1 - Chronic pulmonary edema Status: Acute Qualifiers: Chronicity: acute Qualified Code(s): J81.0 - Acute pulmonary edema (5) History of atrial flutter Code(s): Z86.79 - Personal history of other diseases of the circulatory system Status: Acute - Plan Patient admitted for dialysis, Vas-Cath was inserted with bleeding around the catheter stopped Hemodialysis proceeding noted 4 L 3K bath Next dialysis Sunday Patient will need permacath placement recommend to hold anticoagulation Order placed for Sunday Continue to monitor his progress HD will be on Sunday, also will need out patient HD arrangement.
--- NOTE | 2017-11-17 12:34 | P.PN ---
Subjective Interval history: Nursing denies any deterioration since last night. Patient himself has no new complaints. Physical Exam Vital signs: Vital Signs 11/16/17 13:00 11/16/17 13:01 11/16/17 14:00 Temperature Pulse Rate 71 70 69 Respiratory Rate 6 L 0 L 15 Blood Pressure 160/65 H Pulse Oximetry 11/16/17 14:01 11/16/17 14:31 11/16/17 14:45 Temperature Pulse Rate 69 68 69 Respiratory Rate 15 14 19 Blood Pressure 150/68 H 139/65 119/56 L Pulse Oximetry 11/16/17 15:00 11/16/17 15:15 11/16/17 15:31 Temperature Pulse Rate 69 69 69 Respiratory Rate 22 17 39 H Blood Pressure 124/58 L 112/55 L 133/58 L Pulse Oximetry 97 68 L 97 11/16/17 15:45 11/16/17 16:00 11/16/17 16:01 Temperature Pulse Rate 69 68 69 Respiratory Rate 14 24 20 Blood Pressure 135/63 149/65 H Pulse Oximetry 97 97 98 11/16/17 16:15 11/16/17 16:30 11/16/17 16:45 Temperature Pulse Rate 69 73 71 Respiratory Rate 19 26 H 11 L Blood Pressure 146/66 H 133/73 122/60 Pulse Oximetry 98 11/16/17 17:00 11/16/17 17:15 11/16/17 17:30 Temperature Pulse Rate 72 72 72 Respiratory Rate 15 16 18 Blood Pressure 124/59 L 138/60 137/65 Pulse Oximetry 100 11/16/17 17:52 11/16/17 18:00 11/16/17 18:01 Temperature Pulse Rate 74 72 72 Respiratory Rate 24 25 H 21 Blood Pressure 152/65 H 138/58 L Pulse Oximetry 96 94 L 95 11/16/17 19:00 11/16/17 19:01 11/16/17 20:00 Temperature 98.7 F Pulse Rate 65 65 64 Respiratory Rate 26 H 23 19 Blood Pressure 149/63 H 130/77 Pulse Oximetry 96 94 L 94 L 11/16/17 21:00 11/16/17 22:00 11/16/17 22:01 Temperature Pulse Rate 67 68 68 Respiratory Rate 22 14 28 H Blood Pressure 155/67 H 142/66 H Pulse Oximetry 94 L 94 L 11/16/17 23:00 10/12/18 23:01 11/17/17 00:00 Temperature Pulse Rate 68 68 68 Respiratory Rate 22 20 28 H Blood Pressure 118/58 L 121/59 L Pulse Oximetry 95 95 97 11/17/17 01:00 11/17/17 02:00 11/17/17 02:01 Temperature Pulse Rate 55 L 58 L 58 L Respiratory Rate 20 18 34 H Blood Pressure 113/54 L 105/51 L Pulse Oximetry 91 L 11/17/17 03:00 11/17/17 04:00 11/17/17 05:00 Temperature Pulse Rate 56 L 57 L 50 L Respiratory Rate 21 17 23 Blood Pressure 111/54 L 124/61 Pulse Oximetry 93 L 11/17/17 05:01 11/17/17 06:00 11/17/17 07:46 Temperature Pulse Rate 55 L 51 L Respiratory Rate 29 H Blood Pressure 111/53 L Pulse Oximetry 95 11/17/17 08:00 11/17/17 10:00 11/17/17 12:00 Temperature 98.4 F 98.2 F Pulse Rate 53 L 54 L 54 L Respiratory Rate 17 17 Blood Pressure 157/67 H 120/56 L Pulse Oximetry 96 97 Intake & Output 11/16/17 11/17/17 11/17/17 18:59 06:59 18:59 Intake Total 900 / 900 275 / 275 Output Total 4700 / 4700 650 / 650 Balance -3800 / -3800 -375 / -375 Weight 133 kg Intake: Oral 900 / 900 275 / 275 Output: Urine 700 / 700 650 / 650 Hemodialysis Amount 4000 / 4000 Other: # Voids 2 Date of Last Bowel Movement 11/15/17 11/15/17 11/17/17 Narrative: Heart sounds regular rate rhythm, no murmurs Clear lungs bilaterally, unlabored breathing Sitting in bed no acute distress Results - Labs CBC & Chem 7: 11/17/17 04:40 11/17/17 04:40 Laboratory Results - last 24 hr 11/16/17 11/16/17 11/17/17 17:30 21:10 03:25 WBC RBC Hgb Hct MCV MCH MCHC RDW Plt Count MPV Neut % (Auto) Lymph % (Auto) [place] % (Auto) Eos % (Auto) Baso % (Auto) Neut # (Auto) Lymph # (Auto) [place] # (Auto) Eos # (Auto) Baso # (Auto) WBC Differential Differential Comment PT INR Sodium Potassium Chloride Carbon Dioxide Anion Gap BUN Creatinine Estimated GFR POC Glucose 199 H 327 H 285 H Random Glucose Calcium 11/17/17 11/17/17 11/17/17 04:40 04:40 04:40 WBC 5.8 RBC 2.85 L Hgb 7.8 L Hct 23.8 L MCV 83.4 MCH 27.5 MCHC 33.0 RDW 17.8 H Plt Count 139 L MPV 8.6 Neut % (Auto) 75.2 H Lymph % (Auto) 11.1 [place] % (Auto) 10.9 H Eos % (Auto) 1.7 Baso % (Auto) 1.1 Neut # (Auto) 4.4 Lymph # (Auto) 0.6 L [place] # (Auto) 0.6 Eos # (Auto) 0.1 Baso # (Auto) 0.1 WBC Differential . Differential Comment Auto diff final PT 18.6 H INR 1.8 Sodium 137 Potassium 4.2 Chloride 97 L Carbon Dioxide 32.1 H Anion Gap 8 BUN 72 H Creatinine 4.98 H Estimated GFR 12 L POC Glucose Random Glucose 247 H Calcium 8.5 11/17/17 11/17/17 07:35 12:32 WBC RBC Hgb Hct MCV MCH MCHC RDW Plt Count MPV Neut % (Auto) Lymph % (Auto) [place] % (Auto) Eos % (Auto) Baso % (Auto) Neut # (Auto) Lymph # (Auto) [place] # (Auto) Eos # (Auto) Baso # (Auto) WBC Differential Differential Comment PT INR Sodium Potassium Chloride Carbon Dioxide Anion Gap BUN Creatinine Estimated GFR POC Glucose 208 H 319 H Random Glucose Calcium Assessment and Plan - Plan 62-year-old white male admitted for volume overload secondary to kidney disease. 1. Acute renal failure superimposed on chronic kidney disease stage V Patient volume overloaded with bilateral lower extremity edema and pulmonary edema Nephrology following, dialyzing Status post fistula placement which is not mature at this time, currently has vascath placed. Thrombin injected which has helped bleeding around the site catheterization. Inpatient dialysis for now, possible permacath placement on Mon 2. Diabetes mellitus Continue home insulin Sliding scale insulin Monitor blood glucose 3. Atrial fibrillation Coumadin on hold given some bleeding those noted with permacath placement, on heparin for now. 4. CHF Likely contributing to shortness of breath Continue home Lasix 5. Hypertension/hyperlipidemia/hypothyroidism Continue home medications
[2017-11-18] MEDS: Insulin NovoLIN Regular Correctional Sugar Inj SQ SCH ×5 (02:42→20:46)
[2017-11-18] MEDS: Chlorhexidine Gluconate 2% 1 Pack (2 Cloths) TOPICAL SCH (06:15)
[2017-11-18] MEDS: Levothyroxine 112 MCG Tablet PO SCH (06:28)
[2017-11-18 07:42] LABS: INR 1.6 Ratio; Prothrombin Time 16.2 sec (9.8-11.6)
[2017-11-18 07:45] LABS: Baso # (Auto) 0.1 th/mm3 (0.0-0.2); Eos # (Auto) 0.2 th/mm3 (0.0-0.4); Eos % (Auto) 3.7 % (0.0-4.0); Hematocrit 22.9 % (39.0-51.0); Hemoglobin 7.6 gm/dL (13.0-17.0); Lymph # (Auto) 0.8 th/mm3 (1.0-4.8); Lymph % (Auto) 11.8 % (9.0-44.0); Mean Corpuscular HGB Conc 33.1 % (32.0-36.0); Mean Corpuscular Hemoglobin 27.8 pg (27.0-34.0); Mean Corpuscular Volume 84.1 fL (80.0-100.0); Mean Platelet Volume 9.2 fL (7.0-11.0); Mono # (Auto) 0.6 th/mm3 (0.0-0.9); Neut # (Auto) 4.8 th/mm3 (1.8-7.7); Neut % (Auto) 74.5 % (16.0-70.0); Platelet Count 134 th/mm3 (150-450); Red Blood Count 2.72 mil/mm3 (4.50-5.90); Red Cell Distribution Width 17.7 % (11.6-17.2); White Blood Count 6.4 th/mm3 (4.0-11.0)
[2017-11-18 08:27] LABS: Calcium 8.4 mg/dL (8.5-10.1); Carbon Dioxide 30.5 meq/L (21.0-32.0); Potassium 3.9 meq/L (3.5-5.1)
--- NOTE | 2017-11-18 09:09 | P.PNNP ---
Subjective Interval history: Patient is alert, sitting and eating the breakfast, no SOB. Physical Exam Vital signs: Vital Signs 11/17/17 10:00 11/17/17 10:01 11/17/17 11:00 Temperature Pulse Rate 53 L 53 L 55 L Respiratory Rate 25 H 30 H 30 H Blood Pressure 111/56 L 118/59 L Pulse Oximetry 11/17/17 12:00 11/17/17 13:00 11/17/17 14:00 Temperature 98.2 F Pulse Rate 55 L 59 L 58 L Respiratory Rate 19 33 H 26 H Blood Pressure 116/58 L 123/73 Pulse Oximetry 97 96 11/17/17 14:01 11/17/17 15:00 11/17/17 16:00 Temperature 98.5 F Pulse Rate 59 L 59 L 58 L Respiratory Rate 21 25 H 22 Blood Pressure 122/60 135/60 131/60 Pulse Oximetry 96 97 96 11/17/17 16:01 11/17/17 17:00 11/17/17 18:00 Temperature Pulse Rate 58 L 57 L 63 Respiratory Rate 21 19 Blood Pressure 131/60 120/57 L Pulse Oximetry 11/17/17 18:06 11/17/17 18:07 11/17/17 19:00 Temperature Pulse Rate 61 60 64 Respiratory Rate 27 H 19 18 Blood Pressure 121/60 Pulse Oximetry 93 L 95 11/17/17 19:01 11/17/17 19:44 11/17/17 19:58 Temperature Pulse Rate 65 Respiratory Rate 26 H Blood Pressure 157/67 H Pulse Oximetry 95 94 L 11/17/17 20:00 11/17/17 20:01 11/17/17 21:00 Temperature 98.5 F Pulse Rate 63 63 65 Respiratory Rate 27 H 21 24 Blood Pressure 138/64 145/67 H Pulse Oximetry 94 L 94 L 11/17/17 22:02 11/17/17 22:05 11/17/17 23:00 Temperature Pulse Rate 72 67 61 Respiratory Rate 12 23 Blood Pressure 143/91 H 137/63 Pulse Oximetry 11/17/17 23:17 11/17/17 23:57 11/18/17 00:00 Temperature Pulse Rate 61 64 63 Respiratory Rate 17 13 20 Blood Pressure 131/64 129/61 Pulse Oximetry 97 98 11/18/17 04:00 11/18/17 08:00 Temperature 97.9 F 98.0 F Pulse Rate 63 72 Respiratory Rate 22 16 Blood Pressure 130/62 133/63 Pulse Oximetry 98 94 L Intake & Output 11/17/17 11/18/17 11/18/17 18:59 06:59 18:59 Intake Total 480 / 480 Output Total 1050 / 1050 Balance 480 / 480 -1050 / -1050 Intake: Oral 480 / 480 Output: Urine 1050 / 1050 Other: # Voids 3 Date of Last Bowel Movement 11/17/17 11/17/17 # Bowel Movements 1 Narrative: Heart sounds regular rate rhythm, no murmurs Clear lungs bilaterally, unlabored breathing Sitting in bed no acute distress. HEENT: SHANTI, Conjunctiva pale. Abd. soft BS positive, non tender. Legs, mild leg edema. Assessment and Plan - Assessment (1) Hx of CABG Code(s): Z95.1 - Presence of aortocoronary bypass graft Status: Acute (2) Diabetes mellitus Code(s): E11.9 - Type 2 diabetes mellitus without complications Status: Chronic Qualifiers: Diabetes mellitus type: type 2 Diabetes mellitus snf insulin use: with meterman use Diabetes mellitus complication status: with kidney complications Diabetes mellitus complication detail: with chronic kidney disease Chronic kidney disease stage: stage 4 (severe) Qualified Code(s): E11.22 - Type 2 diabetes mellitus with diabetic chronic kidney disease; N18.4 - Chronic kidney disease, stage 4 (severe); Z79.4 - custodial (current) use of insulin (3) ESRD (end stage renal disease) Code(s): N18.6 - End stage renal disease Status: Acute (4) Pulmonary edema Code(s): J81.1 - Chronic pulmonary edema Status: Acute Qualifiers: Chronicity: acute Qualified Code(s): J81.0 - Acute pulmonary edema (5) History of atrial flutter Code(s): Z86.79 - Personal history of other diseases of the circulatory system Status: Acute - Plan Patient admitted for dialysis, Vas-Cath was inserted with bleeding around the catheter stopped Hemodialysis proceeding noted 4 L 3K bath Next dialysis Sunday Patient will need permacath placement recommend to hold anticoagulation Order placed for Sunday Continue to monitor his progress Will need out patient HD arrangement. To get PermCath tomorrow, and HD tomorrow.
[2017-11-18] MEDS: Metoprolol Tartrate 25 MG Tablet PO SCH (09:18)
[2017-11-18] MEDS: Heparin - SQ 10,000 UNITS/ML Vial SQ SCH ×2 (09:20→21:11)
[2017-11-18] MEDS: Senna/Docusate Sodium 8.6/50 MG Tablet PO SCH ×2 (09:20→20:42)
[2017-11-18] MEDS: amLODIPine 10 MG Tablet PO SCH (09:20)
[2017-11-18] MEDS: Fenofibrate 145 MG Tablet PO SCH (09:20)
[2017-11-18] MEDS: metOLazone 5 MG Tablet PO SCH (10:05)
[2017-11-18] MEDS: Furosemide 80 MG Tablet PO SCH ×2 (10:47→19:26)
--- NOTE | 2017-11-18 15:36 | P.PN ---
Subjective Interval history: RN denies any setbacks overnight. Pt has no new complaints. Physical Exam Vital signs: Vital Signs 11/17/17 16:00 11/17/17 16:01 11/17/17 17:00 Temperature 98.5 F Pulse Rate 58 L 58 L 57 L Respiratory Rate 22 21 19 Blood Pressure 131/60 131/60 120/57 L Pulse Oximetry 96 11/17/17 18:00 11/17/17 18:06 11/17/17 18:07 Temperature Pulse Rate 63 61 60 Respiratory Rate 27 H 19 Blood Pressure 121/60 Pulse Oximetry 93 L 95 11/17/17 19:00 11/17/17 19:01 11/17/17 19:44 Temperature Pulse Rate 64 65 Respiratory Rate 18 26 H Blood Pressure 157/67 H Pulse Oximetry 95 11/17/17 19:58 11/17/17 20:00 11/17/17 20:01 Temperature 98.5 F Pulse Rate 63 63 Respiratory Rate 27 H 21 Blood Pressure 138/64 Pulse Oximetry 94 L 94 L 94 L 11/17/17 21:00 11/17/17 22:02 11/17/17 22:05 Temperature Pulse Rate 65 72 67 Respiratory Rate 24 12 Blood Pressure 145/67 H 143/91 H Pulse Oximetry 11/17/17 23:00 11/17/17 23:17 11/17/17 23:57 Temperature Pulse Rate 61 61 64 Respiratory Rate 23 17 13 Blood Pressure 137/63 131/64 Pulse Oximetry 97 11/18/17 00:00 11/18/17 04:00 11/18/17 08:00 Temperature 97.9 F 98.0 F Pulse Rate 63 63 72 Respiratory Rate 20 22 16 Blood Pressure 129/61 130/62 133/63 Pulse Oximetry 98 98 94 L 11/18/17 12:00 Temperature 97.3 F L Pulse Rate 58 L Respiratory Rate 16 Blood Pressure 121/57 L Pulse Oximetry 92 L Intake & Output 11/17/17 11/18/17 11/18/17 18:59 06:59 18:59 Intake Total 480 / 480 Output Total 1050 / 1050 1400 / 1400 Balance 480 / 480 -1050 / -1050 -1400 / -1400 Intake: Oral 480 / 480 Output: Urine 1050 / 1050 1400 / 1400 Other: # Voids 3 Date of Last Bowel Movement 11/17/17 11/17/17 # Bowel Movements 1 Narrative: clear lungs BL unlabored breathing abd soft, distended vs obese habitus Results - Labs CBC & Chem 7: 11/18/17 05:52 11/18/17 05:52 Laboratory Results - last 24 hr 11/17/17 11/17/17 11/18/17 17:52 21:02 02:41 WBC RBC Hgb Hct MCV MCH MCHC RDW Plt Count MPV Neut % (Auto) Lymph % (Auto) [place] % (Auto) Eos % (Auto) Baso % (Auto) Neut # (Auto) Lymph # (Auto) [place] # (Auto) Eos # (Auto) Baso # (Auto) WBC Differential Differential Comment PT INR Sodium Potassium Chloride Carbon Dioxide Anion Gap BUN Creatinine Estimated GFR POC Glucose 175 H 260 H 81 Random Glucose Calcium 11/18/17 11/18/17 11/18/17 05:52 05:52 05:52 WBC 6.4 RBC 2.72 L Hgb 7.6 L Hct 22.9 L MCV 84.1 MCH 27.8 MCHC 33.1 RDW 17.7 H Plt Count 134 L MPV 9.2 Neut % (Auto) 74.5 H Lymph % (Auto) 11.8 [place] % (Auto) 9.0 H Eos % (Auto) 3.7 Baso % (Auto) 1.0 Neut # (Auto) 4.8 Lymph # (Auto) 0.8 L [place] # (Auto) 0.6 Eos # (Auto) 0.2 Baso # (Auto) 0.1 WBC Differential . Differential Comment Auto diff final PT 16.2 H INR 1.6 Sodium 137 Potassium 3.9 Chloride 96 L Carbon Dioxide 30.5 Anion Gap 11 BUN 88 H Creatinine 5.56 H Estimated GFR 10 L POC Glucose Random Glucose 74 D Calcium 8.4 L 11/18/17 11/18/17 08:48 11:55 WBC RBC Hgb Hct MCV MCH MCHC RDW Plt Count MPV Neut % (Auto) Lymph % (Auto) [place] % (Auto) Eos % (Auto) Baso % (Auto) Neut # (Auto) Lymph # (Auto) [place] # (Auto) Eos # (Auto) Baso # (Auto) WBC Differential Differential Comment PT INR Sodium Potassium Chloride Carbon Dioxide Anion Gap BUN Creatinine Estimated GFR POC Glucose 125 H 204 H Random Glucose Calcium Assessment and Plan - Plan 62-year-old white male admitted for volume overload secondary to kidney disease. 1. Acute renal failure superimposed on chronic kidney disease stage V Patient volume overloaded with bilateral lower extremity edema and pulmonary edema Nephrology following, dialyzing Status post fistula placement which is not mature at this time, currently has vascath placed. Thrombin injected which has helped bleeding around the site catheterization. Inpatient dialysis for now, possible permacath placement on Sun US to assess for ascitis 2. Diabetes mellitus Continue home insulin Sliding scale insulin Monitor blood glucose 3. Atrial fibrillation Coumadin on hold given some bleeding those noted with permacath placement, on heparin for now. 4. CHF Likely contributing to shortness of breath Continue home Lasix 5. Hypertension/hyperlipidemia/hypothyroidism Continue home medications
--- NOTE | 2017-11-18 17:21 | US ---
EXAM DATE: 11/18/2017 12:00 AM EDT AGE/SEX: 62 years / Male INDICATIONS: Distended abdomen. CLINICAL DATA: This is the patient's initial encounter. Patient reports that signs and symptoms have been present for 1 day and indicates a pain score of 0/10. MEDICAL/SURGICAL HISTORY: Diabetes. Congestive heart failure. Hypercholesterolemia. HTN. A-f ib. Renal failure. Hypothyroidism. MRSA. Lymphedema. TIA. Hernias. CABG. Cholecystectomy. Thyroide ctomy. Bilateral hernia repairs. COMPARISON: [facility] [place], [place] KIDNEY/RENAL/BLADDER, 07/21/2017. . FINDINGS: Masses: None Fluid Collections: None Other: None. CONCLUSION: 1. No sonographic evidence for ascites. Electronically signed by: Aryan Delvalle MD 11/18/2017 5:20 PM EDT
[2017-11-19] MEDS ORDERED: Chlorhexidine Gluconate 2% 1 Pack (2 Cloths) TOPICAL ONE (02:06)
[2017-11-19] MEDS: Sodium Chlor 0.9% Inj 500 ML IV.SIG SCH ×2 (03:00→06:05)
[2017-11-19] MEDS: Insulin NovoLIN Regular Correctional Sugar Inj SQ SCH ×5 (03:00→21:55)
[2017-11-19] MEDS: Levothyroxine 112 MCG Tablet PO SCH (06:39)
[2017-11-19 09:22] LABS: Baso % (Auto) 0.5 % (0.0-2.0); Eos # (Auto) 0.2 th/mm3 (0.0-0.4); Eos % (Auto) 3.1 % (0.0-4.0); Hematocrit 24.6 % (39.0-51.0); Hemoglobin 8.3 gm/dL (13.0-17.0); Lymph # (Auto) 0.8 th/mm3 (1.0-4.8); Mean Corpuscular HGB Conc 33.6 % (32.0-36.0); Mean Corpuscular Volume 83.4 fL (80.0-100.0); Mean Platelet Volume 9.1 fL (7.0-11.0); Mono # (Auto) 0.5 th/mm3 (0.0-0.9); Mono % (Auto) 7.9 % (0.0-8.0); Neut % (Auto) 76.5 % (16.0-70.0); Platelet Count 164 th/mm3 (150-450); Red Blood Count 2.95 mil/mm3 (4.50-5.90); Red Cell Distribution Width 17.3 % (11.6-17.2); White Blood Count 6.5 th/mm3 (4.0-11.0)
[2017-11-19 09:32] LABS: INR 1.4 Ratio; Prothrombin Time 14.5 sec (9.8-11.6)
[2017-11-19 09:47] LABS: Calcium 9.2 mg/dL (8.5-10.1); Carbon Dioxide 26.4 meq/L (21.0-32.0); Potassium 4.3 meq/L (3.5-5.1)
[2017-11-19] MEDS ORDERED: Vancomycin Inj 1,000 MG in Sodium Chlor 0.9% Inj 250 ML IV.SIG SCH (10:00)
[2017-11-19] MEDS ORDERED: ceFAZolin 2 GM Premix Inj 2 GM/50 ML PIGGYBACK IV.SIG SCH (10:00)
[2017-11-19] MEDS ORDERED: ceFAZolin Inj 2,000 MG in Sodium Chlor 0.9% Inj 100 ML IV.SIG SCH (10:30)
--- NOTE | 2017-11-19 10:41 | P.DS ---
Date of admission: 11/13/17 21:43 Primary care physician: Garth Eisenberg MD Brief History from admission: 62-year-old male with a past medical history significant for stage V chronic kidney disease, atrial fibrillation anticoagulated on Coumadin, CHF, CAD, diabetes mellitus, hypertension, hyperlipidemia, JUSTIN and hypothyroidism presents to the emergency department for the evaluation of shortness of breath and fatigue times 4-5 days. The patient spoke with his tire tester, Dr. Mireles , who recommended that he come to the emergency department for further evaluation. He endorses bilateral lower extremity edema that is worsening. He also complains of nausea and dry heaves. No abdominal pain or diarrhea. No chest pain. No fever/chills. No lateralizing signs/symptoms. DS: Summary Hospital Course: Patient was admitted, had a Vas-Cath placed, underwent a few dialysis sessions after which his dyspnea resolved. Had thrombin injected at his insertion site due to persistent bleeding which ultimately resolved. Since AV fistula has not matured, patient underwent placement of permacath. Outpatient dialysis arrangements were made. Patient has met maximal benefit from hospitalization clinically stable for discharge. - Time Spent with Patient Total time spent providing and/or coordinating discharge services: Less than 30 minutes - Quality: VTE Deep Vein Thrombosis/Pulmonary Embolism Present on Admission: No Exam Vital signs: Vital Signs 11/18/17 12:00 11/18/17 16:00 11/18/17 16:14 Temperature 97.3 F L 97.7 F Pulse Rate 58 L 65 53 L Respiratory Rate 16 16 Blood Pressure 121/57 L 101/51 L Pulse Oximetry 92 L 95 11/18/17 20:00 11/18/17 20:12 11/19/17 00:00 Temperature 97.3 F L 97.3 F L Pulse Rate 62 56 L Respiratory Rate 20 19 Blood Pressure 123/61 121/59 L Pulse Oximetry 97 98 96 11/19/17 04:00 11/19/17 07:52 Temperature 97.7 F 98.2 F Pulse Rate 65 71 Respiratory Rate 20 16 Blood Pressure 121/67 145/64 H Pulse Oximetry 96 96 Intake & Output 11/18/17 11/19/17 11/19/17 18:59 06:59 18:59 Intake Total 480 / 480 Output Total 1400 / 1400 1600 / 1600 Balance -1400 / -1400 -1120 / -1120 Intake: Oral 480 / 480 Output: Urine 1400 / 1400 1600 / 1600 Other: # Voids 3 # Bowel Movements 1 Narrative: Clear lungs bilaterally, unlabored breathing Ambulating without difficulty Results Labs on day of discharge: Labs from last 24 hours 11/19/17 11/19/17 11/19/17 07:55 07:00 07:00 WBC RBC Hgb Hct MCV MCH MCHC RDW Plt Count MPV Neut % (Auto) Lymph % (Auto) [place] % (Auto) Eos % (Auto) Baso % (Auto) Neut # (Auto) Lymph # (Auto) [place] # (Auto) Eos # (Auto) Baso # (Auto) WBC Differential Differential Comment PT 14.5 H INR 1.4 Sodium 135 L Potassium 4.3 Chloride 94 L Carbon Dioxide 26.4 Anion Gap 15 BUN 91 H Creatinine 5.48 H Estimated GFR 11 L POC Glucose 142 H Random Glucose 107 H Calcium 9.2 D 11/19/17 11/19/17 11/18/17 07:00 02:50 20:00 WBC 6.5 RBC 2.95 L Hgb 8.3 L Hct 24.6 L MCV 83.4 MCH 28.0 MCHC 33.6 RDW 17.3 H Plt Count 164 MPV 9.1 Neut % (Auto) 76.5 H Lymph % (Auto) 12.0 [place] % (Auto) 7.9 Eos % (Auto) 3.1 Baso % (Auto) 0.5 Neut # (Auto) 5.0 Lymph # (Auto) 0.8 L [place] # (Auto) 0.5 Eos # (Auto) 0.2 Baso # (Auto) 0.0 WBC Differential . Differential Comment Auto diff final PT INR Sodium Potassium Chloride Carbon Dioxide Anion Gap BUN Creatinine Estimated GFR POC Glucose 101 318 H Random Glucose Calcium 11/18/17 11/18/17 17:06 11:55 WBC RBC Hgb Hct MCV MCH MCHC RDW Plt Count MPV Neut % (Auto) Lymph % (Auto) [place] % (Auto) Eos % (Auto) Baso % (Auto) Neut # (Auto) Lymph # (Auto) [place] # (Auto) Eos # (Auto) Baso # (Auto) WBC Differential Differential Comment PT INR Sodium Potassium Chloride Carbon Dioxide Anion Gap BUN Creatinine Estimated GFR POC Glucose 238 H 204 H Random Glucose Calcium - Impressions ITS Impressions Chest X-Ray 11/13/17 20:05 CONCLUSION: Cardiomegaly with increase in pulmonary vascularity. Catheter Placement 11/14/17 06:00 CONCLUSION: 1. Uncomplicated line placement as above. Abdomen Ultrasound 11/18/17 00:00 CONCLUSION: 1. No sonographic evidence for ascites. Discharge Plan - Discharge Disposition Patient Disposition: 01 Discharge Home - Discharge Condition Condition: Stable - Discharge Order Discharge Orders: Discharge Order (Routine); Ordered 11/19/17 Ordered By: Vahe Morillo - Physicians Team Primary Care Provider: Garth Eisenberg Attending Provider: Vahe Morillo Other Providers: David Mireles MD
[2017-11-19] MEDS ORDERED: fentaNYL Citrate Inj 250 MCG/5 ML Ampul ONE (10:54)
[2017-11-19] MEDS ORDERED: *Heparin 10,000 UNITS/10 ML Vial Periprocedural ONLY ONE (11:00)
[2017-11-19] MEDS ORDERED: Lidocaine PF 1% Inj 30 ML Vial ONE (11:01)
[2017-11-19] MEDS: Metoprolol Tartrate 25 MG Tablet PO SCH (11:20)
[2017-11-19] MEDS: Furosemide 80 MG Tablet PO SCH ×2 (11:20→18:33)
[2017-11-19] MEDS: Heparin - SQ 10,000 UNITS/ML Vial SQ SCH ×2 (11:20→21:57)
[2017-11-19] MEDS: Senna/Docusate Sodium 8.6/50 MG Tablet PO SCH ×2 (11:21→21:57)
[2017-11-19] MEDS: Fenofibrate 145 MG Tablet PO SCH (11:21)
[2017-11-19] MEDS: amLODIPine 10 MG Tablet PO SCH (11:21)
[2017-11-19] MEDS: metOLazone 5 MG Tablet PO SCH (11:21)
--- NOTE | 2017-11-19 14:00 | P.PNNP ---
Subjective Interval history: had P/C. Physical Exam Vital signs: Vital Signs 11/18/17 16:00 11/18/17 16:14 11/18/17 20:00 Temperature 97.7 F 97.3 F L Pulse Rate 65 53 L 62 Respiratory Rate 16 20 Blood Pressure 101/51 L 123/61 Pulse Oximetry 95 97 11/18/17 20:12 11/19/17 00:00 11/19/17 04:00 Temperature 97.3 F L 97.7 F Pulse Rate 56 L 65 Respiratory Rate 19 20 Blood Pressure 121/59 L 121/67 Pulse Oximetry 98 96 96 11/19/17 07:52 11/19/17 12:10 Temperature 98.2 F 98.2 F Pulse Rate 71 70 Respiratory Rate 16 18 Blood Pressure 145/64 H 117/53 L Pulse Oximetry 96 94 L Intake & Output 11/18/17 11/19/17 11/19/17 18:59 06:59 18:59 Intake Total 480 / 480 250 / 250 Output Total 1400 / 1400 1600 / 1600 Balance -1400 / -1400 -1120 / -1120 250 / 250 Intake: IV 250 / 250 Vancomycin Inj 1,000 MG In NS 250 / 250 Inj 250 ML @ 250 mls/hr IV.SIG MARKETING PROFESSOR [facility] Rx#:[id number] Oral 480 / 480 Output: Urine 1400 / 1400 1600 / 1600 Other: # Voids 3 # Bowel Movements 1 Narrative: Clear lungs bilaterally, unlabored breathing Ambulating without difficulty Assessment and Plan - Assessment (1) Hx of CABG Code(s): Z95.1 - Presence of aortocoronary bypass graft Status: Acute (2) Diabetes mellitus Code(s): E11.9 - Type 2 diabetes mellitus without complications Status: Chronic Qualifiers: Diabetes mellitus type: type 2 Diabetes mellitus senior care insulin use: with senior care use Diabetes mellitus complication status: with kidney complications Diabetes mellitus complication detail: with chronic kidney disease Chronic kidney disease stage: stage 4 (severe) Qualified Code(s): E11.22 - Type 2 diabetes mellitus with diabetic chronic kidney disease; N18.4 - Chronic kidney disease, stage 4 (severe); Z79.4 - skilled nursing (current) use of insulin (3) ESRD (end stage renal disease) Code(s): N18.6 - End stage renal disease Status: Acute (4) Pulmonary edema Code(s): J81.1 - Chronic pulmonary edema Status: Acute Qualifiers: Chronicity: acute Qualified Code(s): J81.0 - Acute pulmonary edema (5) History of atrial flutter Code(s): Z86.79 - Personal history of other diseases of the circulatory system Status: Acute - Plan Patient admitted for dialysis, Vas-Cath was inserted with bleeding around the catheter stopped Hemodialysis Next dialysis Sunday Patient had permacath placement HD Sunday Continue to monitor his progress Will need out patient HD arrangement.
--- NOTE | 2017-11-19 15:14 | IR ---
EXAM DATE: 11/19/2017 8:00 AM EDT AGE/SEX: 62 years / Male INDICATIONS: Patient with stage 4 chronic kidney disease. He has vas cath that needs to be exchanged for permacath. CLINICAL DATA: This is the patient's subsequent encounter. Patient reports that signs and symptoms h ave been present for 4 - 6 days and indicates a pain score of 1/10. MEDICAL/SURGICAL HISTORY: Diabetes. Chronic renal failure. Congestive heart failure. CAD, hy perlipidemia SOB,MRSA ,TIA, sleep apnea , A fib, thyroid cancer,former smoker. Cholecystectomy. Th yroidectomy. Inguinal hernia repair. CABG x 4, COMPARISON: No prior exams available for comparison. FLUORO TIME (min): 1.13 IMAGE SERIES: 2 ACCESS SITE: Right internal jugular vein SEDATION TIME (min): 30 MEDICATION(S): 3 mg midazolam (Versed) IV 150 mcg fentanyl (Sublimaze) IV Vancomycin within 2 hrs of procedure, Ancef (or alternative) within 1 hr of procedure. DEVICE(S): 23 CM AREVALO CATH . . PROCEDURE: 1. Ultrasound-guided venipuncture. 2. PermaCath placement. 3. Conscious sedation with continuous EKG and oximetry monitoring. The risks, benefits and alternatives to the procedure were explained and verbal and written consent w as obtained. The site was prepped in sterile fashion. Full sterile technique was used, including ca p, mask, sterile gloves and gown and a large sterile sheet. Hand hygiene and 2% chlorhexidine and/or betadine/alcohol prep was utilized per protocol for cutaneous antisepsis. Sterile gel and sterile p robe cover were utilized for ultrasound guidance. The skin and subcutaneous tissues were infiltrated with local anesthetic solution. With ultrasound and fluoroscopic guidance a dermatotomy was created over the prescribed vein. A micr opuncture set was used to access the targeted vein and serial dilatation was performed to accept the prescribed length catheter. A subcutaneous tunnel was created in a retrograde fashion the catheter w as pulled through the tunnel. The catheter was flushed and assembled and locked with heparin. The c atheter was sutured in place. Conscious sedation was performed with the prescribed dosages and duration as above in the presence of an independent trained radiology nurse to assist in the monitoring of the patient. EKG and oximetry remained stable throughout the procedure. The patient tolerated the procedure well and there were n o complications. The patient was sent to post anesthesia recovery in stable condition. CONCLUSION: Uncomplicated ultrasound and fluoroscopic guided central venous dialysis PermaCath placement as above . Electronically signed by: Deon Tuttle MD 11/19/2017 3:13 PM EDT
--- NOTE | 2017-11-19 15:15 | IR ---
EXAM DATE: 11/19/2017 12:30 PM EDT AGE/SEX: 62 years / Male INDICATIONS: Patient with left vas cath . To be removed to place perm cath on the right. CLINICAL DATA: This is the patient's subsequent encounter. Patient reports that signs and symptoms h ave been present for 4 - 6 days and indicates a pain score of 0/10. MEDICAL/SURGICAL HISTORY: Hypertension. Diabetes. Chronic renal insufficiency. MRSA, CAD, TI A, sleep apnea,A fib, CABG. Inguinal hernia repair. Cholecystectomy. Thyroidectomy.Vas Cath COMPARISON: No prior exams available for comparison. IMAGE SERIES: 0 ACCESS SITE: Left internal jugular vein SEDATION TIME (min): 30 MEDICATION(S): 3 mg midazolam (Versed) IV 150 mcg fentanyl (Sublimaze) IV DEVICE(S): . . PROCEDURE: 1. Temporary central venous catheter removal. The prescribed catheter was removed intact and hemostasis was achieved with direct pressure. The sit e was dressed appropriately. The patient tolerated the procedure well. CONCLUSION: Uncomplicated central venous dialysis catheter removal. Electronically signed by: Deon Tuttle MD 11/19/2017 3:13 PM EDT
--- NOTE | 2017-11-19 16:36 | P.PN ---
Subjective Interval history: Nursing denies any deterioration since last night. Patient does not report any other acute symptoms. Physical Exam Vital signs: Vital Signs 11/18/17 20:00 11/18/17 20:12 11/19/17 00:00 Temperature 97.3 F L 97.3 F L Pulse Rate 62 56 L Respiratory Rate 20 19 Blood Pressure 123/61 121/59 L Pulse Oximetry 97 98 96 11/19/17 04:00 11/19/17 07:52 11/19/17 12:10 Temperature 97.7 F 98.2 F 98.2 F Pulse Rate 65 71 70 Respiratory Rate 20 16 18 Blood Pressure 121/67 145/64 H 117/53 L Pulse Oximetry 96 96 94 L Intake & Output 11/18/17 11/19/17 11/19/17 18:59 06:59 18:59 Intake Total 480 / 480 250 / 250 Output Total 1400 / 1400 1600 / 1600 Balance -1400 / -1400 -1120 / -1120 250 / 250 Intake: IV 250 / 250 Vancomycin Inj 1,000 MG In NS 250 / 250 Inj 250 ML @ 250 mls/hr IV.SIG DIRECTOR ADVERTISING [facility] Rx#:[id number] Oral 480 / 480 Output: Urine 1400 / 1400 1600 / 1600 Other: # Voids 3 # Bowel Movements 1 Narrative: Clear lungs bilaterally, unlabored breathing Ambulating well from the bathroom to the bed Results - Labs CBC & Chem 7: 11/19/17 07:00 11/19/17 07:00 Laboratory Results - last 24 hr 11/18/17 11/18/17 11/19/17 17:06 20:00 02:50 WBC RBC Hgb Hct MCV MCH MCHC RDW Plt Count MPV Neut % (Auto) Lymph % (Auto) Day % (Auto) Eos % (Auto) Baso % (Auto) Neut # (Auto) Lymph # (Auto) Day # (Auto) Eos # (Auto) Baso # (Auto) WBC Differential Differential Comment PT INR Sodium Potassium Chloride Carbon Dioxide Anion Gap BUN Creatinine Estimated GFR POC Glucose 238 H 318 H 101 Random Glucose Calcium 11/19/17 11/19/17 11/19/17 07:00 07:00 07:00 WBC 6.5 RBC 2.95 L Hgb 8.3 L Hct 24.6 L MCV 83.4 MCH 28.0 MCHC 33.6 RDW 17.3 H Plt Count 164 MPV 9.1 Neut % (Auto) 76.5 H Lymph % (Auto) 12.0 Day % (Auto) 7.9 Eos % (Auto) 3.1 Baso % (Auto) 0.5 Neut # (Auto) 5.0 Lymph # (Auto) 0.8 L Day # (Auto) 0.5 Eos # (Auto) 0.2 Baso # (Auto) 0.0 WBC Differential . Differential Comment Auto diff final PT 14.5 H INR 1.4 Sodium 135 L Potassium 4.3 Chloride 94 L Carbon Dioxide 26.4 Anion Gap 15 BUN 91 H Creatinine 5.48 H Estimated GFR 11 L POC Glucose Random Glucose 107 H Calcium 9.2 D 11/19/17 11/19/17 07:55 13:24 WBC RBC Hgb Hct MCV MCH MCHC RDW Plt Count MPV Neut % (Auto) Lymph % (Auto) Day % (Auto) Eos % (Auto) Baso % (Auto) Neut # (Auto) Lymph # (Auto) Day # (Auto) Eos # (Auto) Baso # (Auto) WBC Differential Differential Comment PT INR Sodium Potassium Chloride Carbon Dioxide Anion Gap BUN Creatinine Estimated GFR POC Glucose 142 H 132 H Random Glucose Calcium - Imaging Impressions Abdomen Ultrasound 11/18/17 00:00 CONCLUSION: 1. No sonographic evidence for ascites. Central Venous Line 11/19/17 08:00 CONCLUSION: Uncomplicated ultrasound and fluoroscopic guided central venous dialysis PermaCath placement as above. Tube Removal 11/19/17 12:30 CONCLUSION: Uncomplicated central venous dialysis catheter removal. Assessment and Plan - Plan 62-year-old white male admitted for volume overload secondary to kidney disease. 1. Acute renal failure superimposed on chronic kidney disease stage V Patient volume overloaded with bilateral lower extremity edema and pulmonary edema Nephrology following, dialyzing Status post fistula placement which is not mature at this time, currently has vascath placed. Thrombin injected which has helped bleeding around the site catheterization. Inpatient dialysis for now, possible permacath placement today Abdominal ultrasound is negative for ascites 2. Diabetes mellitus Continue home insulin Sliding scale insulin Monitor blood glucose 3. Atrial fibrillation Coumadin on hold given some bleeding those noted with permacath placement, on heparin for now. 4. CHF Likely contributing to shortness of breath Continue home Lasix 5. Hypertension/hyperlipidemia/hypothyroidism Continue home medications
[2017-11-19] MEDS: Heparin 10,000 UNITS/10 ML Vial (for IV use) OTHER PRN (18:00)
[2017-11-20] MEDS: Insulin NovoLIN Regular Correctional Sugar Inj SQ SCH ×5 (06:07→20:04)
[2017-11-20] MEDS: Levothyroxine 112 MCG Tablet PO SCH (07:51)
[2017-11-20] MEDS: Fenofibrate 145 MG Tablet PO SCH (08:23)
[2017-11-20] MEDS: Heparin - SQ 10,000 UNITS/ML Vial SQ SCH ×2 (08:23→20:03)
[2017-11-20] MEDS: metOLazone 5 MG Tablet PO SCH (08:24)
[2017-11-20] MEDS: Furosemide 80 MG Tablet PO SCH ×2 (08:25→17:55)
[2017-11-20] MEDS: Metoprolol Tartrate 25 MG Tablet PO SCH (08:25)
[2017-11-20] MEDS: Senna/Docusate Sodium 8.6/50 MG Tablet PO SCH ×2 (08:25→20:03)
[2017-11-20] MEDS: amLODIPine 10 MG Tablet PO SCH (08:25)
--- NOTE | 2017-11-20 14:33 | P.PN ---
Subjective Interval history: Follow up for volume overload, ESRD: pt. seen and examined, sitting up in chair. Upset about delay in discharge, explained that we are waiting for HD chair. His insurance has no contract with [facility] [employer] now. No cp, no sob. No fever. No N/V/D. Blood sugars elevated up to 300s. Physical Exam Vital signs: Vital Signs 11/19/17 20:00 11/20/17 00:00 11/20/17 04:00 Temperature 98.1 F 98.1 F 98.0 F Pulse Rate 65 68 86 Respiratory Rate 18 18 17 Blood Pressure 129/46 L 125/63 142/65 H Pulse Oximetry 96 97 97 11/20/17 08:00 11/20/17 12:00 Temperature 98.2 F 98.2 F Pulse Rate 67 56 L Respiratory Rate 18 18 Blood Pressure 122/60 103/54 L Pulse Oximetry 93 L 97 Intake & Output 11/19/17 11/20/17 11/20/17 18:59 06:59 18:59 Intake Total 250 / 250 Output Total 900 / 900 4850 / 4850 Balance -650 / -650 -4850 / -4850 Intake: IV 250 / 250 Vancomycin Inj 1,000 MG In NS 250 / 250 Inj 250 ML @ 250 mls/hr IV.SIG COMMUNITY RECREATION PROGRAMMER [facility] Rx#:[id number] Output: Urine 900 / 900 1850 / 1850 Hemodialysis Amount 3000 / 3000 Other: Date of Last Bowel Movement 11/20/17 # Bowel Movements 3 Narrative: GENERAL: Obese male, no apparent distress. SKIN: Warm and dry. HEAD: Atraumatic. Normocephalic. EYES: Pupils equal and round. No scleral icterus. No injection or drainage. ENT: No nasal bleeding or discharge. Mucous membranes pink and moist. NECK: Trachea midline. No JVD. CARDIOVASCULAR: Regular rate and rhythm. CHEST: Right chest wall with dialysis catheter in place, no bleeding. RESPIRATORY: Diminished at bases. GASTROINTESTINAL: Abdomen soft, non-tender, nondistended. Hepatic and splenic margins not palpable. MUSCULOSKELETAL: Extremities without clubbing, cyanosis. Bilateral lower extremities with 2+ pitting edema, difficult to palpate pedal pulses. No joint deformities. NEUROLOGICAL: Awake, alert oriented x3. No focal deficits. Speech clear PSYCHIATRIC: Appropriate mood and affect; insight and judgment normal. Results - Labs CBC & Chem 7: 11/19/17 07:00 11/19/17 07:00 Laboratory Results - last 24 hr 11/19/17 11/19/17 11/20/17 17:09 21:41 04:31 POC Glucose 247 H 241 H 270 H 11/20/17 11/20/17 07:40 12:07 POC Glucose 243 H 339 H - Imaging Impressions Central Venous Line 11/19/17 08:00 CONCLUSION: Uncomplicated ultrasound and fluoroscopic guided central venous dialysis PermaCath placement as above. Tube Removal 11/19/17 12:30 CONCLUSION: Uncomplicated central venous dialysis catheter removal. Assessment and Plan - Assessment (1) Acute kidney injury superimposed on CKD Code(s): N17.9 - Acute kidney failure, unspecified; N18.9 - Chronic kidney disease, unspecified Status: Acute (2) Volume overload Code(s): E87.70 - Fluid overload, unspecified Status: Acute (3) Acute on chronic diastolic (congestive) heart failure Code(s): I50.33 - Acute on chronic diastolic (congestive) heart failure Status : Acute (4) CAD (coronary artery disease) Code(s): I25.10 - Atherosclerotic heart disease of [place] coronary artery without angina pectoris Status: Chronic (5) Hx of CABG Code(s): Z95.1 - Presence of aortocoronary bypass graft Status: Chronic (6) Diabetes mellitus Code(s): E11.9 - Type 2 diabetes mellitus without complications Status: Chronic (7) Hypertension Code(s): I10 - Essential (primary) hypertension Status: Chronic - Plan 62-year-old white male admitted for volume overload secondary to kidney disease. Acute renal failure superimposed on chronic kidney disease stage V Patient volume overloaded with bilateral lower extremity edema and pulmonary edema -Nephrology following, dialyzing -Status post fistula placement which is not mature at this time. -On Lasix 80 mg PO BID -Abdominal ultrasound is negative for ascites -Vas-Cath removed. Status post permacath placement 11/19. Some bleeding around site, now stopped. -waiting for OP HD chair Diabetes mellitus -Continue home insulin -Sliding scale insulin -Blood sugars elevated up to 300, changed to medium scale. Changed to diabetic diet and renal Atrial fibrillation -Coumadin on hold given some bleeding noted with permacath placement, on heparin for now. -Continue Multitak and Lopressor -will start Coumadin tomorrow CHF Likely contributing to shortness of breath -Continue home Lasix and Zaroxolyn Hypertension/hyperlipidemia Hx of CAD/CABG -Continue Cozaar, Lopressor, Lasix, Cardura, Norvasc, TriCor -Continue ASA Hypothyroidism -Continue Synthroid Continue heparin for DVT prophylaxis Repeat labs in the morning Code Status: Full code Discussed Condition With: RN, pt, CM Discharge Planning: Discharge pending dialysis chair. (2) Volume overload Qualifiers: Hypervolemia type: unspecified Qualified Code(s): E87.70 - Fluid overload, unspecified (4) CAD (coronary artery disease) Qualifiers: Coronary Disease-Associated Artery/Lesion type: unspecified vessel or lesion type [place] vs. transplanted heart: [place] heart Associated angina: without angina Qualified Code(s): I25.10 - Atherosclerotic heart disease of [place] coronary artery without angina pectoris (6) Diabetes mellitus Qualifiers: Diabetes mellitus type: type 2 Diabetes mellitus exterminator termite insulin use: with nursing home use Diabetes mellitus complication status: with kidney complications Diabetes mellitus complication detail: with chronic kidney disease Chronic kidney disease stage: stage 4 (severe) Qualified Code(s): E11.22 - Type 2 diabetes mellitus with diabetic chronic kidney disease; N18.4 - Chronic kidney disease, stage 4 (severe); Z79.4 - care home (current) use of insulin (7) Hypertension Qualifiers: Hypertension type: essential hypertension Qualified Code(s): I10 - Essential (primary) hypertension
--- NOTE | 2017-11-20 14:49 | P.PNNP ---
Subjective Interval history: Patient is upset as he has no outpatient contract with [facility] Physical Exam Vital signs: Vital Signs 11/19/17 20:00 11/20/17 00:00 11/20/17 04:00 Temperature 98.1 F 98.1 F 98.0 F Pulse Rate 65 68 86 Respiratory Rate 18 18 17 Blood Pressure 129/46 L 125/63 142/65 H Pulse Oximetry 96 97 97 11/20/17 08:00 11/20/17 12:00 Temperature 98.2 F 98.2 F Pulse Rate 67 56 L Respiratory Rate 18 18 Blood Pressure 122/60 103/54 L Pulse Oximetry 93 L 97 Intake & Output 11/19/17 11/20/17 11/20/17 18:59 06:59 18:59 Intake Total 250 / 250 Output Total 900 / 900 4850 / 4850 Balance -650 / -650 -4850 / -4850 Intake: IV 250 / 250 Vancomycin Inj 1,000 MG In NS 250 / 250 Inj 250 ML @ 250 mls/hr IV.SIG CLIENT EXPERIENCE CONSULTANT [facility] Rx#:[id number] Output: Urine 900 / 900 1850 / 1850 Hemodialysis Amount 3000 / 3000 Other: Date of Last Bowel Movement 11/20/17 # Bowel Movements 3 Narrative: Clear lungs bilaterally, unlabored breathing Ambulating well from the bathroom to the bed Assessment and Plan - Assessment (1) Hx of CABG Code(s): Z95.1 - Presence of aortocoronary bypass graft Status: Acute (2) Diabetes mellitus Code(s): E11.9 - Type 2 diabetes mellitus without complications Status: Chronic Qualifiers: Diabetes mellitus type: type 2 Diabetes mellitus terminal manager insulin use: with 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 Diabetes mellitus complication status: with kidney complications Diabetes mellitus complication detail: with chronic kidney disease Chronic kidney disease stage: stage 4 (severe) Qualified Code(s): E11.22 - Type 2 diabetes mellitus with diabetic chronic kidney disease; N18.4 - Chronic kidney disease, stage 4 (severe); Z79.4 - [facility] (current) use of insulin (3) ESRD (end stage renal disease) Code(s): N18.6 - End stage renal disease Status: Acute (4) Pulmonary edema Code(s): J81.1 - Chronic pulmonary edema Status: Acute Qualifiers: Chronicity: acute Qualified Code(s): J81.0 - Acute pulmonary edema (5) History of atrial flutter Code(s): Z86.79 - Personal history of other diseases of the circulatory system Status: Acute - Plan Patient admitted for dialysis, Vas-Cath was inserted with bleeding around the catheter stopped Hemodialysis Next dialysis Sunday Hemodialysis needs to be arranged as noted no contract with [facility] trying other places Will need out patient HD arrangement.
[2017-11-21] MEDS: Insulin NovoLIN Regular Correctional Sugar Inj SQ SCH ×5 (02:17→20:32)
[2017-11-21] MEDS: Levothyroxine 112 MCG Tablet PO SCH (06:55)
--- NOTE | 2017-11-21 08:36 | P.PN ---
Subjective Interval history: Follow up for volume overload, ESRD: pt. seen and examined, sitting up in chair. Patient understands that delay in discharge is due to his insurance not having contract with [facility]. 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 Informed by case management is currently working on finding facility as well as another physician. Patient has no complaints, no chest pain , no shortness of breath. Eating well. Physical Exam Vital signs: Vital Signs 11/20/17 12:00 11/20/17 18:05 11/20/17 19:31 Temperature 98.2 F 96.8 F L Pulse Rate 56 L 65 68 Respiratory Rate 18 18 18 Blood Pressure 103/54 L 138/61 131/60 Pulse Oximetry 97 97 97 11/20/17 20:01 11/21/17 00:00 11/21/17 00:03 Temperature 97.7 F Pulse Rate 67 66 65 Respiratory Rate 18 Blood Pressure 115/58 L Pulse Oximetry 97 11/21/17 04:00 11/21/17 04:15 Temperature 98.1 F Pulse Rate 69 70 Respiratory Rate 18 Blood Pressure 132/61 Pulse Oximetry 98 Intake & Output 11/20/17 11/21/17 11/21/17 18:59 06:59 18:59 Intake Total 360 / 360 100 / 100 Output Total 900 / 900 Balance 360 / 360 -800 / -800 Weight 129 kg Intake: Oral 360 / 360 100 / 100 Output: Urine 900 / 900 Other: # Voids 3 Date of Last Bowel Movement 11/20/17 11/20/17 Narrative: GENERAL: Obese male, no apparent distress. SKIN: Warm and dry. HEAD: Atraumatic. Normocephalic. EYES: Pupils equal and round. No scleral icterus. No injection or drainage. ENT: No nasal bleeding or discharge. Mucous membranes pink and moist. NECK: Trachea midline. No JVD. CARDIOVASCULAR: Regular rate and rhythm. CHEST: Right chest wall with dialysis catheter in place, no bleeding. RESPIRATORY: Diminished at bases. GASTROINTESTINAL: Abdomen soft, non-tender, nondistended. Hepatic and splenic margins not palpable. MUSCULOSKELETAL: Extremities without clubbing, cyanosis. Bilateral lower extremities with 2+ pitting edema, difficult to palpate pedal pulses. No joint deformities. NEUROLOGICAL: Awake, alert oriented x3. No focal deficits. Speech clear PSYCHIATRIC: Appropriate mood and affect; insight and judgment normal. Results - Labs CBC & Chem 7: 11/19/17 07:00 11/19/17 07:00 Laboratory Results - last 24 hr 11/20/17 11/20/17 11/20/17 12:07 17:08 19:48 POC Glucose 339 H 341 H 426 H 11/21/17 11/21/17 02:16 07:43 POC Glucose 144 H 168 H Assessment and Plan - Assessment (1) Acute kidney injury superimposed on CKD Code(s): N17.9 - Acute kidney failure, unspecified; N18.9 - Chronic kidney disease, unspecified Status: Acute (2) Volume overload Code(s): E87.70 - Fluid overload, unspecified Status: Acute (3) Acute on chronic diastolic (congestive) heart failure Code(s): I50.33 - Acute on chronic diastolic (congestive) heart failure Status : Acute (4) CAD (coronary artery disease) Code(s): I25.10 - Atherosclerotic heart disease of [place] coronary artery without angina pectoris Status: Chronic (5) Hx of CABG Code(s): Z95.1 - Presence of aortocoronary bypass graft Status: Chronic (6) Diabetes mellitus Code(s): E11.9 - Type 2 diabetes mellitus without complications Status: Chronic (7) Hypertension Code(s): I10 - Essential (primary) hypertension Status: Chronic - Plan 62-year-old white male admitted for volume overload secondary to kidney disease. Acute renal failure superimposed on chronic kidney disease stage V Patient volume overloaded with bilateral lower extremity edema and pulmonary edema -Nephrology following, dialyzing -Status post fistula placement which is not mature at this time. -On Lasix 80 mg PO BID -Abdominal ultrasound is negative for ascites -Vas-Cath removed. Status post permacath placement 11/19. Some bleeding around site, now stopped. -waiting for OP HD chair Diabetes mellitus -Continue home insulin -Continue with Accu-Cheks before meals and at bedtime and medium sliding scale -Blood sugars better overnight, 140s per Atrial fibrillation -Coumadin on hold given some bleeding noted with permacath placement, on heparin for now. -Continue Multitak and Lopressor -Resume Coumadin today, monitor INR. Pharmacy to consult. CHF Likely contributing to shortness of breath -Continue home Lasix and Zaroxolyn Hypertension/hyperlipidemia Hx of CAD/CABG -Continue Cozaar, Lopressor, Lasix, Cardura, Norvasc, TriCor -Continue ASA Hypothyroidism -Continue Synthroid Continue heparin for DVT prophylaxis Monitor INR Patient stable for discharge, waiting for hemodialysis arrangements. Code Status: Full code Discussed Condition With: RN, patient, human services case manager Discharge Planning: Discharge pending dialysis chair. (2) Volume overload Qualifiers: Hypervolemia type: unspecified Qualified Code(s): E87.70 - Fluid overload, unspecified (4) CAD (coronary artery disease) Qualifiers: Coronary Disease-Associated Artery/Lesion type: unspecified vessel or lesion type [place] vs. transplanted heart: [place] heart Associated angina: without angina Qualified Code(s): I25.10 - Atherosclerotic heart disease of [place] coronary artery without angina pectoris (6) Diabetes mellitus Qualifiers: Diabetes mellitus type: type 2 Diabetes mellitus alf insulin use: with intermodal truck driver use Diabetes mellitus complication status: with kidney complications Diabetes mellitus complication detail: with chronic kidney disease Chronic kidney disease stage: stage 4 (severe) Qualified Code(s): E11.22 - Type 2 diabetes mellitus with diabetic chronic kidney disease; N18.4 - Chronic kidney disease, stage 4 (severe); Z79.4 - ferry terminal supervisor (current) use of insulin (7) Hypertension Qualifiers: Hypertension type: essential hypertension Qualified Code(s): I10 - Essential (primary) hypertension
[2017-11-21] MEDS: Heparin - SQ 10,000 UNITS/ML Vial SQ SCH ×2 (08:45→20:32)
[2017-11-21] MEDS: Fenofibrate 145 MG Tablet PO SCH (08:46)
[2017-11-21] MEDS: Metoprolol Tartrate 25 MG Tablet PO SCH (08:46)
[2017-11-21] MEDS: Senna/Docusate Sodium 8.6/50 MG Tablet PO SCH ×2 (08:47→20:29)
[2017-11-21] MEDS: Furosemide 80 MG Tablet PO SCH ×2 (08:47→18:44)
[2017-11-21] MEDS: metOLazone 5 MG Tablet PO SCH (08:47)
[2017-11-21] MEDS: amLODIPine 10 MG Tablet PO SCH (08:47)
[2017-11-21] MEDS ORDERED: Warfarin Consult Pharmacy OTHER PRN (10:59)
[2017-11-21] MEDS ORDERED: Sodium Chloride 0.9% 2 ML Flush PRN IV.FLUSH (15:58)
[2017-11-21] MEDS: Heparin 10,000 UNITS/10 ML Vial (for IV use) OTHER PRN (17:20)
--- NOTE | 2017-11-21 18:37 | P.PNNP ---
Subjective Interval history: patient has hemodialysis Physical Exam Vital signs: Vital Signs 11/20/17 19:31 11/20/17 20:01 11/21/17 00:00 Temperature 97.7 F Pulse Rate 68 67 66 Respiratory Rate 18 18 Blood Pressure 131/60 115/58 L Pulse Oximetry 97 97 11/21/17 00:03 11/21/17 04:00 11/21/17 04:15 Temperature 98.1 F Pulse Rate 65 69 70 Respiratory Rate 18 Blood Pressure 132/61 Pulse Oximetry 98 11/21/17 08:00 11/21/17 12:00 Temperature 98.2 F 98.4 F Pulse Rate 74 64 Respiratory Rate 16 18 Blood Pressure 150/67 H 114/56 L Pulse Oximetry 98 98 Intake & Output 11/20/17 11/21/17 11/21/17 18:59 06:59 18:59 Intake Total 360 / 360 100 / 100 Output Total 900 / 900 3000 / 3000 Balance 360 / 360 -800 / -800 -3000 / -3000 Weight 129 kg Intake: Oral 360 / 360 100 / 100 Output: Urine 900 / 900 Hemodialysis Amount 3000 / 3000 Other: # Voids 3 Date of Last Bowel Movement 11/20/17 11/20/17 11/20/17 Narrative: GENERAL: Obese male, no apparent distress. SKIN: Warm and dry. HEAD: Atraumatic. Normocephalic. EYES: Pupils equal and round. No scleral icterus. No injection or drainage. ENT: No nasal bleeding or discharge. Mucous membranes pink and moist. NECK: Trachea midline. No JVD. CARDIOVASCULAR: Regular rate and rhythm. CHEST: Right chest wall with dialysis catheter in place, no bleeding. RESPIRATORY: Diminished at bases. GASTROINTESTINAL: Abdomen soft, non-tender, nondistended. Hepatic and splenic margins not palpable. MUSCULOSKELETAL: Extremities without clubbing, cyanosis. Bilateral lower extremities with 2+ pitting edema, difficult to palpate pedal pulses. No joint deformities. NEUROLOGICAL: Awake, alert oriented x3. No focal deficits. Speech clear PSYCHIATRIC: Appropriate mood and affect; insight and judgment normal. Assessment and Plan - Assessment (1) Hx of CABG Code(s): Z95.1 - Presence of aortocoronary bypass graft Status: Chronic (2) Diabetes mellitus Code(s): E11.9 - Type 2 diabetes mellitus without complications Status: Chronic Qualifiers: Diabetes mellitus type: type 2 Diabetes mellitus shelter insulin use: with dedicated intermodal truck driver use Diabetes mellitus complication status: with kidney complications Diabetes mellitus complication detail: with chronic kidney disease Chronic kidney disease stage: stage 4 (severe) Qualified Code(s): E11.22 - Type 2 diabetes mellitus with diabetic chronic kidney disease; N18.4 - Chronic kidney disease, stage 4 (severe); Z79.4 - meterman (current) use of insulin (3) ESRD (end stage renal disease) Code(s): N18.6 - End stage renal disease Status: Acute (4) Pulmonary edema Code(s): J81.1 - Chronic pulmonary edema Status: Acute Qualifiers: Chronicity: acute Qualified Code(s): J81.0 - Acute pulmonary edema (5) History of atrial flutter Code(s): Z86.79 - Personal history of other diseases of the circulatory system Status: Acute - Plan Patient admitted for dialysis, Vas-Cath was inserted with bleeding around the catheter stopped Hemodialysis proceedings noted 3 L Off Patient had permacath placement HD MWF Continue to monitor his progress Will need out patient HD arrangement.
[2017-11-21] MEDS: Sodium Chloride 0.9% 2 ML Flush BID IV.FLUSH SCH (20:32)
[2017-11-22] MEDS: Insulin NovoLIN Regular Correctional Sugar Inj SQ SCH ×5 (03:38→20:28)
[2017-11-22] MEDS: Levothyroxine 112 MCG Tablet PO SCH (06:00)
[2017-11-22 07:21] LABS: INR 1.2 Ratio; Prothrombin Time 12.4 sec (9.8-11.6)
[2017-11-22] MEDS: amLODIPine 10 MG Tablet PO SCH (08:40)
[2017-11-22] MEDS: Furosemide 80 MG Tablet PO SCH ×2 (08:40→17:35)
[2017-11-22] MEDS: metOLazone 5 MG Tablet PO SCH (08:40)
[2017-11-22] MEDS: Senna/Docusate Sodium 8.6/50 MG Tablet PO SCH ×2 (08:40→20:28)
[2017-11-22] MEDS: Fenofibrate 145 MG Tablet PO SCH (08:40)
[2017-11-22] MEDS: Sodium Chloride 0.9% 2 ML Flush BID IV.FLUSH SCH ×2 (08:44→20:29)
[2017-11-22] MEDS: Heparin - SQ 10,000 UNITS/ML Vial SQ SCH ×3 (08:44→20:28)
--- NOTE | 2017-11-22 09:25 | P.PN ---
Subjective Interval history: Follow up for volume overload, ESRD: pt. seen and examined, sitting up in chair. Yesterday noted with heart rate dropping down to 30s, Multaq and Lopressor stopped. Patient denies any dizziness, no lightheadedness, no chest pain. Telemetry reviewed, A. fib, slow heart rate as well as bradycardia. Fewer episodes today. Snuff Grinder And Screener is Dr. Mai. Patient still waiting for hemodialysis arrangements. Has no complaints at this time. Refused heparin subcu, informed that we are trying to bridge him as his INR is 1.2. Verbalizes understanding and agrees to take. Physical Exam Vital signs: Vital Signs 11/21/17 12:00 11/21/17 19:57 11/21/17 20:07 Temperature 98.4 F 98.2 F Pulse Rate 64 68 71 Respiratory Rate 18 18 Blood Pressure 114/56 L 126/58 L Pulse Oximetry 98 98 11/22/17 00:01 11/22/17 00:10 11/22/17 03:38 Temperature 98.1 F 98.3 F Pulse Rate 62 74 67 Respiratory Rate 18 18 Blood Pressure 140/63 120/68 Pulse Oximetry 96 97 11/22/17 08:00 Temperature 97.9 F Pulse Rate 69 Respiratory Rate 18 Blood Pressure 133/63 Pulse Oximetry 95 Intake & Output 11/21/17 11/22/17 11/22/17 18:59 06:59 18:59 Intake Total 480 / 480 Output Total 3000 / 3000 1300 / 1300 Balance -3000 / -3000 -820 / -820 Weight 129 kg Intake: Oral 480 / 480 Output: Urine 1300 / 1300 Hemodialysis Amount 3000 / 3000 Other: Date of Last Bowel Movement 11/20/17 11/20/17 11/22/17 # Bowel Movements 0 Narrative: GENERAL: Obese male, no apparent distress. SKIN: Warm and dry. HEAD: Atraumatic. Normocephalic. EYES: Pupils equal and round. No scleral icterus. No injection or drainage. ENT: No nasal bleeding or discharge. Mucous membranes pink and moist. NECK: Trachea midline. No JVD. CARDIOVASCULAR: Regular rate and rhythm. CHEST: Right chest wall with dialysis catheter in place, no bleeding. RESPIRATORY: Diminished at bases. GASTROINTESTINAL: Abdomen soft, non-tender, nondistended. Hepatic and splenic margins not palpable. MUSCULOSKELETAL: Extremities without clubbing, cyanosis. Bilateral lower extremities with 2+ pitting edema, difficult to palpate pedal pulses. No joint deformities. NEUROLOGICAL: Awake, alert oriented x3. No focal deficits. Speech clear PSYCHIATRIC: Appropriate mood and affect; insight and judgment normal. Results - Labs CBC & Chem 7: 11/19/17 07:00 11/19/17 07:00 Laboratory Results - last 24 hr 11/21/17 11/21/17 11/21/17 12:28 17:22 20:20 PT INR POC Glucose 307 H 149 H 243 H 11/22/17 11/22/17 11/22/17 03:36 06:27 07:34 PT 12.4 H INR 1.2 POC Glucose 245 H 268 H Assessment and Plan - Assessment (1) Acute kidney injury superimposed on CKD Code(s): N17.9 - Acute kidney failure, unspecified; N18.9 - Chronic kidney disease, unspecified Status: Acute (2) Volume overload Code(s): E87.70 - Fluid overload, unspecified Status: Acute (3) Acute on chronic diastolic (congestive) heart failure Code(s): I50.33 - Acute on chronic diastolic (congestive) heart failure Status : Acute (4) CAD (coronary artery disease) Code(s): I25.10 - Atherosclerotic heart disease of [place] coronary artery without angina pectoris Status: Chronic (5) Hx of CABG Code(s): Z95.1 - Presence of aortocoronary bypass graft Status: Chronic (6) Diabetes mellitus Code(s): E11.9 - Type 2 diabetes mellitus without complications Status: Chronic (7) Hypertension Code(s): I10 - Essential (primary) hypertension Status: Chronic - Plan 62-year-old white male admitted for volume overload secondary to kidney disease. Acute renal failure superimposed on chronic kidney disease stage V Patient volume overloaded with bilateral lower extremity edema and pulmonary edema -Nephrology following, dialyzing -Status post fistula placement which is not mature at this time. -On Lasix 80 mg PO BID -Abdominal ultrasound is negative for ascites -Vas-Cath removed. Status post permacath placement 11/19. Some bleeding around site, now stopped. -waiting for OP HD chair Diabetes mellitus -Continue home insulin -Continue with Accu-Cheks before meals and at bedtime and medium sliding scale -blood sugars 140s to 240s Atrial fibrillation Bradycardia, HR down to mid 30s yesterday. Slow afib and SB. -Coumadin on hold given some bleeding noted with permacath placement, on heparin for now. -stopped Multaq and Lopressor 11/21 -will consult Dr. Mai. -Resume Coumadin today, monitor INR. Pharmacy to consult. -INR 1.2, continue Heparin for now. D/W pt, agrees to take. CHF Likely contributing to shortness of breath -Continue home Lasix and Zaroxolyn Hypertension/hyperlipidemia Hx of CAD/CABG -Continue Cozaar, Lopressor, Lasix, Cardura, Norvasc, TriCor -Continue ASA Hypothyroidism -Continue Synthroid Continue heparin/Coumadin for DVT prophylaxis Labs in am Code Status: Full code Discussed Condition With: RN, pt., CM Discharge Planning: Discharge pending dialysis chair. (2) Volume overload Qualifiers: Hypervolemia type: unspecified Qualified Code(s): E87.70 - Fluid overload, unspecified (4) CAD (coronary artery disease) Qualifiers: Coronary Disease-Associated Artery/Lesion type: unspecified vessel or lesion type [place] vs. transplanted heart: [place] heart Associated angina: without angina Qualified Code(s): I25.10 - Atherosclerotic heart disease of [place] coronary artery without angina pectoris (6) Diabetes mellitus Qualifiers: Diabetes mellitus type: type 2 Diabetes mellitus [place] [employer] insulin use: with fdc use Diabetes mellitus complication status: with kidney complications Diabetes mellitus complication detail: with chronic kidney disease Chronic kidney disease stage: stage 4 (severe) Qualified Code(s): E11.22 - Type 2 diabetes mellitus with diabetic chronic kidney disease; N18.4 - Chronic kidney disease, stage 4 (severe); Z79.4 - medical terminologist (current) use of insulin (7) Hypertension Qualifiers: Hypertension type: essential hypertension Qualified Code(s): I10 - Essential (primary) hypertension
--- NOTE | 2017-11-22 11:57 | P.CONCA ---
History of Present Illness Service: Cardiology Consult date: 11/22/17 Reason for Consult: Bradycardia Primary Care Provider: Garth Eisenberg MD History of Present Illness: Pleasant 62-year-old male well-known to our practice with a significant past cardiac history of ASHD status post CABG 2006 with a LORENZO to the LAD, SVG to the diagonal and intermediate, atrial fibrillation anticoagulated with Coumadin , CHF, hypertension, hyperlipidemia, end-stage renal disease, shortness of breath, obesity, diabetes and hypothyroidism. He was hospitalized August 2017 for renal failure and fluid overload he follows with Dr. Mireles. He is now on dialysis, has permacath in place, and is receiving dialysis Sunday. Yesterday patient developed bradycardia heart rate in the 30s, he was asymptomatic. Multitak and metoprolol were discontinued. On telemetry today he continues in atrial fibrillation with a rate of 60. He is awaiting discharge home, case management is working on arranging outpatient dialysis, having issues with his insurance and contracts with [email or web address]. He denies any chest pain or increase in shortness of breath no dizziness or syncope. Review of Systems Constitutional: Reports weight gain Eyes: Reports blurry vision Cardiovascular: Reports shortness of breath Respiratory: Reports shortness of breath PMFSH - History History Provided By: Patient - Medical History Medical History: Medical History (Last Reviewed 11/14/17 @ 15:12 by David Mireles MD) History of MRSA infection (Acute) Renal failure (Acute) Anticoagulant long-term use (Acute) TIA (transient ischemic attack) (Acute) Arthritic-like pain (Acute) Sleep apnea with use of continuous positive airway pressure (CPAP) (Acute) Blind (Acute) Lymphedema (Acute) Neuropathy (Acute) History of atrial flutter (Acute) Atrial fibrillation Congestive heart failure (CHF) Diabetes mellitus High cholesterol History of amputation of toe History of bradycardia Hypertension Hypothyroidism Thyroid cancer Toe amputation status - Surgical History Surgical History: Surgical History (Last Reviewed 11/14/17 @ 15:12 by David Mireles MD) History of cholecystectomy History of thyroidectomy Hx of bilateral inguinal hernia repair S/P CABG x 4 - Family History Family History: Family History (Last Reviewed 11/14/17 @ 15:12 by David Mireles MD) Other Family history of acute myocardial infarction Family history of breast cancer Family history of cancer Family history of diabetes mellitus Family history of hypertension - Tobacco History Second Hand Smoke Exposure: No Tobacco Use In Past 30 Days: No Smoking Status: Former smoker Tobacco Type: Cigarettes - Alcohol History How Often Do You Have a Drink Containing Alcohol: Never - Substance Use History Substance History: No History of Abuse - Travel History Recent Travel in the [place] Within the Last 8 Weeks: No Recent Travel Out of the Country Within the Last 8 Weeks: No - Immunization History Tetanus Immunization: <5 Years Hx Influenza Vaccine This Season: No Medications and Allergies Allergies Allergy/AdvReac Type Severity Reaction Status Date / Time No Known Allergies Allergy Verified 10/28/17 10:25 Home Medications Medication Instructions Recorded Confirmed Type amlodipine 10 mg PO DAILY 08/07/17 11/13/17 History aspirin [Aspirin Low Dose] 81 mg PO DAILY 08/07/17 11/13/17 History atorvastatin 20 mg PO DAILY 08/07/17 11/13/17 History cholecalciferol (vitamin D3) 5,000 unit PO DAILY 08/07/17 11/13/17 History [Vitamin D3] coenzyme Q10 [Co Q-10] 200 mg PO DAILY 08/07/17 11/13/17 History doxazosin 2 mg PO BID 08/07/17 11/13/17 History dronedarone [Multaq] 400 mg PO BID 08/07/17 11/13/17 History fenofibrate nanocrystallized 145 mg PO DAILY 08/07/17 11/13/17 History insulin regular hum U-500 conc 15 unit SUB-Q QID 08/07/17 11/13/17 History [Humulin R U-500 (Conc) Kwikpen] levothyroxine 2 cap PO DAILY 08/07/17 11/13/17 History losartan 12.5 mg PO DAILY 08/07/17 11/13/17 History metoprolol tartrate 12.5 mg PO DAILY 08/07/17 11/13/17 History vitamin B comp with C no.4 [Super 150 mg PO DAILY 08/07/17 11/13/17 History B Complex + C] warfarin [Jantoven] 5 mg PO DAILY 08/07/17 11/13/17 History Active Medications: Active Medications Acetaminophen (Tylenol) 650 mg PO UNSCH PRN PRN Reason: SEE LABEL COMMENTS Acetaminophen (Tylenol) 650 mg PO Q4H PRN PRN Reason: Temp > 100.4 Al Hydroxide/Mg Hydroxide (Milk Of Dajuan Kirkpatrick) 30 ml PO Q12H PRN PRN Reason: Mild Constipation Amlodipine Besylate (Norvasc) 10 mg PO DAILY REPLACED BY [facility] Last Admin: 11/22/17 08:40 Dose: 10 mg Aspirin (Ecotrin) 81 mg PO DAILY REPLACED BY [facility] Last Admin: 11/22/17 08:41 Dose: 81 mg Atorvastatin Calcium (Lipitor) 20 mg PO DAILY REPLACED BY [facility] Last Admin: 11/22/17 08:41 Dose: 20 mg Bisacodyl (Dulcolax Supp) 10 mg RECTAL DAILY PRN PRN Reason: SEVERE CONSITIPATION Clonidine HCl (Catapres) 0.1 mg PO UNSCH PRN PRN Reason: SEE LABEL COMMENTS Dextrose (D50w Vial) 50 ml IV.PUSH UNSCH PRN PRN Reason: PER HYPOGLYCEMIA PROTOCOL Diphenhydramine HCl (Benadryl) 25 mg PO UNSCH PRN PRN Reason: SEE LABEL COMMENTS Doxazosin Mesylate (Cardura) 2 mg PO BID REPLACED BY [facility] Last Admin: 11/22/17 08:41 Dose: 2 mg Epoetin Brandon (Epogen Inj) 10,000 unit IV.PUSH UNSCH PRN PRN Reason: SEE LABEL COMMENTS Fenofibrate (Tricor) 145 mg PO DAILY REPLACED BY [facility] Last Admin: 11/22/17 08:40 Dose: 145 mg Furosemide (Lasix) 80 mg PO BID@0900,1800 REPLACED BY [facility] Last Admin: 11/22/17 08:40 Dose: 80 mg Gelatin (Gelfoam 12 Mm/7 Mm Topical) 1 foam TOPICAL PRN PRN PRN Reason: help stop bleeding from site Last Admin: 11/15/17 12:00 Dose: 1 foam Gentamicin Sulfate (Gentamicin Inj) 20 mg OTHER WITH DIALYSIS PRN PRN Reason: Dwell Gentamycin Lock Last Admin: 11/21/17 17:20 Dose: 20 mg Glucagon (Glucagon Inj) 1 mg OTHER PRN PRN PRN Reason: for Hypoglycemia Protocol Heparin Sodium (Porcine) (Heparin Inj) 8,000 units OTHER WITH DIALYSIS PRN PRN Reason: for machine prime Heparin Sodium (Porcine) (Heparin Inj) 1,000 units OTHER WITH DIALYSIS PRN PRN Reason: Dwell Heparin to Fill Catheter Last Admin: 11/21/17 17:20 Dose: 1,000 units Heparin Sodium (Porcine) (Heparin Central Flush) 0 unit IV.FLUSH DAILY PRN PRN Reason: SEE DOSE INSTRUCTIONS Heparin Sodium (Porcine) (Heparin Inj) 5,000 units SQ Q12HR REPLACED BY [facility] Last Admin: 11/22/17 08:44 Dose: Not Given Albumin Human (Flexbumin 25% Inj) 100 mls @ 60 mls/hr IV.SIG WITH DIALYSIS PRN PRN Reason: hypotension / volume replace Last Infusion: 11/14/17 14:34 Dose: Infused Sodium Chloride (Ns Inj) 1,000 mls @ 0 mls/hr OTHER .Q0M PRN PRN Reason: for prime and rinse back Last Admin: 11/19/17 17:59 Dose: 300 mls/hr Sodium Chloride (Ns Inj) 1,000 mls @ 200 mls/hr OTHER .Q5H PRN PRN Reason: for dialyzer flush PRN Sodium Chloride (Ns Inj) 1,000 mls @ 0 mls/hr IV.CONT .Q0M PRN PRN Reason: hypotension / volume replace Vancomycin HCl 1,000 mg/ (Sodium Chloride) 250 mls @ 250 mls/hr IV.SIG WAITER/WAITRESS INFORMAL REPLACED BY [facility] Stop: 11/23/17 09:59 Last Infusion: 11/19/17 12:06 Dose: Infused Insulin Human Regular (Novolin R Correctional Sugar Inj) 0 units SQ ACHS AND 3AM FUENTES; Protocol Last Admin: 11/22/17 08:39 Dose: 7 units Insulin Human Regular (Novolin R Inj) 15 units SQ QID REPLACED BY [facility] Last Admin: 11/22/17 08:40 Dose: 15 units Lactulose (Lactulose Liq) 30 ml PO DAILY PRN PRN Reason: SEVERE CONSITIPATION Levothyroxine Sodium (Synthroid) 224 mcg PO DAILY@0700 REPLACED BY [facility] Last Admin: 11/22/17 06:00 Dose: 224 mcg Losartan Potassium (Cozaar) 12.5 mg PO DAILY REPLACED BY [facility] Last Admin: 11/22/17 08:41 Dose: 12.5 mg Mannitol (Mannitol Inj) 12.5 gm IV.PUSH UNSCH PRN PRN Reason: hypotension / volume replace Metolazone (Zaroxolyn) 5 mg PO DAILY REPLACED BY [facility] Last Admin: 11/22/17 08:40 Dose: 5 mg Metoprolol Tartrate (Lopressor) 12.5 mg PO DAILY REPLACED BY [facility] Last Admin: 11/21/17 08:46 Dose: 12.5 mg Miscellaneous (Pill Splitter) 1 each OTHER UNSCH REPLACED BY [facility] Nitroglycerin (Nitrostat Sl) 0.4 mg SL Q5M PRN PRN Reason: CHEST PAIN Ondansetron HCl (Zofran Inj) 4 mg IV.PUSH UNSCH PRN PRN Reason: NAUSEA OR VOMITING Ondansetron HCl (Zofran Inj) 4 mg IV.PUSH Q6H PRN PRN Reason: NAUSEA OR VOMITING Pharmacy Profile Note (Coumadin Consult Pharmacy) 1 each OTHER UNSCH PRN PRN Reason: PHARMACY DOCUMENTATION Senna/Docusate Sodium (Makayla-Colace) 1 tab PO BID REPLACED BY [facility] Last Admin: 11/22/17 08:40 Dose: 1 tab Sennosides (Senokot) 17.2 mg PO Q12H PRN PRN Reason: Moderate Constipation Sodium Chloride (Ns Flush) 2 ml IV.FLUSH UNSCH PRN PRN Reason: FLUSH AFTER USING IV ACCESS Sodium Chloride (Ns Flush) 5 ml IV.FLUSH PRN PRN PRN Reason: flush each lumen during HD Sodium Chloride (Ns Flush) 0 ml IV.FLUSH PRN PRN PRN Reason: SEE DOSE INSTRUCTIONS Sodium Chloride (Ns Flush) 0 ml IV.FLUSH PRN PRN PRN Reason: SEE DOSE INSTRUCTIONS Sodium Chloride (Ns Flush) 2 ml IV.FLUSH BID REPLACED BY [facility] Last Admin: 11/22/17 08:44 Dose: 2 ml Sodium Chloride (Ns Flush) 2 ml IV.FLUSH PRN PRN PRN Reason: FLUSH AFTER USING IV ACCESS Warfarin Sodium (Coumadin) 5 mg PO DAILY@1600 REPLACED BY [facility] Last Admin: 11/21/17 18:45 Dose: 5 mg Exam Vital signs: Vital Signs 11/21/17 12:00 11/21/17 19:57 11/21/17 20:07 Temperature 98.4 F 98.2 F Pulse Rate 64 68 71 Respiratory Rate 18 18 Blood Pressure 114/56 L 126/58 L Pulse Oximetry 98 98 11/22/17 00:01 11/22/17 00:10 11/22/17 03:38 Temperature 98.1 F 98.3 F Pulse Rate 62 74 67 Respiratory Rate 18 18 Blood Pressure 140/63 120/68 Pulse Oximetry 96 97 11/22/17 08:00 Temperature 97.9 F Pulse Rate 69 Respiratory Rate 18 Blood Pressure 133/63 Pulse Oximetry 95 Intake & Output 11/21/17 11/22/17 11/22/17 18:59 06:59 18:59 Intake Total 480 / 480 Output Total 3000 / 3000 1300 / 1300 Balance -3000 / -3000 -820 / -820 Weight 129 kg Intake: Oral 480 / 480 Output: Urine 1300 / 1300 Hemodialysis Amount 3000 / 3000 Other: Date of Last Bowel Movement 11/20/17 11/20/17 11/22/17 # Bowel Movements 0 - Constitutional no acute distress, obese, chronically ill appearing - Routine HEENT Exam Head: Present: normocephalic, atraumatic Eye: Present: normal accommodation ENT: Present: mucous membranes moist - Routine Neck Exam Present: supple, trachea midline - Routine Chest/Breast/Axilla Exam Comments: left upper chest perma cath in place. - Routine Respiratory Exam Present: diminished air movement - Routine Cardiovascular Exam Present: irregularly irregular - Routine Abdominal Exam Present: soft - Routine Extremities Exam Present: edema - Routine Skin Exam Present: intact - Routine Neurological Exam Present: alert, oriented X3 Results 11/23/17 07:21 11/23/17 07:21 Coagulation 11/22/17 Range/Units 06:27 PT 12.4 H (9.8-11.6) sec Intake and Output 11/21/17 11/22/17 11/22/17 22:59 06:59 14:59 Intake Total 480 / 480 Output Total 3000 / 3000 1300 / 1300 Balance -3000 / -3000 -820 / -820 Intake: Oral 480 / 480 Output: Urine 1300 / 1300 Hemodialysis Amount 3000 / 3000 Other: Date of Last Bowel Movement 11/20/17 11/22/17 # Bowel Movements 0 Weight 129 kg Assessment and Plan - Plan Assessment Atrial fibrillation Congestive heart failure Bradycardia End-stage renal disease Plan -Patient's Coumadin was recently resumed pharmacy is managing dosing, INR is 1.2 today, patient is also receiving subcutaneous heparin twice daily, and until he is therapeutic. -No bradycardia noted on telemetry at this time. Pt did have asymptomatic bradycardia yesterday, HR in the 30s. Telemetry reveals atrial fibrillation heart rate 60s currently. Multaq and metoprolol discontinued. Patient was asymptomatic. We will continue to monitor on telemetry. -No signs of congestive heart failure on exam, patient denies any increase in shortness of breath. -Patient is now on dialysis Sunday, being managed by Dr. Mireles. Case management is working on discharge, trying to arrange outpatient dialysis. The patient was seen and evaluated by Dr. Mai who participated in care management decision making. The exam, history, and the medical decision-making described in the above note were completed with the assistance of the mid-level provider. I reviewed and agree with the findings presented. I attest that I had a [id number] encounter with the patient on the same day, and personally performed and documented my assessment and findings in the medical record. Doing better off chronotropically negative meds. Discussed Condition With: RN and telehealth case manager.
--- NOTE | 2017-11-22 14:39 | P.PNNP ---
Subjective Interval history: Denies any chest pain Physical Exam Vital signs: Vital Signs 11/21/17 19:57 11/21/17 20:07 11/22/17 00:01 Temperature 98.2 F Pulse Rate 68 71 62 Respiratory Rate 18 Blood Pressure 126/58 L Pulse Oximetry 98 11/22/17 00:10 11/22/17 03:38 11/22/17 08:00 Temperature 98.1 F 98.3 F 97.9 F Pulse Rate 74 67 69 Respiratory Rate 18 18 Blood Pressure 140/63 120/68 133/63 Pulse Oximetry 96 97 95 11/22/17 12:00 Temperature 98.1 F Pulse Rate 65 Respiratory Rate 17 Blood Pressure 130/60 Pulse Oximetry 97 Intake & Output 11/21/17 11/22/17 11/22/17 18:59 06:59 18:59 Intake Total 480 / 480 Output Total 3000 / 3000 1300 / 1300 Balance -3000 / -3000 -820 / -820 Weight 129 kg Intake: Oral 480 / 480 Output: Urine 1300 / 1300 Hemodialysis Amount 3000 / 3000 Other: Date of Last Bowel Movement 11/20/17 11/20/17 11/22/17 # Bowel Movements 0 Narrative: GENERAL: Obese male, no apparent distress. SKIN: Warm and dry. HEAD: Atraumatic. Normocephalic. EYES: Pupils equal and round. No scleral icterus. No injection or drainage. ENT: No nasal bleeding or discharge. Mucous membranes pink and moist. NECK: Trachea midline. No JVD. CARDIOVASCULAR: Regular CHEST: Right chest wall with dialysis catheter in place, no bleeding. RESPIRATORY: Diminished at bases. GASTROINTESTINAL: Abdomen soft, non-tender, nondistended. Hepatic and splenic margins not palpable. MUSCULOSKELETAL: Extremities without clubbing, cyanosis. Bilateral lower extremities with 2+ pitting edema, difficult to palpate pedal pulses. No joint deformities. NEUROLOGICAL: Awake, alert oriented x3. No focal deficits. Speech clear PSYCHIATRIC: Appropriate mood and affect; insight and judgment normal. Assessment and Plan - Assessment (1) Hx of CABG Code(s): Z95.1 - Presence of aortocoronary bypass graft Status: Chronic (2) Diabetes mellitus Code(s): E11.9 - Type 2 diabetes mellitus without complications Status: Chronic Qualifiers: Diabetes mellitus type: type 2 Diabetes mellitus emt intermediate insulin use: with emt intermediate use Diabetes mellitus complication status: with kidney complications Diabetes mellitus complication detail: with chronic kidney disease Chronic kidney disease stage: stage 4 (severe) Qualified Code(s): E11.22 - Type 2 diabetes mellitus with diabetic chronic kidney disease; N18.4 - Chronic kidney disease, stage 4 (severe); Z79.4 - longterm (current) use of insulin (3) ESRD (end stage renal disease) Code(s): N18.6 - End stage renal disease Status: Acute (4) Pulmonary edema Code(s): J81.1 - Chronic pulmonary edema Status: Acute Qualifiers: Chronicity: acute Qualified Code(s): J81.0 - Acute pulmonary edema (5) History of atrial flutter Code(s): Z86.79 - Personal history of other diseases of the circulatory system Status: Acute - Plan Patient admitted for dialysis, Vas-Cath was inserted with bleeding around the catheter stopped Hemodialysis Next tomorrow Patient had permacath placement HD MWF Continue to monitor his progress Will need out patient HD arrangement.
--- NOTE | 2017-11-22 19:16 | ECG ---
Date Performed: 11/21/2017 Time Performed: 13:55:00 PTAGE: 62 years EKG: ECTOPIC ATRIAL RHYTHM SECOND DEGREE AVB, TYPE 1 ABNORMAL RHYTHM ECG PREVIOUS TRACING : 11/13/2017 19.22 compared to prior ECG, second degree AVB type 1 is new DOCTOR: Evan Figueroa Interpretating Date/Time 11/22/2017 19:15:47
[2017-11-23] MEDS: Insulin NovoLIN Regular Correctional Sugar Inj SQ SCH ×4 (03:47→18:11)
[2017-11-23 08:12] LABS: Hematocrit 29.2 % (39.0-51.0); Hemoglobin 9.3 gm/dL (13.0-17.0); Mean Corpuscular HGB Conc 31.9 % (32.0-36.0); Mean Corpuscular Volume 84.5 fL (80.0-100.0); Mean Platelet Volume 7.8 fL (7.0-11.0); Platelet Count 217 th/mm3 (150-450); Red Blood Count 3.46 mil/mm3 (4.50-5.90); Red Cell Distribution Width 17.7 % (11.6-17.2); White Blood Count 6.1 th/mm3 (4.0-11.0)
[2017-11-23 08:18] LABS: INR 1.2 Ratio; Prothrombin Time 12.2 sec (9.8-11.6)
[2017-11-23 08:40] LABS: Calcium 9.7 mg/dL (8.5-10.1); Carbon Dioxide 28.7 meq/L (21.0-32.0); Potassium 3.7 meq/L (3.5-5.1)
[2017-11-23] MEDS: Fenofibrate 145 MG Tablet PO SCH (08:54)
[2017-11-23] MEDS: metOLazone 5 MG Tablet PO SCH (08:55)
[2017-11-23] MEDS: amLODIPine 10 MG Tablet PO SCH (08:55)
[2017-11-23] MEDS: Heparin - SQ 10,000 UNITS/ML Vial SQ SCH (08:56)
[2017-11-23] MEDS: Furosemide 80 MG Tablet PO SCH ×2 (11:33→18:08)
[2017-11-23] MEDS: Senna/Docusate Sodium 8.6/50 MG Tablet PO SCH (11:34)
[2017-11-23] MEDS: Sodium Chloride 0.9% 2 ML Flush BID IV.FLUSH SCH (11:34)
--- NOTE | 2017-11-23 12:06 | P.PN ---
Subjective Interval history: Follow up for volume overload, ESRD: pt. seen and examined, sitting up in chair. No more episodes of bradycardia. Hemodynamically stable. No dizziness , no chest pain, shortness of breath. Having dialysis today in the afternoon. Patient feeling optimistic about discharge. Telemetry reviewed, sinus rhythm. No more episodes of bradycardia. Heart rate 80s. Was seen by cardiology yesterday. Physical Exam Vital signs: Vital Signs 11/22/17 12:00 11/22/17 15:30 11/22/17 20:00 Temperature 98.1 F 98.4 F 97.9 F Pulse Rate 65 63 64 Respiratory Rate 17 18 19 Blood Pressure 130/60 120/59 L 140/67 Pulse Oximetry 97 97 95 11/22/17 20:30 11/22/17 23:58 11/23/17 00:00 Temperature 97.8 F 98.1 F Pulse Rate 72 73 73 Respiratory Rate 18 18 Blood Pressure 129/61 129/60 Pulse Oximetry 97 96 11/23/17 04:00 11/23/17 08:00 Temperature 98.0 F 98.4 F Pulse Rate 89 80 Respiratory Rate 19 15 Blood Pressure 149/66 H 143/65 H Pulse Oximetry 96 97 Intake & Output 11/22/17 11/23/17 11/23/17 18:59 06:59 18:59 Intake Total 800 / 800 480 / 480 Output Total 950 / 950 1900 / 1900 400 / 400 Balance -150 / -150 -1420 / -1420 -400 / -400 Weight 129 kg Intake: Oral 800 / 800 480 / 480 Output: Urine 950 / 950 1900 / 1900 400 / 400 Other: Date of Last Bowel Movement 11/22/17 11/22/17 11/22/17 Results - Labs CBC & Chem 7: 11/23/17 07:21 11/23/17 07:21 Laboratory Results - last 24 hr 11/22/17 11/22/17 11/22/17 13:05 17:13 20:24 WBC RBC Hgb Hct MCV MCH MCHC RDW Plt Count MPV PT INR Sodium Potassium Chloride Carbon Dioxide Anion Gap BUN Creatinine Estimated GFR POC Glucose 381 H 311 H 240 H Random Glucose Calcium 11/23/17 11/23/17 11/23/17 03:40 07:21 07:21 WBC RBC Hgb Hct MCV MCH MCHC RDW Plt Count MPV PT 12.2 H INR 1.2 Sodium 135 L Potassium 3.7 Chloride 93 L Carbon Dioxide 28.7 Anion Gap 13 BUN 59 H Creatinine 4.31 H Estimated GFR 14 L POC Glucose 167 H Random Glucose 183 H Calcium 9.7 11/23/17 07:21 WBC 6.1 RBC 3.46 L Hgb 9.3 L Hct 29.2 L MCV 84.5 MCH 27.0 MCHC 31.9 L RDW 17.7 H Plt Count 217 D MPV 7.8 PT INR Sodium Potassium Chloride Carbon Dioxide Anion Gap BUN Creatinine Estimated GFR POC Glucose Random Glucose Calcium Assessment and Plan - Assessment (1) Acute kidney injury superimposed on CKD Code(s): N17.9 - Acute kidney failure, unspecified; N18.9 - Chronic kidney disease, unspecified Status: Acute (2) Volume overload Code(s): E87.70 - Fluid overload, unspecified Status: Acute (3) Acute on chronic diastolic (congestive) heart failure Code(s): I50.33 - Acute on chronic diastolic (congestive) heart failure Status : Acute (4) CAD (coronary artery disease) Code(s): I25.10 - Atherosclerotic heart disease of [place] coronary artery without angina pectoris Status: Chronic (5) Hx of CABG Code(s): Z95.1 - Presence of aortocoronary bypass graft Status: Chronic (6) Diabetes mellitus Code(s): E11.9 - Type 2 diabetes mellitus without complications Status: Chronic (7) Hypertension Code(s): I10 - Essential (primary) hypertension Status: Chronic - Plan 62-year-old white male admitted for volume overload secondary to kidney disease. Acute renal failure superimposed on chronic kidney disease stage V Patient volume overloaded with bilateral lower extremity edema and pulmonary edema -Nephrology following, dialyzing -Status post fistula placement which is not mature at this time. -On Lasix 80 mg PO BID -Abdominal ultrasound is negative for ascites -Vas-Cath removed. Status post permacath placement 11/19. Some bleeding around site, now stopped. -waiting for OP HD chair-may need to switch to a schedule. Diabetes mellitus -Continue home insulin -Continue with Accu-Cheks before meals and at bedtime and medium sliding scale -blood sugars 140s to 240s Atrial fibrillation Bradycardia, HR down to mid 30s yesterday. Slow afib and SB. No more episodes of bradycardia noted. -Coumadin on hold given some bleeding noted with permacath placement, on heparin for now. -stopped Multaq and Lopressor 11/21 -Appreciate Dr. Mai. -Heart rate 80s, will resume Lopressor 12.5 mg p.o. twice daily. Continue to hold Multitak at this time. Will discuss with cardiology. -Pharmacy assisting with Coumadin, INR remains 1.2. To receive 7 mg p.o. today. Continue with heparin subcu. CHF Likely contributing to shortness of breath -Continue home Lasix and Zaroxolyn Hypertension/hyperlipidemia Hx of CAD/CABG -Continue Cozaar, Lopressor, Lasix, Cardura, Norvasc, TriCor -Continue ASA Hypothyroidism -Continue Synthroid Continue heparin/Coumadin for DVT prophylaxis INR in the morning Code Status: Full code Discussed Condition With: RN, pt, CM Discharge Planning: Discharge pending dialysis chair-poss today or this weekend. (2) Volume overload Qualifiers: Hypervolemia type: unspecified Qualified Code(s): E87.70 - Fluid overload, unspecified (4) CAD (coronary artery disease) Qualifiers: Coronary Disease-Associated Artery/Lesion type: unspecified vessel or lesion type [place] vs. transplanted heart: [place] heart Associated angina: without angina Qualified Code(s): I25.10 - Atherosclerotic heart disease of [place] coronary artery without angina pectoris (6) Diabetes mellitus Qualifiers: Diabetes mellitus type: type 2 Diabetes mellitus senior care insulin use: with senior care use Diabetes mellitus complication status: with kidney complications Diabetes mellitus complication detail: with chronic kidney disease Chronic kidney disease stage: stage 4 (severe) Qualified Code(s): E11.22 - Type 2 diabetes mellitus with diabetic chronic kidney disease; N18.4 - Chronic kidney disease, stage 4 (severe); Z79.4 - detention (current) use of insulin (7) Hypertension Qualifiers: Hypertension type: essential hypertension Qualified Code(s): I10 - Essential (primary) hypertension
[2017-11-23 13:05] VITALS: BP 133/60; PULSE 89; RESP 16; TEMP 98.1; O2SAT 96
--- NOTE | 2017-11-23 13:41 | P.PNCA ---
Subjective Interval history: Patient sitting up in chair having lunch. Reports feeling well. Has some exertional SOB, no chest pain, lightheadedness, dizziness or syncope. Did have episode of bradycardia today, HR in the 30s, asymptomatic. Telemetry currently reveals SR HR in the 80s. Will keep off Multaq and Metoprolol for now. Medications and Allergies Allergies Allergy/AdvReac Type Severity Reaction Status Date / Time No Known Allergies Allergy Verified 10/28/17 10:25 Home Medications Medication Instructions Recorded Confirmed Type amlodipine 10 mg PO DAILY 08/07/17 11/13/17 History aspirin [Aspirin Low Dose] 81 mg PO DAILY 08/07/17 11/13/17 History atorvastatin 20 mg PO DAILY 08/07/17 11/13/17 History cholecalciferol (vitamin D3) 5,000 unit PO DAILY 08/07/17 11/13/17 History [Vitamin D3] coenzyme Q10 [Co Q-10] 200 mg PO DAILY 08/07/17 11/13/17 History doxazosin 2 mg PO BID 08/07/17 11/13/17 History dronedarone [Multaq] 400 mg PO BID 08/07/17 11/13/17 History fenofibrate nanocrystallized 145 mg PO DAILY 08/07/17 11/13/17 History insulin regular hum U-500 conc 15 unit SUB-Q QID 08/07/17 11/13/17 History [Humulin R U-500 (Conc) Kwikpen] levothyroxine 2 cap PO DAILY 08/07/17 11/13/17 History losartan 12.5 mg PO DAILY 08/07/17 11/13/17 History metoprolol tartrate 12.5 mg PO DAILY 08/07/17 11/13/17 History vitamin B comp with C no.4 [Super 150 mg PO DAILY 08/07/17 11/13/17 History B Complex + C] warfarin [Jantoven] 5 mg PO DAILY 08/07/17 11/13/17 History Active Medications: Active Medications Acetaminophen (Tylenol) 650 mg PO UNSCH PRN PRN Reason: SEE LABEL COMMENTS Acetaminophen (Tylenol) 650 mg PO Q4H PRN PRN Reason: Temp > 100.4 Al Hydroxide/Mg Hydroxide (Milk Of Magnesia Liq) 30 ml PO Q12H PRN PRN Reason: Mild Constipation Amlodipine Besylate (Norvasc) 10 mg PO DAILY [facility] Last Admin: 11/23/17 08:55 Dose: 10 mg Aspirin (Ecotrin) 81 mg PO DAILY [facility] Last Admin: 11/23/17 08:55 Dose: 81 mg Atorvastatin Calcium (Lipitor) 20 mg PO DAILY [facility] Last Admin: 11/23/17 08:56 Dose: 20 mg Bisacodyl (Dulcolax Supp) 10 mg RECTAL DAILY PRN PRN Reason: SEVERE CONSITIPATION Clonidine HCl (Catapres) 0.1 mg PO UNSCH PRN PRN Reason: SEE LABEL COMMENTS Dextrose (D50w Vial) 50 ml IV.PUSH UNSCH PRN PRN Reason: PER HYPOGLYCEMIA PROTOCOL Diphenhydramine HCl (Benadryl) 25 mg PO UNSCH PRN PRN Reason: SEE LABEL COMMENTS Doxazosin Mesylate (Cardura) 2 mg PO BID [facility] Last Admin: 11/23/17 08:55 Dose: 2 mg Epoetin Brandon (Epogen Inj) 10,000 unit IV.PUSH UNSCH PRN PRN Reason: SEE LABEL COMMENTS Fenofibrate (Tricor) 145 mg PO DAILY [facility] Last Admin: 11/23/17 08:54 Dose: 145 mg Furosemide (Lasix) 80 mg PO BID@0900,1800 [facility] Last Admin: 11/23/17 11:33 Dose: 80 mg Gelatin (Gelfoam 12 Mm/7 Mm Topical) 1 foam TOPICAL PRN PRN PRN Reason: help stop bleeding from site Last Admin: 11/15/17 12:00 Dose: 1 foam Gentamicin Sulfate (Gentamicin Inj) 20 mg OTHER WITH DIALYSIS PRN PRN Reason: Dwell Gentamycin Lock Last Admin: 11/21/17 17:20 Dose: 20 mg Glucagon (Glucagon Inj) 1 mg OTHER PRN PRN PRN Reason: for Hypoglycemia Protocol Heparin Sodium (Porcine) (Heparin Inj) 8,000 units OTHER WITH DIALYSIS PRN PRN Reason: for machine prime Heparin Sodium (Porcine) (Heparin Inj) 1,000 units OTHER WITH DIALYSIS PRN PRN Reason: Dwell Heparin to Fill Catheter Last Admin: 11/21/17 17:20 Dose: 1,000 units Heparin Sodium (Porcine) (Heparin Central Flush) 0 unit IV.FLUSH DAILY PRN PRN Reason: SEE DOSE INSTRUCTIONS Heparin Sodium (Porcine) (Heparin Inj) 5,000 units SQ Q12HR [facility] Last Admin: 11/23/17 08:56 Dose: 5,000 units Albumin Human (Flexbumin 25% Inj) 100 mls @ 60 mls/hr IV.SIG WITH DIALYSIS PRN PRN Reason: hypotension / volume replace Last Infusion: 11/14/17 14:34 Dose: Infused Sodium Chloride (Ns Inj) 1,000 mls @ 0 mls/hr OTHER .Q0M PRN PRN Reason: for prime and rinse back Last Admin: 11/19/17 17:59 Dose: 300 mls/hr Sodium Chloride (Ns Inj) 1,000 mls @ 200 mls/hr OTHER .Q5H PRN PRN Reason: for dialyzer flush PRN Sodium Chloride (Ns Inj) 1,000 mls @ 0 mls/hr IV.CONT .Q0M PRN PRN Reason: hypotension / volume replace Insulin Human Regular (Novolin R Correctional Sugar Inj) 0 units SQ ACHS AND 3AM FUENTES; Protocol Last Admin: 11/23/17 11:34 Dose: 2 units Insulin Human Regular (Novolin R Inj) 15 units SQ QID [facility] Last Admin: 11/23/17 11:34 Dose: 15 units Lactulose (Lactulose Liq) 30 ml PO DAILY PRN PRN Reason: SEVERE CONSITIPATION Levothyroxine Sodium (Synthroid) 224 mcg PO DAILY@0700 [facility] Last Admin: 11/22/17 06:00 Dose: 224 mcg Losartan Potassium (Cozaar) 12.5 mg PO DAILY [facility] Last Admin: 11/23/17 08:54 Dose: 12.5 mg Mannitol (Mannitol Inj) 12.5 gm IV.PUSH UNSCH PRN PRN Reason: hypotension / volume replace Metolazone (Zaroxolyn) 5 mg PO DAILY [facility] Last Admin: 11/23/17 08:55 Dose: 5 mg Miscellaneous (Pill Splitter) 1 each OTHER UNSCH [facility] Nitroglycerin (Nitrostat Sl) 0.4 mg SL Q5M PRN PRN Reason: CHEST PAIN Ondansetron HCl (Zofran Inj) 4 mg IV.PUSH UNSCH PRN PRN Reason: NAUSEA OR VOMITING Ondansetron HCl (Zofran Inj) 4 mg IV.PUSH Q6H PRN PRN Reason: NAUSEA OR VOMITING Pharmacy Profile Note (Coumadin Consult Pharmacy) 1 each OTHER UNSCH PRN PRN Reason: PHARMACY DOCUMENTATION Senna/Docusate Sodium (Makayla-Colace) 1 tab PO BID [facility] Last Admin: 11/23/17 11:34 Dose: 1 tab Sennosides (Senokot) 17.2 mg PO Q12H PRN PRN Reason: Moderate Constipation Sodium Chloride (Ns Flush) 2 ml IV.FLUSH UNSCH PRN PRN Reason: FLUSH AFTER USING IV ACCESS Sodium Chloride (Ns Flush) 5 ml IV.FLUSH PRN PRN PRN Reason: flush each lumen during HD Sodium Chloride (Ns Flush) 0 ml IV.FLUSH PRN PRN PRN Reason: SEE DOSE INSTRUCTIONS Sodium Chloride (Ns Flush) 0 ml IV.FLUSH PRN PRN PRN Reason: SEE DOSE INSTRUCTIONS Sodium Chloride (Ns Flush) 2 ml IV.FLUSH BID [facility] Last Admin: 11/23/17 11:34 Dose: 2 ml Sodium Chloride (Ns Flush) 2 ml IV.FLUSH PRN PRN PRN Reason: FLUSH AFTER USING IV ACCESS Warfarin Sodium (Coumadin) 5 mg PO DAILY@1600 [facility] Last Admin: 11/22/17 16:54 Dose: 5 mg Warfarin Sodium (Coumadin) 2 mg PO ONCE@1600 ONE Stop: 11/23/17 16:01 Physical Exam Vital signs: Vital Signs 11/22/17 15:30 11/22/17 20:00 11/22/17 20:30 Temperature 98.4 F 97.9 F 97.8 F Pulse Rate 63 64 72 Respiratory Rate 18 19 18 Blood Pressure 120/59 L 140/67 129/61 Pulse Oximetry 97 95 97 11/22/17 23:58 11/23/17 00:00 11/23/17 04:00 Temperature 98.1 F 98.0 F Pulse Rate 73 73 89 Respiratory Rate 18 19 Blood Pressure 129/60 149/66 H Pulse Oximetry 96 96 11/23/17 08:00 11/23/17 12:00 Temperature 98.4 F 98.1 F Pulse Rate 80 89 Respiratory Rate 15 16 Blood Pressure 143/65 H 133/60 Pulse Oximetry 97 96 Intake & Output 11/22/17 11/23/17 11/23/17 18:59 06:59 18:59 Intake Total 800 / 800 480 / 480 Output Total 950 / 950 1900 / 1900 400 / 400 Balance -150 / -150 -1420 / -1420 -400 / -400 Weight 129 kg Intake: Oral 800 / 800 480 / 480 Output: Urine 950 / 950 1900 / 1900 400 / 400 Other: Date of Last Bowel Movement 11/22/17 11/22/17 11/22/17 - Constitutional no acute distress, obese - Routine HEENT Exam Head: Present: normocephalic, atraumatic Eye: Present: normal accommodation ENT: Present: mucous membranes moist - Routine Neck Exam Present: supple, trachea midline - Routine Respiratory Exam Present: diminished air movement - Routine Cardiovascular Exam Present: RRR - Routine Abdominal Exam Present: soft - Routine Extremities Exam Present: edema, AV fistula - Routine Skin Exam Present: intact - Routine Neurological Exam Present: alert, oriented X3 - Detailed Neurological Exam: Coma Scale Eye Opening: Spontaneous Verbal Response: Oriented Motor Response: Obey commands Morris Coma Scale Total: 15 Results 11/23/17 07:21 11/23/17 07:21 Coagulation 11/22/17 11/23/17 Range/Units 06:27 07:21 PT 12.4 H 12.2 H (9.8-11.6) sec CBC 11/23/17 Range/Units 07:21 WBC 6.1 (4.0-11.0) th/mm3 RBC 3.46 L (4.50-5.90) mil/mm3 Hgb 9.3 L (13.0-17.0) gm/dL Hct 29.2 L (39.0-51.0) % Plt Count 217 D (150-450) th/mm3 Comprehensive Metabolic Panel 11/23/17 Range/Units 07:21 Sodium 135 L (136-145) meq/L Potassium 3.7 (3.5-5.1) meq/L Chloride 93 L (98-107) meq/L Carbon Dioxide 28.7 (21.0-32.0) meq/L BUN 59 H (7-18) mg/dL Creatinine 4.31 H (0.60-1.30) mg/dL Calcium 9.7 (8.5-10.1) mg/dL Intake and Output 11/22/17 11/23/17 11/23/17 22:59 06:59 14:59 Intake Total 800 / 800 480 / 480 Output Total 950 / 950 1900 / 1900 400 / 400 Balance -150 / -150 -1420 / -1420 -400 / -400 Intake: Oral 800 / 800 480 / 480 Output: Urine 950 / 950 1900 / 1900 400 / 400 Other: Date of Last Bowel Movement 11/22/17 11/22/17 Weight 129 kg Assessment and Plan - Plan Assessment Atrial fibrillation Congestive heart failure Bradycardia End-stage renal disease Plan -INR is 1.2 today, Also receiving subcutaneous heparin BID. Pharmacy dosing coumadin. -Had additional episode of bradycardia today, HR in the 30s. Asymptomatic. Telemetry reveals SR, HR 80s. Will stay off Multaq and Metoprolol for now. May consider outpatient air sampling and monitoring. -No signs of congestive heart failure on exam, patient denies any increase in shortness of breath. Now on dialysis. -Patient is now on dialysis Sunday, being managed by Dr. Mireles. Case management is working on discharge, trying to arrange outpatient dialysis. The patient was seen and evaluated by Dr. Mai who participated in care management decision making. The exam, history, and the medical decision-making described in the above note were completed with the assistance of the mid-level provider. I reviewed and agree with the findings presented. I attest that I had a [id number] encounter with the patient on the same day, and personally performed and documented my assessment and findings in the medical record. HR better off meds. Discussed Condition With: GINO
[2017-11-23] MEDS: Heparin 10,000 UNITS/10 ML Vial (for IV use) OTHER PRN (16:27)
--- NOTE | 2017-11-23 16:51 | P.PNNP ---
Subjective Interval history: Patient is dialysis patient Physical Exam Vital signs: Vital Signs 11/22/17 20:00 11/22/17 20:30 11/22/17 23:58 Temperature 97.9 F 97.8 F Pulse Rate 64 72 73 Respiratory Rate 19 18 Blood Pressure 140/67 129/61 Pulse Oximetry 95 97 11/23/17 00:00 11/23/17 04:00 11/23/17 08:00 Temperature 98.1 F 98.0 F 98.4 F Pulse Rate 73 89 80 Respiratory Rate 18 19 15 Blood Pressure 129/60 149/66 H 143/65 H Pulse Oximetry 96 96 97 11/23/17 12:00 Temperature 98.1 F Pulse Rate 89 Respiratory Rate 16 Blood Pressure 133/60 Pulse Oximetry 96 Intake & Output 11/22/17 11/23/17 11/23/17 18:59 06:59 18:59 Intake Total 800 / 800 480 / 480 Output Total 950 / 950 1900 / 1900 400 / 400 Balance -150 / -150 -1420 / -1420 -400 / -400 Weight 129 kg Intake: Oral 800 / 800 480 / 480 Output: Urine 950 / 950 1900 / 1900 400 / 400 Other: Date of Last Bowel Movement 11/22/17 11/22/17 11/22/17 Narrative: GENERAL: Obese male, no apparent distress. SKIN: Warm and dry. HEAD: Atraumatic. Normocephalic. EYES: Pupils equal and round. No scleral icterus. No injection or drainage. ENT: No nasal bleeding or discharge. Mucous membranes pink and moist. NECK: Trachea midline. No JVD. CARDIOVASCULAR: Regular CHEST: Right chest wall with dialysis catheter in place, no bleeding. RESPIRATORY: Diminished at bases. GASTROINTESTINAL: Abdomen soft, non-tender, nondistended. Hepatic and splenic margins not palpable. MUSCULOSKELETAL: Extremities without clubbing, cyanosis. Bilateral lower extremities with 2+ pitting edema, difficult to palpate pedal pulses. No joint deformities. NEUROLOGICAL: Awake, alert oriented x3. No focal deficits. Speech clear PSYCHIATRIC: Appropriate mood and affect; insight and judgment normal. 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 operator insulin use: with skilled nursing use Diabetes mellitus complication status: with kidney complications Diabetes mellitus complication detail: with chronic kidney disease Chronic kidney disease stage: stage 4 (severe) Qualified Code(s): E11.22 - Type 2 diabetes mellitus with diabetic chronic kidney disease; N18.4 - Chronic kidney disease, stage 4 (severe); Z79.4 - facility designer (current) use of insulin (3) ESRD (end stage renal disease) Code(s): N18.6 - End stage renal disease Status: Acute (4) Pulmonary edema Code(s): J81.1 - Chronic pulmonary edema Status: Acute Qualifiers: Chronicity: acute Qualified Code(s): J81.0 - Acute pulmonary edema (5) History of atrial flutter Code(s): Z86.79 - Personal history of other diseases of the circulatory system Status: Acute - Plan Patient admitted for dialysis, Hemodialysis Patient had permacath placement HD MWF dialysis 3L off can be dc to out patient clinic
--- NOTE | 2017-11-24 18:21 | P.DS ---
Date of admission: 11/13/17 21:43 Primary care physician: Garth Eisenberg MD Attending physician on discharge: Dawn Sanchez Anticipated date of discharge: 11/23/17 Brief History from admission: 62-year-old male with a past medical history significant for stage V chronic kidney disease, atrial fibrillation anticoagulated on Coumadin, CHF, CAD, diabetes mellitus, hypertension, hyperlipidemia, JUSTIN and hypothyroidism presents to the emergency department for the evaluation of shortness of breath and fatigue times 4-5 days. The patient spoke with his wood form builder, Dr. Mireles , who recommended that he come to the emergency department for further evaluation. He endorses bilateral lower extremity edema that is worsening. He also complains of nausea and dry heaves. No abdominal pain or diarrhea. No chest pain. No fever/chills. No lateralizing signs/symptoms. DS: Diagnosis - Discharge Diagnosis (1) Acute kidney injury superimposed on CKD Status: Acute (2) Volume overload Status: Acute (3) Acute on chronic diastolic (congestive) heart failure Status: Acute (4) CAD (coronary artery disease) Status: Chronic (5) Hx of CABG Status: Chronic (6) Diabetes mellitus Status: Chronic (7) Hypertension Status: Chronic DS: Summary Hospital Course: 62-year-old male with a past medical history significant for stage V chronic kidney disease, atrial fibrillation anticoagulated on Coumadin, CHF, CAD, diabetes mellitus, hypertension, hyperlipidemia, JUSTIN and hypothyroidism presented to the emergency department for the evaluation of shortness of breath and fatigue times 4-5 days. The patient spoke with his wood form builder, Dr. Mireles , who recommended that he come to the emergency department for further evaluation. He endorsed bilateral lower extremity edema that is worsening. He also complained of nausea and dry heaves. No abdominal pain or diarrhea. No chest pain. No fever/chills. No lateralizing signs/symptoms. Dialysis catheter was placed. Patient was initiated on dialysis. Patient had a fistula that had been placed but was not mature. Patient was continued on Lasix 80 mg twice daily. Abdominal ultrasound negative for ascites. Case management consulted to assist with discharge planning and arrange outpatient chair. Vas- Cath was removed, patient had permacath placed on November 19. He had some bleeding around site, Coumadin was stopped. H&H was monitor, it was stable. Patient has history of A. fib, he was noted bradycardic down to mid 30s. Multaq was stopped as well as Lopressor. Cardiology was consulted. Heart rate started trending up to 80s. Restarted on Lopressor. Patient restarted on Coumadin, INR was monitored. Continued on heparin. No further bleeding. Patient symptoms of volume overload as well as edema improved, patient was ambulating in room and getting up to chair. Discharge was delayed as patient's insurance cancelled contract with [facility] and there was difficulty finding a dialysis center that could take patient's insurance. Patient was finally discharge in stable condition. He was instructed to have an INR in 3 days, he was to continue on Coumadin 5 mg p.o. daily. He was instructed to resume Lopressor but stop Multaq. He had follow-up appointment with set up - Time Spent with Patient Total time spent providing and/or coordinating discharge services: 35 minutes Greater than 30 minutes - Quality: VTE Deep Vein Thrombosis/Pulmonary Embolism Present on Admission: No Exam Vital signs: Intake & Output 11/23/17 11/24/17 11/24/17 18:59 06:59 18:59 Output Total 3400 / 3400 Balance -3400 / -3400 Output: Urine 400 / 400 Hemodialysis Amount 3000 / 3000 Other: Date of Last Bowel Movement 11/22/17 Results Procedures completed during hospitalization: Status post permacath placement 11/19 - Impressions ITS Impressions Chest X-Ray 11/13/17 20:05 CONCLUSION: Cardiomegaly with increase in pulmonary vascularity. Catheter Placement 11/14/17 06:00 CONCLUSION: 1. Uncomplicated line placement as above. Abdomen Ultrasound 11/18/17 00:00 CONCLUSION: 1. No sonographic evidence for ascites. Central Venous Line 11/19/17 08:00 CONCLUSION: Uncomplicated ultrasound and fluoroscopic guided central venous dialysis PermaCath placement as above. Tube Removal 11/19/17 12:30 CONCLUSION: Uncomplicated central venous dialysis catheter removal. Discharge Plan - Discharge Disposition Patient Disposition: 01 Discharge Home - Discharge Condition Condition: Stable - Discharge Order Discharge Orders: Discharge Order (Routine); Ordered 11/23/17 Ordered By: Vahe Morillo Nephrology Clear for Discharge (Routine); Ordered 11/23/17 Ordered By: David Mireles - Discharge Details Anticipated Discharge Date: 10/19/18 - Physicians Team Primary Care Provider: Garth Eisenberg Attending Provider: Dawn Sanchez Other Providers: David Mireles MD ; Shree Mai MD
== END 2017-11-23 18:51 | disposition home or self-care (01) ==
LOC: NEPC 16:47 → NEDA 21:43 → HIMC 23:30 → N06 11-18 03:03
PROVIDERS: ADMIT Hospitalist; ATTEND Hospitalist